=== PATIENT | male | born 1955 | race American Indian/Alaskan Native ===

== ENCOUNTER 2018-02-09 13:50 | Inpatient (IN) | payer MEDICARE ==
--- NOTE | 2018-02-09 14:48 | RAD ---
PROCEDURE: CHEST RADIOGRAPH, 1 VIEW HISTORY: SOB COMPARISON: None available. FINDINGS: LUNGS: Clear. PLEURA: Probable small bilateral pleural effusion. No pneumothorax. CARDIOVASCULAR: Normal heart size. AICD. No congestive change. OSSEOUS STRUCTURES: No significant abnormalities. VISUALIZED UPPER ABDOMEN: Normal. OTHER FINDINGS: None. IMPRESSION: Probable small bilateral pleural effusion.
[2018-02-09 15:03] LABS: BASO # 0.1 K/uL (0.0-0.2); BASO % 1.4 % (0.0-2.0); EOS # 0.1 K/uL (0.0-0.7); EOS % 2.1 % (0.0-4.0); HEMOGLOBIN 13.5 g/dL (12.0-18.0); LYMPH % 16.8 % (20.0-40.0); MEAN CELL VOLUME 85.6 fL (80.0-94.0); MEAN CORPUSCULAR HGB CONC 31.6 g/dL (33.0-37.0); MEAN PLATELET VOLUME 8.6 fL (7.2-11.7); MONO # 0.7 K/uL (0.0-0.8); MONO % 11.9 % (0.0-10.0); NEUT # 4.1 K/uL (1.8-7.0); NEUT % 67.8 % (50.0-75.0); NRBC % 0.1 % (0.0-2.0); RED CELL DISTRIBUTION WIDTH 19.1 % (11.5-14.5)
[2018-02-09 15:23] LABS: ALBUMIN 3.4 g/dL (3.5-5.0); CALCIUM 8.8 mg/dl (8.6-10.4)
[2018-02-09 15:33] LABS: CK-MB 1.53 ng/mL (0.0-3.38); TROPONIN I 0.026 ng/mL (0.00-0.120)
--- NOTE | 2018-02-09 17:16 | C.PDOC ---
History Of Present Illness 62-year-old male, presents to the emergency department with complaints worsening shortness of breath for the past six months. Over the past 1 week, symptoms have worsened and he has also developed worsening lower extremity edema. Patient has PMHx of CHF. He denies chest pain, fever, cough, trauma/ injuries. 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 Patient denies fever, chills, sensory changes, nausea/vomiting, or any other associated symptoms. Time Seen by Provider: 02/09/18 14:18 Chief Complaint (Nursing): Shortness Of Breath History Per: Patient History/Exam Limitations: no limitations Onset/Duration Of Symptoms: Gradual Current Symptoms Are (Timing): Worse Current Respiratory Medications: See Home Med List Severity: Moderate Past Medical History Reviewed: Historical Data, Nursing Documentation, Vital Signs Vital Signs: Last Vital Signs Temp 99.4 F 02/16/18 09:25 Pulse 97 H 02/16/18 09:25 Resp 20 02/16/18 09:25 BP 139/87 02/16/18 09:59 Pulse Ox 96 02/16/18 09:25 - Medical History PMH: Benign Prostatic Hyperplasia, CHF, Diabetes, HTN, Hypercholesterolemia, Kidney Stones, Peripheral Edema Surgical History: Cholecystectomy Family History: States: No Known Family Hx - Social History Hx Tobacco Use: No Hx Alcohol Use: No Hx Substance Use: No - Immunization History Hx Tetanus Toxoid Vaccination: Yes Hx Influenza Vaccination: Yes Hx Pneumococcal Vaccination: No Review Of Systems Constitutional: Negative for: Fever, Chills Cardiovascular: Negative for: Chest Pain, Palpitations Respiratory: Positive for: Shortness of Breath, SOB with Excertion. Negative for: Cough, Wheezing Gastrointestinal: Negative for: Nausea, Vomiting, Abdominal Pain Musculoskeletal: Positive for: Other (leg swelling ). Negative for: Back Pain Skin: Negative for: Rash Neurological: Negative for: Weakness, Numbness, Headache Physical Exam - Physical Exam Appears: Well, Non-toxic, No Acute Distress, Other (speaking in full sentences ) Skin: Warm, Dry, No Rash Head: Normacephalic Eye(s): bilateral: Normal Inspection Oral Mucosa: Moist Neck: Normal, Normal ROM Chest: Symmetrical Cardiovascular: Rhythm Regular Respiratory: Normal Breath Sounds, No Rales, No Rhonchi, No Wheezing Gastrointestinal/Abdominal: Normal Exam, Bowel Sounds, Soft, No Tenderness ( obese), No Guarding, No Rebound Extremity: Normal ROM, Pedal Edema (+2 pitting edema B/L LEs), Capillary Refill (< 2 sec all digits ), No Deformity, No Swelling, Other (chronic changes to B/L lower extremities, with scattered dressed wounds (freshly dressed today by Dr. Carrillo)) Pulses: Left Dorsalis Pedis: Normal, Right Dorsalis Pedis: Normal Neurological/Psych: Oriented x3 ED Course And Treatment - Laboratory Results Result Diagrams: 02/16/18 07:03 02/16/18 07:03 ECG: Interpreted By Me, Viewed By Me ECG Rhythm: Atrial Fibrillation ECG Interpretation: Abnormal Interpretation Of ECG: atrial fibrillation 74 bpm, left axis deviation, ventricular pacing, T wave inversions in AVF and V6. No acute ST changes O2 Sat by Pulse Oximetry: 94 (nc) Pulse Ox Interpretation: Abnormal Progress Note: Blood work, CXR, EKG ordered and reviewed. Venous doppler done, neg for acute DVT as per tech. Spoke with Dr. Sundar Harrison, since Dr. Wilfrid Harrison admits under Dr. Juvencio Miranda, would like patient admitted under his service. Repeat EKG done and underlying rhythm appears to be atrial fibrillation. Patient has no prior history of atrial fibrillation in [place] records reviewed or when asked. IV heparin ordered for anticoagulation. Patient admits to history of PE, currently on coumadin. Coags added. - Physician Consult Information Physician Contacted: Darien Miranda Outcome Of Conversation: Discussed patient with Dr. Juvencio Miranda, agrees with admission under his service. 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 Disposition - Disposition Disposition: HOSPITALIZED Disposition Time: 17:29 Condition: STABLE - Clinical Impression Clinical Impression: Acute CHF, New onset atrial fibrillation - Scribe Statement The provider has reviewed the documentation as recorded by the Scribe (Caleb Zhao) All medical record entries made by the Scribe were at my direction and personally dictated by me. I have reviewed the chart and agree that the record accurately reflects my personal performance of the history, physical exam, medical decision making, and the department course for this patient. I have also personally directed, reviewed, and agree with the discharge instructions and disposition. Decision To Admit - Pt Status Changed To: Hospital Disposition Of: Inpatient - Admit Certification Admit to Inpatient:: After my assessment, the patient will require hospitalization for at least two midnights. This is because of the severity of symptoms shown, intensity of services needed, and/or the medical risk in this patient being treated as an outpatient. - InPatient: Physician Admission Certification: I certify that this patient requires 2 or more midnights of care for the following reason:: see notes - . Bed Request Type: Telemetry Admitting Physician: Darien Miranda Patient Diagnosis: Acute CHF, New onset atrial fibrillation
--- NOTE | 2018-02-09 21:10 | CP.PCM.HP ---
Past Patient History - Past Medical History & Family History Past Medical History?: Yes - Past Social History Smoking Status: Never Smoked - CARDIAC Hx Cardiac Disorders: Yes Hx Congestive Heart Failure: Yes Hx Hypercholesterolemia: Yes Hx Hypertension: Yes Hx Peripheral Edema: Yes - RENAL Hx Chronic Kidney Disease: Yes Hx Kidney Stones: Yes - ENDOCRINE/METABOLIC Hx Endocrine Disorders: Yes Hx Diabetes Mellitus Type 1: Yes - MUSCULOSKELETAL/RHEUMATOLOGICAL Hx Falls: No - PSYCHIATRIC Hx Psychophysiologic Disorder: No Hx Substance Use: No - SURGICAL HISTORY Hx Surgeries: Yes Hx Cholecystectomy: Yes - ANESTHESIA Hx Anesthesia: Yes Hx Anesthesia Reactions: No Meds Allergies/Adverse Reactions: Allergies Allergy/AdvReac Type Severity Reaction Status Date / Time No Known Allergies Allergy Verified 02/09/18 14:08 Results - Vital Signs Recent Vital Signs: Last Vital Signs Temp 97.4 F L 02/09/18 19:45 Pulse 72 02/09/18 20:47 Resp 20 02/09/18 19:45 BP 116/81 02/09/18 19:45 Pulse Ox 96 02/09/18 19:45 - Labs Result Diagrams: 02/09/18 14:57 02/09/18 14:57 Labs: Laboratory Results - last 24 hr 02/09/18 02/09/18 14:57 14:57 WBC 6.0 RBC 5.00 Hgb 13.5 Hct 42.8 MCV 85.6 MCH 27.0 MCHC 31.6 L RDW 19.1 H Plt Count 196 MPV 8.6 Neut % (Auto) 67.8 Lymph % (Auto) 16.8 L Kershaw % (Auto) 11.9 H Eos % (Auto) 2.1 Baso % (Auto) 1.4 Neut # (Auto) 4.1 Lymph # (Auto) 1.0 [place]haw # (Auto) 0.7 Eos # (Auto) 0.1 Baso # (Auto) 0.1 Sodium 148 Potassium 4.2 Chloride 108 H Carbon Dioxide 26 Anion Gap 18 BUN 37 H Creatinine 1.9 H Est GFR ( Amer) 44 Est GFR (Non-Af Amer) 36 Random Glucose 136 H Calcium 8.8 Total Bilirubin 3.7 H AST 31 ALT 23 Alkaline Phosphatase 138 H Total Creatine Kinase 63 CK-MB (Mass) 1.53 Troponin I 0.0260 NT-Pro-B Natriuret Pep 06568 H Total Protein 6.7 Albumin 3.4 L Globulin 3.3 Albumin/Globulin Ratio 1.0
[2018-02-09] MEDS: Brimonidine 0.2% Opth Sol (5ml) OU SCH (21:36)
[2018-02-09] MEDS: Insulin Detemir 100 units/ml Vial (Levemir) SC SCH (22:37)
[2018-02-09] MEDS: Latanoprost 2.5 ml Opht Soln OU SCH (22:37)
[2018-02-10 00:23] LABS: INR 1.4; PROTHROMBIN TIME 14.9 SECONDS (9.7-12.2)
[2018-02-10 00:39] LABS: CK-MB 1.53 ng/mL (0.0-3.38); TROPONIN I 0.03 ng/mL (0.00-0.120)
[2018-02-10] MEDS: Albuterol-Ipratrop 3 mg / 0.5 (3 ml) UD INH SCH ×5 (01:34→19:50)
[2018-02-10 07:51] LABS: CK-MB 1.58 ng/mL (0.0-3.38); TROPONIN I 0.032 ng/mL (0.00-0.120)
[2018-02-10] MEDS: (Novolog) Insulin Aspart, Recombinant 100 u/ml 10 ml vial SC SCH ×3 (08:26→17:19)
[2018-02-10] MEDS: Metoprolol Succinate 50 mg XL Tab PO SCH (09:36)
[2018-02-10] MEDS: Brimonidine 0.2% Opth Sol (5ml) OU SCH (09:50)
[2018-02-10 14:09] LABS: BASO # 0.1 K/uL (0.0-0.2); BASO % 1.6 % (0.0-2.0); EOS # 0.2 K/uL (0.0-0.7); EOS % 3.5 % (0.0-4.0); HEMOGLOBIN 13.1 g/dL (12.0-18.0); LYMPH # 1.4 K/uL (1.0-4.3); LYMPH % 25.7 % (20.0-40.0); MEAN CELL VOLUME 86.3 fL (80.0-94.0); MEAN CORPUSCULAR HEMOGLOBIN 27.1 pg (27.0-31.0); MEAN CORPUSCULAR HGB CONC 31.4 g/dL (33.0-37.0); MEAN PLATELET VOLUME 8.8 fL (7.2-11.7); MONO # 0.7 K/uL (0.0-0.8); MONO % 13.3 % (0.0-10.0); NEUT # 2.9 K/uL (1.8-7.0); NEUT % 55.9 % (50.0-75.0); NRBC % 0.2 % (0.0-2.0); RBC 4.85 Mil/uL (4.40-5.90); RED CELL DISTRIBUTION WIDTH 19.3 % (11.5-14.5); WHITE BLOOD COUNT 5.3 K/uL (4.8-10.8)
[2018-02-10 14:14] LABS: ALBUMIN 3.6 g/dL (3.5-5.0); CALCIUM 9.1 mg/dl (8.6-10.4)
--- NOTE | 2018-02-10 16:01 | CP.PCM.PN ---
Subjective - Date & Time of Evaluation Date of Evaluation: 02/10/18 Time of Evaluation: 11:20 - Subjective Subjective: clinically same Objective - Vital Signs/Intake and Output Vital Signs (last 24 hours): Temp Pulse Resp BP Pulse Ox 97.5 F L 70 20 132/90 96 02/10/18 08:42 02/10/18 08:42 02/10/18 08:42 02/10/18 09:34 02/10/18 08:42 Intake and Output: 02/10/18 02/10/18 06:59 18:59 Intake Total 240 Output Total 800 Balance -560 - Medications Medications: Current Medications Albuterol/Ipratropium (Duoneb 3 Mg/0.5 Mg (3 Ml) Ud) 3 ml INH RQ6 [facility] Last Admin: 02/10/18 13:14 Dose: 3 ml Allopurinol (Zyloprim) 100 mg PO DAILY [facility] Last Admin: 02/10/18 09:33 Dose: 100 mg Amlodipine Besylate (Norvasc) 10 mg PO DAILY [facility] Last Admin: 02/10/18 09:33 Dose: 10 mg Aspirin (Ecotrin) 81 mg PO DAILY [facility] Last Admin: 02/10/18 09:34 Dose: 81 mg Brimonidine Tartrate (Alphagan 0.2% Opht) 0 ml OU DAILY [facility] Last Admin: 02/10/18 09:50 Dose: 0.2 drop Furosemide (Lasix) 40 mg IVP DAILY [facility] Last Admin: 02/10/18 09:34 Dose: 40 mg Insulin Aspart (Novolog) 8 unit SC AC [facility] Last Admin: 02/10/18 12:25 Dose: 8 unit Insulin Detemir (Levemir) 25 unit SC HS [facility] Last Admin: 02/09/18 22:37 Dose: 25 unit Latanoprost (Xalatan Opht) 0 ml OU HS [facility] Last Admin: 02/09/18 22:37 Dose: 2.5 ml Losartan Potassium (Cozaar) 25 mg PO DAILY [facility] Last Admin: 02/10/18 09:33 Dose: 25 mg Metoprolol Succinate (Toprol Xl) 25 mg PO DAILY [facility] Last Admin: 02/10/18 09:36 Dose: 25 mg Pneumococcal Polyvalent Vaccine (Pneumovax 23 Vaccine) 0.5 ml IM .ONCE ONE Stop: 05/18/18 10:01 Rosuvastatin Calcium (Crestor) 10 mg PO [facility] Last Admin: 02/09/18 22:36 Dose: 10 mg Tamsulosin HCl (Flomax) 0.4 mg PO DAILY [facility] Last Admin: 02/10/18 09:34 Dose: 0.4 mg Timolol Maleate (Timoptic 0.5% Ophth Soln) 0 drop OU DAILY [facility] Last Admin: 02/10/18 09:50 Dose: 0.5 % Warfarin Sodium (Coumadin) 7.5 mg PO DAILY@1800 [facility] Stop: 02/10/18 18:01 - Labs Labs: 02/10/18 14:01 02/10/18 07:15 PT 14.9 SECONDS (9.7-12.2) H 02/10/18 00:12 INR 1.4 02/10/18 00:12 APTT 50 SECONDS (21-34) H 02/10/18 00:12 - Constitutional Appears: Well - Head Exam Head Exam: ATRAUMATIC, NORMAL INSPECTION, NORMOCEPHALIC - Eye Exam Eye Exam: EOMI, Normal appearance, PERRL Pupil Exam: NORMAL ACCOMODATION, PERRL - ENT Exam ENT Exam: Mucous Membranes Moist, Normal Exam - Neck Exam Neck Exam: Full ROM, Normal Inspection. absent: Lymphadenopathy - Respiratory Exam Respiratory Exam: Decreased Breath Sounds - Cardiovascular Exam Cardiovascular Exam: REGULAR RHYTHM, +S1, +S2 - GI/Abdominal Exam GI & Abdominal Exam: Soft, Diminished Bowel Sounds - Rectal Exam Rectal Exam: Deferred Assessment and Plan - Assessment and Plan (Free Text) Plan: CHF exacerbation -BNP on admission 56722, today 7530 -Last Echo 07/2017 shows EF <35% -S/P ACID -Lasix 40mg IV -Metoprolol 25mg daily -Cozaar 25mg -Cardiology consulted, Dr. Robles help appreciated -Input output, daily weight -Fluid restriction Hx of PE -September 2017 per -Coumadin 7.5mg -ASA 81mg -INR 1.4 on admission Afib -EKG in the ED show Afib with frequent Ventricular paced complexes -Patient denies history of Afib -Currently rate controlled on metoprolol -Coumadin 7.5mg -ASA 81mg -Cardiology consulted -CHADS-VASc Score 5, Stroke risk was 7.2% per year -HAS-BLED Score 2, intermediate risk 1.88-3.2% risk of major bleeding Lower extremity swelling -F/u LE venous doppler -wound care consulted -Podiatry consulted Diabetes -FS ACHS -ISS -Hypoglycemia protocol -Levemir 25u HS -Novolog 8u AC BPH -Flomax 0.4mg Prophylactic measures -Protonix -Coumadin and ASA
--- NOTE | 2018-02-10 17:34 | CP.PCM.PN ---
Addendum entered and electronically signed by Craig Awan DO 02/11/18 13:22: Under Assessment and plan: Acute on chronic CHF exacerbation -BNP on admission 88659, today 7530 -Last Echo 07/2017 shows EF <35% -S/P ACID -Lasix 40mg IV -Metoprolol 25mg daily -Cozaar 25mg -Cardiology consulted, Dr. Robles help appreciated -Input output, daily weight -Fluid restriction Hx of PE -September 2017 per -Coumadin 7.5mg -ASA 81mg -INR 1.4 on admission Afib -EKG in the ED show Afib with frequent Ventricular paced complexes -Patient denies history of Afib -Currently rate controlled on metoprolol -Coumadin 7.5mg -ASA 81mg -Cardiology consulted -CHADS-VASc Score 5, Stroke risk was 7.2% per year -HAS-BLED Score 2, intermediate risk 1.88-3.2% risk of major bleeding Lower extremity swelling -F/u LE venous doppler -wound care consulted -Podiatry consulted Diabetes -FS ACHS -ISS -Hypoglycemia protocol -Levemir 25u HS -Novolog 8u AC BPH -Flomax 0.4mg Prophylactic measures -Protonix -Coumadin and ASA All management per Dr. Miranda Original Note: <Craig Awan - Last Filed: 02/10/18 22:07> Subjective - Date & Time of Evaluation Date of Evaluation: 02/10/18 Time of Evaluation: 11:45 - Subjective Subjective: Progress Note for Dr. Miranda Patient seen and examined at bedside with patient's present. No acute events reported overnight. Patient resting in bed comfortably. He states that his shortness of breath has improved significantly compared to yesterday. Patient's revealed to me that patient does not adhere to low sodium diet often. Patient denies fever, chills, headache, chest pain, nausea, vomiting, or diarrhea. Objective - Vital Signs/Intake and Output Vital Signs (last 24 hours): Temp Pulse Resp BP Pulse Ox 98.0 F 69 20 130/85 97 02/10/18 15:15 02/10/18 15:15 02/10/18 15:15 02/10/18 15:15 02/10/18 15:15 Intake and Output: 02/10/18 02/10/18 06:59 18:59 Intake Total 240 Output Total 800 Balance -560 - Medications Medications: Current Medications Albuterol/Ipratropium (Duoneb 3 Mg/0.5 Mg (3 Ml) Ud) 3 ml INH RQ6 [facility] Last Admin: 02/10/18 13:14 Dose: 3 ml Allopurinol (Zyloprim) 100 mg PO DAILY [facility] Last Admin: 02/10/18 09:33 Dose: 100 mg Amlodipine Besylate (Norvasc) 10 mg PO DAILY [facility] Last Admin: 02/10/18 09:33 Dose: 10 mg Aspirin (Ecotrin) 81 mg PO DAILY [facility] Last Admin: 02/10/18 09:34 Dose: 81 mg Brimonidine Tartrate (Alphagan 0.2% Opht) 0 ml OU DAILY [facility] Last Admin: 02/10/18 09:50 Dose: 0.2 drop Furosemide (Lasix) 40 mg IVP DAILY [facility] Last Admin: 02/10/18 09:34 Dose: 40 mg Insulin Aspart (Novolog) 8 unit SC AC [facility] Last Admin: 02/10/18 17:19 Dose: 8 unit Insulin Detemir (Levemir) 25 unit SC HS [facility] Last Admin: 02/09/18 22:37 Dose: 25 unit Latanoprost (Xalatan Opht) 0 ml OU HS [facility] Last Admin: 02/09/18 22:37 Dose: 2.5 ml Losartan Potassium (Cozaar) 25 mg PO DAILY [facility] Last Admin: 02/10/18 09:33 Dose: 25 mg Metoprolol Succinate (Toprol Xl) 25 mg PO DAILY [facility] Last Admin: 02/10/18 09:36 Dose: 25 mg Pneumococcal Polyvalent Vaccine (Pneumovax 23 Vaccine) 0.5 ml IM .ONCE ONE Stop: 02/11/18 10:01 Rosuvastatin Calcium (Crestor) 10 mg PO HS [facility] Last Admin: 02/09/18 22:36 Dose: 10 mg Tamsulosin HCl (Flomax) 0.4 mg PO DAILY [facility] Last Admin: 02/10/18 09:34 Dose: 0.4 mg Timolol Maleate (Timoptic 0.5% Ophth Soln) 0 drop OU DAILY [facility] Last Admin: 02/10/18 09:50 Dose: 0.5 % Warfarin Sodium (Coumadin) 7.5 mg PO DAILY@1800 [facility] Stop: 02/10/18 18:01 Last Admin: 02/10/18 17:18 Dose: 7.5 mg - Labs Labs: 02/10/18 14:01 02/10/18 07:15 PT 14.9 SECONDS (9.7-12.2) H 02/10/18 00:12 INR 1.4 02/10/18 00:12 APTT 50 SECONDS (21-34) H 02/10/18 00:12 - Constitutional Appears: Non-toxic, No Acute Distress - Head Exam Head Exam: ATRAUMATIC, NORMOCEPHALIC - Eye Exam Eye Exam: Normal appearance, PERRL - ENT Exam ENT Exam: Mucous Membranes Moist - Neck Exam Neck Exam: Normal Inspection - Respiratory Exam Respiratory Exam: Clear to Ausculation Bilateral, NORMAL BREATHING PATTERN. absent: Respiratory Distress - Cardiovascular Exam Cardiovascular Exam: REGULAR RHYTHM, +S1, +S2. absent: Murmur - GI/Abdominal Exam GI & Abdominal Exam: Soft, Normal Bowel Sounds. absent: Tenderness - Extremities Exam Extremities Exam: Pedal Edema Additional comments: bilateral LE edema, L>R Left lower leg chronic ulcer - Neurological Exam Neurological Exam: Alert, Awake, Oriented x3 - Psychiatric Exam Psychiatric exam: Normal Affect, Normal Mood - Skin Skin Exam: Dry, Warm Assessment and Plan - Assessment and Plan (Free Text) Assessment: CHF exacerbation -[place]NP [place] admission 15002, today 7530 -Last Echo 07/2017 shows EF <35% -S/P ACID -Lasix 40mg IV -Metoprolol 25mg daily -Cozaar 25mg -Cardiology consulted, Dr. Robles help appreciated -Input output, daily weight -Fluid restriction Hx of PE -September 2017 per -Coumadin 7.5mg -ASA 81mg -INR 1.4 on admission Afib -EKG in the ED show Afib with frequent Ventricular paced complexes -Patient denies history of Afib -Currently rate controlled on metoprolol -Coumadin 7.5mg -ASA 81mg -Cardiology consulted -CHADS-VASc Score 5, Stroke risk was 7.2% per year -HAS-BLED Score 2, intermediate risk 1.88-3.2% risk of major bleeding Lower extremity swelling -F/u LE venous doppler -wound care consulted -Podiatry consulted Diabetes -FS ACHS -ISS -Hypoglycemia protocol -Levemir 25u HS -Novolog 8u AC BPH -Flomax 0.4mg Prophylactic measures -Protonix -Coumadin and ASA All management per Dr. Miranda <Darien Miranda S - Last Filed: 02/24/18 00:49> Objective - Vital Signs/Intake and Output Vital Signs (last 24 hours): Temp Pulse Resp BP Pulse Ox 98.0 F 98 H 20 130/92 H 100 02/23/18 15:54 02/23/18 15:54 02/23/18 15:54 02/23/18 15:54 02/23/18 15:54 - Medications Medications: Current Medications Allopurinol (Zyloprim) 100 mg PO DAILY [facility] Last Admin: 02/23/18 10:57 Dose: 100 mg Amlodipine Besylate (Norvasc) 10 mg PO DAILY [facility] Last Admin: 02/23/18 10:57 Dose: 10 mg Aspirin (Ecotrin) 81 mg PO DAILY [facility] Last Admin: 02/23/18 10:55 Dose: 81 mg Brimonidine Tartrate (Alphagan 0.2% Opht) 0 ml OU DAILY [facility] Last Admin: 02/23/18 10:57 Dose: 1 drop Dextrose (Dextrose 50% Inj) 0 ml IVP .STAT PRN; Protocol PRN Reason: Hypoglycemia Protocol Dextrose (Glutose 15) 0 gm PO .ONCE PRN; Protocol PRN Reason: Hypoglycemia Protocol Furosemide (Lasix) 40 mg IVP DAILY [facility] Last Admin: 02/23/18 11:27 Dose: 40 mg Glucagon (Glucagen Diagnostic Kit) 0 mg IM .STAT PRN; Protocol PRN Reason: Hypoglycemia Protocol Insulin Aspart (Novolog) 8 unit SC AC [facility] Last Admin: 02/23/18 18:00 Dose: 8 unit Insulin Detemir (Levemir) 25 unit SC HS [facility] Last Admin: 02/23/18 21:56 Dose: Not Given Insulin Human Regular (Novolin R) 0 unit SC [facility] PRN Reason: Protocol Last Admin: 02/23/18 21:54 Dose: Not Given Lactulose (Enulose) 20 gm PO Q12 PRN PRN Reason: Constipation Last Admin: 02/10/18 23:02 Dose: 20 gm Latanoprost (Xalatan Opht) 0 ml OU HS [facility] Last Admin: 02/23/18 21:54 Dose: 2.5 ml Losartan Potassium (Cozaar) 25 mg PO DAILY [facility] Last Admin: 02/23/18 10:57 Dose: 25 mg Metoprolol Succinate (Toprol Xl) 25 mg PO DAILY [facility] Last Admin: 02/23/18 10:57 Dose: 25 mg Ondansetron HCl (Zofran Inj) 4 mg IVP Q6 PRN PRN Reason: Nausea/Vomiting Last Admin: 02/10/18 20:03 Dose: 4 mg Pantoprazole Sodium (Protonix Ec Tab) 40 mg PO DAILY [facility] Last Admin: 02/23/18 10:57 Dose: 40 mg Rosuvastatin Calcium (Crestor) 10 mg PO HS [facility] Last Admin: 02/23/18 21:52 Dose: 10 mg Tamsulosin HCl (Flomax) 0.4 mg PO DAILY [facility] Last Admin: 02/23/18 10:57 Dose: 0.4 mg Timolol Maleate (Timoptic 0.5% Ophth Soln) 0 drop OU DAILY [facility] Last Admin: 02/23/18 10:58 Dose: 1 drop - Labs Labs: 02/23/18 07:23 02/23/18 07:23 PT 23.4 SECONDS (9.7-12.2) H 02/23/18 07:23 INR 2.1 02/23/18 07:23 APTT 50 SECONDS (21-34) H 02/10/18 00:12 Attending/Attestation - Attestation I have personally seen and examined this patient.: Yes I have fully participated in the care of the patient.: Yes I have reviewed all pertinent clinical information, including history, physical exam and plan: Yes
--- NOTE | 2018-02-10 18:44 | CP.PCM.CON ---
Past Patient History - Past Medical History & Family History Past Medical History?: Yes - Past Social History Smoking Status: Never Smoked - CARDIAC Hx Cardiac Disorders: Yes Hx Congestive Heart Failure: Yes Hx Hypercholesterolemia: Yes Hx Hypertension: Yes Hx Peripheral Edema: Yes - RENAL Hx Chronic Kidney Disease: Yes Hx Kidney Stones: Yes - ENDOCRINE/METABOLIC Hx Endocrine Disorders: Yes Hx Diabetes Mellitus Type 1: Yes - MUSCULOSKELETAL/RHEUMATOLOGICAL Hx Falls: No - PSYCHIATRIC Hx Psychophysiologic Disorder: No Hx Substance Use: No - SURGICAL HISTORY Hx Surgeries: Yes Hx Cholecystectomy: Yes - ANESTHESIA Hx Anesthesia: Yes Hx Anesthesia Reactions: No Meds Allergies/Adverse Reactions: Allergies Allergy/AdvReac Type Severity Reaction Status Date / Time No Known Allergies Allergy Verified 02/09/18 14:08 - Medications Medications: Current Medications Albuterol/Ipratropium (Duoneb 3 Mg/0.5 Mg (3 Ml) Ud) 3 ml INH RQ6 [facility] Last Admin: 02/10/18 13:14 Dose: 3 ml Allopurinol (Zyloprim) 100 mg PO DAILY [facility] Last Admin: 02/10/18 09:33 Dose: 100 mg Amlodipine Besylate (Norvasc) 10 mg PO DAILY [facility] Last Admin: 02/10/18 09:33 Dose: 10 mg Aspirin (Ecotrin) 81 mg PO DAILY [facility] Last Admin: 02/10/18 09:34 Dose: 81 mg Brimonidine Tartrate (Alphagan 0.2% Opht) 0 ml OU DAILY [facility] Last Admin: 02/10/18 09:50 Dose: 0.2 drop Furosemide (Lasix) 40 mg IVP DAILY [facility] Last Admin: 02/10/18 09:34 Dose: 40 mg Insulin Aspart (Novolog) 8 unit SC AC [facility] Last Admin: 02/10/18 17:19 Dose: 8 unit Insulin Detemir (Levemir) 25 unit SC HS [facility] Last Admin: 02/09/18 22:37 Dose: 25 unit Latanoprost (Xalatan Opht) 0 ml OU HS [facility] Last Admin: 02/09/18 22:37 Dose: 2.5 ml Losartan Potassium (Cozaar) 25 mg PO DAILY [facility] Last Admin: 02/10/18 09:33 Dose: 25 mg Metoprolol Succinate (Toprol Xl) 25 mg PO DAILY [facility] Last Admin: 02/10/18 09:36 Dose: 25 mg Pneumococcal Polyvalent Vaccine (Pneumovax 23 Vaccine) 0.5 ml IM .ONCE ONE Stop: 02/11/18 10:01 Rosuvastatin Calcium (Crestor) [address] [facility] Last Admin: 02/09/18 22:36 Dose: 10 mg Tamsulosin HCl (Flomax) 0.4 mg PO DAILY [facility] Last Admin: 02/10/18 09:34 Dose: 0.4 mg Timolol Maleate (Timoptic 0.5% Ophth Soln) 0 drop OU DAILY [facility] Last Admin: 02/10/18 09:50 Dose: 0.5 % Results - Vital Signs Recent Vital Signs: Last Vital Signs Temp 98.0 F 02/10/18 15:15 Pulse 69 02/10/18 15:15 Resp 20 02/10/18 15:15 BP 130/85 02/10/18 15:15 Pulse Ox 97 02/10/18 15:15 - Labs Result Diagrams: 02/10/18 14:01 02/10/18 07:15 Labs: Laboratory Results - last 24 hr 02/09/18 02/10/18 02/10/18 21:47 00:12 00:12 WBC RBC Hgb Hct MCV MCH MCHC RDW Plt Count MPV Neut % (Auto) Lymph % (Auto) Sac % (Auto) Eos % (Auto) Baso % (Auto) Neut # (Auto) Lymph # (Auto) Sac # (Auto) Eos # (Auto) Baso # (Auto) PT 14.9 H INR 1.4 APTT 50 H Sodium Potassium Chloride Carbon Dioxide Anion Gap BUN Creatinine Est GFR ( Amer) Est GFR (Non-Af Amer) POC Glucose (mg/dL) 161 H Random Glucose Calcium Total Bilirubin AST ALT Alkaline Phosphatase Total Creatine Kinase 62 CK-MB (Mass) 1.53 Troponin I 0.0300 NT-Pro-B Natriuret Pep Total Protein Albumin Globulin Albumin/Globulin Ratio Procalcitonin 02/10/18 02/10/18 02/10/18 06:45 07:15 07:15 WBC RBC Hgb Hct MCV MCH MCHC RDW Plt Count MPV Neut % (Auto) Lymph % (Auto) Sac % (Auto) Eos % (Auto) Baso % (Auto) Neut # (Auto) Lymph # (Auto) Sac # (Auto) Eos # (Auto) Baso # (Auto) PT INR APTT Sodium 151 H Potassium 4.0 Chloride 108 H Carbon Dioxide 25 Anion Gap 22 H BUN 34 H Creatinine 1.8 H Est GFR ( Amer) 46 Est GFR (Non-Af Amer) 38 POC Glucose (mg/dL) 122 H Random Glucose 95 Calcium 9.1 Total Bilirubin 4.1 H AST 27 ALT 20 L Alkaline Phosphatase 133 H Total Creatine Kinase CK-MB (Mass) Troponin I NT-Pro-B Natriuret Pep 7530 H Total Protein 7.2 Albumin 3.6 Globulin 3.6 Albumin/Globulin Ratio 1.0 Procalcitonin 0.05 L 02/10/18 02/10/18 02/10/18 07:15 11:56 14:01 WBC 5.3 RBC 4.85 Hgb 13.1 Hct 41.8 MCV 86.3 MCH 27.1 MCHC 31.4 L RDW 19.3 H Plt Count 188 MPV 8.8 Neut % (Auto) 55.9 Lymph % (Auto) 25.7 Sac % (Auto) 13.3 H Eos % (Auto) 3.5 Baso % (Auto) 1.6 Neut # (Auto) 2.9 Lymph # (Auto) 1.4 Sac # (Auto) 0.7 Eos # (Auto) 0.2 Baso # (Auto) 0.1 PT INR APTT Sodium Potassium Chloride Carbon Dioxide Anion Gap BUN Creatinine Est GFR ( Amer) Est GFR (Non-Af Amer) POC Glucose (mg/dL) 150 H Random Glucose Calcium Total Bilirubin AST ALT Alkaline Phosphatase Total Creatine Kinase 57 CK-MB (Mass) 1.58 Troponin I 0.0320 NT-Pro-B Natriuret Pep Total Protein Albumin Globulin Albumin/Globulin Ratio Procalcitonin 02/10/18 17:04 WBC RBC Hgb Hct MCV MCH MCHC RDW Plt Count MPV Neut % (Auto) Lymph % (Auto) Sac % (Auto) Eos % (Auto) Baso % (Auto) Neut # (Auto) Lymph # (Auto) Sac # (Auto) Eos # (Auto) Baso # (Auto) PT INR APTT Sodium Potassium Chloride Carbon Dioxide Anion Gap BUN Creatinine Est GFR ( Amer) Est GFR (Non-Af Amer) POC Glucose (mg/dL) 123 H Random Glucose Calcium Total Bilirubin AST ALT Alkaline Phosphatase Total Creatine Kinase CK-MB (Mass) Troponin I NT-Pro-B Natriuret Pep Total Protein Albumin Globulin Albumin/Globulin Ratio Procalcitonin
[2018-02-10] MEDS: Insulin Detemir 100 units/ml Vial (Levemir) SC SCH (21:21)
[2018-02-10] MEDS: Latanoprost 2.5 ml Opht Soln OU SCH (21:26)
--- NOTE | 2018-02-10 22:45 | CARD ---
APPROVED REPORT EKG Measurement Heart [id number] <Conclusion> Atrial fibrillation with frequent ventricular-paced complexes Left axis deviation Nonspecific T wave abnormality ([place] beats) Abnormal ECG
--- NOTE | 2018-02-10 22:48 | CARD ---
APPROVED REPORT EKG Measurement Heart [id number] <Conclusion> Atrial fibrillation Ventricular paced beats Left axis deviation Nonspecific ST and T wave abnormality Abnormal ECG
[2018-02-10] MEDS ORDERED: Glucagon Recombinant 1 mg Inj IM PRN (23:11)
[2018-02-10] MEDS ORDERED: Dextrose 50% SYRINGE Inj (50 ml) IVP PRN (23:11)
[2018-02-11] MEDS: Albuterol-Ipratrop 3 mg / 0.5 (3 ml) UD INH SCH ×4 (02:12→19:05)
[2018-02-11] MEDS: (Novolog) Insulin Aspart, Recombinant 100 u/ml 10 ml vial SC SCH ×3 (07:30→18:07)
[2018-02-11] MEDS: (Novolin R) Insulin Human Regular 100 units/ml vial SC SCH ×4 (07:30→22:57)
--- NOTE | 2018-02-11 07:58 | CP.PCM.PN ---
Subjective - Date & Time of Evaluation Date of Evaluation: 02/11/18 Time of Evaluation: 11:55 - Subjective Subjective: Progress Note for Dr. Miranda Patient seen and examined at bedside. No acute events overnight. Patient is resting in bed comfortably at the time of examination. He reports his shortness of breath has improved from yesterday. Patient states that he had a PE in September and has been on Coumadin since. However, he is not compliant with daily dose as Coumadin sometimes makes him "feel sick". I explained to the patient the importance of medication compliance. Patient denies fever, chills, headache , chest pain, nausea, vomiting or diarrhea. Objective - Vital Signs/Intake and Output Vital Signs (last 24 hours): Temp Pulse Resp BP Pulse Ox 97.6 F 74 20 123/83 99 02/11/18 01:00 02/11/18 03:52 02/11/18 01:00 02/11/18 01:00 02/11/18 01:00 - Medications Medications: Current Medications Albuterol/Ipratropium (Duoneb 3 Mg/0.5 Mg (3 Ml) Ud) 3 ml INH RQ6 [facility] Last Admin: 02/11/18 07:22 Dose: 3 ml Allopurinol (Zyloprim) 100 mg PO DAILY [facility] Last Admin: 02/10/18 09:33 Dose: 100 mg Amlodipine Besylate (Norvasc) 10 mg PO DAILY [facility] Last Admin: 02/10/18 09:33 Dose: 10 mg Aspirin (Ecotrin) 81 mg PO DAILY [facility] Last Admin: 02/10/18 09:34 Dose: 81 mg Brimonidine Tartrate (Alphagan 0.2% Opht) 0 ml OU DAILY [facility] Last Admin: 02/10/18 09:50 Dose: 0.2 drop Dextrose (Dextrose 50% Inj) 0 ml IVP .STAT PRN; Protocol PRN Reason: Hypoglycemia Protocol Dextrose (Glutose 15) 0 gm PO .ONCE PRN; Protocol PRN Reason: Hypoglycemia Protocol Furosemide (Lasix) 40 mg IVP DAILY [facility] Last Admin: 02/10/18 09:34 Dose: 40 mg Glucagon (Glucagen Diagnostic Kit) 0 mg IM .STAT PRN; Protocol PRN Reason: Hypoglycemia Protocol Dextrose (Dextrose 5% In Water 1000 Ml) 1,000 mls @ 0 mls/hr IV .Q0M PRN; Protocol; Per Protocol PRN Reason: Hypoglycemia Protocol Insulin Aspart (Novolog) 8 unit SC AC [facility] Last Admin: 02/10/18 17:19 Dose: 8 unit Insulin Detemir (Levemir) 25 unit SC HS [facility] Last Admin: 02/10/18 21:21 Dose: Not Given Insulin Human Regular (Novolin R) 0 unit SC ACHS [facility] PRN Reason: Protocol Lactulose (Enulose) 20 gm PO Q12 PRN PRN Reason: Constipation Last Admin: 02/10/18 23:02 Dose: 20 gm Latanoprost (Xalatan Opht) 0 ml OU HS [facility] Last Admin: 02/10/18 21:26 Dose: 2.5 ml Losartan Potassium (Cozaar) 25 mg PO DAILY [facility] Last Admin: 02/10/18 09:33 Dose: 25 mg Metoprolol Succinate (Toprol Xl) 25 mg PO DAILY [facility] Last Admin: 02/10/18 09:36 Dose: 25 mg Ondansetron HCl (Zofran Inj) 4 mg IVP Q6 PRN PRN Reason: Nausea/Vomiting Last Admin: 02/10/18 20:03 Dose: 4 mg Pantoprazole Sodium (Protonix Ec Tab) 40 mg PO DAILY [facility] Pneumococcal Polyvalent Vaccine (Pneumovax 23 Vaccine) 0.5 ml IM .ONCE ONE Stop: 02/11/18 10:01 Rosuvastatin Calcium (Crestor) 10 mg PO HS [facility] Last Admin: 02/10/18 21:26 Dose: 10 mg Tamsulosin HCl (Flomax) 0.4 mg PO DAILY [facility] Last Admin: 02/10/18 09:34 Dose: 0.4 mg Timolol Maleate (Timoptic 0.5% Ophth Soln) 0 drop OU DAILY [facility] Last Admin: 02/10/18 09:50 Dose: 0.5 % Warfarin Sodium (Coumadin) 7.5 mg PO 1800 [facility] Stop: 02/11/18 18:01 - Labs Labs: 02/10/18 14:01 02/10/18 07:15 PT 14.9 SECONDS (9.7-12.2) H 02/10/18 00:12 INR 1.4 02/10/18 00:12 APTT 50 SECONDS (21-34) H 02/10/18 00:12 - Additional Findings Additional findings: - Constitutional Appears: Non-toxic, No Acute Distress - Head Exam Head Exam: ATRAUMATIC, NORMOCEPHALIC - Eye Exam Eye Exam: Normal appearance, PERRL - ENT Exam ENT Exam: Mucous Membranes Moist - Neck Exam Neck Exam: Normal Inspection - Respiratory Exam Respiratory Exam: Clear to Ausculation Bilateral, NORMAL BREATHING PATTERN. absent: Respiratory Distress - Cardiovascular Exam Cardiovascular Exam: REGULAR RHYTHM, +S1, +S2. absent: Murmur - GI/Abdominal Exam GI & Abdominal Exam: Soft, Normal Bowel Sounds. absent: Tenderness - Extremities Exam Extremities Exam: Pedal Edema Additional comments: bilateral LE edema, L>R Left lower leg chronic ulcer - Neurological Exam Neurological Exam: Alert, Awake, Oriented x3 - Psychiatric Exam Psychiatric exam: Normal Affect, Normal Mood - Skin Skin Exam: Dry, Warm Assessment and Plan - Assessment and Plan (Free Text) Assessment: Acute on chronic CHF exacerbation -BNP on admission 45089, today 7530 -Last Echo 07/2017 shows EF <35% -S/P ACID -Lasix 40mg IV -Metoprolol 25mg daily -Cozaar 25mg -Cardiology consulted, Dr. Robles help appreciated -Input output, daily weight -Fluid restriction Hx of PE -September 2017 per -Increased Coumadin to 9mg today -ASA 81mg -INR 1.3 today, subtheraputic Afib -EKG in the ED show Afib with frequent Ventricular paced complexes -Patient denies history of Afib -Currently rate controlled on metoprolol -Coumadin 7.5mg -ASA 81mg -Cardiology consulted -CHADS-VASc Score 5, Stroke risk was 7.2% per year -HAS-BLED Score 2, intermediate risk 1.88-3.2% risk of major bleeding Lower extremity swelling -LE venous doppler negative for DVT -Likely secondary Chronic CHF Lower extremity chronic ulcer -wound care consulted -Podiatry consulted Diabetes -FS ACHS -ISS -Hypoglycemia protocol -Levemir 25u HS -Novolog 8u AC BPH -Flomax 0.4mg Prophylactic measures -Protonix -Coumadin and ASA All management per Dr. Miranda
[2018-02-11 08:50] LABS: BASO % 0.7 % (0.0-2.0); EOS % 0.2 % (0.0-4.0); HEMOGLOBIN 13.6 g/dL (12.0-18.0); LYMPH # 0.6 K/uL (1.0-4.3); LYMPH % 8.1 % (20.0-40.0); MEAN CELL VOLUME 86.3 fL (80.0-94.0); MEAN CORPUSCULAR HGB CONC 31.3 g/dL (33.0-37.0); MEAN PLATELET VOLUME 9.1 fL (7.2-11.7); MONO # 0.5 K/uL (0.0-0.8); MONO % 6.7 % (0.0-10.0); NEUT # 6.2 K/uL (1.8-7.0); NEUT % 84.3 % (50.0-75.0); NRBC % 0.1 % (0.0-2.0); PLATELET COUNT 192 K/uL (130-400); RBC 5.04 Mil/uL (4.40-5.90); RED CELL DISTRIBUTION WIDTH 18.6 % (11.5-14.5); WHITE BLOOD COUNT 7.3 K/uL (4.8-10.8)
[2018-02-11 08:58] LABS: ALBUMIN 3.6 g/dL (3.5-5.0)
[2018-02-11 09:00] LABS: INR 1.3; PROTHROMBIN TIME 14.3 SECONDS (9.7-12.2)
[2018-02-11] MEDS ORDERED: Pneumococcal 23-Valent Vaccine IM ONE (10:00)
[2018-02-11] MEDS: Pantoprazole 40 mg EC Tab PO SCH (10:36)
[2018-02-11] MEDS: Metoprolol Succinate 50 mg XL Tab PO SCH (10:36)
[2018-02-11] MEDS: Brimonidine 0.2% Opth Sol (5ml) OU SCH (10:37)
--- NOTE | 2018-02-11 10:40 | VASCLAB ---
PROCEDURE: Left Lower Extremity Venous Duplex Exam. HISTORY: LEFT LEG SWELLING/PAIN R/O DVT PRIORS: None. TECHNIQUE: Left common femoral, femoral, popliteal and posterior tibial, peroneal and great saphenous veins were evaluated. Flow was assessed with color Doppler, compressibility, assessment of phasic flow and augmentation response. Report prepared by CYNDY [place], RVT FINDINGS: LEFT: 1. Common Femoral Vein: 1.1. Compressibility - Fully compressible: Thrombus - None : Flow - Phasic: Augmentation -Normal: Reflux - None. 2. Femoral Vein: 2.1. Compressibility - Fully compressible: Thrombus - None: Flow - Phasic: Augmentation -Normal: Reflux - None. 3. Popliteal Vein: 3.1. Compressibility - Fully compressible: Thrombus - None: Flow - Phasic: Augmentation -Normal: Reflux - None. 4. Posterior Tibial Vein: 4.1. Compressibility - : Thrombus - : Flow - : Augmentation -: Reflux - . 5. Peroneal Vein: 5.1. Compressibility - : Thrombus - : Flow - : Augmentation -: Reflux - . 6. Great Saphenous Vein: 6.1. Compressibility - Fully compressible: Thrombus - None: Flow - Phasic: Augmentation - Normal: Reflux - None. OTHER FINDINGS: Due to swelling in the calf, the left peroneal and posterior tibial vein were not visualized. Technically limited study on the left distal femoral vein due to severe swelling. IMPRESSION: No evidence of deep or superficial vein thrombosis of the left lower extremity with excellent venous flow. Normal valve function noted of the left side. Normal venous flow noted in the right common femoral vein.
[2018-02-11 11:00] LABS: ANISOCYTOSIS MODERATE; LYMPHOCYTE 5 % (20-40); MONOCYTE 5 % (0-10); NEUTROPHIL 90 % (50-75); PLATELET ESTIMATE NORMAL (NORMAL); TOTAL CELLS COUNTED 100
--- NOTE | 2018-02-11 11:32 | CP.PCM.CON ---
<Yousuf Tariq - Last Filed: 02/11/18 11:27> History of Present Illness - History of Present Illness History of Present Illness: Progress Note for Dr. Miranda 62 yo male patient with PMHx of CHF was seen at bedside this morning with attending Dr. Carrillo concerning Left leg edema and superficial ulcerations. Patient is well known to Dr. Carrillo Wilfrid and have been treated for superficial ulceration to left leg. Patient is resting comfortably and no pain is generated from the left leg wounds. Patient complains of swelling and serous drainage from left leg. No pain is induced when changing the dressings. Patient denies of any N/V/F/C or SOB today Past Patient History - Past Medical History & Family History Past Medical History?: Yes - Past Social History Smoking Status: Never Smoked - CARDIAC Hx Cardiac Disorders: Yes Hx Congestive Heart Failure: Yes Hx Hypercholesterolemia: Yes Hx Hypertension: Yes Hx Peripheral Edema: Yes - RENAL Hx Chronic Kidney Disease: Yes Hx Kidney Stones: Yes - ENDOCRINE/METABOLIC Hx Endocrine Disorders: Yes Hx Diabetes Mellitus Type 1: Yes - MUSCULOSKELETAL/RHEUMATOLOGICAL Hx Falls: No - PSYCHIATRIC Hx Psychophysiologic Disorder: No Hx Substance Use: No - SURGICAL HISTORY Hx Surgeries: Yes Hx Cholecystectomy: Yes - ANESTHESIA Hx Anesthesia: Yes Hx Anesthesia Reactions: No Meds Allergies/Adverse Reactions: Allergies Allergy/AdvReac Type Severity Reaction Status Date / Time No Known Allergies Allergy Verified 02/09/18 14:08 - Medications Medications: Current Medications Albuterol/Ipratropium (Duoneb 3 Mg/0.5 Mg (3 Ml) Ud) 3 ml INH RQ6 [facility] Last Admin: 02/11/18 07:22 Dose: 3 ml Allopurinol (Zyloprim) 100 mg PO DAILY [facility] Last Admin: 02/11/18 10:36 Dose: 100 mg Amlodipine Besylate (Norvasc) 10 mg PO DAILY [facility] Last Admin: 02/11/18 10:36 Dose: 10 mg Aspirin (Ecotrin) 81 mg PO DAILY [facility] Last Admin: 02/11/18 10:37 Dose: 81 mg Brimonidine Tartrate (Alphagan 0.2% Opht) 0 ml OU DAILY [facility] Last Admin: 02/11/18 10:37 Dose: 0.2 drop Dextrose (Dextrose 50% Inj) 0 ml IVP .STAT PRN; Protocol PRN Reason: Hypoglycemia Protocol Dextrose (Glutose 15) 0 gm PO .ONCE PRN; Protocol PRN Reason: Hypoglycemia Protocol Furosemide (Lasix) 40 mg IVP DAILY [facility] Last Admin: 02/10/18 09:34 Dose: 40 mg Glucagon (Glucagen Diagnostic Kit) 0 mg IM .STAT PRN; Protocol PRN Reason: Hypoglycemia Protocol Dextrose (Dextrose 5% In Water 1000 Ml) 1,000 mls @ 0 mls/hr IV .Q0M PRN; Protocol; Per Protocol PRN Reason: Hypoglycemia Protocol Insulin Aspart (Novolog) 8 unit SC AC [facility] Last Admin: 02/10/18 17:19 Dose: 8 unit Insulin Detemir (Levemir) 25 unit SC HS [facility] Last Admin: 02/10/18 21:21 Dose: Not Given Insulin Human Regular (Novolin R) 0 unit SC [facility] PRN Reason: Protocol Lactulose (Enulose) 20 gm PO Q12 PRN PRN Reason: Constipation Last Admin: 02/10/18 23:02 Dose: 20 gm Latanoprost (Xalatan Opht) 0 ml OU [facility] Last Admin: 02/10/18 21:26 Dose: 2.5 ml Losartan Potassium (Cozaar) 25 mg PO DAILY [facility] Last Admin: 02/11/18 10:37 Dose: 25 mg Metoprolol Succinate (Toprol Xl) 25 mg PO DAILY [facility] Last Admin: 02/11/18 10:36 Dose: 25 mg Ondansetron HCl (Zofran Inj) 4 mg IVP Q6 PRN PRN Reason: Nausea/Vomiting Last Admin: 02/10/18 20:03 Dose: 4 mg Pantoprazole Sodium (Protonix Ec Tab) 40 mg PO DAILY [facility] Last Admin: 02/11/18 10:36 Dose: 40 mg Rosuvastatin Calcium (Crestor) 10 mg PO HS [facility] Last Admin: 02/10/18 21:26 Dose: 10 mg Tamsulosin HCl (Flomax) 0.4 mg PO DAILY [facility] Last Admin: 02/11/18 10:37 Dose: 0.4 mg Timolol Maleate (Timoptic 0.5% Ophth Soln) 0 drop OU DAILY [facility] Last Admin: 02/11/18 10:36 Dose: 0.5 % Warfarin Sodium (Coumadin) 7.5 mg PO 1800 [facility] Stop: 02/11/18 18:01 Physical Exam - Constitutional Appears: Well, Non-toxic, No Acute Distress - Head Exam Head Exam: ATRAUMATIC - Extremities Exam Additional comments: Left lower extremity exam DERM: Superficial open ulceration noted to medial and lateral aspect of left leg measuring 3cm x 3xm x 0.1cm with granular base. Serous drainage noted from the ulceration. No mal-odor noted. Mild erythema noted to left leg. No purulent discharge noted. No PTB VASC: Left lower extremity cold to touch. Bilaterally edema noted L>R. Non- palpable DP and PT noted bilaterally, PNP less than 3 seconds noted to all digits NEURO: Gross sensation intact ORTHO: Decreased ROM noted to all joints distal to anklr joint - Neurological Exam Neurological exam: Alert, Oriented x3 - Psychiatric Exam Psychiatric exam: Normal Affect, Normal Mood - Skin Skin Exam: Normal Color, Warm Results - Vital Signs Recent Vital Signs: Last Vital Signs Temp 98.1 F 02/11/18 07:00 Pulse 72 02/11/18 07:40 Resp 20 02/11/18 07:00 BP 120/79 02/11/18 07:00 Pulse Ox 94 L 02/11/18 07:00 - Labs Result Diagrams: 02/11/18 08:33 02/11/18 08:33 Labs: Laboratory Results - last 24 hr 02/10/18 02/10/18 02/10/18 07:15 11:56 14:01 WBC 5.3 RBC 4.85 Hgb 13.1 Hct 41.8 MCV 86.3 MCH 27.1 MCHC 31.4 L RDW 19.3 H Plt Count 188 MPV 8.8 Neut % (Auto) 55.9 Lymph % (Auto) 25.7 Brule % (Auto) 13.3 H Eos % (Auto) 3.5 Baso % (Auto) 1.6 Neut # (Auto) 2.9 Lymph # (Auto) 1.4 Brule # (Auto) 0.7 Eos # (Auto) 0.2 Baso # (Auto) 0.1 Neutrophils % (Manual) Lymphocytes % (Manual) Monocytes % (Manual) Platelet Estimate Anisocytosis (manual) PT INR Sodium 151 H Potassium 4.0 Chloride 108 H Carbon Dioxide 25 Anion Gap 22 H BUN 34 H Creatinine 1.8 H Est GFR ( Amer) 46 Est GFR (Non-Af Amer) 38 POC Glucose (mg/dL) 150 H Random Glucose 95 Calcium 9.1 Total Bilirubin 4.1 H AST 27 ALT 20 L Alkaline Phosphatase 133 H NT-Pro-B Natriuret Pep 7530 H Total Protein 7.2 Albumin 3.6 Globulin 3.6 Albumin/Globulin Ratio 1.0 02/10/18 02/10/18 02/11/18 17:04 20:42 02:17 WBC RBC Hgb Hct MCV MCH MCHC RDW Plt Count MPV Neut % (Auto) Lymph % (Auto) Brule % (Auto) Eos % (Auto) Baso % (Auto) Neut # (Auto) Lymph # (Auto) Brule # (Auto) Eos # (Auto) Baso # (Auto) Neutrophils % (Manual) Lymphocytes % (Manual) Monocytes % (Manual) Platelet Estimate Anisocytosis (manual) PT INR Sodium Potassium Chloride Carbon Dioxide Anion Gap BUN Creatinine Est GFR ( Amer) Est GFR (Non-Af Amer) POC Glucose (mg/dL) 123 H 95 119 H Random Glucose Calcium Total Bilirubin AST ALT Alkaline Phosphatase NT-Pro-B Natriuret Pep Total Protein Albumin Globulin Albumin/Globulin Ratio 02/11/18 02/11/18 02/11/18 06:52 08:33 08:33 WBC 7.3 RBC 5.04 Hgb 13.6 Hct 43.5 MCV 86.3 MCH 27.0 MCHC 31.3 L RDW 18.6 H Plt Count 192 MPV 9.1 Neut % (Auto) 84.3 H Lymph % (Auto) 8.1 L Brule % (Auto) 6.7 Eos % (Auto) 0.2 Baso % (Auto) 0.7 Neut # (Auto) 6.2 Lymph # (Auto) 0.6 L Brule # (Auto) 0.5 Eos # (Auto) 0.0 Baso # (Auto) 0.0 Neutrophils % (Manual) 90 H Lymphocytes % (Manual) 5 L Monocytes % (Manual) 5 Platelet Estimate Normal Anisocytosis (manual) Moderate PT INR Sodium 147 Potassium 4.6 Chloride 105 Carbon Dioxide 29 Anion Gap 18 BUN 30 H Creatinine 1.6 H Est GFR ( Amer) 53 Est GFR (Non-Af Amer) 44 POC Glucose (mg/dL) 137 H Random Glucose 137 H Calcium 9.0 Total Bilirubin 3.7 H AST 20 ALT 19 L Alkaline Phosphatase 123 NT-Pro-B Natriuret Pep Total Protein 7.1 Albumin 3.6 Globulin 3.5 Albumin/Globulin Ratio 1.0 02/11/18 02/11/18 08:33 11:08 WBC RBC Hgb Hct MCV MCH MCHC RDW Plt Count MPV Neut % (Auto) Lymph % (Auto) Brule % (Auto) Eos % (Auto) Baso % (Auto) Neut # (Auto) Lymph # (Auto) Brule # (Auto) Eos # (Auto) Baso # (Auto) Neutrophils % (Manual) Lymphocytes % (Manual) Monocytes % (Manual) Platelet Estimate Anisocytosis (manual) PT 14.3 H INR 1.3 Sodium Potassium Chloride Carbon Dioxide Anion Gap BUN Creatinine Est GFR ( Amer) Est GFR (Non-Af Amer) POC Glucose (mg/dL) 208 H Random Glucose Calcium Total Bilirubin AST ALT Alkaline Phosphatase NT-Pro-B Natriuret Pep Total Protein Albumin Globulin Albumin/Globulin Ratio Assessment & Plan - Assessment and Plan (Free Text) Assessment: 62 yo male patient presenting with lower extremity edema and superficial ulceration to left leg Plan: Patient was seen, evaluated rounded with attending Dr. Carrillo labs and vitals reviewed; afebrile, WBC 7.3 left leg cleansed wiht saline, dressed with Xerofor, DSD, ABD arterial doppler ordered Podiatry will continue to follow inhouse <Deangelo Carrillo - Last Filed: 02/12/18 21:35> Meds - Medications Medications: Current Medications Albuterol/Ipratropium (Duoneb 3 Mg/0.5 Mg (3 Ml) Ud) 3 ml INH RQ6 [facility] Last Admin: 02/12/18 19:19 Dose: 3 ml Allopurinol (Zyloprim) 100 mg PO DAILY [facility] Last Admin: 02/12/18 10:55 Dose: 100 mg Amlodipine Besylate (Norvasc) 10 mg PO DAILY [facility] Last Admin: 02/12/18 10:55 Dose: 10 mg Aspirin (Ecotrin) 81 mg PO DAILY [facility] Last Admin: 02/12/18 10:58 Dose: 81 mg Brimonidine Tartrate (Alphagan 0.2% Opht) 0 ml OU DAILY [facility] Last Admin: 02/12/18 10:57 Dose: 0.2 drop Dextrose (Dextrose 50% Inj) 0 ml IVP .STAT PRN; Protocol PRN Reason: Hypoglycemia Protocol Dextrose (Glutose 15) 0 gm PO .ONCE PRN; Protocol PRN Reason: Hypoglycemia Protocol Furosemide (Lasix) 40 mg IVP DAILY [facility] Last Admin: 02/12/18 11:00 Dose: 40 mg Glucagon (Glucagen Diagnostic Kit) 0 mg IM .STAT PRN; Protocol PRN Reason: Hypoglycemia Protocol Dextrose (Dextrose 5% In Water 1000 Ml) 1,000 mls @ 0 mls/hr IV .Q0M PRN; Protocol; Per Protocol PRN Reason: Hypoglycemia Protocol Insulin Aspart (Novolog) 8 unit SC AC [facility] Last Admin: 02/12/18 18:16 Dose: Not Given Insulin Detemir (Levemir) 25 unit SC HS [facility] Last Admin: 02/11/18 22:56 Dose: Not Given Insulin Human Regular (Novolin R) [address] [facility] PRN Reason: Protocol Last Admin: 02/12/18 16:37 Dose: Not Given Lactulose (Enulose) 20 gm PO Q12 PRN PRN Reason: Constipation Last Admin: 02/10/18 23:02 Dose: 20 gm Latanoprost (Xalatan Opht) 0 ml OU [facility] Last Admin: 02/11/18 23:04 Dose: 1 ml Losartan Potassium (Cozaar) 25 mg PO DAILY [facility] Last Admin: 02/12/18 10:55 Dose: 25 mg Metoprolol Succinate (Toprol Xl) 25 mg PO DAILY [facility] Last Admin: 02/12/18 10:55 Dose: 25 mg Ondansetron HCl (Zofran Inj) 4 mg IVP Q6 PRN PRN Reason: Nausea/Vomiting Last Admin: 02/10/18 20:03 Dose: 4 mg Pantoprazole Sodium (Protonix Ec Tab) 40 mg PO DAILY [facility] Last Admin: 02/12/18 10:55 Dose: 40 mg Rosuvastatin Calcium (Crestor) 10 mg PO HS [facility] Last Admin: 02/11/18 22:58 Dose: 10 mg Tamsulosin HCl (Flomax) 0.4 mg PO DAILY [facility] Last Admin: 02/12/18 10:58 Dose: 0.4 mg Timolol Maleate (Timoptic 0.5% Ophth Soln) 0 drop OU DAILY [facility] Last Admin: 02/12/18 10:00 Dose: 0.5 % Results - Vital Signs Recent Vital Signs: Last Vital Signs Temp 98.6 F 02/12/18 15:20 Pulse 75 02/12/18 17:30 Resp 20 02/12/18 15:20 BP 119/84 02/12/18 15:20 Pulse Ox 96 02/12/18 15:20 - Labs Result Diagrams: 02/12/18 07:04 02/12/18 07:04 Labs: Laboratory Results - last 24 hr 02/11/18 02/11/18 02/12/18 16:34 21:31 06:39 WBC RBC Hgb Hct MCV MCH MCHC RDW Plt Count MPV Neut % (Auto) Lymph % (Auto) Brule % (Auto) Eos % (Auto) Baso % (Auto) Neut # (Auto) Lymph # (Auto) Brule # (Auto) Eos # (Auto) Baso # (Auto) PT INR Sodium Potassium Chloride Carbon Dioxide Anion Gap BUN Creatinine Est GFR ( Amer) Est GFR (Non-Af Amer) POC Glucose (mg/dL) 102 128 H 141 H Random Glucose Calcium Total Bilirubin AST ALT Alkaline Phosphatase Total Protein Albumin Globulin Albumin/Globulin Ratio 02/12/18 02/12/18 02/12/18 07:04 07:04 12:07 WBC 8.6 RBC 4.58 Hgb 12.6 Hct 39.3 MCV 85.7 MCH 27.4 MCHC 32.0 L RDW 18.7 H Plt Count 167 MPV 8.6 Neut % (Auto) 67.0 Lymph % (Auto) 24.0 Brule % (Auto) 8.0 Eos % (Auto) 1.0 Baso % (Auto) 0.0 Neut # (Auto) 5.8 Lymph # (Auto) 2.1 Brule # (Auto) 0.7 Eos # (Auto) 0.1 Baso # (Auto) 0.0 PT INR Sodium 144 Potassium 4.8 Chloride 106 Carbon Dioxide 29 Anion Gap 14 BUN 30 H Creatinine 1.8 H Est GFR ( Amer) 46 Est GFR (Non-Af Amer) 38 POC Glucose (mg/dL) 167 H Random Glucose 127 H Calcium 8.6 Total Bilirubin 3.9 H AST 18 ALT 16 L Alkaline Phosphatase 108 Total Protein 6.9 Albumin 3.5 Globulin 3.4 Albumin/Globulin Ratio 1.0 02/12/18 02/12/18 13:58 16:29 WBC RBC Hgb Hct MCV MCH MCHC RDW Plt Count MPV Neut % (Auto) Lymph % (Auto) Brule % (Auto) Eos % (Auto) Baso % (Auto) Neut # (Auto) Lymph # (Auto) Brule # (Auto) Eos # (Auto) Baso # (Auto) PT 15.5 H INR 1.4 Sodium Potassium Chloride Carbon Dioxide Anion Gap BUN Creatinine Est GFR ( Amer) Est GFR (Non-Af Amer) POC Glucose (mg/dL) 120 H Random Glucose Calcium Total Bilirubin AST ALT Alkaline Phosphatase Total Protein Albumin Globulin Albumin/Globulin Ratio Assessment & Plan - Assessment and Plan (Free Text) Plan: Pt seen at bedside with resident .agree with above findings . Labs and chart reviewed. Arterial dopplers ordered. wound care daily ./DR BOWSER
--- NOTE | 2018-02-11 12:47 | CP.PCM.CON ---
History of Present Illness - History of Present Illness History of Present Illness: Mr. Davis is a 62 years old gentleman with prior history of dilated cardiomyopathy, had prior cath with normal coronaries and ejection fraction of 25%, recent stress test, July 2017, was without ischemia and ejection fraction is 25% also with chronic persistent atrial fibrillation he is basically treated with ROGERIO inhibitor and beta chay in addition to oral anticoagulation, ICD was also placed. He is with adequate compliance with medication and office visit. He had a deep vein thrombosis followed by venostasis and at this time he's admitted with laceration and repair in of the left leg edema. He's been treated by podiatry in addition to bedrest, water restriction, salt restriction, with continuation of medical treatment and monitoring of the ICD. Continue oral anticoagulation. Review of Systems - Review of Systems All systems: reviewed and no additional remarkable complaints except - Constitutional Constitutional: Anorexia, Weight Loss, Weakness - EENT Eyes: absent: Discharge Nose/Mouth/Throat: absent: Nasal Discharge - Cardiovascular Cardiovascular: Edema, Leg Edema. absent: Chest Pain, Dyspnea on Exertion, Palpitations, Syncope - Respiratory Respiratory: Cough, Dyspnea. absent: Hemoptysis - Gastrointestinal Gastrointestinal: absent: Abdominal Pain, Constipation, Melena, Nausea, Vomiting - Genitourinary Genitourinary: absent: Change in Urinary Stream Past Patient History - Past Medical History & Family History Past Medical History?: Yes - Past Social History Smoking Status: Never Smoked - CARDIAC Hx Cardiac Disorders: Yes Hx Congestive Heart Failure: Yes Hx Hypercholesterolemia: Yes Hx Hypertension: Yes Hx Peripheral Edema: Yes - RENAL Hx Chronic Kidney Disease: Yes Hx Kidney Stones: Yes - ENDOCRINE/METABOLIC Hx Endocrine Disorders: Yes Hx Diabetes Mellitus Type 1: Yes - MUSCULOSKELETAL/RHEUMATOLOGICAL Hx Falls: No - PSYCHIATRIC Hx Psychophysiologic Disorder: No Hx Substance Use: No - SURGICAL HISTORY Hx Surgeries: Yes Hx Cholecystectomy: Yes - ANESTHESIA Hx Anesthesia: Yes Hx Anesthesia Reactions: No Meds Allergies/Adverse Reactions: Allergies Allergy/AdvReac Type Severity Reaction Status Date / Time No Known Allergies Allergy Verified 02/09/18 14:08 - Medications Medications: Current Medications Albuterol/Ipratropium (Duoneb 3 Mg/0.5 Mg (3 Ml) Ud) 3 ml INH RQ6 [facility] Last Admin: 02/11/18 07:22 Dose: 3 ml Allopurinol (Zyloprim) 100 mg PO DAILY [facility] Last Admin: 02/11/18 10:36 Dose: 100 mg Amlodipine Besylate (Norvasc) 10 mg PO DAILY [facility] Last Admin: 02/11/18 10:36 Dose: 10 mg Aspirin (Ecotrin) 81 mg PO DAILY [facility] Last Admin: 02/11/18 10:37 Dose: 81 mg Brimonidine Tartrate (Alphagan 0.2% Opht) 0 ml OU DAILY [facility] Last Admin: 02/11/18 10:37 Dose: 0.2 drop Dextrose (Dextrose 50% Inj) 0 ml IVP .STAT PRN; Protocol PRN Reason: Hypoglycemia Protocol Dextrose (Glutose 15) 0 gm PO .ONCE PRN; Protocol PRN Reason: Hypoglycemia Protocol Furosemide (Lasix) 40 mg IVP DAILY [facility] Last Admin: 02/11/18 10:30 Dose: 40 mg Glucagon (Glucagen Diagnostic Kit) 0 mg IM .STAT PRN; Protocol PRN Reason: Hypoglycemia Protocol Dextrose (Dextrose 5% In Water 1000 Ml) 1,000 mls @ 0 mls/hr IV .Q0M PRN; Protocol; Per Protocol PRN Reason: Hypoglycemia Protocol Insulin Aspart (Novolog) 8 unit SC AC [facility] Last Admin: 02/11/18 12:05 Dose: 8 unit Insulin Detemir (Levemir) 25 unit SC HS [facility] Last Admin: 02/10/18 21:21 Dose: Not Given Insulin Human Regular (Novolin R) 0 unit SC [facility] PRN Reason: Protocol Last Admin: 02/11/18 12:05 Dose: 3 unit Lactulose (Enulose) 20 gm PO Q12 PRN PRN Reason: Constipation Last Admin: 02/10/18 23:02 Dose: 20 gm Latanoprost (Xalatan Opht) 0 ml OU HS [facility] Last Admin: 02/10/18 21:26 Dose: 2.5 ml Losartan Potassium (Cozaar) 25 mg PO DAILY [facility] Last Admin: 02/11/18 10:37 Dose: 25 mg Metoprolol Succinate (Toprol Xl) 25 mg PO DAILY [facility] Last Admin: 02/11/18 10:36 Dose: 25 mg Ondansetron HCl (Zofran Inj) 4 mg IVP Q6 PRN PRN Reason: Nausea/Vomiting Last Admin: 02/10/18 20:03 Dose: 4 mg Pantoprazole Sodium (Protonix Ec Tab) 40 mg PO DAILY [facility] Last Admin: 02/11/18 10:36 Dose: 40 mg Rosuvastatin Calcium (Crestor) 10 mg PO HS [facility] Last Admin: 02/10/18 21:26 Dose: 10 mg Tamsulosin HCl (Flomax) 0.4 mg PO DAILY [facility] Last Admin: 02/11/18 10:37 Dose: 0.4 mg Timolol Maleate (Timoptic 0.5% Ophth Soln) 0 drop OU DAILY [facility] Last Admin: 02/11/18 10:36 Dose: 0.5 % Warfarin Sodium (Coumadin) 7.5 mg PO 1800 [facility] Stop: 02/11/18 18:01 Physical Exam - Constitutional Appears: Non-toxic - Head Exam Head Exam: ATRAUMATIC - Eye Exam Eye Exam: EOMI - ENT Exam ENT Exam: Mucous Membranes Moist - Neck Exam Neck exam: Negative for: Lymphadenopathy, Thyromegaly - Respiratory Exam Respiratory Exam: Clear to Auscultation Bilateral. absent: Rales - Cardiovascular Exam Cardiovascular Exam: Irregular Rhythm, Systolic Murmur - GI/Abdominal Exam GI & Abdominal Exam: Normal Bowel Sounds. absent: Organomegaly - Rectal Exam Rectal Exam: Deferred - Extremities Exam Extremities exam: Positive for: pedal edema. Negative for: calf tenderness - Neurological Exam Neurological exam: Alert, Oriented x3 - Psychiatric Exam Psychiatric exam: Normal Mood - Skin Skin Exam: Dry Results - Vital Signs Recent Vital Signs: Last Vital Signs Temp 98.1 F 02/11/18 07:00 Pulse 72 02/11/18 07:40 Resp 20 02/11/18 07:00 BP 131/85 02/11/18 10:30 Pulse Ox 94 L 02/11/18 07:00 - Labs Result Diagrams: 02/11/18 08:33 02/11/18 08:33 Labs: Laboratory Results - last 24 hr 02/10/18 02/10/18 02/10/18 07:15 11:56 14:01 WBC 5.3 RBC 4.85 Hgb 13.1 Hct 41.8 MCV 86.3 MCH 27.1 MCHC 31.4 L RDW 19.3 H Plt Count 188 MPV 8.8 Neut % (Auto) 55.9 Lymph % (Auto) 25.7 Reagan % (Auto) 13.3 H Eos % (Auto) 3.5 Baso % (Auto) 1.6 Neut # (Auto) 2.9 Lymph # (Auto) 1.4 Reagan # (Auto) 0.7 Eos # (Auto) 0.2 Baso # (Auto) 0.1 Neutrophils % (Manual) Lymphocytes % (Manual) Monocytes % (Manual) Platelet Estimate Anisocytosis (manual) PT INR Sodium 151 H Potassium 4.0 Chloride 108 H Carbon Dioxide 25 Anion Gap 22 H BUN 34 H Creatinine 1.8 H Est GFR ( Amer) 46 Est GFR (Non-Af Amer) 38 POC Glucose (mg/dL) 150 H Random Glucose 95 Calcium 9.1 Total Bilirubin 4.1 H AST 27 ALT 20 L Alkaline Phosphatase 133 H NT-Pro-B Natriuret Pep 7530 H Total Protein 7.2 Albumin 3.6 Globulin 3.6 Albumin/Globulin Ratio 1.0 02/10/18 02/10/18 02/11/18 17:04 20:42 02:17 WBC RBC Hgb Hct MCV MCH MCHC RDW Plt Count MPV Neut % (Auto) Lymph % (Auto) Reagan % (Auto) Eos % (Auto) Baso % (Auto) Neut # (Auto) Lymph # (Auto) Reagan # (Auto) Eos # (Auto) Baso # (Auto) Neutrophils % (Manual) Lymphocytes % (Manual) Monocytes % (Manual) Platelet Estimate Anisocytosis (manual) PT INR Sodium Potassium Chloride Carbon Dioxide Anion Gap BUN Creatinine Est GFR ( Amer) Est GFR (Non-Af Amer) POC Glucose (mg/dL) 123 H 95 119 H Random Glucose Calcium Total Bilirubin AST ALT Alkaline Phosphatase NT-Pro-B Natriuret Pep Total Protein Albumin Globulin Albumin/Globulin Ratio 02/11/18 02/11/18 02/11/18 06:52 08:33 08:33 WBC 7.3 RBC 5.04 Hgb 13.6 Hct 43.5 MCV 86.3 MCH 27.0 MCHC 31.3 L RDW 18.6 H Plt Count 192 MPV 9.1 Neut % (Auto) 84.3 H Lymph % (Auto) 8.1 L Reagan % (Auto) 6.7 Eos % (Auto) 0.2 Baso % (Auto) 0.7 Neut # (Auto) 6.2 Lymph # (Auto) 0.6 L Reagan # (Auto) 0.5 Eos # (Auto) 0.0 Baso # (Auto) 0.0 Neutrophils % (Manual) 90 H Lymphocytes % (Manual) 5 L Monocytes % (Manual) 5 Platelet Estimate Normal Anisocytosis (manual) Moderate PT INR Sodium 147 Potassium 4.6 Chloride 105 Carbon Dioxide 29 Anion Gap 18 BUN 30 H Creatinine 1.6 H Est GFR ( Amer) 53 Est GFR (Non-Af Amer) 44 POC Glucose (mg/dL) 137 H Random Glucose 137 H Calcium 9.0 Total Bilirubin 3.7 H AST 20 ALT 19 L Alkaline Phosphatase 123 NT-Pro-B Natriuret Pep Total Protein 7.1 Albumin 3.6 Globulin 3.5 Albumin/Globulin Ratio 1.0 02/11/18 02/11/18 08:33 11:08 WBC RBC Hgb Hct MCV MCH MCHC RDW Plt Count MPV Neut % (Auto) Lymph % (Auto) Reagan % (Auto) Eos % (Auto) Baso % (Auto) Neut # (Auto) Lymph # (Auto) Reagan # (Auto) Eos # (Auto) Baso # (Auto) Neutrophils % (Manual) Lymphocytes % (Manual) Monocytes % (Manual) Platelet Estimate Anisocytosis (manual) PT 14.3 H INR 1.3 Sodium Potassium Chloride Carbon Dioxide Anion Gap BUN Creatinine Est GFR ( Amer) Est GFR (Non-Af Amer) POC Glucose (mg/dL) 208 H Random Glucose Calcium Total Bilirubin AST ALT Alkaline Phosphatase NT-Pro-B Natriuret Pep Total Protein Albumin Globulin Albumin/Globulin Ratio Assessment & Plan (1) Dilated cardiomyopathy Status: Acute Comment: Acute over chronic left ventricular systolic heart failure on beta chay, ROGERIO inhibitor, ICD (2) Atrial fibrillation, chronic Status: Chronic Comment: Rate controlled, no hyperthyroidism, low EF, on oral anticoagulation
--- NOTE | 2018-02-11 15:12 | CP.PCM.PN ---
Subjective - Date & Time of Evaluation Date of Evaluation: 02/11/18 Time of Evaluation: 15:12 Objective - Vital Signs/Intake and Output Vital Signs (last 24 hours): Temp Pulse Resp BP Pulse Ox 98.1 F 72 20 131/85 94 L 02/11/18 07:00 02/11/18 07:40 02/11/18 07:00 02/11/18 10:30 02/11/18 07:00 - Medications Medications: Current Medications Albuterol/Ipratropium (Duoneb 3 Mg/0.5 Mg (3 Ml) Ud) 3 ml INH RQ6 [facility] Last Admin: 02/11/18 13:31 Dose: 3 ml Allopurinol (Zyloprim) 100 mg PO DAILY [facility] Last Admin: 02/11/18 10:36 Dose: 100 mg Amlodipine Besylate (Norvasc) 10 mg PO DAILY [facility] Last Admin: 02/11/18 10:36 Dose: 10 mg Aspirin (Ecotrin) 81 mg PO DAILY [facility] Last Admin: 02/11/18 10:37 Dose: 81 mg Brimonidine Tartrate (Alphagan 0.2% Opht) 0 ml OU DAILY [facility] Last Admin: 02/11/18 10:37 Dose: 0.2 drop Dextrose (Dextrose 50% Inj) 0 ml IVP .STAT PRN; Protocol PRN Reason: Hypoglycemia Protocol Dextrose (Glutose 15) 0 gm PO .ONCE PRN; Protocol PRN Reason: Hypoglycemia Protocol Furosemide (Lasix) 40 mg IVP DAILY [facility] Last Admin: 02/11/18 10:30 Dose: 40 mg Glucagon (Glucagen Diagnostic Kit) 0 mg IM .STAT PRN; Protocol PRN Reason: Hypoglycemia Protocol Dextrose (Dextrose 5% In Water 1000 Ml) 1,000 mls @ 0 mls/hr IV .Q0M PRN; Protocol; Per Protocol PRN Reason: Hypoglycemia Protocol Insulin Aspart (Novolog) 8 unit SC AC [facility] Last Admin: 02/11/18 12:05 Dose: 8 unit Insulin Detemir (Levemir) 25 unit SC HS [facility] Last Admin: 02/10/18 21:21 Dose: Not Given Insulin Human Regular (Novolin R) 0 unit SC ACHS [facility] PRN Reason: Protocol Last Admin: 02/11/18 12:05 Dose: 3 unit Lactulose (Enulose) 20 gm PO Q12 PRN PRN Reason: Constipation Last Admin: 02/10/18 23:02 Dose: 20 gm Latanoprost (Xalatan Opht) 0 ml OU HS [facility] Last Admin: 02/10/18 21:26 Dose: 2.5 ml Losartan Potassium (Cozaar) 25 mg PO DAILY [facility] Last Admin: 02/11/18 10:37 Dose: 25 mg Metoprolol Succinate (Toprol Xl) 25 mg PO DAILY [facility] Last Admin: 02/11/18 10:36 Dose: 25 mg Ondansetron HCl (Zofran Inj) 4 mg IVP Q6 PRN PRN Reason: Nausea/Vomiting Last Admin: 02/10/18 20:03 Dose: 4 mg Pantoprazole Sodium (Protonix Ec Tab) 40 mg PO DAILY [facility] Last Admin: 02/11/18 10:36 Dose: 40 mg Rosuvastatin Calcium (Crestor) 10 mg PO HS [facility] Last Admin: 02/10/18 21:26 Dose: 10 mg Tamsulosin HCl (Flomax) 0.4 mg PO DAILY [facility] Last Admin: 02/11/18 10:37 Dose: 0.4 mg Timolol Maleate (Timoptic 0.5% Ophth Soln) 0 drop OU DAILY [facility] Last Admin: 02/11/18 10:36 Dose: 0.5 % Warfarin Sodium (Coumadin) 7.5 mg PO 1800 [facility] Stop: 02/11/18 18:01 - Labs Labs: 02/11/18 08:33 02/11/18 08:33 PT 14.3 SECONDS (9.7-12.2) H 02/11/18 08:33 INR 1.3 02/11/18 08:33 APTT 50 SECONDS (21-34) H 02/10/18 00:12
--- NOTE | 2018-02-11 16:49 | CP.PCM.PN ---
Subjective - Date & Time of Evaluation Date of Evaluation: 02/11/18 Time of Evaluation: 10:40 - Subjective Subjective: clinically same Objective - Vital Signs/Intake and Output Vital Signs (last 24 hours): Temp Pulse Resp BP Pulse Ox 97.9 F 84 20 110/74 97 02/11/18 15:27 02/11/18 15:27 02/11/18 15:27 02/11/18 15:27 02/11/18 15:27 - Medications Medications: Current Medications Albuterol/Ipratropium (Duoneb 3 Mg/0.5 Mg (3 Ml) Ud) 3 ml INH RQ6 [facility] Last Admin: 02/11/18 13:31 Dose: 3 ml Allopurinol (Zyloprim) 100 mg PO DAILY [facility] Last Admin: 02/11/18 10:36 Dose: 100 mg Amlodipine Besylate (Norvasc) 10 mg PO DAILY [facility] Last Admin: 02/11/18 10:36 Dose: 10 mg Aspirin (Ecotrin) 81 mg PO DAILY [facility] Last Admin: 02/11/18 10:37 Dose: 81 mg Brimonidine Tartrate (Alphagan 0.2% Opht) 0 ml OU DAILY [facility] Last Admin: 02/11/18 10:37 Dose: 0.2 drop Dextrose (Dextrose 50% Inj) 0 ml IVP .STAT PRN; Protocol PRN Reason: Hypoglycemia Protocol Dextrose (Glutose 15) 0 gm PO .ONCE PRN; Protocol PRN Reason: Hypoglycemia Protocol Furosemide (Lasix) 40 mg IVP DAILY [facility] Last Admin: 02/11/18 10:30 Dose: 40 mg Glucagon (Glucagen Diagnostic Kit) 0 mg IM .STAT PRN; Protocol PRN Reason: Hypoglycemia Protocol Dextrose (Dextrose 5% In Water 1000 Ml) 1,000 mls @ 0 mls/hr IV .Q0M PRN; Protocol; Per Protocol PRN Reason: Hypoglycemia Protocol Insulin Aspart (Novolog) 8 unit SC AC [facility] Last Admin: 02/11/18 12:05 Dose: 8 unit Insulin Detemir (Levemir) 25 unit SC HS [facility] Last Admin: 02/10/18 21:21 Dose: Not Given Insulin Human Regular (Novolin R) 0 unit SC ACHS [facility] PRN Reason: Protocol Last Admin: 02/11/18 12:05 Dose: 3 unit Lactulose (Enulose) 20 gm PO Q12 PRN PRN Reason: Constipation Last Admin: 02/10/18 23:02 Dose: 20 gm Latanoprost (Xalatan Opht) 0 ml OU HS [facility] Last Admin: 02/10/18 21:26 Dose: 2.5 ml Losartan Potassium (Cozaar) 25 mg PO DAILY [facility] Last Admin: 02/11/18 10:37 Dose: 25 mg Metoprolol Succinate (Toprol Xl) 25 mg PO DAILY [facility] Last Admin: 02/11/18 10:36 Dose: 25 mg Ondansetron HCl (Zofran Inj) 4 mg IVP Q6 PRN PRN Reason: Nausea/Vomiting Last Admin: 02/10/18 20:03 Dose: 4 mg Pantoprazole Sodium (Protonix Ec Tab) 40 mg PO DAILY [facility] Last Admin: 02/11/18 10:36 Dose: 40 mg Rosuvastatin Calcium (Crestor) 10 mg PO HS [facility] Last Admin: 02/10/18 21:26 Dose: 10 mg Tamsulosin HCl (Flomax) 0.4 mg PO DAILY [facility] Last Admin: 02/11/18 10:37 Dose: 0.4 mg Timolol Maleate (Timoptic 0.5% Ophth Soln) 0 drop OU DAILY [facility] Last Admin: 02/11/18 10:36 Dose: 0.5 % Warfarin Sodium (Coumadin) 9 mg PO 1800 [facility] Stop: 02/11/18 18:01 - Labs Labs: 02/11/18 08:33 02/11/18 08:33 PT 14.3 SECONDS (9.7-12.2) H 02/11/18 08:33 INR 1.3 02/11/18 08:33 APTT 50 SECONDS (21-34) H 02/10/18 00:12 - Constitutional Appears: Well - Head Exam Head Exam: ATRAUMATIC, NORMAL INSPECTION, NORMOCEPHALIC - Eye Exam Eye Exam: EOMI, Normal appearance, PERRL Pupil Exam: NORMAL ACCOMODATION, PERRL - ENT Exam ENT Exam: Mucous Membranes Moist, Normal Exam - Neck Exam Neck Exam: Full ROM, Normal Inspection. absent: Lymphadenopathy - Respiratory Exam Respiratory Exam: Decreased Breath Sounds - Cardiovascular Exam Cardiovascular Exam: REGULAR RHYTHM, +S1, +S2 - GI/Abdominal Exam GI & Abdominal Exam: Soft, Diminished Bowel Sounds - Rectal Exam Rectal Exam: Deferred
[2018-02-11] MEDS: Insulin Detemir 100 units/ml Vial (Levemir) SC SCH (22:56)
[2018-02-11] MEDS: Latanoprost 2.5 ml Opht Soln OU SCH (23:04)
[2018-02-12] MEDS: Albuterol-Ipratrop 3 mg / 0.5 (3 ml) UD INH SCH ×4 (01:20→19:19)
[2018-02-12 07:19] LABS: HEMOGLOBIN 12.6 g/dL (12.0-18.0); MEAN CELL VOLUME 85.7 fL (80.0-94.0); MEAN CORPUSCULAR HEMOGLOBIN 27.4 pg (27.0-31.0); MEAN PLATELET VOLUME 8.6 fL (7.2-11.7); RBC 4.58 Mil/uL (4.40-5.90); RED CELL DISTRIBUTION WIDTH 18.7 % (11.5-14.5); WHITE BLOOD COUNT 8.6 K/uL (4.8-10.8)
[2018-02-12 07:49] LABS: ALBUMIN 3.5 g/dL (3.5-5.0); CALCIUM 8.6 mg/dl (8.6-10.4)
[2018-02-12] MEDS: (Novolin R) Insulin Human Regular 100 units/ml vial SC SCH ×4 (08:02→22:00)
[2018-02-12] MEDS: (Novolog) Insulin Aspart, Recombinant 100 u/ml 10 ml vial SC SCH ×3 (08:04→18:16)
--- NOTE | 2018-02-12 09:00 | CP.PCM.PN ---
<Markell Miranda - Last Filed: 02/12/18 08:57> Subjective - Date & Time of Evaluation Date of Evaluation: 02/12/18 Time of Evaluation: 08:57 - Subjective Subjective: Podiatry Progress note: Dr. Carrillo 62 year old male patient with PMHx of CHF was seen at bedside this morning with attending Dr. Carrillo concerning Left leg edema and superficial ulcerations. Patient is AAOx3 and shows no signs of acute distress. Appears to be resting comfortably in bed. Reports that he feels better. Denies of F/N/V/C/CP. Reports no new complains at this time. Objective - Vital Signs/Intake and Output Vital Signs (last 24 hours): Temp Pulse Resp BP Pulse Ox 98.4 F 80 18 118/75 95 02/11/18 23:39 02/12/18 03:53 02/11/18 23:39 02/11/18 23:39 02/11/18 23:39 - Medications Medications: Current Medications Albuterol/Ipratropium (Duoneb 3 Mg/0.5 Mg (3 Ml) Ud) 3 ml INH RQ6 [facility] Last Admin: 02/12/18 07:49 Dose: 3 ml Allopurinol (Zyloprim) 100 mg PO DAILY [facility] Last Admin: 02/11/18 10:36 Dose: 100 mg Amlodipine Besylate (Norvasc) 10 mg PO DAILY [facility] Last Admin: 02/11/18 10:36 Dose: 10 mg Aspirin (Ecotrin) 81 mg PO DAILY [facility] Last Admin: 02/11/18 10:37 Dose: 81 mg Brimonidine Tartrate (Alphagan 0.2% Opht) 0 ml OU DAILY [facility] Last Admin: 02/11/18 10:37 Dose: 0.2 drop Dextrose (Dextrose 50% Inj) 0 ml IVP .STAT PRN; Protocol PRN Reason: Hypoglycemia Protocol Dextrose (Glutose 15) 0 gm PO .ONCE PRN; Protocol PRN Reason: Hypoglycemia Protocol Furosemide (Lasix) 40 mg IVP DAILY [facility] Last Admin: 02/11/18 10:30 Dose: 40 mg Glucagon (Glucagen Diagnostic Kit) 0 mg IM .STAT PRN; Protocol PRN Reason: Hypoglycemia Protocol Dextrose (Dextrose 5% In Water 1000 Ml) 1,000 mls @ 0 mls/hr IV .Q0M PRN; Protocol; Per Protocol PRN Reason: Hypoglycemia Protocol Insulin Aspart (Novolog) 8 unit SC AC [facility] Last Admin: 02/12/18 08:04 Dose: 8 unit Insulin Detemir (Levemir) 25 unit SC HS [facility] Last Admin: 02/11/18 22:56 Dose: Not Given Insulin Human Regular (Novolin R) 0 unit SC ACHS [facility] PRN Reason: Protocol Last Admin: 02/12/18 08:02 Dose: Not Given Lactulose (Enulose) 20 gm PO Q12 PRN PRN Reason: Constipation Last Admin: 02/10/18 23:02 Dose: 20 gm Latanoprost (Xalatan Opht) 0 ml OU HS [facility] Last Admin: 02/11/18 23:04 Dose: 1 ml Losartan Potassium (Cozaar) 25 mg PO DAILY [facility] Last Admin: 02/11/18 10:37 Dose: 25 mg Metoprolol Succinate (Toprol Xl) 25 mg PO DAILY [facility] Last Admin: 02/11/18 10:36 Dose: 25 mg Ondansetron HCl (Zofran Inj) 4 mg IVP Q6 PRN PRN Reason: Nausea/Vomiting Last Admin: 02/10/18 20:03 Dose: 4 mg Pantoprazole Sodium (Protonix Ec Tab) 40 mg PO DAILY [facility] Last Admin: 02/11/18 10:36 Dose: 40 mg Rosuvastatin Calcium (Crestor) 10 mg PO HS [facility] Last Admin: 02/11/18 22:58 Dose: 10 mg Tamsulosin HCl (Flomax) 0.4 mg PO DAILY [facility] Last Admin: 02/11/18 10:37 Dose: 0.4 mg Timolol Maleate (Timoptic 0.5% Ophth Soln) 0 drop OU DAILY [facility] Last Admin: 02/11/18 10:36 Dose: 0.5 % - Labs Labs: 02/12/18 07:04 02/12/18 07:04 PT 14.3 SECONDS (9.7-12.2) H 02/11/18 08:33 INR 1.3 02/11/18 08:33 APTT 50 SECONDS (21-34) H 02/10/18 00:12 - Constitutional Appears: Well, Non-toxic, No Acute Distress - Extremities Exam Additional comments: Left lower extremity exam VASC: Left lower extremity cold to touch. Bilaterally edema noted L>R. Non- palpable DP and PT noted bilaterally, [employer] less than 3 seconds noted to all digits DERM: Superficial open ulceration noted to medial and lateral aspect of left leg measuring 3cm x 3xm x 0.1cm with granular base. Serous drainage noted from the ulceration. No mal-odor noted. Mild erythema noted to left leg. No purulent discharge noted. No PTB NEURO: Gross sensation intact ORTHO: Decreased ROM noted to all joints distal to anklr joint - Neurological Exam Neurological Exam: Alert, Awake, Oriented x3 - Psychiatric Exam Psychiatric exam: Normal Affect, Normal Mood Assessment and Plan - Assessment and Plan (Free Text) Assessment: 62 yo male patient presenting with lower extremity edema and superficial ulceration to left leg Plan: Patient was seen, evaluated with attending Dr. Carrillo labs and vitals reviewed; afebrile, WBC 8.6 left leg cleansed with saline, dressed with Xerofor, DSD, ABD arterial doppler ordered - pending Podiatry will continue to follow inhouse <Deangelo Carrillo - Last Filed: 02/12/18 21:33> Objective - Vital Signs/Intake and Output Vital Signs (last 24 hours): Temp Pulse Resp BP Pulse Ox 98.6 F 75 20 119/84 96 02/12/18 15:20 02/12/18 17:30 02/12/18 15:20 02/12/18 15:20 02/12/18 15:20 - Medications Medications: Current Medications Albuterol/Ipratropium (Duoneb 3 Mg/0.5 Mg (3 Ml) Ud) 3 ml INH RQ6 [facility] Last Admin: 02/12/18 19:19 Dose: 3 ml Allopurinol (Zyloprim) 100 mg PO DAILY [facility] Last Admin: 02/12/18 10:55 Dose: 100 mg Amlodipine Besylate (Norvasc) 10 mg PO DAILY [facility] Last Admin: 02/12/18 10:55 Dose: 10 mg Aspirin (Ecotrin) 81 mg PO DAILY [facility] Last Admin: 02/12/18 10:58 Dose: 81 mg Brimonidine Tartrate (Alphagan 0.2% Opht) 0 ml OU DAILY [facility] Last Admin: 02/12/18 10:57 Dose: 0.2 drop Dextrose (Dextrose 50% Inj) 0 ml IVP .STAT PRN; Protocol PRN Reason: Hypoglycemia Protocol Dextrose (Glutose 15) 0 gm PO .ONCE PRN; Protocol PRN Reason: Hypoglycemia Protocol Furosemide (Lasix) 40 mg IVP DAILY [facility] Last Admin: 02/12/18 11:00 Dose: 40 mg Glucagon (Glucagen Diagnostic Kit) 0 mg IM .STAT PRN; Protocol PRN Reason: Hypoglycemia Protocol Dextrose (Dextrose 5% In Water 1000 Ml) 1,000 mls @ 0 mls/hr IV .Q0M PRN; Protocol; Per Protocol PRN Reason: Hypoglycemia Protocol Insulin Aspart (Novolog) 8 unit SC AC [facility] Last Admin: 02/12/18 18:16 Dose: Not Given Insulin Detemir (Levemir) 25 unit SC HS [facility] Last Admin: 02/11/18 22:56 Dose: Not Given Insulin Human Regular (Novolin R) 0 unit SC [facility] PRN Reason: Protocol Last Admin: 02/12/18 16:37 Dose: Not Given Lactulose (Enulose) 20 gm PO Q12 PRN PRN Reason: Constipation Last Admin: 02/10/18 23:02 Dose: 20 gm Latanoprost (Xalatan Opht) [address] [facility] Last Admin: 02/11/18 23:04 Dose: 1 ml Losartan Potassium (Cozaar) 25 mg PO DAILY [facility] Last Admin: 02/12/18 10:55 Dose: 25 mg Metoprolol Succinate (Toprol Xl) 25 mg PO DAILY [facility] Last Admin: 02/12/18 10:55 Dose: 25 mg Ondansetron HCl (Zofran Inj) 4 mg IVP Q6 PRN PRN Reason: Nausea/Vomiting Last Admin: 02/10/18 20:03 Dose: 4 mg Pantoprazole Sodium (Protonix Ec Tab) 40 mg PO DAILY [facility] Last Admin: 02/12/18 10:55 Dose: 40 mg Rosuvastatin Calcium (Crestor) 10 mg PO HS [facility] Last Admin: 02/11/18 22:58 Dose: 10 mg Tamsulosin HCl (Flomax) 0.4 mg PO DAILY [facility] Last Admin: 02/12/18 10:58 Dose: 0.4 mg Timolol Maleate (Timoptic 0.5% Ophth Soln) 0 drop OU DAILY [facility] Last Admin: 02/12/18 10:00 Dose: 0.5 % - Labs Labs: 02/12/18 07:04 02/12/18 07:04 PT 15.5 SECONDS (9.7-12.2) H 02/12/18 13:58 INR 1.4 02/12/18 13:58 APTT 50 SECONDS (21-34) H 02/10/18 00:12 Assessment and Plan - Assessment and Plan (Free Text) Plan: agree with above findings .seen at bedside with resident . labs and chart reviewed .Wound care daily ./Dr Rogers
[2018-02-12 10:31] LABS: EOS # 0.1 K/uL (0.0-0.7); LYMPH # 2.1 K/uL (1.0-4.3); MONO # 0.7 K/uL (0.0-0.8); NEUT # 5.8 K/uL (1.8-7.0)
[2018-02-12] MEDS: Pantoprazole 40 mg EC Tab PO SCH (10:55)
[2018-02-12] MEDS: Metoprolol Succinate 50 mg XL Tab PO SCH (10:55)
[2018-02-12] MEDS: Brimonidine 0.2% Opth Sol (5ml) OU SCH (10:57)
--- NOTE | 2018-02-12 11:29 | CP.PCM.PN ---
Subjective - Date & Time of Evaluation Date of Evaluation: 02/12/18 Time of Evaluation: 12:40 - Subjective Subjective: clinically same Objective - Vital Signs/Intake and Output Vital Signs (last 24 hours): Temp Pulse Resp BP Pulse Ox 98.2 F 73 20 110/75 98 02/12/18 09:17 02/12/18 09:17 02/12/18 09:17 02/12/18 09:17 02/12/18 09:17 - Medications Medications: Current Medications Albuterol/Ipratropium (Duoneb 3 Mg/0.5 Mg (3 Ml) Ud) 3 ml INH RQ6 [facility] Last Admin: 02/12/18 07:49 Dose: 3 ml Allopurinol (Zyloprim) 100 mg PO DAILY [facility] Last Admin: 02/12/18 10:55 Dose: 100 mg Amlodipine Besylate (Norvasc) 10 mg PO DAILY [facility] Last Admin: 02/12/18 10:55 Dose: 10 mg Aspirin (Ecotrin) 81 mg PO DAILY [facility] Last Admin: 02/12/18 10:58 Dose: 81 mg Brimonidine Tartrate (Alphagan 0.2% Opht) 0 ml OU DAILY [facility] Last Admin: 02/12/18 10:57 Dose: 0.2 drop Dextrose (Dextrose 50% Inj) 0 ml IVP .STAT PRN; Protocol PRN Reason: Hypoglycemia Protocol Dextrose (Glutose 15) 0 gm PO .ONCE PRN; Protocol PRN Reason: Hypoglycemia Protocol Furosemide (Lasix) 40 mg IVP DAILY [facility] Last Admin: 02/11/18 10:30 Dose: 40 mg Glucagon (Glucagen Diagnostic Kit) 0 mg IM .STAT PRN; Protocol PRN Reason: Hypoglycemia Protocol Dextrose (Dextrose 5% In Water 1000 Ml) 1,000 mls @ 0 mls/hr IV .Q0M PRN; Protocol; Per Protocol PRN Reason: Hypoglycemia Protocol Insulin Aspart (Novolog) 8 unit SC AC [facility] Last Admin: 02/12/18 08:04 Dose: 8 unit Insulin Detemir (Levemir) 25 unit SC HS [facility] Last Admin: 02/11/18 22:56 Dose: Not Given Insulin Human Regular (Novolin R) 0 unit SC ACHS [facility] PRN Reason: Protocol Last Admin: 02/12/18 08:02 Dose: Not Given Lactulose (Enulose) 20 gm PO Q12 PRN PRN Reason: Constipation Last Admin: 02/10/18 23:02 Dose: 20 gm Latanoprost (Xalatan Opht) 0 ml OU HS [facility] Last Admin: 02/11/18 23:04 Dose: 1 ml Losartan Potassium (Cozaar) 25 mg PO DAILY [facility] Last Admin: 02/12/18 10:55 Dose: 25 mg Metoprolol Succinate (Toprol Xl) 25 mg PO DAILY [facility] Last Admin: 02/12/18 10:55 Dose: 25 mg Ondansetron HCl (Zofran Inj) 4 mg IVP Q6 PRN PRN Reason: Nausea/Vomiting Last Admin: 02/10/18 20:03 Dose: 4 mg Pantoprazole Sodium (Protonix Ec Tab) 40 mg PO DAILY [facility] Last Admin: 02/12/18 10:55 Dose: 40 mg Rosuvastatin Calcium (Crestor) 10 mg PO HS [facility] Last Admin: 02/11/18 22:58 Dose: 10 mg Tamsulosin HCl (Flomax) 0.4 mg PO DAILY [facility] Last Admin: 02/12/18 10:58 Dose: 0.4 mg Timolol Maleate (Timoptic 0.5% Ophth Soln) 0 drop OU DAILY [facility] Last Admin: 02/12/18 10:00 Dose: 0.5 % - Labs Labs: 02/12/18 07:04 02/12/18 07:04 PT 14.3 SECONDS (9.7-12.2) H 02/11/18 08:33 INR 1.3 02/11/18 08:33 APTT 50 SECONDS (21-34) H 02/10/18 00:12 - Constitutional Appears: Well - Head Exam Head Exam: ATRAUMATIC, NORMAL INSPECTION, NORMOCEPHALIC - Eye Exam Eye Exam: EOMI, Normal appearance, PERRL Pupil Exam: NORMAL ACCOMODATION, PERRL - ENT Exam ENT Exam: Mucous Membranes Moist, Normal Exam - Neck Exam Neck Exam: Full ROM, Normal Inspection. absent: Lymphadenopathy - Respiratory Exam Respiratory Exam: Decreased Breath Sounds - Cardiovascular Exam Cardiovascular Exam: REGULAR RHYTHM, +S1, +S2 - GI/Abdominal Exam GI & Abdominal Exam: Soft, Diminished Bowel Sounds - Rectal Exam Rectal Exam: Deferred
[2018-02-12 14:11] LABS: INR 1.4; PROTHROMBIN TIME 15.5 SECONDS (9.7-12.2)
[2018-02-12] MEDS: Latanoprost 2.5 ml Opht Soln OU SCH (22:25)
[2018-02-12] MEDS: Insulin Detemir 100 units/ml Vial (Levemir) SC SCH (22:42)
[2018-02-13] MEDS: Albuterol-Ipratrop 3 mg / 0.5 (3 ml) UD INH SCH ×4 (01:14→19:57)
[2018-02-13 07:59] LABS: INR 1.3; PROTHROMBIN TIME 14.6 SECONDS (9.7-12.2)
[2018-02-13 08:00] LABS: BASO # 0.1 K/uL (0.0-0.2); BASO % 0.9 % (0.0-2.0); EOS # 0.2 K/uL (0.0-0.7); EOS % 2.3 % (0.0-4.0); HEMOGLOBIN 12.9 g/dL (12.0-18.0); LYMPH # 0.8 K/uL (1.0-4.3); LYMPH % 11.4 % (20.0-40.0); MEAN CELL VOLUME 85.6 fL (80.0-94.0); MEAN CORPUSCULAR HEMOGLOBIN 27.1 pg (27.0-31.0); MEAN CORPUSCULAR HGB CONC 31.7 g/dL (33.0-37.0); MEAN PLATELET VOLUME 8.8 fL (7.2-11.7); MONO % 14.7 % (0.0-10.0); NEUT # 4.9 K/uL (1.8-7.0); NEUT % 70.7 % (50.0-75.0); RBC 4.75 Mil/uL (4.40-5.90); RED CELL DISTRIBUTION WIDTH 19.1 % (11.5-14.5); WHITE BLOOD COUNT 6.9 K/uL (4.8-10.8)
[2018-02-13] MEDS: (Novolog) Insulin Aspart, Recombinant 100 u/ml 10 ml vial SC SCH ×3 (08:00→17:30)
[2018-02-13 08:22] LABS: ALB/GLOB RATIO 0.9 (1.0-2.1); ALBUMIN 3.2 g/dL (3.5-5.0)
[2018-02-13] MEDS: (Novolin R) Insulin Human Regular 100 units/ml vial SC SCH ×4 (08:32→22:25)
[2018-02-13] MEDS: Brimonidine 0.2% Opth Sol (5ml) OU SCH (09:27)
[2018-02-13] MEDS: Metoprolol Succinate 50 mg XL Tab PO SCH (09:28)
[2018-02-13] MEDS: Pantoprazole 40 mg EC Tab PO SCH (09:28)
--- NOTE | 2018-02-13 14:41 | CP.PCM.PN ---
Subjective - Date & Time of Evaluation Date of Evaluation: 02/13/18 Time of Evaluation: 14:39 - Subjective Subjective: Podiatry Progress note: Dr. Carrillo 62 year old male patient with PMHx of CHF was seen at bedside this morning concerning Left leg edema and superficial ulcerations. Patient is AAOx3 and shows no signs of acute distress. Appears to be resting comfortably in bed. Reports that he feels better. Denies of F/N/V/C/CP. Reports that the breathing is also getting better. Reports no new complains at this time. Objective - Vital Signs/Intake and Output Vital Signs (last 24 hours): Temp Pulse Resp BP Pulse Ox 98 F 80 20 129/82 96 02/12/18 23:50 02/13/18 07:35 02/12/18 23:50 02/13/18 11:00 02/12/18 23:50 Intake and Output: 02/13/18 02/13/18 06:59 18:59 Intake Total 240 Balance 240 - Medications Medications: Current Medications Albuterol/Ipratropium (Duoneb 3 Mg/0.5 Mg (3 Ml) Ud) 3 ml INH RQ6 [facility] Last Admin: 02/13/18 13:23 Dose: 3 ml Allopurinol (Zyloprim) 100 mg PO DAILY [facility] Last Admin: 02/13/18 09:29 Dose: 100 mg Amlodipine Besylate (Norvasc) 10 mg PO DAILY [facility] Last Admin: 02/13/18 09:29 Dose: 10 mg Aspirin (Ecotrin) 81 mg PO DAILY [facility] Last Admin: 02/13/18 09:29 Dose: 81 mg Brimonidine Tartrate (Alphagan 0.2% Opht) 0 ml OU DAILY [facility] Last Admin: 02/13/18 09:27 Dose: 0.2 drop Dextrose (Dextrose 50% Inj) 0 ml IVP .STAT PRN; Protocol PRN Reason: Hypoglycemia Protocol Dextrose (Glutose 15) 0 gm PO .ONCE PRN; Protocol PRN Reason: Hypoglycemia Protocol Furosemide (Lasix) 40 mg IVP DAILY [facility] Last Admin: 02/13/18 11:00 Dose: 40 mg Glucagon (Glucagen Diagnostic Kit) 0 mg IM .STAT PRN; Protocol PRN Reason: Hypoglycemia Protocol Dextrose (Dextrose 5% In Water 1000 Ml) 1,000 mls @ 0 mls/hr IV .Q0M PRN; Protocol; Per Protocol PRN Reason: Hypoglycemia Protocol Insulin Aspart (Novolog) 8 unit SC AC [facility] Last Admin: 02/13/18 12:00 Dose: 8 unit Insulin Detemir (Levemir) 25 unit SC HS [facility] Last Admin: 02/12/18 22:42 Dose: Not Given Insulin Human Regular (Novolin R) 0 unit SC ACHS [facility] PRN Reason: Protocol Last Admin: 02/13/18 12:00 Dose: 2 unit Lactulose (Enulose) 20 gm PO Q12 PRN PRN Reason: Constipation Last Admin: 02/10/18 23:02 Dose: 20 gm Latanoprost (Xalatan Opht) 0 ml OU HS [facility] Last Admin: 02/12/18 22:25 Dose: 1 ml Losartan Potassium (Cozaar) 25 mg PO DAILY [facility] Last Admin: 02/13/18 09:29 Dose: 25 mg Metoprolol Succinate (Toprol Xl) 25 mg PO DAILY [facility] Last Admin: 02/13/18 09:28 Dose: 25 mg Ondansetron HCl (Zofran Inj) 4 mg IVP Q6 PRN PRN Reason: Nausea/Vomiting Last Admin: 02/10/18 20:03 Dose: 4 mg Pantoprazole Sodium (Protonix Ec Tab) 40 mg PO DAILY [facility] Last Admin: 02/13/18 09:28 Dose: 40 mg Rosuvastatin Calcium (Crestor) 10 mg PO HS [facility] Last Admin: 02/12/18 22:20 Dose: 10 mg Tamsulosin HCl (Flomax) 0.4 mg PO DAILY [facility] Last Admin: 02/13/18 09:29 Dose: 0.4 mg Timolol Maleate (Timoptic 0.5% Ophth Soln) 0 drop OU DAILY [facility] Last Admin: 02/13/18 10:00 Dose: 0.5 % - Labs Labs: 02/13/18 07:43 02/13/18 07:43 PT 14.6 SECONDS (9.7-12.2) H 02/13/18 07:43 INR 1.3 02/13/18 07:43 APTT 50 SECONDS (21-34) H 02/10/18 00:12 - Constitutional Appears: Well, Non-toxic, No Acute Distress - Extremities Exam Additional comments: Left lower extremity exam VASC: Left lower extremity cold to touch. Bilaterally edema noted L>R. Non- palpable DP and PT noted bilaterally, [employer] less than 3 seconds noted to all digits DERM: Superficial open ulceration noted to medial and lateral aspect of left leg measuring 3cm x 3xm x 0.1cm with granular base. Serous drainage noted from the ulceration. No mal-odor noted. Mild erythema noted to left leg. No purulent discharge noted. No PTB NEURO: Gross sensation intact ORTHO: Decreased ROM noted to all joints distal to anklr joint - Neurological Exam Neurological Exam: Alert, Awake, Oriented x3 - Psychiatric Exam Psychiatric exam: Normal Affect, Normal Mood Assessment and Plan - Assessment and Plan (Free Text) Assessment: 62 yo male patient presenting with lower extremity edema and superficial ulceration to left leg Plan: Patient was seen, evaluated Plan discussed with attending Dr. Carrillo labs and vitals reviewed; afebrile, WBC 8.6 left leg cleansed with saline, dressed with Xerofor, DSD, ABD arterial doppler ordered - pending Podiatry will continue to follow inhouse
--- NOTE | 2018-02-13 15:33 | CP.PCM.PN ---
Subjective - Date & Time of Evaluation Date of Evaluation: 02/13/18 Time of Evaluation: 10:00 - Subjective Subjective: clinically same Objective - Vital Signs/Intake and Output Vital Signs (last 24 hours): Temp Pulse Resp BP Pulse Ox 98 F 80 20 129/82 96 02/12/18 23:50 02/13/18 07:35 02/12/18 23:50 02/13/18 11:00 02/12/18 23:50 Intake and Output: 02/13/18 02/13/18 06:59 18:59 Intake Total 240 Balance 240 - Medications Medications: Current Medications Albuterol/Ipratropium (Duoneb 3 Mg/0.5 Mg (3 Ml) Ud) 3 ml INH RQ6 [facility] Last Admin: 02/13/18 13:23 Dose: 3 ml Allopurinol (Zyloprim) 100 mg PO DAILY [facility] Last Admin: 02/13/18 09:29 Dose: 100 mg Amlodipine Besylate (Norvasc) 10 mg PO DAILY [facility] Last Admin: 02/13/18 09:29 Dose: 10 mg Aspirin (Ecotrin) 81 mg PO DAILY [facility] Last Admin: 02/13/18 09:29 Dose: 81 mg Brimonidine Tartrate (Alphagan 0.2% Opht) 0 ml OU DAILY [facility] Last Admin: 02/13/18 09:27 Dose: 0.2 drop Dextrose (Dextrose 50% Inj) 0 ml IVP .STAT PRN; Protocol PRN Reason: Hypoglycemia Protocol Dextrose (Glutose 15) 0 gm PO .ONCE PRN; Protocol PRN Reason: Hypoglycemia Protocol Furosemide (Lasix) 40 mg IVP DAILY [facility] Last Admin: 02/13/18 11:00 Dose: 40 mg Glucagon (Glucagen Diagnostic Kit) 0 mg IM .STAT PRN; Protocol PRN Reason: Hypoglycemia Protocol Dextrose (Dextrose 5% In Water 1000 Ml) 1,000 mls @ 0 mls/hr IV .Q0M PRN; Protocol; Per Protocol PRN Reason: Hypoglycemia Protocol Insulin Aspart (Novolog) 8 unit SC AC [facility] Last Admin: 02/13/18 12:00 Dose: 8 unit Insulin Detemir (Levemir) 25 unit SC HS [facility] Last Admin: 02/12/18 22:42 Dose: Not Given Insulin Human Regular (Novolin R) 0 unit SC ACHS [facility] PRN Reason: Protocol Last Admin: 02/13/18 12:00 Dose: 2 unit Lactulose (Enulose) 20 gm PO Q12 PRN PRN Reason: Constipation Last Admin: 02/10/18 23:02 Dose: 20 gm Latanoprost (Xalatan Opht) 0 ml OU HS [facility] Last Admin: 02/12/18 22:25 Dose: 1 ml Losartan Potassium (Cozaar) 25 mg PO DAILY [facility] Last Admin: 02/13/18 09:29 Dose: 25 mg Metoprolol Succinate (Toprol Xl) 25 mg PO DAILY [facility] Last Admin: 02/13/18 09:28 Dose: 25 mg Ondansetron HCl (Zofran Inj) 4 mg IVP Q6 PRN PRN Reason: Nausea/Vomiting Last Admin: 02/10/18 20:03 Dose: 4 mg Pantoprazole Sodium (Protonix Ec Tab) 40 mg PO DAILY [facility] Last Admin: 02/13/18 09:28 Dose: 40 mg Rosuvastatin Calcium (Crestor) 10 mg PO HS [facility] Last Admin: 02/12/18 22:20 Dose: 10 mg Tamsulosin HCl (Flomax) 0.4 mg PO DAILY [facility] Last Admin: 02/13/18 09:29 Dose: 0.4 mg Timolol Maleate (Timoptic 0.5% Ophth Soln) 0 drop OU DAILY [facility] Last Admin: 02/13/18 10:00 Dose: 0.5 % - Labs Labs: 02/13/18 07:43 02/13/18 07:43 PT 14.6 SECONDS (9.7-12.2) H 02/13/18 07:43 INR 1.3 02/13/18 07:43 APTT 50 SECONDS (21-34) H 02/10/18 00:12 - Constitutional Appears: Well - Head Exam Head Exam: ATRAUMATIC, NORMAL INSPECTION, NORMOCEPHALIC - Eye Exam Eye Exam: EOMI, Normal appearance, PERRL Pupil Exam: NORMAL ACCOMODATION, PERRL - ENT Exam ENT Exam: Mucous Membranes Moist, Normal Exam - Neck Exam Neck Exam: Full ROM, Normal Inspection. absent: Lymphadenopathy - Respiratory Exam Respiratory Exam: Decreased Breath Sounds - Cardiovascular Exam Cardiovascular Exam: REGULAR RHYTHM, +S1, +S2 - GI/Abdominal Exam GI & Abdominal Exam: Soft, Diminished Bowel Sounds - Rectal Exam Rectal Exam: Deferred
[2018-02-13] MEDS: Latanoprost 2.5 ml Opht Soln OU SCH (22:26)
[2018-02-13] MEDS: Insulin Detemir 100 units/ml Vial (Levemir) SC SCH (22:27)
[2018-02-14] MEDS: Albuterol-Ipratrop 3 mg / 0.5 (3 ml) UD INH SCH ×4 (01:31→19:40)
[2018-02-14 07:15] LABS: INR 1.4; PROTHROMBIN TIME 15.2 SECONDS (9.7-12.2)
[2018-02-14 07:19] LABS: BASO % 0.8 % (0.0-2.0); EOS # 0.2 K/uL (0.0-0.7); EOS % 2.6 % (0.0-4.0); HEMOGLOBIN 12.4 g/dL (12.0-18.0); LYMPH # 0.8 K/uL (1.0-4.3); MEAN CELL VOLUME 85.3 fL (80.0-94.0); MEAN CORPUSCULAR HEMOGLOBIN 27.1 pg (27.0-31.0); MEAN CORPUSCULAR HGB CONC 31.8 g/dL (33.0-37.0); MEAN PLATELET VOLUME 8.9 fL (7.2-11.7); MONO # 0.8 K/uL (0.0-0.8); MONO % 12.6 % (0.0-10.0); NEUT # 4.6 K/uL (1.8-7.0); NRBC % 0.1 % (0.0-2.0); RBC 4.55 Mil/uL (4.40-5.90); WHITE BLOOD COUNT 6.4 K/uL (4.8-10.8)
[2018-02-14 07:39] LABS: ALBUMIN 3.6 g/dL (3.5-5.0); CALCIUM 8.7 mg/dl (8.6-10.4)
[2018-02-14] MEDS: (Novolin R) Insulin Human Regular 100 units/ml vial SC SCH ×4 (07:48→21:34)
[2018-02-14] MEDS: (Novolog) Insulin Aspart, Recombinant 100 u/ml 10 ml vial SC SCH ×3 (08:00→17:20)
[2018-02-14] MEDS: Metoprolol Succinate 50 mg XL Tab PO SCH (10:23)
[2018-02-14] MEDS: Pantoprazole 40 mg EC Tab PO SCH (10:24)
[2018-02-14] MEDS: Brimonidine 0.2% Opth Sol (5ml) OU SCH (10:25)
--- NOTE | 2018-02-14 12:48 | CP.PCM.PN ---
Subjective - Date & Time of Evaluation Date of Evaluation: 02/14/18 Time of Evaluation: 10:05 - Subjective Subjective: Progress Note for Dr. Miranda Patient seen and examined at bedside. No acute events reported overnight. Patient had just returned from arterial doppler study. He reports improving shortness of breath and lower extremity swelling. He denies having headache, chest pain, nausea, vomiting, or urinary complaints. Objective - Vital Signs/Intake and Output Vital Signs (last 24 hours): Temp Pulse Resp BP Pulse Ox 98.1 F 93 H 20 141/90 100 02/14/18 08:07 02/14/18 11:04 02/14/18 08:07 02/14/18 10:24 02/14/18 08:07 Intake and Output: 02/14/18 02/14/18 06:59 18:59 Intake Total 240 Output Total 300 Balance -60 - Medications Medications: Current Medications Albuterol/Ipratropium (Duoneb 3 Mg/0.5 Mg (3 Ml) Ud) 3 ml INH RQ6 [facility] Last Admin: 02/14/18 07:25 Dose: 3 ml Allopurinol (Zyloprim) 100 mg PO DAILY [facility] Last Admin: 02/14/18 10:24 Dose: 100 mg Amlodipine Besylate (Norvasc) 10 mg PO DAILY [facility] Last Admin: 02/14/18 10:24 Dose: 10 mg Aspirin (Ecotrin) 81 mg PO DAILY [facility] Last Admin: 02/14/18 10:24 Dose: 81 mg Brimonidine Tartrate (Alphagan 0.2% Opht) 0 ml OU DAILY [facility] Last Admin: 02/14/18 10:25 Dose: 1 drop Dextrose (Dextrose 50% Inj) 0 ml IVP .STAT PRN; Protocol PRN Reason: Hypoglycemia Protocol Dextrose (Glutose 15) 0 gm PO .ONCE PRN; Protocol PRN Reason: Hypoglycemia Protocol Furosemide (Lasix) 40 mg IVP DAILY [facility] Last Admin: 02/14/18 10:24 Dose: 40 mg Glucagon (Glucagen Diagnostic Kit) 0 mg IM .STAT PRN; Protocol PRN Reason: Hypoglycemia Protocol Insulin Aspart (Novolog) 8 unit SC AC [facility] Last Admin: 02/14/18 12:24 Dose: 8 unit Insulin Detemir (Levemir) 25 unit SC HS [facility] Last Admin: 02/13/18 22:27 Dose: Not Given Insulin Human Regular (Novolin R) 0 unit SC ACHS [facility] PRN Reason: Protocol Last Admin: 02/14/18 12:26 Dose: 2 unit Lactulose (Enulose) 20 gm PO Q12 PRN PRN Reason: Constipation Last Admin: 02/10/18 23:02 Dose: 20 gm Latanoprost (Xalatan Opht) 0 ml OU HS [facility] Last Admin: 02/13/18 22:26 Dose: 1 ml Losartan Potassium (Cozaar) 25 mg PO DAILY [facility] Last Admin: 02/14/18 10:24 Dose: 25 mg Metoprolol Succinate (Toprol Xl) 25 mg PO DAILY [facility] Last Admin: 02/14/18 10:23 Dose: 25 mg Ondansetron HCl (Zofran Inj) 4 mg IVP Q6 PRN PRN Reason: Nausea/Vomiting Last Admin: 02/10/18 20:03 Dose: 4 mg Pantoprazole Sodium (Protonix Ec Tab) 40 mg PO DAILY [facility] Last Admin: 02/14/18 10:24 Dose: 40 mg Rosuvastatin Calcium (Crestor) 10 mg PO HS [facility] Last Admin: 02/13/18 22:24 Dose: 10 mg Tamsulosin HCl (Flomax) 0.4 mg PO DAILY [facility] Last Admin: 02/14/18 10:24 Dose: 0.4 mg Timolol Maleate (Timoptic 0.5% Ophth Soln) 0 drop OU DAILY [facility] Last Admin: 02/14/18 10:24 Dose: 1 drop Warfarin Sodium (Coumadin) 10 mg PO 1800 [facility] Stop: 02/14/18 18:01 - Labs Labs: 02/14/18 06:59 02/14/18 06:59 PT 15.2 SECONDS (9.7-12.2) H 02/14/18 06:59 INR 1.4 02/14/18 06:59 APTT 50 SECONDS (21-34) H 02/10/18 00:12 - Additional Findings Additional findings: - Constitutional Appears: Non-toxic, No Acute Distress - Head Exam Head Exam: ATRAUMATIC, NORMOCEPHALIC - Eye Exam Eye Exam: Normal appearance, PERRL - ENT Exam ENT Exam: Mucous Membranes Moist - Neck Exam Neck Exam: Normal Inspection - Respiratory Exam Respiratory Exam: Clear to Ausculation Bilateral, NORMAL BREATHING PATTERN. absent: Respiratory Distress - Cardiovascular Exam Cardiovascular Exam: REGULAR RHYTHM, +S1, +S2. absent: Murmur - GI/Abdominal Exam GI & Abdominal Exam: Soft, Normal Bowel Sounds. absent: Tenderness - Extremities Exam Extremities Exam: Pedal Edema Additional comments: bilateral LE edema, L>R Left lower leg ulceration - Neurological Exam Neurological Exam: Alert, Awake, Oriented x3 - Psychiatric Exam Psychiatric exam: Normal Affect, Normal Mood - Skin Skin Exam: Dry, Warm Assessment and Plan - Assessment and Plan (Free Text) Assessment: Acute on chronic CHF exacerbation -BNP on admission 51386, today 5870 -Last Echo 07/2017 shows EF <35% -S/P ACID -Lasix 40mg IV -Metoprolol 25mg daily -Cozaar 25mg -Cardiology consulted, Dr. Robles help appreciated -Input output, daily weight -Fluid restriction Hx of PE -September 2017 per -INR 1.4 today, subtheraputic -Increased Coumadin to 12.5mg for today -ASA 81mg Afib -EKG in the ED show Afib with frequent Ventricular paced complexes -Patient denies history of Afib -Currently rate controlled on metoprolol -Coumadin 12.5mg today -ASA 81mg -Cardiology consulted -CHADS-VASc Score 5, Stroke risk was 7.2% per year -HAS-BLED Score 2, intermediate risk 1.88-3.2% risk of major bleeding Lower extremity swelling -LE venous doppler negative for DVT -Likely secondary Chronic CHF -Follow up arterial doppler study Lower extremity chronic ulcer -wound care consulted -Blood culture negative -Podiatry consulted Diabetes -FS ACHS -ISS -Hypoglycemia protocol -Levemir 25u HS -Novolog 8u AC BPH -Flomax 0.4mg Prophylactic measures -Protonix -Coumadin and ASA All management per Dr. Miranda
--- NOTE | 2018-02-14 14:31 | CP.PCM.PN ---
Subjective - Date & Time of Evaluation Date of Evaluation: 02/14/18 Time of Evaluation: 09:20 - Subjective Subjective: clinically same Objective - Vital Signs/Intake and Output Vital Signs (last 24 hours): Temp Pulse Resp BP Pulse Ox 98.1 F 93 H 20 141/90 100 02/14/18 08:07 02/14/18 11:04 02/14/18 08:07 02/14/18 10:24 02/14/18 08:07 Intake and Output: 02/14/18 02/14/18 06:59 18:59 Intake Total 240 Output Total 300 Balance -60 - Medications Medications: Current Medications Albuterol/Ipratropium (Duoneb 3 Mg/0.5 Mg (3 Ml) Ud) 3 ml INH RQ6 [facility] Last Admin: 02/14/18 13:32 Dose: 3 ml Allopurinol (Zyloprim) 100 mg PO DAILY [facility] Last Admin: 02/14/18 10:24 Dose: 100 mg Amlodipine Besylate (Norvasc) 10 mg PO DAILY [facility] Last Admin: 02/14/18 10:24 Dose: 10 mg Aspirin (Ecotrin) 81 mg PO DAILY [facility] Last Admin: 02/14/18 10:24 Dose: 81 mg Brimonidine Tartrate (Alphagan 0.2% Opht) 0 ml OU DAILY [facility] Last Admin: 02/14/18 10:25 Dose: 1 drop Dextrose (Dextrose 50% Inj) 0 ml IVP .STAT PRN; Protocol PRN Reason: Hypoglycemia Protocol Dextrose (Glutose 15) 0 gm PO .ONCE PRN; Protocol PRN Reason: Hypoglycemia Protocol Furosemide (Lasix) 40 mg IVP DAILY [facility] Last Admin: 02/14/18 10:24 Dose: 40 mg Glucagon (Glucagen Diagnostic Kit) 0 mg IM .STAT PRN; Protocol PRN Reason: Hypoglycemia Protocol Insulin Aspart (Novolog) 8 unit SC AC [facility] Last Admin: 02/14/18 12:24 Dose: 8 unit Insulin Detemir (Levemir) 25 unit SC HS [facility] Last Admin: 02/13/18 22:27 Dose: Not Given Insulin Human Regular (Novolin R) 0 unit SC ACHS [facility] PRN Reason: Protocol Last Admin: 02/14/18 12:26 Dose: 2 unit Lactulose (Enulose) 20 gm PO Q12 PRN PRN Reason: Constipation Last Admin: 02/10/18 23:02 Dose: 20 gm Latanoprost (Xalatan Opht) 0 ml OU HS [facility] Last Admin: 02/13/18 22:26 Dose: 1 ml Losartan Potassium (Cozaar) 25 mg PO DAILY [facility] Last Admin: 02/14/18 10:24 Dose: 25 mg Metoprolol Succinate (Toprol Xl) 25 mg PO DAILY [facility] Last Admin: 02/14/18 10:23 Dose: 25 mg Ondansetron HCl (Zofran Inj) 4 mg IVP Q6 PRN PRN Reason: Nausea/Vomiting Last Admin: 02/10/18 20:03 Dose: 4 mg Pantoprazole Sodium (Protonix Ec Tab) 40 mg PO DAILY [facility] Last Admin: 02/14/18 10:24 Dose: 40 mg Rosuvastatin Calcium (Crestor) 10 mg PO HS [facility] Last Admin: 02/13/18 22:24 Dose: 10 mg Tamsulosin HCl (Flomax) 0.4 mg PO DAILY [facility] Last Admin: 02/14/18 10:24 Dose: 0.4 mg Timolol Maleate (Timoptic 0.5% Ophth Soln) 0 drop OU DAILY [facility] Last Admin: 02/14/18 10:24 Dose: 1 drop Warfarin Sodium (Coumadin) 10 mg PO 1800 [facility] Stop: 02/14/18 18:01 - Labs Labs: 02/14/18 06:59 02/14/18 06:59 PT 15.2 SECONDS (9.7-12.2) H 02/14/18 06:59 INR 1.4 02/14/18 06:59 APTT 50 SECONDS (21-34) H 02/10/18 00:12 - Constitutional Appears: Well - Head Exam Head Exam: ATRAUMATIC, NORMAL INSPECTION, NORMOCEPHALIC - Eye Exam Eye Exam: EOMI, Normal appearance, PERRL Pupil Exam: NORMAL ACCOMODATION, PERRL - ENT Exam ENT Exam: Mucous Membranes Moist, Normal Exam - Neck Exam Neck Exam: Full ROM, Normal Inspection. absent: Lymphadenopathy - Respiratory Exam Respiratory Exam: Decreased Breath Sounds - Cardiovascular Exam Cardiovascular Exam: REGULAR RHYTHM, +S1, +S2 - GI/Abdominal Exam GI & Abdominal Exam: Soft, Diminished Bowel Sounds - Rectal Exam Rectal Exam: Deferred
--- NOTE | 2018-02-14 14:59 | VASCLAB ---
STUDY DESCRIPTION: HISTORY: bilateral lower extremity pain PRIORS: None. TECHNIQUE: Pulse volume recording waveforms and segmental pressures of bilateral lower extremities at multiple levels were obtained. Ankle Brachial Indices (ABIs) were calculated. Report prepared by system technologist. RIGHT LOWER EXTREMITY: * Brachial artery: Pressure - 134 mmHg. * High thigh: Pressure - mmHg: Ratio - : PVR waveform - * Low thigh: Pressure - mmHg: Ratio - PVR waveform: Pulsatile * Calf: Pressure - 176 mmHg: Ratio - 1.31 PVR waveform: Pulsatile * Posterior tibial Artery: Pressure - 169 mmHg: Ratio - 1.26 PVR waveform: Pulsatile * Dorsalis pedis Artery: Pressure - 166 mmHg: Ratio - 1.24 PVR waveform: Pulsatile * Great toe: Pressure - mmHg: Ratio - PVR waveform: Ankle brachial index (SPENCER): 1.26 LEFT LOWER EXTREMITY: * Brachial artery: Pressure - 130 mmHg. * High thigh: Pressure - mmHg: Ratio - : PVR waveform - * Low thigh: Pressure - mmHg: Ratio - PVR waveform: Pulsatile * Calf: Pressure - 220 mmHg: Ratio - NC PVR waveform: Pulsatile * Posterior tibial Artery: Pressure - mmHg: Ratio - PVR waveform: Pulsatile * Dorsalis pedis Artery: Pressure - 175 mmHg: Ratio - 1.31 PVR waveform: Pulsatile * Great toe: Pressure - mmHg: Ratio - PVR waveform: Ankle brachial index (SPENCER): 1.31 OTHER FINDINGS: Right: Left: IMPRESSION: Right: Normal ankle-brachial index. Lack of triphasic waveform throughout the right lower extremity. Left: Elevated pressures under the calculated ankle-brachial index less reliable. Lack of triphasic waveform throughout the left lower extremity.
--- NOTE | 2018-02-14 15:01 | CP.PCM.PN ---
Subjective - Date & Time of Evaluation Date of Evaluation: 02/14/18 Time of Evaluation: 14:59 - Subjective Subjective: Podiatry Progress note: Dr. Carrillo 62 year old male patient was seen at bedside this morning concerning Left leg edema and superficial ulcerations. Patient is AAOx3 and shows no signs of acute distress. Appears to be resting comfortably in bed. Reports that he feels better. Denies of F/N/V/C/CP. Reports that the breathing is also getting better. Patient denies of any N/V/F/C or SOB today Objective - Vital Signs/Intake and Output Vital Signs (last 24 hours): Temp Pulse Resp BP Pulse Ox 98.1 F 93 H 20 141/90 100 02/14/18 08:07 02/14/18 11:04 02/14/18 08:07 02/14/18 10:24 02/14/18 08:07 Intake and Output: 02/14/18 02/14/18 06:59 18:59 Intake Total 240 Output Total 300 Balance -60 - Medications Medications: Current Medications Albuterol/Ipratropium (Duoneb 3 Mg/0.5 Mg (3 Ml) Ud) 3 ml INH RQ6 [facility] Last Admin: 02/14/18 13:32 Dose: 3 ml Allopurinol (Zyloprim) 100 mg PO DAILY [facility] Last Admin: 02/14/18 10:24 Dose: 100 mg Amlodipine Besylate (Norvasc) 10 mg PO DAILY [facility] Last Admin: 02/14/18 10:24 Dose: 10 mg Aspirin (Ecotrin) 81 mg PO DAILY [facility] Last Admin: 02/14/18 10:24 Dose: 81 mg Brimonidine Tartrate (Alphagan 0.2% Opht) 0 ml OU DAILY [facility] Last Admin: 02/14/18 10:25 Dose: 1 drop Dextrose (Dextrose 50% Inj) 0 ml IVP .STAT PRN; Protocol PRN Reason: Hypoglycemia Protocol Dextrose (Glutose 15) 0 gm PO .ONCE PRN; Protocol PRN Reason: Hypoglycemia Protocol Furosemide (Lasix) 40 mg IVP DAILY [facility] Last Admin: 02/14/18 10:24 Dose: 40 mg Glucagon (Glucagen Diagnostic Kit) 0 mg IM .STAT PRN; Protocol PRN Reason: Hypoglycemia Protocol Insulin Aspart (Novolog) [address] [facility] Last Admin: 02/14/18 12:24 Dose: 8 unit Insulin Detemir (Levemir) 25 unit SC HS [facility] Last Admin: 02/13/18 22:27 Dose: Not Given Insulin Human Regular (Novolin R) 0 unit SC [facility] PRN Reason: Protocol Last Admin: 02/14/18 12:26 Dose: 2 unit Lactulose (Enulose) 20 gm PO Q12 PRN PRN Reason: Constipation Last Admin: 02/10/18 23:02 Dose: 20 gm Latanoprost (Xalatan Opht) 0 ml OU HS [facility] Last Admin: 02/13/18 22:26 Dose: 1 ml Losartan Potassium (Cozaar) 25 mg PO DAILY [facility] Last Admin: 02/14/18 10:24 Dose: 25 mg Metoprolol Succinate (Toprol Xl) 25 mg PO DAILY [facility] Last Admin: 02/14/18 10:23 Dose: 25 mg Ondansetron HCl (Zofran Inj) 4 mg IVP Q6 PRN PRN Reason: Nausea/Vomiting Last Admin: 02/10/18 20:03 Dose: 4 mg Pantoprazole Sodium (Protonix Ec Tab) 40 mg PO DAILY [facility] Last Admin: 02/14/18 10:24 Dose: 40 mg Rosuvastatin Calcium (Crestor) 10 mg PO HS [facility] Last Admin: 02/13/18 22:24 Dose: 10 mg Tamsulosin HCl (Flomax) 0.4 mg PO DAILY [facility] Last Admin: 02/14/18 10:24 Dose: 0.4 mg Timolol Maleate (Timoptic 0.5% Ophth Soln) 0 drop OU DAILY [facility] Last Admin: 02/14/18 10:24 Dose: 1 drop Warfarin Sodium (Coumadin) 10 mg PO 1800 [facility] Stop: 02/14/18 18:01 - Labs Labs: 02/14/18 06:59 02/14/18 06:59 PT 15.2 SECONDS (9.7-12.2) H 02/14/18 06:59 INR 1.4 02/14/18 06:59 APTT 50 SECONDS (21-34) H 02/10/18 00:12 - Constitutional Appears: Well, Non-toxic, No Acute Distress - Head Exam Head Exam: ATRAUMATIC - Extremities Exam Additional comments: Left lower extremity exam VASC: Left lower extremity cold to touch. Bilaterally edema noted L>R. 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 Serous drainage noted from the ulceration. No mal-odor noted. Mild erythema noted to left leg. No purulent discharge noted. No PTB NEURO: Gross sensation intact ORTHO: Decreased ROM noted to all joints distal to anklr joint - Neurological Exam Neurological Exam: Alert, Awake, Oriented x3 - Psychiatric Exam Psychiatric exam: Normal Affect, Normal Mood - Skin Skin Exam: Normal Color, Warm Assessment and Plan - Assessment and Plan (Free Text) Assessment: 62 yo male patient presenting with lower extremity edema and superficial ulceration to left leg Plan: Patient was seen, evaluated Plan discussed with attending Dr. Carrillo labs and vitals reviewed; afebrile, WBC 6.4 left leg cleansed with saline, dressed with Xerofor, DSD, ABD arterial doppler ordered - pending Podiatry will continue to follow inhouse
--- NOTE | 2018-02-14 19:44 | CP.PCM.PN ---
Subjective - Date & Time of Evaluation Date of Evaluation: 02/14/18 Time of Evaluation: 12:00 - Subjective Subjective: stable CHF observe with local podiatry care Objective - Vital Signs/Intake and Output Vital Signs (last 24 hours): Temp Pulse Resp BP Pulse Ox 98.3 F 90 20 117/77 97 02/14/18 16:00 02/14/18 16:00 02/14/18 16:00 02/14/18 16:00 02/14/18 16:00 - Medications Medications: Current Medications Albuterol/Ipratropium (Duoneb 3 Mg/0.5 Mg (3 Ml) Ud) 3 ml INH RQ6 [facility] Last Admin: 02/14/18 19:40 Dose: 3 ml Allopurinol (Zyloprim) 100 mg PO DAILY [facility] Last Admin: 02/14/18 10:24 Dose: 100 mg Amlodipine Besylate (Norvasc) 10 mg PO DAILY [facility] Last Admin: 02/14/18 10:24 Dose: 10 mg Aspirin (Ecotrin) 81 mg PO DAILY [facility] Last Admin: 02/14/18 10:24 Dose: 81 mg Brimonidine Tartrate (Alphagan 0.2% Opht) 0 ml OU DAILY [facility] Last Admin: 02/14/18 10:25 Dose: 1 drop Dextrose (Dextrose 50% Inj) 0 ml IVP .STAT PRN; Protocol PRN Reason: Hypoglycemia Protocol Dextrose (Glutose 15) 0 gm PO .ONCE PRN; Protocol PRN Reason: Hypoglycemia Protocol Furosemide (Lasix) 40 mg IVP DAILY [facility] Last Admin: 02/14/18 10:24 Dose: 40 mg Glucagon (Glucagen Diagnostic Kit) 0 mg IM .STAT PRN; Protocol PRN Reason: Hypoglycemia Protocol Insulin Aspart (Novolog) 8 unit SC AC [facility] Last Admin: 02/14/18 17:20 Dose: 8 unit Insulin Detemir (Levemir) 25 unit SC HS [facility] Last Admin: 02/13/18 22:27 Dose: Not Given Insulin Human Regular (Novolin R) 0 unit SC ACHS [facility] PRN Reason: Protocol Last Admin: 02/14/18 16:58 Dose: Not Given Lactulose (Enulose) 20 gm PO Q12 PRN PRN Reason: Constipation Last Admin: 02/10/18 23:02 Dose: 20 gm Latanoprost (Xalatan Opht) 0 ml OU HS [facility] Last Admin: 02/13/18 22:26 Dose: 1 ml Losartan Potassium (Cozaar) 25 mg PO DAILY [facility] Last Admin: 02/14/18 10:24 Dose: 25 mg Metoprolol Succinate (Toprol Xl) 25 mg PO DAILY [facility] Last Admin: 02/14/18 10:23 Dose: 25 mg Ondansetron HCl (Zofran Inj) 4 mg IVP Q6 PRN PRN Reason: Nausea/Vomiting Last Admin: 02/10/18 20:03 Dose: 4 mg Pantoprazole Sodium (Protonix Ec Tab) 40 mg PO DAILY [facility] Last Admin: 02/14/18 10:24 Dose: 40 mg Rosuvastatin Calcium (Crestor) 10 mg PO HS [facility] Last Admin: 02/13/18 22:24 Dose: 10 mg Tamsulosin HCl (Flomax) 0.4 mg PO DAILY [facility] Last Admin: 02/14/18 10:24 Dose: 0.4 mg Timolol Maleate (Timoptic 0.5% Oph Soln) 0 drop OU DAILY [facility] Last Admin: 02/14/18 10:24 Dose: 1 drop - Labs Labs: 02/14/18 06:59 02/14/18 06:59 PT 15.2 SECONDS (9.7-12.2) H 02/14/18 06:59 INR 1.4 02/14/18 06:59 APTT 50 SECONDS (21-34) H 02/10/18 00:12 - Constitutional Appears: Non-toxic - Head Exam Head Exam: ATRAUMATIC - Eye Exam Eye Exam: EOMI - ENT Exam ENT Exam: Mucous Membranes Moist - Neck Exam Neck Exam: absent: Lymphadenopathy, Thyromegaly - Respiratory Exam Respiratory Exam: Clear to Ausculation Bilateral. absent: Rales - Cardiovascular Exam Cardiovascular Exam: Irregular Rhythm, Murmur - GI/Abdominal Exam GI & Abdominal Exam: Normal Bowel Sounds. absent: Organomegaly - Rectal Exam Rectal Exam: Deferred - Extremities Exam Extremities Exam: Normal Capillary Refill, Pedal Edema. absent: Calf Tenderness - Neurological Exam Neurological Exam: Alert, Oriented x3 - Psychiatric Exam Psychiatric exam: Normal Affect - Skin Skin Exam: Dry Assessment and Plan (1) Dilated cardiomyopathy Status: Acute (2) Atrial fibrillation, chronic Status: Chronic
[2018-02-14] MEDS: Insulin Detemir 100 units/ml Vial (Levemir) SC SCH (21:34)
[2018-02-14] MEDS: Latanoprost 2.5 ml Opht Soln OU SCH (21:34)
[2018-02-15] MEDS: Albuterol-Ipratrop 3 mg / 0.5 (3 ml) UD INH SCH (01:17)
[2018-02-15] MEDS: (Novolog) Insulin Aspart, Recombinant 100 u/ml 10 ml vial SC SCH ×3 (07:35→16:36)
[2018-02-15] MEDS: (Novolin R) Insulin Human Regular 100 units/ml vial SC SCH ×4 (07:35→22:29)
[2018-02-15 08:18] LABS: BASO # 0.1 K/uL (0.0-0.2); BASO % 1.6 % (0.0-2.0); EOS # 0.2 K/uL (0.0-0.7); EOS % 2.9 % (0.0-4.0); HEMOGLOBIN 12.7 g/dL (12.0-18.0); LYMPH # 0.8 K/uL (1.0-4.3); LYMPH % 12.9 % (20.0-40.0); MEAN CORPUSCULAR HGB CONC 31.8 g/dL (33.0-37.0); MEAN PLATELET VOLUME 8.9 fL (7.2-11.7); MONO # 0.6 K/uL (0.0-0.8); MONO % 9.3 % (0.0-10.0); NEUT # 4.6 K/uL (1.8-7.0); NEUT % 73.3 % (50.0-75.0); RBC 4.71 Mil/uL (4.40-5.90); WHITE BLOOD COUNT 6.3 K/uL (4.8-10.8)
[2018-02-15 08:23] LABS: INR 1.7; PROTHROMBIN TIME 18.7 SECONDS (9.7-12.2)
[2018-02-15 08:35] LABS: ALBUMIN 3.8 g/dL (3.5-5.0); CALCIUM 8.8 mg/dl (8.6-10.4)
[2018-02-15] MEDS: Metoprolol Succinate 50 mg XL Tab PO SCH (09:35)
--- NOTE | 2018-02-15 09:35 | CP.PCM.PN ---
<Yousuf Tariq - Last Filed: 02/15/18 09:23> Subjective - Date & Time of Evaluation Date of Evaluation: 02/15/18 Time of Evaluation: 09:23 - Subjective Subjective: Podiatry Progress note: Dr. Carrillo 62 year old male patient was seen at bedside this morning concerning Left leg edema and superficial ulcerations. Patient is AAOx3 and shows no signs of acute distress. Appears to be resting comfortably in bed. Reports that he feels better. Reports that the breathing is also getting better. Patient denies of any N/V/F/C or SOB today Objective - Vital Signs/Intake and Output Vital Signs (last 24 hours): Temp Pulse Resp BP Pulse Ox 98 F 91 H 20 126/87 97 02/15/18 09:12 02/15/18 08:36 02/15/18 08:36 02/15/18 08:36 02/15/18 08:36 Intake and Output: 02/15/18 02/15/18 06:59 18:59 Intake Total 300 Output Total 600 Balance -300 - Medications Medications: Current Medications Allopurinol (Zyloprim) 100 mg PO DAILY [facility] Last Admin: 02/14/18 10:24 Dose: 100 mg Amlodipine Besylate (Norvasc) 10 mg PO DAILY [facility] Last Admin: 02/14/18 10:24 Dose: 10 mg Aspirin (Ecotrin) 81 mg PO DAILY [facility] Last Admin: 02/14/18 10:24 Dose: 81 mg Brimonidine Tartrate (Alphagan 0.2% Opht) 0 ml OU DAILY [facility] Last Admin: 02/14/18 10:25 Dose: 1 drop Dextrose (Dextrose 50% Inj) 0 ml IVP .STAT PRN; Protocol PRN Reason: Hypoglycemia Protocol Dextrose (Glutose 15) 0 gm PO .ONCE PRN; Protocol PRN Reason: Hypoglycemia Protocol Furosemide (Lasix) 40 mg IVP DAILY [facility] Last Admin: 02/14/18 10:24 Dose: 40 mg Glucagon (Glucagen Diagnostic Kit) 0 mg IM .STAT PRN; Protocol PRN Reason: Hypoglycemia Protocol Insulin Aspart (Novolog) 8 unit SC AC [facility] Last Admin: 02/15/18 07:35 Dose: Not Given Insulin Detemir (Levemir) 25 unit SC HS [facility] Last Admin: 02/14/18 21:34 Dose: Not Given Insulin Human Regular (Novolin R) 0 unit SC ACHS [facility] PRN Reason: Protocol Last Admin: 02/15/18 07:35 Dose: Not Given Lactulose (Enulose) 20 gm PO Q12 PRN PRN Reason: Constipation Last Admin: 02/10/18 23:02 Dose: 20 gm Latanoprost (Xalatan Opht) 0 ml OU HS [facility] Last Admin: 02/14/18 21:34 Dose: 2.5 ml Losartan Potassium (Cozaar) 25 mg PO DAILY [facility] Last Admin: 02/14/18 10:24 Dose: 25 mg Metoprolol Succinate (Toprol Xl) 25 mg PO DAILY [facility] Last Admin: 02/14/18 10:23 Dose: 25 mg Ondansetron HCl (Zofran Inj) 4 mg IVP Q6 PRN PRN Reason: Nausea/Vomiting Last Admin: 02/10/18 20:03 Dose: 4 mg Pantoprazole Sodium (Protonix Ec Tab) 40 mg PO DAILY [facility] Last Admin: 02/14/18 10:24 Dose: 40 mg Rosuvastatin Calcium (Crestor) 10 mg PO HS [facility] Last Admin: 02/14/18 21:34 Dose: 10 mg Tamsulosin HCl (Flomax) 0.4 mg PO DAILY [facility] Last Admin: 02/14/18 10:24 Dose: 0.4 mg Timolol Maleate (Timoptic 0.5% Ophth Soln) 0 drop OU DAILY [facility] Last Admin: 02/14/18 10:24 Dose: 1 drop - Labs Labs: 02/15/18 08:09 02/15/18 08:09 PT 18.7 SECONDS (9.7-12.2) H 02/15/18 08:09 INR 1.7 02/15/18 08:09 APTT 50 SECONDS (21-34) H 02/10/18 00:12 - Constitutional Appears: Well, Non-toxic, No Acute Distress - Head Exam Head Exam: ATRAUMATIC - Extremities Exam Additional comments: Left lower extremity exam VASC: Left lower extremity cold to touch. Bilaterally edema noted L>R. Non- palpable DP and PT noted bilaterally, CONDITIONER TUMBLER less than 3 seconds noted to all digits DERM: Superficial open ulceration noted to medial and lateral aspect of left leg measuring 3cm x 3xm x 0.1cm with granular base. Serous drainage noted from the ulceration. No mal-odor noted. Mild erythema noted to left leg. No purulent discharge noted. No PTB NEURO: Gross sensation intact ORTHO: Decreased ROM noted to all joints distal to anklr joint - Neurological Exam Neurological Exam: Alert, Awake, Oriented x3 - Psychiatric Exam Psychiatric exam: Normal Affect, Normal Mood - Skin Skin Exam: Normal Color, Warm Assessment and Plan - Assessment and Plan (Free Text) Assessment: 62 yo male patient presenting with lower extremity edema and superficial ulceration to left leg Plan: Patient was seen, evaluated Plan discussed with attending Dr. Carrillo labs and vitals reviewed; afebrile, WBC 6.3 left leg cleansed with saline, dressed with Xeroform, DSD, ABD SPENCER R: 1.26, L-1.31 arterial doppler No DVT Podiatry will continue to follow inhouse <Deangelo Carrillo - Last Filed: 02/16/18 17:05> Objective - Vital Signs/Intake and Output Vital Signs (last 24 hours): Temp Pulse Resp BP Pulse Ox 98.0 F 92 H 20 111/71 100 02/16/18 15:09 02/16/18 16:00 02/16/18 15:09 02/16/18 15:09 02/16/18 15:09 Intake and Output: 02/16/18 02/16/18 06:59 18:59 Intake Total 300 Output Total 700 Balance -400 - Medications Medications: Current Medications Allopurinol (Zyloprim) 100 mg PO DAILY [facility] Last Admin: 02/16/18 09:54 Dose: 100 mg Amlodipine Besylate (Norvasc) 10 mg PO DAILY [facility] Last Admin: 02/16/18 09:54 Dose: 10 mg Aspirin (Ecotrin) 81 mg PO DAILY [facility] Last Admin: 02/16/18 09:54 Dose: 81 mg Brimonidine Tartrate (Alphagan 0.2% Opht) 0 ml OU DAILY [facility] Last Admin: 02/16/18 09:54 Dose: 1 drop Dextrose (Dextrose 50% Inj) 0 ml IVP .STAT PRN; Protocol PRN Reason: Hypoglycemia Protocol Dextrose (Glutose 15) 0 gm PO .ONCE PRN; Protocol PRN Reason: Hypoglycemia Protocol Furosemide (Lasix) 40 mg IVP DAILY [facility] Last Admin: 02/16/18 09:59 Dose: 40 mg Glucagon (Glucagen Diagnostic Kit) 0 mg IM .STAT PRN; Protocol PRN Reason: Hypoglycemia Protocol Insulin Aspart (Novolog) 8 unit SC AC [facility] Last Admin: 02/16/18 16:58 Dose: Not Given Insulin Detemir (Levemir) 25 unit SC HS [facility] Last Admin: 02/15/18 22:29 Dose: Not Given Insulin Human Regular (Novolin R) 0 unit SC ACHS [facility] PRN Reason: Protocol Last Admin: 02/16/18 16:57 Dose: Not Given Lactulose (Enulose) 20 gm PO Q12 PRN PRN Reason: Constipation Last Admin: 02/10/18 23:02 Dose: 20 gm Latanoprost (Xalatan Opht) 0 ml OU HS [facility] Last Admin: 02/15/18 22:36 Dose: 1 ml Losartan Potassium (Cozaar) 25 mg PO DAILY [facility] Last Admin: 02/16/18 09:54 Dose: 25 mg Metoprolol Succinate (Toprol Xl) 25 mg PO DAILY [facility] Last Admin: 02/16/18 09:54 Dose: 25 mg Ondansetron HCl (Zofran Inj) 4 mg IVP Q6 PRN PRN Reason: Nausea/Vomiting Last Admin: 02/10/18 20:03 Dose: 4 mg Pantoprazole Sodium (Protonix Ec Tab) 40 mg PO DAILY [facility] Last Admin: 02/16/18 09:54 Dose: 40 mg Rosuvastatin Calcium (Crestor) 10 mg PO HS [facility] Last Admin: 02/15/18 22:29 Dose: 10 mg Tamsulosin HCl (Flomax) 0.4 mg PO DAILY [facility] Last Admin: 02/16/18 09:54 Dose: 0.4 mg Timolol Maleate (Timoptic 0.5% Ophth Soln) 0 drop OU DAILY [facility] Last Admin: 02/16/18 09:54 Dose: 1 drop - Labs Labs: 02/16/18 07:03 02/16/18 07:03 PT 26.1 SECONDS (9.7-12.2) H D 02/16/18 07:03 INR 2.4 D 02/16/18 07:03 APTT 50 SECONDS (21-34) H 02/10/18 00:12 Assessment and Plan - Assessment and Plan (Free Text) Plan: pt seen at bedside with resident . agree with above findings .labs and chart reviewed ./Dr Lillie Carrillo
[2018-02-15] MEDS: Pantoprazole 40 mg EC Tab PO SCH (09:36)
[2018-02-15] MEDS: Brimonidine 0.2% Opth Sol (5ml) OU SCH (09:37)
--- NOTE | 2018-02-15 09:48 | CP.PCM.PN ---
Subjective - Date & Time of Evaluation Date of Evaluation: 02/15/18 Time of Evaluation: 09:46 - Subjective Subjective: PGY02 note for Dr. Miranda's service: Patient seen and examined at bedside. Nursing reports no acute events overnight. He reports improving shortness of breath since admission. Admits leg wounds were recently wrapped by podiatry, and that lower extremity swelling has decreased. Patient denies abdominal pain, but admits history of gallstones. He denies having headache, chest pain, nausea, vomiting, or urinary complaints. Objective - Vital Signs/Intake and Output Vital Signs (last 24 hours): Temp Pulse Resp BP Pulse Ox 98 F 91 H 20 138/96 H 97 02/15/18 09:12 02/15/18 08:36 02/15/18 08:36 02/15/18 09:36 02/15/18 08:36 Intake and Output: 02/15/18 02/15/18 06:59 18:59 Intake Total 300 Output Total 600 Balance -300 - Medications Medications: Current Medications Allopurinol (Zyloprim) [address] [facility] Last Admin: 02/15/18 09:36 Dose: 100 mg Amlodipine Besylate (Norvasc) [address] [facility] Last Admin: 02/15/18 09:36 Dose: 10 mg Aspirin (Ecotrin) [address] [facility] Last Admin: 02/15/18 09:36 Dose: 81 mg Brimonidine Tartrate (Alphagan 0.2% Opht) [address] [facility] Last Admin: 02/15/18 09:37 Dose: 1 drop Dextrose (Dextrose 50% Inj) 0 ml IVP .STAT PRN; Protocol PRN Reason: Hypoglycemia Protocol Dextrose (Glutose 15) 0 gm PO .ONCE PRN; Protocol PRN Reason: Hypoglycemia Protocol Furosemide (Lasix) [address] [facility] Last Admin: 02/15/18 09:36 Dose: 40 mg Glucagon (Glucagen Diagnostic Kit) 0 mg IM .STAT PRN; Protocol PRN Reason: Hypoglycemia Protocol Insulin Aspart (Novolog) [address] [facility] Last Admin: 02/15/18 07:35 Dose: Not Given Insulin Detemir (Levemir) [address] [facility] Last Admin: 02/14/18 21:34 Dose: Not Given Insulin Human Regular (Novolin R) [address] [facility] PRN Reason: Protocol Last Admin: 02/15/18 07:35 Dose: Not Given Lactulose (Enulose) 20 gm PO Q12 PRN PRN Reason: Constipation Last Admin: 02/10/18 23:02 Dose: 20 gm Latanoprost (Xalatan Opht) [address] [facility] Last Admin: 02/14/18 21:34 Dose: 2.5 ml Losartan Potassium (Cozaar) [address] [facility] Last Admin: 02/15/18 09:36 Dose: 25 mg Metoprolol Succinate (Toprol Xl) [address] [facility] Last Admin: 02/15/18 09:35 Dose: 25 mg Ondansetron HCl (Zofran Inj) 4 mg IVP Q6 PRN PRN Reason: Nausea/Vomiting Last Admin: 02/10/18 20:03 Dose: 4 mg Pantoprazole Sodium (Protonix Ec Tab) [address] [facility] Last Admin: 02/15/18 09:36 Dose: 40 mg Rosuvastatin Calcium (Crestor) [address] [facility] Last Admin: 02/14/18 21:34 Dose: 10 mg Tamsulosin HCl (Flomax) 0.[address] [facility] Last Admin: 02/15/18 09:36 Dose: 0.4 mg Timolol Maleate (Timoptic 0.5% Ophth Soln) [address] [facility] Last Admin: 02/15/18 09:37 Dose: 1 drop - Labs Labs: 02/15/18 08:09 02/15/18 08:09 PT 18.7 SECONDS (9.7-12.2) H 02/15/18 08:09 INR 1.7 02/15/18 08:09 APTT 50 SECONDS (21-34) H 02/10/18 00:12 - Additional Findings Additional findings: - Constitutional Appears: Non-toxic, No Acute Distress - Head Exam Head Exam: ATRAUMATIC, NORMOCEPHALIC - Eye Exam Eye Exam: Normal appearance, PERRL - scleral icterus - ENT Exam ENT Exam: Mucous Membranes Moist - Neck Exam Neck Exam: Normal Inspection - Respiratory Exam Respiratory Exam: Clear to Ausculation Bilateral, NORMAL BREATHING PATTERN. absent: Respiratory Distress - Cardiovascular Exam Cardiovascular Exam: REGULAR RHYTHM, +S1, +S2. absent: Murmur - no JVD - GI/Abdominal Exam GI & Abdominal Exam: Soft, Normal Bowel Sounds. absent: Tenderness - negative wynn sign - Extremities Exam Extremities Exam: Pedal Edema Additional comments: bilateral LE wrapped - Neurological Exam Neurological Exam: Alert, Awake, Oriented x3 - Psychiatric Exam Psychiatric exam: Normal Affect, Normal Mood - Skin Skin Exam: Dry, Warm Assessment and Plan - Assessment and Plan (Free Text) Plan: Acute on chronic CHF exacerbation -admit to tele -Input output, daily weight, Fluid restriction -BNP on admission 73522, (02/14) 5870 -Last Echo 07/2017 shows EF <35% -S/P AICD Cardiology consulted, Dr. Robles help appreciated - stable CHF, continue medical treatment -Lasix 40mg IV -Metoprolol 25mg daily -Cozaar 25mg Hx of PE -September 2017 per -INR 1.7 today, subtheraputic -Coumadin to 10 mg for today -ASA 81mg Elevated t bili T bili 3.7 today, max 4.2 Denies pain but hx of gallstones f/u GGT, Direct bilirubin, US Abd Afib -EKG in the ED show Afib with frequent Ventricular paced complexes -Patient denies history of Afib -Currently rate controlled on metoprolol -Coumadin 10mg today -ASA 81mg -Cardiology consulted -CHADS-VASc Score 5, Stroke risk was 7.2% per year -HAS-BLED Score 2, intermediate risk 1.88-3.2% risk of major bleeding LIZZETTE on CKD Cr 1.7, GFR 50 - Cr improving since admission Lower extremity swelling -LE venous doppler negative for DVT -Likely secondary Chronic CHF -Arterial doppler (02/14/18): Normal ankle-brachial index on right. No triphasic waveforms throughout RLE. Elevated SPENCER less reliable on left. No triphasic waveforms throughout LLE. Lower extremity chronic ulcer -wound care consulted -Blood culture negative -Podiatry consulted Diabetes -FS ACHS -ISS -Hypoglycemia protocol -Levemir 25u HS -Novolog 8u AC [facility] -Flomax 0.4mg Prophylactic measures -Protonix -Coumadin and ASA All management per Dr. Miranda
--- NOTE | 2018-02-15 16:43 | CP.PCM.PN ---
Subjective - Date & Time of Evaluation Date of Evaluation: 02/15/18 Time of Evaluation: 13:00 - Subjective Subjective: no sob, less edema local teatment Objective - Vital Signs/Intake and Output Vital Signs (last 24 hours): Temp Pulse Resp BP Pulse Ox 98.5 F 88 20 132/87 95 02/15/18 15:29 02/15/18 15:29 02/15/18 15:29 02/15/18 15:29 02/15/18 15:29 Intake and Output: 02/15/18 02/15/18 06:59 18:59 Intake Total 300 Output Total 600 Balance -300 - Medications Medications: Current Medications Allopurinol (Zyloprim) 100 mg PO DAILY [facility] Last Admin: 02/15/18 09:36 Dose: 100 mg Amlodipine Besylate (Norvasc) 10 mg PO DAILY [facility] Last Admin: 02/15/18 09:36 Dose: 10 mg Aspirin (Ecotrin) 81 mg PO DAILY [facility] Last Admin: 02/15/18 09:36 Dose: 81 mg Brimonidine Tartrate (Alphagan 0.2% Opht) 0 ml OU DAILY [facility] Last Admin: 02/15/18 09:37 Dose: 1 drop Dextrose (Dextrose 50% Inj) 0 ml IVP .STAT PRN; Protocol PRN Reason: Hypoglycemia Protocol Dextrose (Glutose 15) 0 gm PO .ONCE PRN; Protocol PRN Reason: Hypoglycemia Protocol Furosemide (Lasix) 40 mg IVP DAILY [facility] Last Admin: 02/15/18 09:36 Dose: 40 mg Glucagon (Glucagen Diagnostic Kit) 0 mg IM .STAT PRN; Protocol PRN Reason: Hypoglycemia Protocol Insulin Aspart (Novolog) 8 unit SC AC [facility] Last Admin: 02/15/18 16:36 Dose: Not Given Insulin Detemir (Levemir) 25 unit SC HS [facility] Last Admin: 02/14/18 21:34 Dose: Not Given Insulin Human Regular (Novolin R) 0 unit SC ACHS [facility] PRN Reason: Protocol Last Admin: 02/15/18 16:36 Dose: Not Given Lactulose (Enulose) 20 gm PO Q12 PRN PRN Reason: Constipation Last Admin: 02/10/18 23:02 Dose: 20 gm Latanoprost (Xalatan Opht) 0 ml OU HS [facility] Last Admin: 02/14/18 21:34 Dose: 2.5 ml Losartan Potassium (Cozaar) 25 mg PO DAILY [facility] Last Admin: 02/15/18 09:36 Dose: 25 mg Metoprolol Succinate (Toprol Xl) 25 mg PO DAILY [facility] Last Admin: 02/15/18 09:35 Dose: 25 mg Ondansetron HCl (Zofran Inj) 4 mg IVP Q6 PRN PRN Reason: Nausea/Vomiting Last Admin: 02/10/18 20:03 Dose: 4 mg Pantoprazole Sodium (Protonix Ec Tab) 40 mg PO DAILY [facility] Last Admin: 02/15/18 09:36 Dose: 40 mg Rosuvastatin Calcium (Crestor) 10 mg PO HS [facility] Last Admin: 02/14/18 21:34 Dose: 10 mg Tamsulosin HCl (Flomax) 0.4 mg PO DAILY [facility] Last Admin: 02/15/18 09:36 Dose: 0.4 mg Timolol Maleate (Timoptic 0.5% Oph Soln) 0 drop OU DAILY [facility] Last Admin: 02/15/18 09:37 Dose: 1 drop Warfarin Sodium (Coumadin) 10 mg PO 1800 [facility] Stop: 02/15/18 18:01 - Labs Labs: 02/15/18 08:09 02/15/18 08:09 PT 18.7 SECONDS (9.7-12.2) H 02/15/18 08:09 INR 1.7 02/15/18 08:09 APTT 50 SECONDS (21-34) H 02/10/18 00:12 - Constitutional Appears: Non-toxic - Head Exam Head Exam: ATRAUMATIC - Eye Exam Eye Exam: EOMI - ENT Exam ENT Exam: Mucous Membranes Moist - Neck Exam Neck Exam: absent: Lymphadenopathy, Thyromegaly - Respiratory Exam Respiratory Exam: Clear to Ausculation Bilateral. absent: Rales - Cardiovascular Exam Cardiovascular Exam: Irregular Rhythm, Murmur - GI/Abdominal Exam GI & Abdominal Exam: Normal Bowel Sounds. absent: Organomegaly - Rectal Exam Rectal Exam: Deferred - Extremities Exam Extremities Exam: Normal Capillary Refill, Pedal Edema. absent: Calf Tenderness - Neurological Exam Neurological Exam: Alert, Oriented x3 - Psychiatric Exam Psychiatric exam: Normal Affect - Skin Skin Exam: Dry Assessment and Plan (1) Dilated cardiomyopathy Status: Acute (2) Atrial fibrillation, chronic Status: Chronic
--- NOTE | 2018-02-15 17:48 | US ---
HISTORY: Elevated total bilirubin. History of gallstones. COMPARISON: None. TECHNIQUE: Sonographic evaluation of the abdomen. FINDINGS: LIVER: Measures 21.9 cm. Hepatopedal blood flow. Fatty infiltration manifest ultrasonographically as increased echogenicity of the liver parenchyma. Nodular contour to the liver. . Hepatic ascites identified. GALLBLADDER: Cholelithiasis. Sludge identified. Gallbladder wall thickening noted. Maximum thickness 8.6 mm. Negative sonographic Santos's sign. COMMON BILE DUCT: Measures 5.9 mm. No stones. No dilatation. PANCREAS: Obscured by left hepatic lobe and overlying bowel gas. Non diagnostic assessment of the pancreas RIGHT KIDNEY: Measures 5.5 x 11.8cm. Normal echogenicity. No calculus, mass, or hydronephrosis. LEFT KIDNEY: Measures 5.4 x 8.3cm. Normal echogenicity. No calculus, mass, or hydronephrosis. SPLEEN: Top-normal spleen cephalocaudal dimension 12.9 cm. AORTA: No aneurysmal dilatation. IVC: Unremarkable. OTHER FINDINGS: None. IMPRESSION: 1. Hepatomegaly, hepatic steatosis. Nodular contour suggest hepatocellular disease perhaps 0 cysts. 2. Cholelithiasis. Innumerable small gallstones identified as is line. Gallbladder wall thickening in the absence of sonographic Santos's sign. 3. Abdominal ascites, low volume is incompletely visualized.
--- NOTE | 2018-02-15 18:28 | CP.PCM.PN ---
Subjective - Date & Time of Evaluation Date of Evaluation: 02/15/18 Time of Evaluation: 10:40 - Subjective Subjective: clinically same Objective - Vital Signs/Intake and Output Vital Signs (last 24 hours): Temp Pulse Resp BP Pulse Ox 98.5 F 88 20 132/87 95 02/15/18 15:29 02/15/18 15:29 02/15/18 15:29 02/15/18 15:29 02/15/18 15:29 Intake and Output: 02/15/18 02/15/18 06:59 18:59 Intake Total 300 Output Total 600 Balance -300 - Medications Medications: Current Medications Allopurinol (Zyloprim) 100 mg PO DAILY [facility] Last Admin: 02/15/18 09:36 Dose: 100 mg Amlodipine Besylate (Norvasc) 10 mg PO DAILY [facility] Last Admin: 02/15/18 09:36 Dose: 10 mg Aspirin (Ecotrin) 81 mg PO DAILY [facility] Last Admin: 02/15/18 09:36 Dose: 81 mg Brimonidine Tartrate (Alphagan 0.2% Opht) 0 ml OU DAILY [facility] Last Admin: 02/15/18 09:37 Dose: 1 drop Dextrose (Dextrose 50% Inj) 0 ml IVP .STAT PRN; Protocol PRN Reason: Hypoglycemia Protocol Dextrose (Glutose 15) 0 gm PO .ONCE PRN; Protocol PRN Reason: Hypoglycemia Protocol Furosemide (Lasix) 40 mg IVP DAILY [facility] Last Admin: 02/15/18 09:36 Dose: 40 mg Glucagon (Glucagen Diagnostic Kit) 0 mg IM .STAT PRN; Protocol PRN Reason: Hypoglycemia Protocol Insulin Aspart (Novolog) 8 unit SC AC [facility] Last Admin: 02/15/18 16:36 Dose: Not Given Insulin Detemir (Levemir) 25 unit SC HS [facility] Last Admin: 02/14/18 21:34 Dose: Not Given Insulin Human Regular (Novolin R) 0 unit SC ACHS [facility] PRN Reason: Protocol Last Admin: 02/15/18 16:36 Dose: Not Given Lactulose (Enulose) 20 gm PO Q12 PRN PRN Reason: Constipation Last Admin: 02/10/18 23:02 Dose: 20 gm Latanoprost (Xalatan Opht) 0 ml OU HS [facility] Last Admin: 02/14/18 21:34 Dose: 2.5 ml Losartan Potassium (Cozaar) 25 mg PO DAILY [facility] Last Admin: 02/15/18 09:36 Dose: 25 mg Metoprolol Succinate (Toprol Xl) 25 mg PO DAILY [facility] Last Admin: 02/15/18 09:35 Dose: 25 mg Ondansetron HCl (Zofran Inj) 4 mg IVP Q6 PRN PRN Reason: Nausea/Vomiting Last Admin: 02/10/18 20:03 Dose: 4 mg Pantoprazole Sodium (Protonix Ec Tab) 40 mg PO DAILY [facility] Last Admin: 02/15/18 09:36 Dose: 40 mg Rosuvastatin Calcium (Crestor) 10 mg PO HS [facility] Last Admin: 02/14/18 21:34 Dose: 10 mg Tamsulosin HCl (Flomax) 0.4 mg PO DAILY [facility] Last Admin: 02/15/18 09:36 Dose: 0.4 mg Timolol Maleate (Timoptic 0.5% Ophth Soln) 0 drop OU DAILY [facility] Last Admin: 02/15/18 09:37 Dose: 1 drop - Labs Labs: 02/15/18 08:09 02/15/18 08:09 PT 18.7 SECONDS (9.7-12.2) H 02/15/18 08:09 INR 1.7 02/15/18 08:09 APTT 50 SECONDS (21-34) H 02/10/18 00:12 - Constitutional Appears: Well - Head Exam Head Exam: ATRAUMATIC, NORMAL INSPECTION, NORMOCEPHALIC - Eye Exam Eye Exam: EOMI, Normal appearance, PERRL Pupil Exam: NORMAL ACCOMODATION, PERRL - ENT Exam ENT Exam: Mucous Membranes Moist, Normal Exam - Neck Exam Neck Exam: Full ROM, Normal Inspection. absent: Lymphadenopathy - Respiratory Exam Respiratory Exam: Decreased Breath Sounds - Cardiovascular Exam Cardiovascular Exam: REGULAR RHYTHM, +S1, +S2 - GI/Abdominal Exam GI & Abdominal Exam: Soft, Diminished Bowel Sounds - Rectal Exam Rectal Exam: Deferred
[2018-02-15] MEDS: Insulin Detemir 100 units/ml Vial (Levemir) SC SCH (22:29)
[2018-02-15] MEDS: Latanoprost 2.5 ml Opht Soln OU SCH (22:36)
--- NOTE | 2018-02-16 06:29 | CP.PCM.PN ---
Addendum entered and electronically signed by Austin Vasquez DO 02/16/18 19:13: Spoke with Dr. Miranda. Pt to receive coumadin dose this evening. Addendum entered and electronically signed by Austin Vasquez DO 02/16/18 18:46: Patient for cholecystectomy when medically stable and cleared by cardiology. Awaiting attending Dr. Miranda decision on instruction about coumadin dosing for this evening. Original Note: <Austin Vasquez - Last Filed: 02/16/18 13:31> Subjective - Date & Time of Evaluation Date of Evaluation: 02/16/18 Time of Evaluation: 06:28 - Subjective Subjective: PGY02 note for Dr. Miranda's service: Patient seen and examined at bedside. Nursing reports no acute events overnight. Patient found sitting at bedside comfortably. He states he was able to walk to the bathroom "without his oxygen" and has been breathing better since admission. Patient denies abdominal pain, N/V, or itchiness this AM. Further denies chest pain, palpitations, or headache. Objective - Vital Signs/Intake and Output Vital Signs (last 24 hours): Temp Pulse Resp BP Pulse Ox 98.4 F 94 H 29 H 122/85 94 L 02/16/18 04:00 02/16/18 04:00 02/16/18 04:00 02/16/18 04:00 02/16/18 04:00 - Medications Medications: Current Medications Allopurinol (Zyloprim) 100 mg PO DAILY [facility] Last Admin: 02/15/18 09:36 Dose: 100 mg Amlodipine Besylate (Norvasc) 10 mg PO DAILY [facility] Last Admin: 02/15/18 09:36 Dose: 10 mg Aspirin (Ecotrin) 81 mg PO DAILY [facility] Last Admin: 02/15/18 09:36 Dose: 81 mg Brimonidine Tartrate (Alphagan 0.2% Opht) 0 ml OU DAILY [facility] Last Admin: 02/15/18 09:37 Dose: 1 drop Dextrose (Dextrose 50% Inj) 0 ml IVP .STAT PRN; Protocol PRN Reason: Hypoglycemia Protocol Dextrose (Glutose 15) 0 gm PO .ONCE PRN; Protocol PRN Reason: Hypoglycemia Protocol Furosemide (Lasix) 40 mg IVP DAILY [facility] Last Admin: 02/15/18 09:36 Dose: 40 mg Glucagon (Glucagen Diagnostic Kit) 0 mg IM .STAT PRN; Protocol PRN Reason: Hypoglycemia Protocol Insulin Aspart (Novolog) 8 unit SC AC [facility] Last Admin: 02/15/18 16:36 Dose: Not Given Insulin Detemir (Levemir) 25 unit SC HS [facility] Last Admin: 02/15/18 22:29 Dose: Not Given Insulin Human Regular (Novolin R) 0 unit SC ACHS [facility] PRN Reason: Protocol Last Admin: 02/15/18 22:29 Dose: Not Given Lactulose (Enulose) 20 gm PO Q12 PRN PRN Reason: Constipation Last Admin: 02/10/18 23:02 Dose: 20 gm Latanoprost (Xalatan Opht) 0 ml OU HS [facility] Last Admin: 02/15/18 22:36 Dose: 1 ml Losartan Potassium (Cozaar) 25 mg PO DAILY [facility] Last Admin: 02/15/18 09:36 Dose: 25 mg Metoprolol Succinate (Toprol Xl) 25 mg PO DAILY [facility] Last Admin: 02/15/18 09:35 Dose: 25 mg Ondansetron HCl (Zofran Inj) 4 mg IVP Q6 PRN PRN Reason: Nausea/Vomiting Last Admin: 02/10/18 20:03 Dose: 4 mg Pantoprazole Sodium (Protonix Ec Tab) 40 mg PO DAILY [facility] Last Admin: 02/15/18 09:36 Dose: 40 mg Rosuvastatin Calcium (Crestor) 10 mg PO HS [facility] Last Admin: 02/15/18 22:29 Dose: 10 mg Tamsulosin HCl (Flomax) 0.4 mg PO DAILY [facility] Last Admin: 02/15/18 09:36 Dose: 0.4 mg Timolol Maleate (Timoptic 0.5% Ophth Soln) 0 drop OU DAILY [facility] Last Admin: 02/15/18 09:37 Dose: 1 drop - Labs Labs: 02/15/18 08:09 02/15/18 08:09 PT 18.7 SECONDS (9.7-12.2) H 02/15/18 08:09 INR 1.7 02/15/18 08:09 APTT 50 SECONDS (21-34) H 02/10/18 00:12 - Additional Findings Additional findings: - Constitutional Appears: Non-toxic, No Acute Distress - Head Exam Head Exam: ATRAUMATIC, NORMOCEPHALIC - Eye Exam Eye Exam: Normal appearance, PERRL - scleral icterus - ENT Exam ENT Exam: Mucous Membranes Moist - Neck Exam Neck Exam: Normal Inspection - Respiratory Exam Respiratory Exam: Clear to Ausculation Bilateral, NORMAL BREATHING PATTERN. absent: Respiratory Distress - Cardiovascular Exam Cardiovascular Exam: REGULAR RHYTHM, +S1, +S2. absent: Murmur - no JVD - GI/Abdominal Exam GI & Abdominal Exam: Soft, Normal Bowel Sounds. absent: Tenderness - negative santos sign - Extremities Exam Extremities Exam: Pedal Edema Additional comments: bilateral LE wrapped - Neurological Exam Neurological Exam: Alert, Awake, Oriented x3 - Psychiatric Exam Psychiatric exam: Normal Affect, Normal Mood - Skin Skin Exam: Dry, Warm Assessment and Plan - Assessment and Plan (Free Text) Plan: Acute on chronic CHF exacerbation -admit to tele -Input output, daily weight, Fluid restriction -BNP on admission 24448, (02/14) 5870 -Last Echo 07/2017 shows EF <35% -S/P AICD Cardiology consulted, Dr. Robles help appreciated - stable CHF, continue medical treatment -Lasix 40mg IV -Metoprolol 25mg daily -Cozaar 25mg Hx of PE -September 2017 per -INR 2.4 today, now therapeutic -Coumadin to mg for today -ASA 81mg Hyperbilirubinemia T bili increased to 4.4 today Denies pain but hx of gallstones US Abd (02/15/18): Hepatomegaly, hepatic steatosis. Nodular contour suggest hepatocellular disease, perhaps cysts. Cholelithiasis - innumerable small gallstones identified. Gallbladder wall thickening in absence of sonographic Santos's sign. Abd ascites, low volume incompletely visualized. GGT WNL Direct bilirubin 1.4 Dr. Jorgensen/[facility], GI constultant - help appreciated - No CBD dilatation or stone - can order MRCP to confirm - recommend surgical eval Dr. Sherman, Gen Surg Emergency Detail Driver - f/u reccs f/u MRCP Afib -EKG in the ED show Afib with frequent Ventricular paced complexes -Patient denies history of Afib -Currently rate controlled on metoprolol -Coumadin 10mg today -ASA 81mg -Cardiology consulted -CHADS-VASc Score 5, Stroke risk was 7.2% per year -HAS-BLED Score 2, intermediate risk 1.88-3.2% risk of major bleeding LIZZETTE on CKD Cr 1.7, GFR 50 - Cr improving since admission Lower extremity swelling -LE venous doppler negative for DVT -Likely secondary Chronic CHF -Arterial doppler (02/14/18): Normal ankle-brachial index on right. No triphasic waveforms throughout RLE. Elevated SPENCER less reliable on left. No triphasic waveforms throughout LLE. Lower extremity chronic ulcer -wound care consulted -Blood culture negative -Podiatry consulted Diabetes -FS ACHS -ISS -Hypoglycemia protocol -Levemir 25u HS -Novolog 8u AC BPH -Flomax 0.4mg Prophylactic measures -Protonix -Coumadin and ASA All management per Dr. Miranda <Darien Miranda S - Last Filed: 02/24/18 00:48> Objective - Vital Signs/Intake and Output Vital Signs (last 24 hours): Temp Pulse Resp BP Pulse Ox 98.0 F 98 H 20 130/92 H 100 02/23/18 15:54 02/23/18 15:54 02/23/18 15:54 02/23/18 15:54 02/23/18 15:54 - Medications Medications: Current Medications Allopurinol (Zyloprim) 100 mg PO DAILY [facility] Last Admin: 02/23/18 10:57 Dose: 100 mg Amlodipine Besylate (Norvasc) 10 mg PO DAILY [facility] Last Admin: 02/23/18 10:57 Dose: 10 mg Aspirin (Ecotrin) 81 mg PO DAILY [facility] Last Admin: 02/23/18 10:55 Dose: 81 mg Brimonidine Tartrate (Alphagan 0.2% Opht) 0 ml OU DAILY [facility] Last Admin: 02/23/18 10:57 Dose: 1 drop Dextrose (Dextrose 50% Inj) 0 ml IVP .STAT PRN; Protocol PRN Reason: Hypoglycemia Protocol Dextrose (Glutose 15) 0 gm PO .ONCE PRN; Protocol PRN Reason: Hypoglycemia Protocol Furosemide (Lasix) 40 mg IVP DAILY [facility] Last Admin: 02/23/18 11:27 Dose: 40 mg Glucagon (Glucagen Diagnostic Kit) 0 mg IM .STAT PRN; Protocol PRN Reason: Hypoglycemia Protocol Insulin Aspart (Novolog) 8 unit SC AC [facility] Last Admin: 02/23/18 18:00 Dose: 8 unit Insulin Detemir (Levemir) 25 unit SC [facility] Last Admin: 02/23/18 21:56 Dose: Not Given Insulin Human Regular (Novolin R) 0 unit SC ACHS [facility] PRN Reason: Protocol Last Admin: 02/23/18 21:54 Dose: Not Given Lactulose (Enulose) 20 gm PO Q12 PRN PRN Reason: Constipation Last Admin: 02/10/18 23:02 Dose: 20 gm Latanoprost (Xalatan Opht) 0 ml OU HS [facility] Last Admin: 02/23/18 21:54 Dose: 2.5 ml Losartan Potassium (Cozaar) 25 mg PO DAILY [facility] Last Admin: 02/23/18 10:57 Dose: 25 mg Metoprolol Succinate (Toprol Xl) 25 mg PO DAILY [facility] Last Admin: 02/23/18 10:57 Dose: 25 mg Ondansetron HCl (Zofran Inj) 4 mg IVP Q6 PRN PRN Reason: Nausea/Vomiting Last Admin: 02/10/18 20:03 Dose: 4 mg Pantoprazole Sodium (Protonix Ec Tab) 40 mg PO DAILY [facility] Last Admin: 02/23/18 10:57 Dose: 40 mg Rosuvastatin Calcium (Crestor) 10 mg PO HS [facility] Last Admin: 02/23/18 21:52 Dose: 10 mg Tamsulosin HCl (Flomax) 0.4 mg PO DAILY [facility] Last Admin: 02/23/18 10:57 Dose: 0.4 mg Timolol Maleate (Timoptic 0.5% Ophth Soln) 0 drop OU DAILY [facility] Last Admin: 02/23/18 10:58 Dose: 1 drop - Labs Labs: 02/23/18 07:23 02/23/18 07:23 PT 23.4 SECONDS (9.7-12.2) H 02/23/18 07:23 INR 2.1 02/23/18 07:23 APTT 50 SECONDS (21-34) H 02/10/18 00:12 Attending/Attestation - Attestation I have personally seen and examined this patient.: Yes I have fully participated in the care of the patient.: Yes I have reviewed all pertinent clinical information, including history, physical exam and plan: Yes
[2018-02-16 07:37] LABS: BASO # 0.1 K/uL (0.0-0.2); BASO % 1.1 % (0.0-2.0); EOS # 0.1 K/uL (0.0-0.7); EOS % 2.1 % (0.0-4.0); HEMOGLOBIN 12.9 g/dL (12.0-18.0); LYMPH # 0.6 K/uL (1.0-4.3); LYMPH % 9.7 % (20.0-40.0); MEAN CELL VOLUME 84.3 fL (80.0-94.0); MEAN CORPUSCULAR HEMOGLOBIN 27.1 pg (27.0-31.0); MEAN CORPUSCULAR HGB CONC 32.1 g/dL (33.0-37.0); MEAN PLATELET VOLUME 9.3 fL (7.2-11.7); MONO # 0.9 K/uL (0.0-0.8); MONO % 13.8 % (0.0-10.0); NEUT # 4.7 K/uL (1.8-7.0); NEUT % 73.3 % (50.0-75.0); NRBC % 0.1 % (0.0-2.0); PLATELET COUNT 148 K/uL (130-400); RBC 4.76 Mil/uL (4.40-5.90); RED CELL DISTRIBUTION WIDTH 19.5 % (11.5-14.5); WHITE BLOOD COUNT 6.4 K/uL (4.8-10.8)
[2018-02-16 07:38] LABS: ALB/GLOB RATIO 0.9 (1.0-2.1); ALBUMIN 3.4 g/dL (3.5-5.0); BILIRUBIN,DIRECT 1.4 mg/dL (0.0-0.4); CALCIUM 9.2 mg/dl (8.6-10.4)
[2018-02-16 07:45] LABS: INR 2.4; PROTHROMBIN TIME 26.1 SECONDS (9.7-12.2)
[2018-02-16] MEDS: (Novolin R) Insulin Human Regular 100 units/ml vial SC SCH ×4 (09:00→22:27)
--- NOTE | 2018-02-16 09:19 | CP.PCM.PN ---
<Yousuf Tariq - Last Filed: 02/16/18 09:15> Subjective - Date & Time of Evaluation Date of Evaluation: 02/16/18 Time of Evaluation: 09:15 - Subjective Subjective: Podiatry Progress note: Dr. Carrillo 62 year old male patient was seen at bedside this morning concerning Left leg edema and superficial ulcerations. Appears to be resting comfortably in bed, AAOx3. Reports that he feels better. Reports that the breathing is also getting better. Patient denies of any N/V/F/C or SOB today. Patient was advised to keep bilateral feet elevated with pillows. Objective - Vital Signs/Intake and Output Vital Signs (last 24 hours): Temp Pulse Resp BP Pulse Ox 98.4 F 94 H 29 H 122/85 94 L 02/16/18 04:00 02/16/18 04:00 02/16/18 04:00 02/16/18 04:00 02/16/18 04:00 Intake and Output: 02/16/18 02/16/18 06:59 18:59 Intake Total 300 Output Total 700 Balance -400 - Medications Medications: Current Medications Allopurinol (Zyloprim) 100 mg PO DAILY [facility] Last Admin: 02/15/18 09:36 Dose: 100 mg Amlodipine Besylate (Norvasc) 10 mg PO DAILY [facility] Last Admin: 02/15/18 09:36 Dose: 10 mg Aspirin (Ecotrin) 81 mg PO DAILY [facility] Last Admin: 02/15/18 09:36 Dose: 81 mg Brimonidine Tartrate (Alphagan 0.2% Opht) 0 ml OU DAILY [facility] Last Admin: 02/15/18 09:37 Dose: 1 drop Dextrose (Dextrose 50% Inj) 0 ml IVP .STAT PRN; Protocol PRN Reason: Hypoglycemia Protocol Dextrose (Glutose 15) 0 gm PO .ONCE PRN; Protocol PRN Reason: Hypoglycemia Protocol Furosemide (Lasix) 40 mg IVP DAILY [facility] Last Admin: 02/15/18 09:36 Dose: 40 mg Glucagon (Glucagen Diagnostic Kit) 0 mg IM .STAT PRN; Protocol PRN Reason: Hypoglycemia Protocol Insulin Aspart (Novolog) 8 unit SC AC [facility] Last Admin: 02/15/18 16:36 Dose: Not Given Insulin Detemir (Levemir) 25 unit SC HS [facility] Last Admin: 02/15/18 22:29 Dose: Not Given Insulin Human Regular (Novolin R) 0 unit SC ACHS [facility]IQUE PRN Reason: Protocol Last Admin: 02/16/18 09:00 Dose: Not Given Lactulose (Enulose) 20 gm PO Q12 PRN PRN Reason: Constipation Last Admin: 02/10/18 23:02 Dose: 20 gm Latanoprost (Xalatan Opht) 0 ml OU HS [facility] Last Admin: 02/15/18 22:36 Dose: 1 ml Losartan Potassium (Cozaar) 25 mg PO DAILY [facility] Last Admin: 02/15/18 09:36 Dose: 25 mg Metoprolol Succinate (Toprol Xl) 25 mg PO DAILY [facility] Last Admin: 02/15/18 09:35 Dose: 25 mg Ondansetron HCl (Zofran Inj) 4 mg IVP Q6 PRN PRN Reason: Nausea/Vomiting Last Admin: 02/10/18 20:03 Dose: 4 mg Pantoprazole Sodium (Protonix Ec Tab) 40 mg PO DAILY [facility] Last Admin: 02/15/18 09:36 Dose: 40 mg Rosuvastatin Calcium (Crestor) 10 mg PO HS [facility] Last Admin: 02/15/18 22:29 Dose: 10 mg Tamsulosin HCl (Flomax) 0.4 mg PO DAILY [facility] Last Admin: 02/15/18 09:36 Dose: 0.4 mg Timolol Maleate (Timoptic 0.5% Ophth Soln) 0 drop OU DAILY [facility] Last Admin: 02/15/18 09:37 Dose: 1 drop - Labs Labs: 02/16/18 07:03 02/16/18 07:03 PT 26.1 SECONDS (9.7-12.2) H D 02/16/18 07:03 INR 2.4 D 02/16/18 07:03 APTT 50 SECONDS (21-34) H 02/10/18 00:12 - Constitutional Appears: Well, Non-toxic, No Acute Distress - Head Exam Head Exam: ATRAUMATIC - Extremities Exam Additional comments: Left lower extremity exam VASC: Left lower extremity cold to touch. Bilaterally edema noted L>R. Non- palpable DP and PT noted bilaterally, SECURITY RISK ANALYST less than 3 seconds noted to all digits DERM: Superficial open ulceration noted to medial and lateral aspect of left leg measuring 3cm x 3xm x 0.1cm with granular base. Serous drainage noted from the ulceration. No mal-odor noted. Mild erythema noted to left leg. No purulent discharge noted. No PTB NEURO: Gross sensation intact ORTHO: Decreased ROM noted to all joints distal to anklr joint - Neurological Exam Neurological Exam: Alert, Awake, Oriented x3 - Psychiatric Exam Psychiatric exam: Normal Affect, Normal Mood - Skin Skin Exam: Normal Color, Warm Assessment and Plan - Assessment and Plan (Free Text) Assessment: 62 yo male patient presenting with lower extremity edema and superficial ulceration to left leg Plan: Patient was seen, evaluated Plan discussed with attending Dr. Carrillo labs and vitals reviewed; afebrile, WBC 6.4 left leg cleansed with saline, dressed with Xeroform, DSD, ABD SPENCER R: 1.26, L-1.31 arterial doppler No DVT Unnaboot ordered for bilateral lower extremities. Please dispense by bedside Podiatry will continue to follow inhouse <Deangelo Carrillo - Last Filed: 02/16/18 17:07> Objective - Vital Signs/Intake and Output Vital Signs (last 24 hours): Temp Pulse Resp BP Pulse Ox 98.0 F 92 H 20 111/71 100 02/16/18 15:09 02/16/18 16:00 02/16/18 15:09 02/16/18 15:09 02/16/18 15:09 Intake and Output: 02/16/18 02/16/18 06:59 18:59 Intake Total 300 Output Total 700 Balance -400 - Medications Medications: Current Medications Allopurinol (Zyloprim) 100 mg PO DAILY [facility] Last Admin: 02/16/18 09:54 Dose: 100 mg Amlodipine Besylate (Norvasc) 10 mg PO DAILY [facility] Last Admin: 02/16/18 09:54 Dose: 10 mg Aspirin (Ecotrin) 81 mg PO DAILY [facility] Last Admin: 02/16/18 09:54 Dose: 81 mg Brimonidine Tartrate (Alphagan 0.2% Opht) 0 ml OU DAILY [facility] Last Admin: 02/16/18 09:54 Dose: 1 drop Dextrose (Dextrose 50% Inj) 0 ml IVP .STAT PRN; Protocol PRN Reason: Hypoglycemia Protocol Dextrose (Glutose 15) 0 gm PO .ONCE PRN; Protocol PRN Reason: Hypoglycemia Protocol Furosemide (Lasix) 40 mg IVP DAILY [facility] Last Admin: 02/16/18 09:59 Dose: 40 mg Glucagon (Glucagen Diagnostic Kit) 0 mg IM .STAT PRN; Protocol PRN Reason: Hypoglycemia Protocol Insulin Aspart (Novolog) 8 unit SC AC [facility] Last Admin: 02/16/18 16:58 Dose: Not Given Insulin Detemir (Levemir) 25 unit SC HS [facility] Last Admin: 02/15/18 22:29 Dose: Not Given Insulin Human Regular (Novolin R) 0 unit SC ACHS [facility] PRN Reason: Protocol Last Admin: 02/16/18 16:57 Dose: Not Given Lactulose (Enulose) 20 gm PO Q12 PRN PRN Reason: Constipation Last Admin: 02/10/18 23:02 Dose: 20 gm Latanoprost (Xalatan Opht) 0 ml OU HS [facility] Last Admin: 02/15/18 22:36 Dose: 1 ml Losartan Potassium (Cozaar) 25 mg PO DAILY [facility] Last Admin: 02/16/18 09:54 Dose: 25 mg Metoprolol Succinate (Toprol Xl) 25 mg PO DAILY [facility] Last Admin: 02/16/18 09:54 Dose: 25 mg Ondansetron HCl (Zofran Inj) 4 mg IVP Q6 PRN PRN Reason: Nausea/Vomiting Last Admin: 02/10/18 20:03 Dose: 4 mg Pantoprazole Sodium (Protonix Ec Tab) 40 mg PO DAILY [facility] Last Admin: 02/16/18 09:54 Dose: 40 mg Rosuvastatin Calcium (Crestor) 10 mg PO HS [facility] Last Admin: 02/15/18 22:29 Dose: 10 mg Tamsulosin HCl (Flomax) 0.4 mg PO DAILY [facility] Last Admin: 02/16/18 09:54 Dose: 0.4 mg Timolol Maleate (Timoptic 0.5% Ophth Soln) 0 drop OU DAILY [facility] Last Admin: 02/16/18 09:54 Dose: 1 drop - Labs Labs: 02/16/18 07:03 02/16/18 07:03 PT 26.1 SECONDS (9.7-12.2) H D 02/16/18 07:03 INR 2.4 D 02/16/18 07:03 APTT 50 SECONDS (21-34) H 02/10/18 00:12 Assessment and Plan - Assessment and Plan (Free Text) Plan: pt seen at bedside with resident this am . agree with above findings . to start Unna boot left . chart and labs reviewed /Dr Lillie Carrillo
[2018-02-16 09:35] LABS: LYMPHOCYTE 13 % (20-40); MONOCYTE 11 % (0-10); NEUTROPHIL 76 % (50-75); TOTAL CELLS COUNTED 100
[2018-02-16 09:48] LABS: ANISOCYTOSIS SLIGHT; PLATELET ESTIMATE NORMAL (NORMAL)
[2018-02-16] MEDS: Pantoprazole 40 mg EC Tab PO SCH (09:54)
[2018-02-16] MEDS: Brimonidine 0.2% Opth Sol (5ml) OU SCH (09:54)
[2018-02-16] MEDS: Metoprolol Succinate 25 mg XL Tab PO SCH (09:54)
[2018-02-16] MEDS: (Novolog) Insulin Aspart, Recombinant 100 u/ml 10 ml vial SC SCH ×3 (09:58→16:58)
--- NOTE | 2018-02-16 17:27 | CP.PCM.PN ---
Subjective - Date & Time of Evaluation Date of Evaluation: 02/16/18 Time of Evaluation: 11:40 - Subjective Subjective: clinically same Objective - Vital Signs/Intake and Output Vital Signs (last 24 hours): Temp Pulse Resp BP Pulse Ox 98.0 F 92 H 20 111/71 100 02/16/18 15:09 02/16/18 16:00 02/16/18 15:09 02/16/18 15:09 02/16/18 15:09 Intake and Output: 02/16/18 02/16/18 06:59 18:59 Intake Total 300 Output Total 700 Balance -400 - Medications Medications: Current Medications Allopurinol (Zyloprim) 100 mg PO DAILY [facility] Last Admin: 02/16/18 09:54 Dose: 100 mg Amlodipine Besylate (Norvasc) 10 mg PO DAILY [facility] Last Admin: 02/16/18 09:54 Dose: 10 mg Aspirin (Ecotrin) 81 mg PO DAILY [facility] Last Admin: 02/16/18 09:54 Dose: 81 mg Brimonidine Tartrate (Alphagan 0.2% Opht) 0 ml OU DAILY [facility] Last Admin: 02/16/18 09:54 Dose: 1 drop Dextrose (Dextrose 50% Inj) 0 ml IVP .STAT PRN; Protocol PRN Reason: Hypoglycemia Protocol Dextrose (Glutose 15) 0 gm PO .ONCE PRN; Protocol PRN Reason: Hypoglycemia Protocol Furosemide (Lasix) 40 mg IVP DAILY [facility] Last Admin: 02/16/18 09:59 Dose: 40 mg Glucagon (Glucagen Diagnostic Kit) 0 mg IM .STAT PRN; Protocol PRN Reason: Hypoglycemia Protocol Insulin Aspart (Novolog) 8 unit SC AC [facility] Last Admin: 02/16/18 16:58 Dose: Not Given Insulin Detemir (Levemir) 25 unit SC HS [facility] Last Admin: 02/15/18 22:29 Dose: Not Given Insulin Human Regular (Novolin R) 0 unit SC ACHS [facility] PRN Reason: Protocol Last Admin: 02/16/18 16:57 Dose: Not Given Lactulose (Enulose) 20 gm PO Q12 PRN PRN Reason: Constipation Last Admin: 02/10/18 23:02 Dose: 20 gm Latanoprost (Xalatan Opht) 0 ml OU HS [facility] Last Admin: 02/15/18 22:36 Dose: 1 ml Losartan Potassium (Cozaar) 25 mg PO DAILY [facility] Last Admin: 02/16/18 09:54 Dose: 25 mg Metoprolol Succinate (Toprol Xl) 25 mg PO DAILY [facility] Last Admin: 02/16/18 09:54 Dose: 25 mg Ondansetron HCl (Zofran Inj) 4 mg IVP Q6 PRN PRN Reason: Nausea/Vomiting Last Admin: 02/10/18 20:03 Dose: 4 mg Pantoprazole Sodium (Protonix Ec Tab) 40 mg PO DAILY [facility] Last Admin: 02/16/18 09:54 Dose: 40 mg Rosuvastatin Calcium (Crestor) 10 mg PO HS [facility] Last Admin: 02/15/18 22:29 Dose: 10 mg Tamsulosin HCl (Flomax) 0.4 mg PO DAILY [facility] Last Admin: 02/16/18 09:54 Dose: 0.4 mg Timolol Maleate (Timoptic 0.5% Ophth Soln) 0 drop OU DAILY [facility] Last Admin: 02/16/18 09:54 Dose: 1 drop - Labs Labs: 02/16/18 07:03 02/16/18 07:03 PT 26.1 SECONDS (9.7-12.2) H D 02/16/18 07:03 INR 2.4 D 02/16/18 07:03 APTT 50 SECONDS (21-34) H 02/10/18 00:12 - Constitutional Appears: Well - Head Exam Head Exam: ATRAUMATIC, NORMAL INSPECTION, NORMOCEPHALIC - Eye Exam Eye Exam: EOMI, Normal appearance, PERRL Pupil Exam: NORMAL ACCOMODATION, PERRL - ENT Exam ENT Exam: Mucous Membranes Moist, Normal Exam - Neck Exam Neck Exam: Full ROM, Normal Inspection. absent: Lymphadenopathy - Respiratory Exam Respiratory Exam: Decreased Breath Sounds - Cardiovascular Exam Cardiovascular Exam: REGULAR RHYTHM, +S1, +S2 - GI/Abdominal Exam GI & Abdominal Exam: Soft, Diminished Bowel Sounds - Rectal Exam Rectal Exam: Deferred Assessment and Plan - Assessment and Plan (Free Text) Plan: Acute on chronic CHF exacerbation -admit to tele -Input output, daily weight, Fluid restriction -BNP on admission 63383, (02/14) 5870 -Last Echo 07/2017 shows EF <35% -S/P AICD Cardiology consulted, Dr. Robles help appreciated - stable CHF, continue medical treatment -Lasix 40mg IV -Metoprolol 25mg daily -Cozaar 25mg Hx of PE -September 2017 per -INR 2.4 today, now therapeutic -Coumadin to mg for today -ASA 81mg Hyperbilirubinemia T bili increased to 4.4 today Denies pain but hx of gallstones US Abd (02/15/18): Hepatomegaly, hepatic steatosis. Nodular contour suggest hepatocellular disease, perhaps cysts. Cholelithiasis - innumerable small gallstones identified. Gallbladder wall thickening in absence of sonographic Santos's sign. Abd ascites, low volume incompletely visualized. GGT WNL Direct bilirubin 1.4 Dr. Jorgensen/[facility], GI constultant - help appreciated - No CBD dilatation or stone - can order MRCP to confirm - recommend surgical eval Dr. Sherman, Gen Surg Clam Treader - f/u reccs f/u MRCP Afib -EKG in the ED show Afib with frequent Ventricular paced complexes -Patient denies history of Afib -Currently rate controlled on metoprolol -Coumadin 10mg today -ASA 81mg -Cardiology consulted -CHADS-VASc Score 5, Stroke risk was 7.2% per year -HAS-BLED Score 2, intermediate risk 1.88-3.2% risk of major bleeding LIZZETTE on CKD Cr 1.7, GFR 50 - Cr improving since admission Lower extremity swelling -LE venous doppler negative for DVT -Likely secondary Chronic CHF -Arterial doppler (02/14/18): Normal ankle-brachial index on right. No triphasic waveforms throughout RLE. Elevated SPENCER less reliable on left. No triphasic waveforms throughout LLE. Lower extremity chronic ulcer -wound care consulted -Blood culture negative -Podiatry consulted Diabetes -FS ACHS -ISS -Hypoglycemia protocol -Levemir 25u HS -Novolog 8u AC BPH -Flomax 0.4mg Prophylactic measures -Protonix -Coumadin and ASA
--- NOTE | 2018-02-16 17:35 | CP.PCM.CON ---
<Romeo Manriquez - Last Filed: 02/16/18 17:17> History of Present Illness - History of Present Illness History of Present Illness: General Surgery- Dr. Sherman Reason for Consult: Hyperbilirubinemia & hx of gallstones 61 Obese male w/ pmhx significant CAD, AICD, HTN, IDDM, admitted to [facility] for left lower back pain that is worse with movement and bending forward. Surgery was consulted for hyperbilirubinemia. Patient states intermittent abdominal after eating for 3 weeks. Pain is localized to mid- epigastric to RUQ. Associated nausea, no vomiting. No foreign travel or recent sick contacts. Of note Echo 07/2017- EF 35-40% Denies: Fevers, chills, chest pain, shortness of breath, vomiting, diarrhea, changes in urinary or bowel habits PMH: stated above, BPH, nephrolithiasis, CHF, PSH: AICD, hernia repair (15 yrs ago), Left knee surgery ALL: NKDA FH: mother and father from CAD SocialHx: Denies tobacco, ETOH, recreational drug use 14 point review of system negative, otherwise stated above Review of Systems - Review of Systems All systems: reviewed and no additional remarkable complaints except - Constitutional Constitutional: As Per HPI Past Patient History - Past Medical History & Family History Past Medical History?: Yes - Past Social History Smoking Status: Never Smoked - CARDIAC Hx Congestive Heart Failure: Yes Hx Hypercholesterolemia: Yes Hx Hypertension: Yes - RENAL Hx Kidney Stones: Yes - ENDOCRINE/METABOLIC Hx Diabetes Mellitus Type 2: Yes - MUSCULOSKELETAL/RHEUMATOLOGICAL Hx Falls: No - PSYCHIATRIC Hx Substance Use: No - SURGICAL HISTORY Hx Cholecystectomy: Yes - ANESTHESIA Hx Anesthesia: Yes Hx Anesthesia Reactions: No Meds Allergies/Adverse Reactions: Allergies Allergy/AdvReac Type Severity Reaction Status Date / Time No Known Allergies Allergy Verified 02/09/18 14:08 - Medications Medications: Current Medications Allopurinol (Zyloprim) 100 mg PO DAILY [facility] Last Admin: 02/16/18 09:54 Dose: 100 mg Amlodipine Besylate (Norvasc) 10 mg PO DAILY [facility] Last Admin: 02/16/18 09:54 Dose: 10 mg Aspirin (Ecotrin) 81 mg PO DAILY [facility] Last Admin: 02/16/18 09:54 Dose: 81 mg Brimonidine Tartrate (Alphagan 0.2% Opht) 0 ml OU DAILY [facility] Last Admin: 02/16/18 09:54 Dose: 1 drop Dextrose (Dextrose 50% Inj) 0 ml IVP .STAT PRN; Protocol PRN Reason: Hypoglycemia Protocol Dextrose (Glutose 15) 0 gm PO .ONCE PRN; Protocol PRN Reason: Hypoglycemia Protocol Furosemide (Lasix) 40 mg IVP DAILY [facility] Last Admin: 02/16/18 09:59 Dose: 40 mg Glucagon (Glucagen Diagnostic Kit) 0 mg IM .STAT PRN; Protocol PRN Reason: Hypoglycemia Protocol Insulin Aspart (Novolog) 8 unit SC AC [facility] Last Admin: 02/16/18 16:58 Dose: Not Given Insulin Detemir (Levemir) 25 unit SC HS [facility] Last Admin: 02/15/18 22:29 Dose: Not Given Insulin Human Regular (Novolin R) 0 unit SC [facility] PRN Reason: Protocol Last Admin: 02/16/18 16:57 Dose: Not Given Lactulose (Enulose) 20 gm PO Q12 PRN PRN Reason: Constipation Last Admin: 02/10/18 23:02 Dose: 20 gm Latanoprost (Xalatan Opht) 0 ml OU [facility] Last Admin: 02/15/18 22:36 Dose: 1 ml Losartan Potassium (Cozaar) 25 mg PO DAILY [facility] Last Admin: 02/16/18 09:54 Dose: 25 mg Metoprolol Succinate (Toprol Xl) 25 mg PO DAILY [facility] Last Admin: 02/16/18 09:54 Dose: 25 mg Ondansetron HCl (Zofran Inj) 4 mg IVP Q6 PRN PRN Reason: Nausea/Vomiting Last Admin: 02/10/18 20:03 Dose: 4 mg Pantoprazole Sodium (Protonix Ec Tab) 40 mg PO DAILY [facility] Last Admin: 02/16/18 09:54 Dose: 40 mg Rosuvastatin Calcium (Crestor) 10 mg PO HS [facility] Last Admin: 02/15/18 22:29 Dose: 10 mg Tamsulosin HCl (Flomax) 0.4 mg PO DAILY [facility] Last Admin: 02/16/18 09:54 Dose: 0.4 mg Timolol Maleate (Timoptic 0.5% Ophth Soln) 0 drop OU DAILY [facility] Last Admin: 02/16/18 09:54 Dose: 1 drop Physical Exam - Constitutional Appears: Non-toxic, No Acute Distress Additional comments: obese - Head Exam Head Exam: ATRAUMATIC - Eye Exam Eye Exam: EOMI. absent: Scleral icterus - ENT Exam ENT Exam: Mucous Membranes Moist - Respiratory Exam Respiratory Exam: NORMAL BREATHING PATTERN. absent: Accessory Muscle Use, Respiratory Distress - Cardiovascular Exam Cardiovascular Exam: Tachycardia, +S1, +S2. absent: Bradycardia - GI/Abdominal Exam GI & Abdominal Exam: Soft. absent: Distended, Firm, Guarding, Hernia, Tenderness - Extremities Exam Additional comments: +2 pitting Edema LLE dressing C/D/I - Neurological Exam Neurological exam: Alert, Oriented x3 - Psychiatric Exam Psychiatric exam: Normal Affect - Skin Skin Exam: Intact, Warm Results - Vital Signs Recent Vital Signs: Last Vital Signs Temp 98.0 F 02/16/18 15:09 Pulse 92 H 02/16/18 16:00 Resp 20 02/16/18 15:09 BP 111/71 02/16/18 15:09 Pulse Ox 100 02/16/18 15:09 - Labs Result Diagrams: 02/16/18 07:03 02/16/18 07:03 Labs: Laboratory Results - last 24 hr 02/15/18 02/16/18 02/16/18 20:54 06:30 07:03 WBC 6.4 RBC 4.76 Hgb 12.9 Hct 40.2 MCV 84.3 MCH 27.1 MCHC 32.1 L RDW 19.5 H Plt Count 148 MPV 9.3 Neut % (Auto) 73.3 Lymph % (Auto) 9.7 L Dade % (Auto) 13.8 H Eos % (Auto) 2.1 Baso % (Auto) 1.1 Neut # (Auto) 4.7 Lymph # (Auto) 0.6 L Dade # (Auto) 0.9 H Eos # (Auto) 0.1 Baso # (Auto) 0.1 Neutrophils % (Manual) 76 H Lymphocytes % (Manual) 13 L Monocytes % (Manual) 11 H Platelet Estimate Normal Anisocytosis (manual) Slight PT INR Sodium Potassium Chloride Carbon Dioxide Anion Gap BUN Creatinine Est GFR ( Amer) Est GFR (Non-Af Amer) POC Glucose (mg/dL) 138 H 146 H Random Glucose Calcium Phosphorus Magnesium Total Bilirubin Direct Bilirubin GGT AST ALT Alkaline Phosphatase Total Protein Albumin Globulin Albumin/Globulin Ratio 02/16/18 02/16/18 02/16/18 07:03 07:03 12:04 WBC RBC Hgb Hct MCV MCH MCHC RDW Plt Count MPV Neut % (Auto) Lymph % (Auto) Dade % (Auto) Eos % (Auto) Baso % (Auto) Neut # (Auto) Lymph # (Auto) Dade # (Auto) Eos # (Auto) Baso # (Auto) Neutrophils % (Manual) Lymphocytes % (Manual) Monocytes % (Manual) Platelet Estimate Anisocytosis (manual) PT 26.1 H D INR 2.4 D Sodium 143 Potassium 4.5 Chloride 104 Carbon Dioxide 26 Anion Gap 18 BUN 32 H Creatinine 1.6 H Est GFR ( Amer) 53 Est GFR (Non-Af Amer) 44 POC Glucose (mg/dL) 160 H Random Glucose 151 H Calcium 9.2 Phosphorus 2.8 Magnesium 1.8 Total Bilirubin 4.4 H Direct Bilirubin 1.4 H GGT 42 AST 16 L ALT 18 L D Alkaline Phosphatase 126 Total Protein 7.1 Albumin 3.4 L Globulin 3.7 Albumin/Globulin Ratio 0.9 L 02/16/18 16:46 WBC RBC Hgb Hct MCV MCH MCHC RDW Plt Count MPV Neut % (Auto) Lymph % (Auto) Dade % (Auto) Eos % (Auto) Baso % (Auto) Neut # (Auto) Lymph # (Auto) Dade # (Auto) Eos # (Auto) Baso # (Auto) Neutrophils % (Manual) Lymphocytes % (Manual) Monocytes % (Manual) Platelet Estimate Anisocytosis (manual) PT INR Sodium Potassium Chloride Carbon Dioxide Anion Gap BUN Creatinine Est GFR ( Amer) Est GFR (Non-Af Amer) POC Glucose (mg/dL) 88 Random Glucose Calcium Phosphorus Magnesium Total Bilirubin Direct Bilirubin GGT AST ALT Alkaline Phosphatase Total Protein Albumin Globulin Albumin/Globulin Ratio Assessment & Plan - Assessment and Plan (Free Text) Assessment: 62M w/ abdominal pain, Biliary colic vs acute cholecystitis Plan: - will need cardiac workup - medically optimize prior to surgery - diet as tolerated- avoid foods high in fat - f/u AM labs - serial abd exams - will follow - d/[facility] <Alber Sherman - Last Filed: 02/20/18 14:58> Meds - Medications Medications: Current Medications Allopurinol (Zyloprim) 100 mg PO DAILY [facility] Last Admin: 02/20/18 10:49 Dose: 100 mg Amlodipine Besylate (Norvasc) 10 mg PO DAILY [facility] Last Admin: 02/20/18 10:49 Dose: 10 mg Aspirin (Ecotrin) 81 mg PO DAILY [facility] Last Admin: 02/16/18 09:54 Dose: 81 mg Brimonidine Tartrate (Alphagan 0.2% Opht) 0 ml OU DAILY [facility] Last Admin: 02/20/18 10:50 Dose: 1 drop Dextrose (Dextrose 50% Inj) 0 ml IVP .STAT PRN; Protocol PRN Reason: Hypoglycemia Protocol Dextrose (Glutose 15) 0 gm PO .ONCE PRN; Protocol PRN Reason: Hypoglycemia Protocol Furosemide (Lasix) 40 mg IVP DAILY [facility] Last Admin: 02/20/18 10:49 Dose: 40 mg Glucagon (Glucagen Diagnostic Kit) 0 mg IM .STAT PRN; Protocol PRN Reason: Hypoglycemia Protocol Insulin Aspart (Novolog) 8 unit SC AC [facility] Last Admin: 02/20/18 08:56 Dose: 8 unit Insulin Detemir (Levemir) 25 unit SC HS [facility] Last Admin: 02/19/18 21:06 Dose: Not Given Insulin Human Regular (Novolin R) 0 unit SC [facility] PRN Reason: Protocol Last Admin: 02/20/18 13:11 Dose: Not Given Lactulose (Enulose) 20 gm PO Q12 PRN PRN Reason: Constipation Last Admin: 02/10/18 23:02 Dose: 20 gm Latanoprost (Xalatan Opht) 0 ml OU HS [facility] Last Admin: 02/19/18 21:48 Dose: 2.5 ml Losartan Potassium (Cozaar) 25 mg PO DAILY [facility] Last Admin: 02/20/18 10:49 Dose: 25 mg Metoprolol Succinate (Toprol Xl) 25 mg PO DAILY [facility] Last Admin: 02/20/18 10:44 Dose: 25 mg Ondansetron HCl (Zofran Inj) 4 mg IVP Q6 PRN PRN Reason: Nausea/Vomiting Last Admin: 02/10/18 20:03 Dose: 4 mg Pantoprazole Sodium (Protonix Ec Tab) 40 mg PO DAILY [facility] Last Admin: 02/20/18 10:49 Dose: 40 mg Rosuvastatin Calcium (Crestor) 10 mg PO HS [facility] Last Admin: 02/19/18 21:48 Dose: 10 mg Tamsulosin HCl (Flomax) 0.4 mg PO DAILY [facility] Last Admin: 02/20/18 10:49 Dose: 0.4 mg Timolol Maleate (Timoptic 0.5% Ophth Soln) 0 drop OU DAILY [facility] Last Admin: 02/20/18 10:50 Dose: 1 drop Results - Vital Signs Recent Vital Signs: Last Vital Signs Temp 98.3 F 02/20/18 07:55 Pulse 93 H 02/20/18 07:55 Resp 20 02/20/18 07:55 BP 138/88 02/20/18 10:49 Pulse Ox 97 02/20/18 07:55 - Labs Result Diagrams: 02/17/18 07:12 02/17/18 07:12 Labs: Laboratory Results - last 24 hr 02/19/18 02/19/18 02/20/18 16:53 20:47 06:56 PT INR POC Glucose (mg/dL) 170 H 128 H 150 H 02/20/18 02/20/18 07:47 12:50 PT 26.6 H D INR 2.4 D POC Glucose (mg/dL) 146 H Attending/Attestation - Attestation I have personally seen and examined this patient.: Yes I have fully participated in the care of the patient.: Yes I have reviewed all pertinent clinical information: Yes Notes (Text): Pt was seen and examined at bedside Agree with above note and assessment Pt with Gallstones and hyperbilirubinemia Abdomen: Soft, NT, ND Labs and radiology reveiwed Ass : Gallstones, CHF exacerbation, Morbid obesity Plan: C/w current mx GI consult IV antibiotics Plan d.w pt in detail Risk and benefit explained in detail.
--- NOTE | 2018-02-16 17:38 | CP.PCM.PN ---
Subjective - Date & Time of Evaluation Date of Evaluation: 02/16/18 Time of Evaluation: 17:38 Objective - Vital Signs/Intake and Output Vital Signs (last 24 hours): Temp Pulse Resp BP Pulse Ox 98.0 F 92 H 20 111/71 100 02/16/18 15:09 02/16/18 16:00 02/16/18 15:09 02/16/18 15:09 02/16/18 15:09 Intake and Output: 02/16/18 02/16/18 06:59 18:59 Intake Total 300 Output Total 700 Balance -400 - Medications Medications: Current Medications Allopurinol (Zyloprim) 100 mg PO DAILY [facility] Last Admin: 02/16/18 09:54 Dose: 100 mg Amlodipine Besylate (Norvasc) 10 mg PO DAILY [facility] Last Admin: 02/16/18 09:54 Dose: 10 mg Aspirin (Ecotrin) 81 mg PO DAILY [facility] Last Admin: 02/16/18 09:54 Dose: 81 mg Brimonidine Tartrate (Alphagan 0.2% Opht) 0 ml OU DAILY [facility] Last Admin: 02/16/18 09:54 Dose: 1 drop Dextrose (Dextrose 50% Inj) 0 ml IVP .STAT PRN; Protocol PRN Reason: Hypoglycemia Protocol Dextrose (Glutose 15) 0 gm PO .ONCE PRN; Protocol PRN Reason: Hypoglycemia Protocol Furosemide (Lasix) 40 mg IVP DAILY [facility] Last Admin: 02/16/18 09:59 Dose: 40 mg Glucagon (Glucagen Diagnostic Kit) 0 mg IM .STAT PRN; Protocol PRN Reason: Hypoglycemia Protocol Insulin Aspart (Novolog) 8 unit SC AC [facility] Last Admin: 02/16/18 16:58 Dose: Not Given Insulin Detemir (Levemir) 25 unit SC HS [facility] Last Admin: 02/15/18 22:29 Dose: Not Given Insulin Human Regular (Novolin R) 0 unit SC ACHS [facility] PRN Reason: Protocol Last Admin: 02/16/18 16:57 Dose: Not Given Lactulose (Enulose) 20 gm PO Q12 PRN PRN Reason: Constipation Last Admin: 02/10/18 23:02 Dose: 20 gm Latanoprost (Xalatan Opht) 0 ml OU HS [facility] Last Admin: 02/15/18 22:36 Dose: 1 ml Losartan Potassium (Cozaar) 25 mg PO DAILY [facility] Last Admin: 02/16/18 09:54 Dose: 25 mg Metoprolol Succinate (Toprol Xl) 25 mg PO DAILY [facility] Last Admin: 02/16/18 09:54 Dose: 25 mg Ondansetron HCl (Zofran Inj) 4 mg IVP Q6 PRN PRN Reason: Nausea/Vomiting Last Admin: 02/10/18 20:03 Dose: 4 mg Pantoprazole Sodium (Protonix Ec Tab) 40 mg PO DAILY [facility] Last Admin: 02/16/18 09:54 Dose: 40 mg Rosuvastatin Calcium (Crestor) 10 mg PO HS [facility] Last Admin: 02/15/18 22:29 Dose: 10 mg Tamsulosin HCl (Flomax) 0.4 mg PO DAILY [facility] Last Admin: 02/16/18 09:54 Dose: 0.4 mg Timolol Maleate (Timoptic 0.5% [facility] Soln) 0 drop OU DAILY [facility] Last Admin: 02/16/18 09:54 Dose: 1 drop - Labs Labs: 02/16/18 07:03 02/16/18 07:03 PT 26.1 SECONDS (9.7-12.2) H D 02/16/18 07:03 INR 2.4 D 02/16/18 07:03 APTT 50 SECONDS (21-34) H 02/10/18 00:12
[2018-02-16 18:10] LABS: HEPATITIS B SURFACE AG Negative (NEGATIVE)
[2018-02-16 18:16] LABS: HEPATITIS A IGM NEGATIVE (NEGATIVE); HEPATITIS B CORE AB NEGATIVE (NEGATIVE)
[2018-02-16 18:28] LABS: HEPATITIS C ANTIBODY NEGATIVE (NEGATIVE)
--- NOTE | 2018-02-16 21:12 | CP.PCM.PN ---
Subjective - Date & Time of Evaluation Date of Evaluation: 02/16/18 Time of Evaluation: 12:00 - Subjective Subjective: Questionable plan for surgery, the patient is a high risk for cardiac complication from any surgery and he is at his optimal state for now nonischemic dilated cardiomyopathy with atrial fibrillation on medical treatment and anticoagulation Objective - Vital Signs/Intake and Output Vital Signs (last 24 hours): Temp Pulse Resp BP Pulse Ox 98.0 F 92 H 20 111/71 100 02/16/18 15:09 02/16/18 16:00 02/16/18 15:09 02/16/18 15:09 02/16/18 15:09 - Medications Medications: Current Medications Allopurinol (Zyloprim) 100 mg PO DAILY [facility] Last Admin: 02/16/18 09:54 Dose: 100 mg Amlodipine Besylate (Norvasc) 10 mg PO DAILY [facility] Last Admin: 02/16/18 09:54 Dose: 10 mg Aspirin (Ecotrin) 81 mg PO DAILY [facility] Last Admin: 02/16/18 09:54 Dose: 81 mg Brimonidine Tartrate (Alphagan 0.2% Opht) 0 ml OU DAILY [facility] Last Admin: 02/16/18 09:54 Dose: 1 drop Dextrose (Dextrose 50% Inj) 0 ml IVP .STAT PRN; Protocol PRN Reason: Hypoglycemia Protocol Dextrose (Glutose 15) 0 gm PO .ONCE PRN; Protocol PRN Reason: Hypoglycemia Protocol Furosemide (Lasix) 40 mg IVP DAILY [facility] Last Admin: 02/16/18 09:59 Dose: 40 mg Glucagon (Glucagen Diagnostic Kit) 0 mg IM .STAT PRN; Protocol PRN Reason: Hypoglycemia Protocol Insulin Aspart (Novolog) 8 unit SC AC [facility] Last Admin: 02/16/18 16:58 Dose: Not Given Insulin Detemir (Levemir) 25 unit SC HS [facility] Last Admin: 02/15/18 22:29 Dose: Not Given Insulin Human Regular (Novolin R) 0 unit SC ACHS [facility] PRN Reason: Protocol Last Admin: 02/16/18 16:57 Dose: Not Given Lactulose (Enulose) 20 gm PO Q12 PRN PRN Reason: Constipation Last Admin: 02/10/18 23:02 Dose: 20 gm Latanoprost (Xalatan Opht) 0 ml OU HS [facility] Last Admin: 02/15/18 22:36 Dose: 1 ml Losartan Potassium (Cozaar) 25 mg PO DAILY [facility] Last Admin: 02/16/18 09:54 Dose: 25 mg Metoprolol Succinate (Toprol Xl) 25 mg PO DAILY [facility] Last Admin: 02/16/18 09:54 Dose: 25 mg Ondansetron HCl (Zofran Inj) 4 mg IVP Q6 PRN PRN Reason: Nausea/Vomiting Last Admin: 02/10/18 20:03 Dose: 4 mg Pantoprazole Sodium (Protonix Ec Tab) 40 mg PO DAILY [facility] Last Admin: 02/16/18 09:54 Dose: 40 mg Rosuvastatin Calcium (Crestor) 10 mg PO HS [facility] Last Admin: 02/15/18 22:29 Dose: 10 mg Tamsulosin HCl (Flomax) 0.4 mg PO DAILY [facility] Last Admin: 02/16/18 09:54 Dose: 0.4 mg Timolol Maleate (Timoptic 0.5% Oph Soln) 0 drop OU DAILY [facility] Last Admin: 02/16/18 09:54 Dose: 1 drop - Labs Labs: 02/16/18 07:03 02/16/18 07:03 PT 26.1 SECONDS (9.7-12.2) H D 02/16/18 07:03 INR 2.4 D 02/16/18 07:03 APTT 50 SECONDS (21-34) H 02/10/18 00:12 - Constitutional Appears: Non-toxic - Head Exam Head Exam: ATRAUMATIC - Eye Exam Eye Exam: EOMI - ENT Exam ENT Exam: Mucous Membranes Moist - Neck Exam Neck Exam: absent: Lymphadenopathy, Thyromegaly - Respiratory Exam Respiratory Exam: Clear to Ausculation Bilateral. absent: Rales - Cardiovascular Exam Cardiovascular Exam: Irregular Rhythm, Murmur - GI/Abdominal Exam GI & Abdominal Exam: Normal Bowel Sounds. absent: Organomegaly - Rectal Exam Rectal Exam: Deferred - Extremities Exam Extremities Exam: Normal Capillary Refill. absent: Calf Tenderness - Neurological Exam Neurological Exam: Alert, Oriented x3 - Psychiatric Exam Psychiatric exam: Normal Mood - Skin Skin Exam: Dry Assessment and Plan (1) Dilated cardiomyopathy Status: Acute (2) Atrial fibrillation, chronic Status: Chronic
[2018-02-16] MEDS: Latanoprost 2.5 ml Opht Soln OU SCH (22:20)
[2018-02-16] MEDS: Insulin Detemir 100 units/ml Vial (Levemir) SC SCH (22:27)
--- NOTE | 2018-02-17 07:00 | CP.PCM.PN ---
<Craig Awan - Last Filed: 02/17/18 16:17> Subjective - Date & Time of Evaluation Date of Evaluation: 02/17/18 Time of Evaluation: 11:20 - Subjective Subjective: Progress Note for Dr. Miranda Patient seen and examined at bedside. No acute events reported overnight. Patient is resting comfortably at bedside. He reports no problem with breathing and his lower extremity edema is getting better everyday. Patient denies abdominal pain, N/V, or itchiness this AM. Further denies chest pain, palpitations, or headache. Objective - Vital Signs/Intake and Output Vital Signs (last 24 hours): Temp Pulse Resp BP Pulse Ox 97.6 F 93 H 20 131/87 97 02/17/18 04:31 02/17/18 04:31 02/17/18 04:31 02/17/18 04:31 02/17/18 04:31 - Medications Medications: Current Medications Allopurinol (Zyloprim) 100 mg PO DAILY [facility] Last Admin: 02/16/18 09:54 Dose: 100 mg Amlodipine Besylate (Norvasc) 10 mg PO DAILY [facility] Last Admin: 02/16/18 09:54 Dose: 10 mg Aspirin (Ecotrin) 81 mg PO DAILY [facility] Last Admin: 02/16/18 09:54 Dose: 81 mg Brimonidine Tartrate (Alphagan 0.2% Opht) 0 ml OU DAILY [facility] Last Admin: 02/16/18 09:54 Dose: 1 drop Dextrose (Dextrose 50% Inj) 0 ml IVP .STAT PRN; Protocol PRN Reason: Hypoglycemia Protocol Dextrose (Glutose 15) 0 gm PO .ONCE PRN; Protocol PRN Reason: Hypoglycemia Protocol Furosemide (Lasix) 40 mg IVP DAILY [facility] Last Admin: 02/16/18 09:59 Dose: 40 mg Glucagon (Glucagen Diagnostic Kit) 0 mg IM .STAT PRN; Protocol PRN Reason: Hypoglycemia Protocol Insulin Aspart (Novolog) 8 unit SC AC [facility] Last Admin: 02/16/18 16:58 Dose: Not Given Insulin Detemir (Levemir) 25 unit SC HS [facility] Last Admin: 02/16/18 22:27 Dose: Not Given Insulin Human Regular (Novolin R) 0 unit SC ACHS [facility] PRN Reason: Protocol Last Admin: 02/16/18 22:27 Dose: Not Given Lactulose (Enulose) 20 gm PO Q12 PRN PRN Reason: Constipation Last Admin: 02/10/18 23:02 Dose: 20 gm Latanoprost (Xalatan Opht) 0 ml OU HS [facility] Last Admin: 02/16/18 22:20 Dose: 2.5 ml Losartan Potassium (Cozaar) 25 mg PO DAILY [facility] Last Admin: 02/16/18 09:54 Dose: 25 mg Metoprolol Succinate (Toprol Xl) 25 mg PO DAILY [facility] Last Admin: 02/16/18 09:54 Dose: 25 mg Ondansetron HCl (Zofran Inj) 4 mg IVP Q6 PRN PRN Reason: Nausea/Vomiting Last Admin: 02/10/18 20:03 Dose: 4 mg Pantoprazole Sodium (Protonix Ec Tab) 40 mg PO DAILY [facility] Last Admin: 02/16/18 09:54 Dose: 40 mg Rosuvastatin Calcium (Crestor) 10 mg PO HS [facility] Last Admin: 02/16/18 22:20 Dose: 10 mg Tamsulosin HCl (Flomax) 0.4 mg PO DAILY [facility] Last Admin: 02/16/18 09:54 Dose: 0.4 mg Timolol Maleate (Timoptic 0.5% Ophth Soln) 0 drop OU DAILY [facility] Last Admin: 02/16/18 09:54 Dose: 1 drop - Labs Labs: 02/16/18 07:03 02/16/18 07:03 PT 26.1 SECONDS (9.7-12.2) H D 02/16/18 07:03 INR 2.4 D 02/16/18 07:03 APTT 50 SECONDS (21-34) H 02/10/18 00:12 - Additional Findings Additional findings: - Constitutional Appears: Non-toxic, No Acute Distress - Head Exam Head Exam: ATRAUMATIC, NORMOCEPHALIC - Eye Exam Eye Exam: Normal appearance, PERRL - scleral icterus - ENT Exam ENT Exam: Mucous Membranes Moist - Neck Exam Neck Exam: Normal Inspection - Respiratory Exam Respiratory Exam: Clear to Ausculation Bilateral, NORMAL BREATHING PATTERN. absent: Respiratory Distress - Cardiovascular Exam Cardiovascular Exam: REGULAR RHYTHM, +S1, +S2. absent: Murmur - no JVD - GI/Abdominal Exam GI & Abdominal Exam: Soft, Normal Bowel Sounds. absent: Tenderness - negative santos sign - Extremities Exam Extremities Exam: Pedal Edema Additional comments: bilateral LE wrapped - Neurological Exam Neurological Exam: Alert, Awake, Oriented x3 - Psychiatric Exam Psychiatric exam: Normal Affect, Normal Mood - Skin Skin Exam: Dry, Warm Assessment and Plan - Assessment and Plan (Free Text) Assessment: Acute on chronic CHF exacerbation -admit to tele -Input output, daily weight, Fluid restriction -BNP on admission 18212, (02/14) 5870 -Last Echo 07/2017 shows EF <35% -S/P AICD Cardiology consulted, Dr. Robles help appreciated - stable CHF, continue medical treatment - Questionable plan for surgery, the patient is a high risk for cardiac complication -Lasix 40mg IV -Metoprolol 25mg daily -Cozaar 25mg Hx of PE -September 2017 per -INR 2.6 today, now therapeutic -Coumadin to 5 mg for today -ASA 81mg Hyperbilirubinemia T bili improved to 3.5 today Denies pain but hx of gallstones US Abd (02/15/18): Hepatomegaly, hepatic steatosis. Nodular contour suggest hepatocellular disease, perhaps cysts. Cholelithiasis - innumerable small gallstones identified. Gallbladder wall thickening in absence of sonographic Santos's sign. Abd ascites, low volume incompletely visualized. GGT WNL Direct bilirubin 1.4 Dr. Jorgensen/[facility], GI constultant - help appreciated - No CBD dilatation or stone - recommend outpatient follow up Dr. Sherman, Gen Surg [employer] - Questionable plan for surgery, the patient is a high risk for cardiac complication per cardiology Afib -EKG in the ED show Afib with frequent Ventricular paced complexes -Patient denies history of Afib -Currently rate controlled on metoprolol -Coumadin 5mg today -ASA 81mg -Cardiology consulted -CHADS-VASc Score 5, Stroke risk was 7.2% per year -HAS-BLED Score 2, intermediate risk 1.88-3.2% risk of major bleeding LIZZETTE on CKD Cr 1.6, GFR 28 - Cr improving since admission Lower extremity swelling -LE venous doppler negative for DVT -Likely secondary Chronic CHF -Arterial doppler (02/14/18): Normal ankle-brachial index on right. No triphasic waveforms throughout RLE. Elevated SPENCER less reliable on left. No triphasic waveforms throughout LLE. Lower extremity chronic ulcer -wound care consulted -Blood culture negative -Podiatry consulted Diabetes -FS ACHS -ISS -Hypoglycemia protocol -Levemir 25u HS -Novolog 8u AC BPH -Flomax 0.4mg Prophylactic measures -Protonix -Coumadin and ASA All management per Dr. Miranda <Darien Miranda S - Last Filed: 02/24/18 00:45> Objective - Vital Signs/Intake and Output Vital Signs (last 24 hours): Temp Pulse Resp BP Pulse Ox 98.0 F 98 H 20 130/92 H 100 02/23/18 15:54 02/23/18 15:54 02/23/18 15:54 02/23/18 15:54 02/23/18 15:54 - Medications Medications: Current Medications Allopurinol (Zyloprim) 100 mg PO DAILY [facility] Last Admin: 02/23/18 10:57 Dose: 100 mg Amlodipine Besylate (Norvasc) 10 mg PO DAILY [facility] Last Admin: 02/23/18 10:57 Dose: 10 mg Aspirin (Ecotrin) 81 mg PO DAILY [facility] Last Admin: 02/23/18 10:55 Dose: 81 mg Brimonidine Tartrate (Alphagan 0.2% Opht) 0 ml OU DAILY [facility] Last Admin: 02/23/18 10:57 Dose: 1 drop Dextrose (Dextrose 50% Inj) 0 ml IVP .STAT PRN; Protocol PRN Reason: Hypoglycemia Protocol Dextrose (Glutose 15) 0 gm PO .ONCE PRN; Protocol PRN Reason: Hypoglycemia Protocol Furosemide (Lasix) 40 mg IVP DAILY [facility] Last Admin: 02/23/18 11:27 Dose: 40 mg Glucagon (Glucagen Diagnostic Kit) 0 mg IM .STAT PRN; Protocol PRN Reason: Hypoglycemia Protocol Insulin Aspart (Novolog) 8 unit SC AC [facility] Last Admin: 02/23/18 18:00 Dose: 8 unit Insulin Detemir (Levemir) 25 unit SC [facility] Last Admin: 02/23/18 21:56 Dose: Not Given Insulin Human Regular (Novolin R) 0 unit SC [facility] PRN Reason: Protocol Last Admin: 02/23/18 21:54 Dose: Not Given Lactulose (Enulose) 20 gm PO Q12 PRN PRN Reason: Constipation Last Admin: 02/10/18 23:02 Dose: 20 gm Latanoprost (Xalatan Opht) 0 ml OU [facility] Last Admin: 02/23/18 21:54 Dose: 2.5 ml Losartan Potassium (Cozaar) 25 mg PO DAILY [facility] Last Admin: 02/23/18 10:57 Dose: 25 mg Metoprolol Succinate (Toprol Xl) 25 mg PO DAILY [facility] Last Admin: 02/23/18 10:57 Dose: 25 mg Ondansetron HCl (Zofran Inj) 4 mg IVP Q6 PRN PRN Reason: Nausea/Vomiting Last Admin: 02/10/18 20:03 Dose: 4 mg Pantoprazole Sodium (Protonix Ec Tab) 40 mg PO DAILY [facility] Last Admin: 02/23/18 10:57 Dose: 40 mg Rosuvastatin Calcium (Crestor) 10 mg PO HS [facility] Last Admin: 02/23/18 21:52 Dose: 10 mg Tamsulosin HCl (Flomax) 0.4 mg PO DAILY [facility] Last Admin: 02/23/18 10:57 Dose: 0.4 mg Timolol Maleate (Timoptic 0.5% Oph Soln) 0 drop OU DAILY [facility] Last Admin: 02/23/18 10:58 Dose: 1 drop - Labs Labs: 02/23/18 07:23 02/23/18 07:23 PT 23.4 SECONDS (9.7-12.2) H 02/23/18 07:23 INR 2.1 02/23/18 07:23 APTT 50 SECONDS (21-34) H 02/10/18 00:12 Attending/Attestation - Attestation I have personally seen and examined this patient.: Yes I have fully participated in the care of the patient.: Yes I have reviewed all pertinent clinical information, including history, physical exam and plan: Yes
[2018-02-17 07:28] LABS: INR 2.6; PROTHROMBIN TIME 28.6 SECONDS (9.7-12.2)
[2018-02-17 07:32] LABS: BASO # 0.1 K/uL (0.0-0.2); BASO % 1.2 % (0.0-2.0); EOS # 0.2 K/uL (0.0-0.7); EOS % 3.6 % (0.0-4.0); HEMOGLOBIN 12.2 g/dL (12.0-18.0); LYMPH # 0.8 K/uL (1.0-4.3); LYMPH % 13.4 % (20.0-40.0); MEAN CELL VOLUME 84.1 fL (80.0-94.0); MEAN CORPUSCULAR HEMOGLOBIN 27.2 pg (27.0-31.0); MEAN CORPUSCULAR HGB CONC 32.3 g/dL (33.0-37.0); MEAN PLATELET VOLUME 8.9 fL (7.2-11.7); MONO # 0.8 K/uL (0.0-0.8); MONO % 13.2 % (0.0-10.0); NEUT % 68.6 % (50.0-75.0); NRBC % 0.1 % (0.0-2.0); RBC 4.49 Mil/uL (4.40-5.90); RED CELL DISTRIBUTION WIDTH 19.2 % (11.5-14.5); WHITE BLOOD COUNT 5.8 K/uL (4.8-10.8)
[2018-02-17 07:40] LABS: ALBUMIN 3.5 g/dL (3.5-5.0); CALCIUM 8.6 mg/dl (8.6-10.4)
[2018-02-17] MEDS: Pantoprazole 40 mg EC Tab PO SCH (09:26)
[2018-02-17] MEDS: Metoprolol Succinate 25 mg XL Tab PO SCH (09:26)
[2018-02-17] MEDS: (Novolog) Insulin Aspart, Recombinant 100 u/ml 10 ml vial SC SCH ×3 (09:28→17:37)
[2018-02-17] MEDS: Brimonidine 0.2% Opth Sol (5ml) OU SCH (09:29)
[2018-02-17] MEDS: (Novolin R) Insulin Human Regular 100 units/ml vial SC SCH ×4 (09:36→22:25)
--- NOTE | 2018-02-17 10:27 | CP.PCM.CON ---
<Rich Miranda - Last Filed: 02/17/18 10:29> History of Present Illness - History of Present Illness History of Present Illness: PGY4 Initial GI Consult Bao Davis is a 62M w/ hx of dilated cardiomyopathy, ACID, CHF, HTN, HL who presented to the ED with complaints of LE edema, SOB and non-healing LE foot ulcers. Pt was found to be in acute CHF exacerbation. His hospital course has also been complicated 2/2 weeping LE ulcers. GI was consulted due to elevated T. Bili. Pt notes that he was having intermittent abd pain for a few months. He notes that the pain was epigastric and radiated to the lower abd. Pt states that taking his meds exacerbated his symptoms and having a BM alleviated his symptoms. He states that his pain, at most 5 out of 10. He notes no abd pain since admission. Denies any BRBPR, melena, nausea or vomiting. He had a colonoscopy and endoscopy as an outpt, 1 year ago, but he does not recall the the performing physician's name. Denies any weight loss. Denies any current consumption of alcohol, but notes drinking at least 1 pint of rum on the weekends for 10years, but quit 10 years ago. PMH: dilated cardiomyopathy, ACID, CHF, HTN, HL, BPH, nephrolithiasis, CHF, PSH: AICD, hernia repair (15 yrs ago), Left knee surgery ALL: NKDA FH: mother and father from CAD SocialHx: Denies tobacco, ETOH, recreational drug use 12 point review of system negative, otherwise stated above Past Patient History - Past Medical History & Family History Past Medical History?: Yes - Past Social History Smoking Status: Never Smoked - CARDIAC Hx Congestive Heart Failure: Yes Hx Hypercholesterolemia: Yes Hx Hypertension: Yes - RENAL Hx Kidney Stones: Yes - ENDOCRINE/METABOLIC Hx Diabetes Mellitus Type 2: Yes - MUSCULOSKELETAL/RHEUMATOLOGICAL Hx Falls: No - PSYCHIATRIC Hx Substance Use: No - SURGICAL HISTORY Hx Cholecystectomy: Yes - ANESTHESIA Hx Anesthesia: Yes Hx Anesthesia Reactions: No Meds Allergies/Adverse Reactions: Allergies Allergy/AdvReac Type Severity Reaction Status Date / Time No Known Allergies Allergy Verified 02/09/18 14:08 - Medications Medications: Current Medications Allopurinol (Zyloprim) 100 mg PO DAILY [facility] Last Admin: 02/17/18 09:30 Dose: 100 mg Amlodipine Besylate (Norvasc) 10 mg PO DAILY [facility] Last Admin: 02/17/18 09:26 Dose: 10 mg Aspirin (Ecotrin) 81 mg PO DAILY [facility] Last Admin: 02/16/18 09:54 Dose: 81 mg Brimonidine Tartrate (Alphagan 0.2% Opht) 0 ml OU DAILY [facility] Last Admin: 02/17/18 09:29 Dose: 1 drop Dextrose (Dextrose 50% Inj) 0 ml IVP .STAT PRN; Protocol PRN Reason: Hypoglycemia Protocol Dextrose (Glutose 15) 0 gm PO .ONCE PRN; Protocol PRN Reason: Hypoglycemia Protocol Furosemide (Lasix) 40 mg IVP DAILY [facility] Last Admin: 02/17/18 09:29 Dose: 40 mg Glucagon (Glucagen Diagnostic Kit) 0 mg IM .STAT PRN; Protocol PRN Reason: Hypoglycemia Protocol Insulin Aspart (Novolog) 8 unit SC AC [facility] Last Admin: 02/17/18 09:28 Dose: 8 unit Insulin Detemir (Levemir) 25 unit SC [facility] Last Admin: 02/16/18 22:27 Dose: Not Given Insulin Human Regular (Novolin R) 0 unit SC [facility] PRN Reason: Protocol Last Admin: 02/17/18 09:36 Dose: Not Given Lactulose (Enulose) 20 gm PO Q12 PRN PRN Reason: Constipation Last Admin: 02/10/18 23:02 Dose: 20 gm Latanoprost (Xalatan Opht) 0 ml OU [facility] Last Admin: 02/16/18 22:20 Dose: 2.5 ml Losartan Potassium (Cozaar) 25 mg PO DAILY [facility] Last Admin: 02/17/18 09:26 Dose: 25 mg Metoprolol Succinate (Toprol Xl) 25 mg PO DAILY [facility] Last Admin: 02/17/18 09:26 Dose: 25 mg Ondansetron HCl (Zofran Inj) 4 mg IVP Q6 PRN PRN Reason: Nausea/Vomiting Last Admin: 02/10/18 20:03 Dose: 4 mg Pantoprazole Sodium (Protonix Ec Tab) 40 mg PO DAILY [facility] Last Admin: 02/17/18 09:26 Dose: 40 mg Rosuvastatin Calcium (Crestor) 10 mg PO HS [facility] Last Admin: 02/16/18 22:20 Dose: 10 mg Tamsulosin HCl (Flomax) 0.4 mg PO DAILY [facility] Last Admin: 02/17/18 09:26 Dose: 0.4 mg Timolol Maleate (Timoptic 0.5% Ophth Soln) 0 drop OU DAILY [facility] Last Admin: 02/17/18 09:28 Dose: 1 drop Physical Exam - Constitutional Appears: Well, No Acute Distress - Head Exam Head Exam: ATRAUMATIC, NORMOCEPHALIC - Eye Exam Eye Exam: Normal appearance Pupil Exam: NORMAL ACCOMODATION - ENT Exam ENT Exam: Mucous Membranes Moist, Normal Exam - Neck Exam Neck exam: Positive for: Normal Inspection - Respiratory Exam Respiratory Exam: Clear to Auscultation Bilateral, NORMAL BREATHING PATTERN. absent: Rales, Rhonchi, Wheezes, Respiratory Distress, Stridor - Cardiovascular Exam Cardiovascular Exam: REGULAR RHYTHM, +S1, +S2 - GI/Abdominal Exam GI & Abdominal Exam: Normal Bowel Sounds, Soft. absent: Diminished Bowel Sounds , Distended, Firm, Guarding, Hernia, Mass, Organomegaly, Pulsatile Mass, Rebound , Rigid, Tenderness - Extremities Exam Additional comments: bandaged, L/E B/L - Neurological Exam Neurological exam: Alert, Oriented x3 - Psychiatric Exam Psychiatric exam: Normal Affect, Normal Mood - Skin Skin Exam: Dry, Intact, Normal Color, Warm Results - Vital Signs Recent Vital Signs: Last Vital Signs Temp 98.1 F 02/17/18 08:49 Pulse 87 02/17/18 08:49 Resp 20 02/17/18 08:49 BP 130/90 02/17/18 09:29 Pulse Ox 95 02/17/18 08:49 - Labs Result Diagrams: 02/17/18 07:12 02/17/18 07:12 Labs: Laboratory Results - last 24 hr 02/16/18 02/16/18 02/16/18 06:30 12:04 16:46 WBC RBC Hgb Hct MCV MCH MCHC RDW Plt Count MPV Neut % (Auto) Lymph % (Auto) Howell % (Auto) Eos % (Auto) Baso % (Auto) Neut # (Auto) Lymph # (Auto) Howell # (Auto) Eos # (Auto) Baso # (Auto) PT INR Sodium Potassium Chloride Carbon Dioxide Anion Gap BUN Creatinine Est GFR ( Amer) Est GFR (Non-Af Amer) POC Glucose (mg/dL) 146 H 160 H 88 Random Glucose Calcium Phosphorus Magnesium Total Bilirubin AST ALT Alkaline Phosphatase Total Protein Albumin Globulin Albumin/Globulin Ratio IgG Hepatitis A IgM Ab Hep Bs Antigen Hep B Core IgM Ab Hepatitis C Antibody 02/16/18 02/16/18 02/16/18 17:12 17:12 21:32 WBC RBC Hgb Hct MCV MCH MCHC RDW Plt Count MPV Neut % (Auto) Lymph % (Auto) Howell % (Auto) Eos % (Auto) Baso % (Auto) Neut # (Auto) Lymph # (Auto) Howell # (Auto) Eos # (Auto) Baso # (Auto) PT INR Sodium Potassium Chloride Carbon Dioxide Anion Gap BUN Creatinine Est GFR ( Amer) Est GFR (Non-Af Amer) POC Glucose (mg/dL) 149 H Random Glucose Calcium Phosphorus Magnesium Total Bilirubin AST ALT Alkaline Phosphatase Total Protein Albumin Globulin Albumin/Globulin Ratio IgG 1220.8 Hepatitis A IgM Ab Negative Hep Bs Antigen Negative Hep B Core IgM Ab Negative Hepatitis C Antibody Negative 02/17/18 02/17/18 02/17/18 06:20 07:12 07:12 WBC 5.8 RBC 4.49 Hgb 12.2 Hct 37.7 MCV 84.1 MCH 27.2 MCHC 32.3 L RDW 19.2 H Plt Count 137 MPV 8.9 Neut % (Auto) 68.6 Lymph % (Auto) 13.4 L Howell % (Auto) 13.2 H Eos % (Auto) 3.6 Baso % (Auto) 1.2 Neut # (Auto) 4.0 Lymph # (Auto) 0.8 L Howell # (Auto) 0.8 Eos # (Auto) 0.2 Baso # (Auto) 0.1 PT INR Sodium 144 Potassium 4.2 Chloride 102 Carbon Dioxide 32 H Anion Gap 15 BUN 28 H Creatinine 1.6 H Est GFR ( Amer) 53 Est GFR (Non-Af Amer) 44 POC Glucose (mg/dL) 130 H Random Glucose 126 H Calcium 8.6 Phosphorus 3.3 Magnesium 1.8 Total Bilirubin 3.5 H AST 16 L ALT 10 L D Alkaline Phosphatase 109 Total Protein 7.0 Albumin 3.5 Globulin 3.5 Albumin/Globulin Ratio 1.0 IgG Hepatitis A IgM Ab Hep Bs Antigen Hep B Core IgM Ab Hepatitis C Antibody 02/17/18 07:12 WBC RBC Hgb Hct MCV MCH MCHC RDW Plt Count MPV Neut % (Auto) Lymph % (Auto) Howell % (Auto) Eos % (Auto) Baso % (Auto) Neut # (Auto) Lymph # (Auto) Howell # (Auto) Eos # (Auto) Baso # (Auto) PT 28.6 H INR 2.6 Sodium Potassium Chloride Carbon Dioxide Anion Gap BUN Creatinine Est GFR ( Amer) Est GFR (Non-Af Amer) POC Glucose (mg/dL) Random Glucose Calcium Phosphorus Magnesium Total Bilirubin AST ALT Alkaline Phosphatase Total Protein Albumin Globulin Albumin/Globulin Ratio IgG Hepatitis A IgM Ab Hep Bs Antigen Hep B Core IgM Ab Hepatitis C Antibody Assessment & Plan - Assessment and Plan (Free Text) Assessment: Bao Davis is a 62M w/ hx of dilated cardiomyopathy, ACID, CHF, HTN, HL who presented to the ED with complaints of LE edema, SOB and non-healing LE foot ulcers. Elevated Bilirubin, etiology known, underlying hepatocellular disease, ie cirrhosis? Abdnormal liver U/S, contouring, suggestive of Cirrhosis Suspect Cirrhosis, etiology unknown, DDx: Etoh, r/o viral or infectous etiology CHF Chronic LE ulcer Small Peritoneal Ascites cholelithiasis Plan: - will send for viral hep serologies and autoimmune -U/S reviewed, no evidence of CBD stone or dilatation -surgery on board for cholelithiasis, waiting for medical management and cardiac optimization/clearance -low fat diet -will eventually need further liver w/u, including liver CT, which can be done as an outpt -trend LFTs -no plan for Gi procedure -emphasized ETOH avoidance -rest of care as per primary team D/W Dr. Jorgensen <Scott Jorgensen Y - Last Filed: 02/17/18 12:19> Meds - Medications Medications: Current Medications Allopurinol (Zyloprim) 100 mg PO DAILY [facility] Last Admin: 02/17/18 09:30 Dose: 100 mg Amlodipine Besylate (Norvasc) 10 mg PO DAILY [facility] Last Admin: 02/17/18 09:26 Dose: 10 mg Aspirin (Ecotrin) 81 mg PO DAILY [facility] Last Admin: 02/16/18 09:54 Dose: 81 mg Brimonidine Tartrate (Alphagan 0.2% Opht) 0 ml OU DAILY [facility] Last Admin: 02/17/18 09:29 Dose: 1 drop Dextrose (Dextrose 50% Inj) 0 ml IVP .STAT PRN; Protocol PRN Reason: Hypoglycemia Protocol Dextrose (Glutose 15) 0 gm PO .ONCE PRN; Protocol PRN Reason: Hypoglycemia Protocol Furosemide (Lasix) 40 mg IVP DAILY [facility] Last Admin: 02/17/18 09:29 Dose: 40 mg Glucagon (Glucagen Diagnostic Kit) 0 mg IM .STAT PRN; Protocol PRN Reason: Hypoglycemia Protocol Insulin Aspart (Novolog) 8 unit SC AC [facility] Last Admin: 02/17/18 09:28 Dose: 8 unit Insulin Detemir (Levemir) 25 unit SC HS [facility] Last Admin: 02/16/18 22:27 Dose: Not Given Insulin Human Regular (Novolin R) 0 unit SC [facility] PRN Reason: Protocol Last Admin: 02/17/18 09:36 Dose: Not Given Lactulose (Enulose) 20 gm PO Q12 PRN PRN Reason: Constipation Last Admin: 02/10/18 23:02 Dose: 20 gm Latanoprost (Xalatan Opht) 0 ml OU [facility] Last Admin: 02/16/18 22:20 Dose: 2.5 ml Losartan Potassium (Cozaar) 25 mg PO DAILY [facility] Last Admin: 02/17/18 09:26 Dose: 25 mg Metoprolol Succinate (Toprol Xl) 25 mg PO DAILY [facility] Last Admin: 02/17/18 09:26 Dose: 25 mg Ondansetron HCl (Zofran Inj) 4 mg IVP Q6 PRN PRN Reason: Nausea/Vomiting Last Admin: 02/10/18 20:03 Dose: 4 mg Pantoprazole Sodium (Protonix Ec Tab) 40 mg PO DAILY [facility] Last Admin: 02/17/18 09:26 Dose: 40 mg Rosuvastatin Calcium (Crestor) 10 mg PO HS [facility] Last Admin: 02/16/18 22:20 Dose: 10 mg Tamsulosin HCl (Flomax) 0.4 mg PO DAILY [facility] Last Admin: 02/17/18 09:26 Dose: 0.4 mg Timolol Maleate (Timoptic 0.5% Ophth Soln) 0 drop OU DAILY [facility] Last Admin: 02/17/18 09:28 Dose: 1 drop Results - Vital Signs Recent Vital Signs: Last Vital Signs Temp 98.1 F 02/17/18 08:49 Pulse 87 02/17/18 08:49 Resp 20 05/24/18 08:49 BP 130/90 02/17/18 09:29 Pulse Ox 95 02/17/18 08:49 - Labs Result Diagrams: 02/17/18 07:12 02/17/18 07:12 Labs: Laboratory Results - last 24 hr 02/16/18 02/16/18 02/16/18 12:04 16:46 17:12 WBC RBC Hgb Hct MCV MCH MCHC RDW Plt Count MPV Neut % (Auto) Lymph % (Auto) Howell % (Auto) Eos % (Auto) Baso % (Auto) Neut # (Auto) Lymph # (Auto) Howell # (Auto) Eos # (Auto) Baso # (Auto) PT INR Sodium Potassium Chloride Carbon Dioxide Anion Gap BUN Creatinine Est GFR ( Amer) Est GFR (Non-Af Amer) POC Glucose (mg/dL) 160 H 88 Random Glucose Calcium Phosphorus Magnesium Total Bilirubin AST ALT Alkaline Phosphatase Total Protein Albumin Globulin Albumin/Globulin Ratio IgG Hepatitis A IgM Ab Negative Hep Bs Antigen Negative Hep B Core IgM Ab Negative Hepatitis C Antibody Negative 02/16/18 02/16/18 02/17/18 17:12 21:32 06:20 WBC RBC Hgb Hct MCV MCH MCHC RDW Plt Count MPV Neut % (Auto) Lymph % (Auto) Howell % (Auto) Eos % (Auto) Baso % (Auto) Neut # (Auto) Lymph # (Auto) Howell # (Auto) Eos # (Auto) Baso # (Auto) PT INR Sodium Potassium Chloride Carbon Dioxide Anion Gap BUN Creatinine Est GFR ( Amer) Est GFR (Non-Af Amer) POC Glucose (mg/dL) 149 H 130 H Random Glucose Calcium Phosphorus Magnesium Total Bilirubin AST ALT Alkaline Phosphatase Total Protein Albumin Globulin Albumin/Globulin Ratio IgG 1220.8 Hepatitis A IgM Ab Hep Bs Antigen Hep B Core IgM Ab Hepatitis C Antibody 02/17/18 02/17/18 02/17/18 07:12 07:12 07:12 WBC 5.8 RBC 4.49 Hgb 12.2 Hct 37.7 MCV 84.1 MCH 27.2 MCHC 32.3 L RDW 19.2 H Plt Count 137 MPV 8.9 Neut % (Auto) 68.6 Lymph % (Auto) 13.4 L Howell % (Auto) 13.2 H Eos % (Auto) 3.6 Baso % (Auto) 1.2 Neut # (Auto) 4.0 Lymph # (Auto) 0.8 L Howell # (Auto) 0.8 Eos # (Auto) 0.2 Baso # (Auto) 0.1 PT 28.6 H INR 2.6 Sodium 144 Potassium 4.2 Chloride 102 Carbon Dioxide 32 H Anion Gap 15 BUN 28 H Creatinine 1.6 H Est GFR ( Amer) 53 Est GFR (Non-Af Amer) 44 POC Glucose (mg/dL) Random Glucose 126 H Calcium 8.6 Phosphorus 3.3 Magnesium 1.8 Total Bilirubin 3.5 H AST 16 L ALT 10 L D Alkaline Phosphatase 109 Total Protein 7.0 Albumin 3.5 Globulin 3.5 Albumin/Globulin Ratio 1.0 IgG Hepatitis A IgM Ab Hep Bs Antigen Hep B Core IgM Ab Hepatitis C Antibody Attending/Attestation - Attestation I have personally seen and examined this patient.: Yes I have fully participated in the care of the patient.: Yes I have reviewed all pertinent clinical information: Yes Notes (Text): 02/17/18 12:11 I have seen and examined patient with GI fellow. Agree with above documentation with the following additions. In brief, this is a 62 year old male with history of CHF, dilated cardiomyopathy s/p ICD, HTN, hyperlipidemia, who presents to hospital with progressive lower extremity swelling and dyspnea on exertion. He is currently being treated for CHF exacerbation and cellulitis. GI called for evaluation of elevated LFTs. He denies nausea, vomiting, diarrhea, fever/chills, weight loss, jaundice, pruritis, or prior knowledge of liver disease. He does admit to previous heavy ETOH consumption, though quit several years ago. He currently denies abdominal pain though does report intermittent symptoms over the past few months. He claims to have had an EGD/colonoscopy 1 year ago which were normal as per patient. Review of vitals from today are normal. CHF, dilated cardiomyopathy s/p ICD HTN Hyperlipidemia CKD Transaminitis Abdominal US reviewed by me showing cirrhotic morphology of liver, + cholelithiasis, normal caliber CBD - Low sodium diet as tolerated - LFTs stable, continue to monitor. Suspect cardiac vs ETOH etiology for cirrhosis. - Viral hepatitis panel negative, awaiting autoimmune serologies - Obtain AFP - Abdominal imaging reviewed by me, not significant ascites present for paracentesis. Patient would benefit from triple phase liver imaging, though unable to currently perform due to renal insufficiency. - No further planned inpatient GI intervention, recommend additional outpatient follow up after resolution of acute medical issues. Will sign off case, please reconsult as necessary, thank you.
--- NOTE | 2018-02-17 12:56 | CP.PCM.PN ---
Subjective - Date & Time of Evaluation Date of Evaluation: 02/17/18 Time of Evaluation: 09:30 - Subjective Subjective: Podiatry Progress note: Dr. Carrillo 62 year old male patient was seen this morning concerning Left leg edema and superficial ulcerations. He was resting comfortably in his chair. NAD, AAOx3. Reports that the breathing is also getting better. Patient denies of any N/V/F/ C or SOB today. Patient was advised to keep bilateral feet elevated with pillows. Objective - Vital Signs/Intake and Output Vital Signs (last 24 hours): Temp Pulse Resp BP Pulse Ox 98.1 F 87 20 130/90 95 02/17/18 08:49 02/17/18 08:49 02/17/18 08:49 02/17/18 09:29 02/17/18 08:49 - Medications Medications: Current Medications Allopurinol (Zyloprim) 100 mg PO DAILY [facility] Last Admin: 02/17/18 09:30 Dose: 100 mg Amlodipine Besylate (Norvasc) 10 mg PO DAILY [facility] Last Admin: 02/17/18 09:26 Dose: 10 mg Aspirin (Ecotrin) 81 mg PO DAILY [facility] Last Admin: 02/16/18 09:54 Dose: 81 mg Brimonidine Tartrate (Alphagan 0.2% Opht) 0 ml OU DAILY [facility] Last Admin: 02/17/18 09:29 Dose: 1 drop Dextrose (Dextrose 50% Inj) 0 ml IVP .STAT PRN; Protocol PRN Reason: Hypoglycemia Protocol Dextrose (Glutose 15) 0 gm PO .ONCE PRN; Protocol PRN Reason: Hypoglycemia Protocol Furosemide (Lasix) 40 mg IVP DAILY [facility] Last Admin: 02/17/18 09:29 Dose: 40 mg Glucagon (Glucagen Diagnostic Kit) 0 mg IM .STAT PRN; Protocol PRN Reason: Hypoglycemia Protocol Insulin Aspart (Novolog) 8 unit SC AC [facility] Last Admin: 02/17/18 12:42 Dose: Not Given Insulin Detemir (Levemir) 25 unit SC HS [facility] Last Admin: 02/16/18 22:27 Dose: Not Given Insulin Human Regular (Novolin R) 0 unit SC ACHS [facility] PRN Reason: Protocol Last Admin: 02/17/18 12:40 Dose: 3 unit Lactulose (Enulose) 20 gm PO Q12 PRN PRN Reason: Constipation Last Admin: 02/10/18 23:02 Dose: 20 gm Latanoprost (Xalatan Opht) 0 ml OU HS [facility] Last Admin: 02/16/18 22:20 Dose: 2.5 ml Losartan Potassium (Cozaar) 25 mg PO DAILY [facility] Last Admin: 02/17/18 09:26 Dose: 25 mg Metoprolol Succinate (Toprol Xl) 25 mg PO DAILY [facility] Last Admin: 02/17/18 09:26 Dose: 25 mg Ondansetron HCl (Zofran Inj) 4 mg IVP Q6 PRN PRN Reason: Nausea/Vomiting Last Admin: 02/10/18 20:03 Dose: 4 mg Pantoprazole Sodium (Protonix Ec Tab) 40 mg PO DAILY [facility] Last Admin: 02/17/18 09:26 Dose: 40 mg Rosuvastatin Calcium (Crestor) 10 mg PO HS [facility] Last Admin: 02/16/18 22:20 Dose: 10 mg Tamsulosin HCl (Flomax) 0.4 mg PO DAILY [facility] Last Admin: 02/17/18 09:26 Dose: 0.4 mg Timolol Maleate (Timoptic 0.5% Ophth Soln) 0 drop OU DAILY [facility] Last Admin: 02/17/18 09:28 Dose: 1 drop - Labs Labs: 02/17/18 07:12 02/17/18 07:12 PT 28.6 SECONDS (9.7-12.2) H 02/17/18 07:12 INR 2.6 02/17/18 07:12 APTT 50 SECONDS (21-34) H 02/10/18 00:12 - Constitutional Appears: Well, Non-toxic, No Acute Distress - Head Exam Head Exam: ATRAUMATIC - Extremities Exam Additional comments: Left lower extremity exam DERM: Superficial open ulceration noted to medial and lateral aspect of left leg measuring 3cm x 3xm x 0.1cm with granular base. Serous drainage noted from the ulceration. No mal-odor noted. Mild erythema noted to left leg. No purulent discharge noted. No PTB VASC: Left lower extremity cold to touch. Bilaterally edema noted L>R. Non- palpable DP and PT noted bilaterally, [employer] less than 3 seconds noted to all digits NEURO: Gross sensation intact ORTHO: Decreased ROM noted to all joints distal to anklr joint - Neurological Exam Neurological Exam: Alert, Awake, Oriented x3 - Psychiatric Exam Psychiatric exam: Normal Affect, Normal Mood - Skin Skin Exam: Normal Color, Warm Assessment and Plan - Assessment and Plan (Free Text) Assessment: 62 yo male patient presenting with lower extremity edema and superficial ulceration to left leg Plan: Patient was seen, evaluated Plan discussed with attending Dr. Carrillo labs and vitals reviewed; afebrile, WBC 5.8 left leg cleansed with saline, dressed with Xeroform, DSD, ABD SPENCER R: 1.26, L-1.31 arterial doppler reveals No DVT Unnaboot and Coban ordered for bilateral lower extremities. Please dispense by bedside Podiatry will continue to follow inhouse
--- NOTE | 2018-02-17 14:26 | CP.PCM.PN ---
Subjective - Date & Time of Evaluation Date of Evaluation: 02/17/18 Time of Evaluation: 14:26 Objective - Vital Signs/Intake and Output Vital Signs (last 24 hours): Temp Pulse Resp BP Pulse Ox 98.1 F 87 20 130/90 95 02/17/18 08:49 02/17/18 08:49 02/17/18 08:49 02/17/18 09:29 02/17/18 08:49 Intake and Output: 02/17/18 02/17/18 06:59 18:59 Intake Total 240 Balance 240 - Medications Medications: Current Medications Allopurinol (Zyloprim) 100 mg PO DAILY [facility] Last Admin: 02/17/18 09:30 Dose: 100 mg Amlodipine Besylate (Norvasc) 10 mg PO DAILY [facility] Last Admin: 02/17/18 09:26 Dose: 10 mg Aspirin (Ecotrin) 81 mg PO DAILY [facility] Last Admin: 02/16/18 09:54 Dose: 81 mg Brimonidine Tartrate (Alphagan 0.2% Opht) 0 ml OU DAILY [facility] Last Admin: 02/17/18 09:29 Dose: 1 drop Dextrose (Dextrose 50% Inj) 0 ml IVP .STAT PRN; Protocol PRN Reason: Hypoglycemia Protocol Dextrose (Glutose 15) 0 gm PO .ONCE PRN; Protocol PRN Reason: Hypoglycemia Protocol Furosemide (Lasix) 40 mg IVP DAILY [facility] Last Admin: 02/17/18 09:29 Dose: 40 mg Glucagon (Glucagen Diagnostic Kit) 0 mg IM .STAT PRN; Protocol PRN Reason: Hypoglycemia Protocol Insulin Aspart (Novolog) 8 unit SC AC [facility] Last Admin: 02/17/18 12:42 Dose: Not Given Insulin Detemir (Levemir) 25 unit SC HS [facility] Last Admin: 02/16/18 22:27 Dose: Not Given Insulin Human Regular (Novolin R) 0 unit SC ACHS [facility] PRN Reason: Protocol Last Admin: 02/17/18 12:40 Dose: 3 unit Lactulose (Enulose) 20 gm PO Q12 PRN PRN Reason: Constipation Last Admin: 02/10/18 23:02 Dose: 20 gm Latanoprost (Xalatan Opht) 0 ml OU HS [facility] Last Admin: 02/16/18 22:20 Dose: 2.5 ml Losartan Potassium (Cozaar) 25 mg PO DAILY [facility] Last Admin: 02/17/18 09:26 Dose: 25 mg Metoprolol Succinate (Toprol Xl) 25 mg PO DAILY [facility] Last Admin: 02/17/18 09:26 Dose: 25 mg Ondansetron HCl (Zofran Inj) 4 mg IVP Q6 PRN PRN Reason: Nausea/Vomiting Last Admin: 02/10/18 20:03 Dose: 4 mg Pantoprazole Sodium (Protonix Ec Tab) 40 mg PO DAILY [facility] Last Admin: 02/17/18 09:26 Dose: 40 mg Rosuvastatin Calcium (Crestor) 10 mg PO [facility] Last Admin: 02/16/18 22:20 Dose: 10 mg Tamsulosin HCl (Flomax) 0.4 mg PO DAILY [facility] Last Admin: 02/17/18 09:26 Dose: 0.4 mg Timolol Maleate (Timoptic 0.5% Oph Soln) 0 drop OU DAILY [facility] Last Admin: 02/17/18 09:28 Dose: 1 drop - Labs Labs: 02/17/18 07:12 02/17/18 07:12 PT 28.6 SECONDS (9.7-12.2) H 02/17/18 07:12 INR 2.6 02/17/18 07:12 APTT 50 SECONDS (21-34) H 02/10/18 00:12
--- NOTE | 2018-02-17 14:35 | CP.PCM.PN ---
<Hung Bedoya - Last Filed: 02/17/18 14:36> Subjective - Date & Time of Evaluation Date of Evaluation: 02/17/18 Time of Evaluation: 07:00 - Subjective Subjective: General Surgery Progress Note for Dr. Sherman This 62M was seen and examined this AM at bedside no acute events overnight. Pt denies chest pain or SOB. No new complainst at this time. Denies signiicant abdominal pain. Objective - Vital Signs/Intake and Output Vital Signs (last 24 hours): Temp Pulse Resp BP Pulse Ox 98.1 F 87 20 130/90 95 02/17/18 08:49 02/17/18 08:49 02/17/18 08:49 02/17/18 09:29 02/17/18 08:49 Intake and Output: 02/17/18 02/17/18 06:59 18:59 Intake Total 240 Balance 240 - Medications Medications: Current Medications Allopurinol (Zyloprim) 100 mg PO DAILY [facility] Last Admin: 02/17/18 09:30 Dose: 100 mg Amlodipine Besylate (Norvasc) 10 mg PO DAILY [facility] Last Admin: 02/17/18 09:26 Dose: 10 mg Aspirin (Ecotrin) 81 mg PO DAILY [facility] Last Admin: 02/16/18 09:54 Dose: 81 mg Brimonidine Tartrate (Alphagan 0.2% Opht) 0 ml OU DAILY [facility] Last Admin: 02/17/18 09:29 Dose: 1 drop Dextrose (Dextrose 50% Inj) 0 ml IVP .STAT PRN; Protocol PRN Reason: Hypoglycemia Protocol Dextrose (Glutose 15) 0 gm PO .ONCE PRN; Protocol PRN Reason: Hypoglycemia Protocol Furosemide (Lasix) 40 mg IVP DAILY [facility] Last Admin: 02/17/18 09:29 Dose: 40 mg Glucagon (Glucagen Diagnostic Kit) 0 mg IM .STAT PRN; Protocol PRN Reason: Hypoglycemia Protocol Insulin Aspart (Novolog) 8 unit SC AC [facility] Last Admin: 02/17/18 12:42 Dose: Not Given Insulin Detemir (Levemir) 25 unit SC HS [facility] Last Admin: 02/16/18 22:27 Dose: Not Given Insulin Human Regular (Novolin R) 0 unit SC ACHS [facility] PRN Reason: Protocol Last Admin: 02/17/18 12:40 Dose: 3 unit Lactulose (Enulose) 20 gm PO Q12 PRN PRN Reason: Constipation Last Admin: 02/10/18 23:02 Dose: 20 gm Latanoprost (Xalatan Opht) 0 ml OU HS [facility] Last Admin: 02/16/18 22:20 Dose: 2.5 ml Losartan Potassium (Cozaar) 25 mg PO DAILY [facility] Last Admin: 02/17/18 09:26 Dose: 25 mg Metoprolol Succinate (Toprol Xl) 25 mg PO DAILY [facility] Last Admin: 02/17/18 09:26 Dose: 25 mg Ondansetron HCl (Zofran Inj) 4 mg IVP Q6 PRN PRN Reason: Nausea/Vomiting Last Admin: 02/10/18 20:03 Dose: 4 mg Pantoprazole Sodium (Protonix Ec Tab) 40 mg PO DAILY [facility] Last Admin: 02/17/18 09:26 Dose: 40 mg Rosuvastatin Calcium (Crestor) 10 mg PO HS [facility] Last Admin: 02/16/18 22:20 Dose: 10 mg Tamsulosin HCl (Flomax) 0.4 mg PO DAILY [facility] Last Admin: 02/17/18 09:26 Dose: 0.4 mg Timolol Maleate (Timoptic 0.5% Ophth Soln) 0 drop OU DAILY [facility] Last Admin: 02/17/18 09:28 Dose: 1 drop Warfarin Sodium (Coumadin) 7.5 mg PO 1800 [facility] Stop: 02/17/18 18:01 - Labs Labs: 02/17/18 07:12 02/17/18 07:12 PT 28.6 SECONDS (9.7-12.2) H 02/17/18 07:12 INR 2.6 02/17/18 07:12 APTT 50 SECONDS (21-34) H 02/10/18 00:12 - Constitutional Appears: Non-toxic, No Acute Distress - Head Exam Head Exam: ATRAUMATIC, NORMOCEPHALIC - Eye Exam Eye Exam: Normal appearance - ENT Exam ENT Exam: Mucous Membranes Moist - Neck Exam Neck Exam: Normal Inspection - Respiratory Exam Respiratory Exam: NORMAL BREATHING PATTERN. absent: Respiratory Distress - Cardiovascular Exam Cardiovascular Exam: +S1, +S2. - GI/Abdominal Exam GI & Abdominal Exam: Soft absent: Tenderness - negative wynn sign - Neurological Exam Neurological Exam: Alert, Awake, Oriented x3 - Psychiatric Exam Psychiatric exam: Normal Affect, Normal Mood - Skin Skin Exam: Dry, Warm Assessment and Plan - Assessment and Plan (Free Text) Assessment: 62M with symptomatic cholelisthiasis Pt seen by cardiology is high risk for surgery. No surgical intervention at this time. Continue managment per primary team and GI In the future if needed IR Cholecystostomy tube maybe warranted D/W Dr. Whit Bedoya [phone] <Alber Sherman B - Last Filed: 02/20/18 15:05> Objective - Vital Signs/Intake and Output Vital Signs (last 24 hours): Temp Pulse Resp BP Pulse Ox 98.3 F 93 H 20 138/88 97 02/20/18 07:55 02/20/18 07:55 02/20/18 07:55 02/20/18 10:49 02/20/18 07:55 Intake and Output: 02/20/18 02/20/18 06:59 18:59 Intake Total 500 200 Output Total 600 Balance 500 -400 - Medications Medications: Current Medications Allopurinol (Zyloprim) 100 mg PO DAILY [facility] Last Admin: 02/20/18 10:49 Dose: 100 mg Amlodipine Besylate (Norvasc) 10 mg PO DAILY [facility] Last Admin: 02/20/18 10:49 Dose: 10 mg Aspirin (Ecotrin) 81 mg PO DAILY [facility] Last Admin: 02/16/18 09:54 Dose: 81 mg Brimonidine Tartrate (Alphagan 0.2% Opht) 0 ml OU DAILY [facility] Last Admin: 02/20/18 10:50 Dose: 1 drop Dextrose (Dextrose 50% Inj) 0 ml IVP .STAT PRN; Protocol PRN Reason: Hypoglycemia Protocol Dextrose (Glutose 15) 0 gm PO .ONCE PRN; Protocol PRN Reason: Hypoglycemia Protocol Furosemide (Lasix) 40 mg IVP DAILY [facility] Last Admin: 02/20/18 10:49 Dose: 40 mg Glucagon (Glucagen Diagnostic Kit) 0 mg IM .STAT PRN; Protocol PRN Reason: Hypoglycemia Protocol Insulin Aspart (Novolog) 8 unit SC AC [facility] Last Admin: 02/20/18 14:57 Dose: Not Given Insulin Detemir (Levemir) 25 unit SC HS [facility] Last Admin: 02/19/18 21:06 Dose: Not Given Insulin Human Regular (Novolin R) 0 unit SC ACHS [facility] PRN Reason: Protocol Last Admin: 02/20/18 13:11 Dose: Not Given Lactulose (Enulose) 20 gm PO Q12 PRN PRN Reason: Constipation Last Admin: 02/10/18 23:02 Dose: 20 gm Latanoprost (Xalatan Opht) 0 ml OU HS [facility] Last Admin: 02/19/18 21:48 Dose: 2.5 ml Losartan Potassium (Cozaar) 25 mg PO DAILY [facility] Last Admin: 02/20/18 10:49 Dose: 25 mg Metoprolol Succinate (Toprol Xl) 25 mg PO DAILY [facility] Last Admin: 02/20/18 10:44 Dose: 25 mg Ondansetron HCl (Zofran Inj) 4 mg IVP Q6 PRN PRN Reason: Nausea/Vomiting Last Admin: 02/10/18 20:03 Dose: 4 mg Pantoprazole Sodium (Protonix Ec Tab) 40 mg PO DAILY [facility] Last Admin: 02/20/18 10:49 Dose: 40 mg Rosuvastatin Calcium (Crestor) 10 mg PO HS [facility] Last Admin: 02/19/18 21:48 Dose: 10 mg Tamsulosin HCl (Flomax) 0.4 mg PO DAILY [facility] Last Admin: 02/20/18 10:49 Dose: 0.4 mg Timolol Maleate (Timoptic 0.5% Oph Soln) 0 drop OU DAILY [facility] Last Admin: 02/20/18 10:50 Dose: 1 drop - Labs Labs: 02/17/18 07:12 02/17/18 07:12 PT 26.6 SECONDS (9.7-12.2) H D 02/20/18 07:47 INR 2.4 D 02/20/18 07:47 APTT 50 SECONDS (21-34) H 02/10/18 00:12 Attending/Attestation - Attestation I have personally seen and examined this patient.: Yes I have fully participated in the care of the patient.: Yes I have reviewed all pertinent clinical information, including history, physical exam and plan: Yes Notes (Text): Pt was seen and examined at bedside Agree with above note and assessment Pt with Gallstones and CHF exacerbation Pt is too high risk for any surgical intervention f.u as out pt for Gallstones C/w current mx Plan d.w pt in detail Risk and benefit explained in detail.
--- NOTE | 2018-02-17 19:42 | CP.PCM.PN ---
Subjective - Date & Time of Evaluation Date of Evaluation: 02/17/18 Time of Evaluation: 12:00 - Subjective Subjective: seen by surgery, no surgical intervention at this time Objective - Vital Signs/Intake and Output Vital Signs (last 24 hours): Temp Pulse Resp BP Pulse Ox 98.1 F 84 20 118/81 98 02/17/18 17:19 02/17/18 17:19 02/17/18 17:19 02/17/18 17:19 02/17/18 17:19 Intake and Output: 02/17/18 02/18/18 18:59 06:59 Intake Total 240 Balance 240 - Medications Medications: Current Medications Allopurinol (Zyloprim) 100 mg PO DAILY [facility] Last Admin: 02/17/18 09:30 Dose: 100 mg Amlodipine Besylate (Norvasc) 10 mg PO DAILY [facility] Last Admin: 02/17/18 09:26 Dose: 10 mg Aspirin (Ecotrin) 81 mg PO DAILY [facility] Last Admin: 02/16/18 09:54 Dose: 81 mg Brimonidine Tartrate (Alphagan 0.2% Opht) 0 ml OU DAILY [facility] Last Admin: 02/17/18 09:29 Dose: 1 drop Dextrose (Dextrose 50% Inj) 0 ml IVP .STAT PRN; Protocol PRN Reason: Hypoglycemia Protocol Dextrose (Glutose 15) 0 gm PO .ONCE PRN; Protocol PRN Reason: Hypoglycemia Protocol Furosemide (Lasix) 40 mg IVP DAILY [facility] Last Admin: 02/17/18 09:29 Dose: 40 mg Glucagon (Glucagen Diagnostic Kit) 0 mg IM .STAT PRN; Protocol PRN Reason: Hypoglycemia Protocol Insulin Aspart (Novolog) 8 unit SC AC [facility] Last Admin: 02/17/18 17:37 Dose: 8 unit Insulin Detemir (Levemir) 25 unit SC HS [facility] Last Admin: 02/16/18 22:27 Dose: Not Given Insulin Human Regular (Novolin R) 0 unit SC ACHS [facility] PRN Reason: Protocol Last Admin: 02/17/18 17:37 Dose: 2 unit Lactulose (Enulose) 20 gm PO Q12 PRN PRN Reason: Constipation Last Admin: 02/10/18 23:02 Dose: 20 gm Latanoprost (Xalatan Opht) 0 ml OU HS [facility] Last Admin: 02/16/18 22:20 Dose: 2.5 ml Losartan Potassium (Cozaar) 25 mg PO DAILY [facility] Last Admin: 02/17/18 09:26 Dose: 25 mg Metoprolol Succinate (Toprol Xl) 25 mg PO DAILY [facility] Last Admin: 02/17/18 09:26 Dose: 25 mg Ondansetron HCl (Zofran Inj) 4 mg IVP Q6 PRN PRN Reason: Nausea/Vomiting Last Admin: 02/10/18 20:03 Dose: 4 mg Pantoprazole Sodium (Protonix Ec Tab) 40 mg PO DAILY [facility] Last Admin: 02/17/18 09:26 Dose: 40 mg Rosuvastatin Calcium (Crestor) 10 mg PO HS [facility] Last Admin: 02/16/18 22:20 Dose: 10 mg Tamsulosin HCl (Flomax) 0.4 mg PO DAILY [facility] Last Admin: 02/17/18 09:26 Dose: 0.4 mg Timolol Maleate (Timoptic 0.5% Ophth Soln) 0 drop OU DAILY [facility] Last Admin: 02/17/18 09:28 Dose: 1 drop - Labs Labs: 02/17/18 07:12 02/17/18 07:12 PT 28.6 SECONDS (9.7-12.2) H 02/17/18 07:12 INR 2.6 02/17/18 07:12 APTT 50 SECONDS (21-34) H 02/10/18 00:12 - Constitutional Appears: Non-toxic - Head Exam Head Exam: ATRAUMATIC - Eye Exam Eye Exam: EOMI - ENT Exam ENT Exam: Mucous Membranes Moist - Neck Exam Neck Exam: absent: Lymphadenopathy, Thyromegaly - Respiratory Exam Respiratory Exam: Clear to Ausculation Bilateral. absent: Rales - Cardiovascular Exam Cardiovascular Exam: REGULAR RHYTHM, Murmur - GI/Abdominal Exam GI & Abdominal Exam: Normal Bowel Sounds. absent: Organomegaly - Rectal Exam Rectal Exam: Deferred - Extremities Exam Extremities Exam: Normal Capillary Refill. absent: Calf Tenderness - Neurological Exam Neurological Exam: Alert, Oriented x3 - Psychiatric Exam Psychiatric exam: Normal Mood - Skin Skin Exam: Dry Assessment and Plan (1) Dilated cardiomyopathy Status: Acute (2) Atrial fibrillation, chronic Status: Chronic
--- NOTE | 2018-02-17 21:11 | CP.PCM.PN ---
Subjective - Date & Time of Evaluation Date of Evaluation: 02/17/18 Time of Evaluation: 10:20 - Subjective Subjective: clinically same Objective - Vital Signs/Intake and Output Vital Signs (last 24 hours): Temp Pulse Resp BP Pulse Ox 98.1 F 84 20 118/81 98 02/17/18 17:19 02/17/18 17:19 02/17/18 17:19 02/17/18 17:19 02/17/18 17:19 Intake and Output: 02/17/18 02/18/18 18:59 06:59 Intake Total 240 Balance 240 - Medications Medications: Current Medications Allopurinol (Zyloprim) 100 mg PO DAILY [facility] Last Admin: 02/17/18 09:30 Dose: 100 mg Amlodipine Besylate (Norvasc) 10 mg PO DAILY [facility] Last Admin: 02/17/18 09:26 Dose: 10 mg Aspirin (Ecotrin) 81 mg PO DAILY [facility] Last Admin: 02/16/18 09:54 Dose: 81 mg Brimonidine Tartrate (Alphagan 0.2% Opht) 0 ml OU DAILY [facility] Last Admin: 02/17/18 09:29 Dose: 1 drop Dextrose (Dextrose 50% Inj) 0 ml IVP .STAT PRN; Protocol PRN Reason: Hypoglycemia Protocol Dextrose (Glutose 15) 0 gm PO .ONCE PRN; Protocol PRN Reason: Hypoglycemia Protocol Furosemide (Lasix) 40 mg IVP DAILY [facility] Last Admin: 02/17/18 09:29 Dose: 40 mg Glucagon (Glucagen Diagnostic Kit) 0 mg IM .STAT PRN; Protocol PRN Reason: Hypoglycemia Protocol Insulin Aspart (Novolog) 8 unit SC AC [facility] Last Admin: 02/17/18 17:37 Dose: 8 unit Insulin Detemir (Levemir) 25 unit SC HS [facility] Last Admin: 02/16/18 22:27 Dose: Not Given Insulin Human Regular (Novolin R) 0 unit SC ACHS [facility] PRN Reason: Protocol Last Admin: 02/17/18 17:37 Dose: 2 unit Lactulose (Enulose) 20 gm PO Q12 PRN PRN Reason: Constipation Last Admin: 02/10/18 23:02 Dose: 20 gm Latanoprost (Xalatan Opht) 0 ml OU HS [facility] Last Admin: 02/16/18 22:20 Dose: 2.5 ml Losartan Potassium (Cozaar) 25 mg PO DAILY [facility] Last Admin: 02/17/18 09:26 Dose: 25 mg Metoprolol Succinate (Toprol Xl) 25 mg PO DAILY [facility] Last Admin: 02/17/18 09:26 Dose: 25 mg Ondansetron HCl (Zofran Inj) 4 mg IVP Q6 PRN PRN Reason: Nausea/Vomiting Last Admin: 02/10/18 20:03 Dose: 4 mg Pantoprazole Sodium (Protonix Ec Tab) 40 mg PO DAILY [facility] Last Admin: 02/17/18 09:26 Dose: 40 mg Rosuvastatin Calcium (Crestor) 10 mg PO HS [facility] Last Admin: 02/16/18 22:20 Dose: 10 mg Tamsulosin HCl (Flomax) 0.4 mg PO DAILY [facility] Last Admin: 02/17/18 09:26 Dose: 0.4 mg Timolol Maleate (Timoptic 0.5% Ophth Soln) 0 drop OU DAILY [facility] Last Admin: 02/17/18 09:28 Dose: 1 drop - Labs Labs: 02/17/18 07:12 02/17/18 07:12 PT 28.6 SECONDS (9.7-12.2) H 02/17/18 07:12 INR 2.6 02/17/18 07:12 APTT 50 SECONDS (21-34) H 02/10/18 00:12 - Constitutional Appears: Well - Head Exam Head Exam: ATRAUMATIC, NORMAL INSPECTION, NORMOCEPHALIC - Eye Exam Eye Exam: EOMI, Normal appearance, PERRL Pupil Exam: NORMAL ACCOMODATION, PERRL - ENT Exam ENT Exam: Mucous Membranes Moist, Normal Exam - Neck Exam Neck Exam: Full ROM, Normal Inspection. absent: Lymphadenopathy - Respiratory Exam Respiratory Exam: Decreased Breath Sounds - Cardiovascular Exam Cardiovascular Exam: REGULAR RHYTHM, +S1, +S2 - GI/Abdominal Exam GI & Abdominal Exam: Soft, Diminished Bowel Sounds - Rectal Exam Rectal Exam: Deferred Assessment and Plan - Assessment and Plan (Free Text) Plan: Assessment and Plan (Free Text) Assessment: Acute on chronic CHF exacerbation -admit to tele -Input output, daily weight, Fluid restriction -BNP on admission 84757, (02/14) 5870 -Last Echo 07/2017 shows EF <35% -S/P AICD Cardiology consulted, Dr. Robles help appreciated - stable CHF, continue medical treatment - Questionable plan for surgery, the patient is a high risk for cardiac complication -Lasix 40mg IV -Metoprolol 25mg daily -Cozaar 25mg Hx of PE -September 2017 per -INR 2.6 today, now therapeutic -Coumadin to 5 mg for today -ASA 81mg Hyperbilirubinemia T bili improved to 3.5 today Denies pain but hx of gallstones US Abd (02/15/18): Hepatomegaly, hepatic steatosis. Nodular contour suggest hepatocellular disease, perhaps cysts. Cholelithiasis - innumerable small gallstones identified. Gallbladder wall thickening in absence of sonographic Santos's sign. Abd ascites, low volume incompletely visualized. GGT WNL Direct bilirubin 1.4 Dr. Jorgensen/[facility], GI constultant - help appreciated - No CBD dilatation or stone - recommend outpatient follow up Dr. Sherman, Gen Surg [employer] Technical Supervisor - Questionable plan for surgery, the patient is a high risk for cardiac complication per cardiology Afib -EKG in the ED show Afib with frequent Ventricular paced complexes -Patient denies history of Afib -Currently rate controlled on metoprolol -Coumadin 5mg today -ASA 81mg -Cardiology consulted -CHADS-VASc Score 5, Stroke risk was 7.2% per year -HAS-BLED Score 2, intermediate risk 1.88-3.2% risk of major bleeding LIZZETTE on CKD Cr 1.6, GFR 28 - Cr improving since admission Lower extremity swelling -LE venous doppler negative for DVT -Likely secondary Chronic CHF -Arterial doppler (02/14/18): Normal ankle-brachial index on right. No triphasic waveforms throughout RLE. Elevated SPENCER less reliable on left. No triphasic waveforms throughout LLE. Lower extremity chronic ulcer -wound care consulted -Blood culture negative -Podiatry consulted Diabetes -FS ACHS -ISS -Hypoglycemia protocol -Levemir 25u HS -Novolog 8u AC BPH -Flomax 0.4mg Prophylactic measures -Protonix -Coumadin and ASA
[2018-02-17] MEDS: Insulin Detemir 100 units/ml Vial (Levemir) SC SCH (22:25)
[2018-02-17] MEDS: Latanoprost 2.5 ml Opht Soln OU SCH (22:47)
[2018-02-18 07:31] LABS: INR 3.1
[2018-02-18 07:35] LABS: CERULOPLASMIN 35 mg/dL (18-36)
[2018-02-18 07:42] LABS: PROTHROMBIN TIME 34.4 SECONDS (9.7-12.2)
[2018-02-18] MEDS: (Novolin R) Insulin Human Regular 100 units/ml vial SC SCH ×4 (08:08→21:55)
[2018-02-18] MEDS: (Novolog) Insulin Aspart, Recombinant 100 u/ml 10 ml vial SC SCH ×3 (08:27→17:50)
--- NOTE | 2018-02-18 09:33 | CP.PCM.PN ---
Addendum entered and electronically signed by Austin Vasquez DO 02/18/18 17:30: Addendum to plan: Hx of PE Coumadin 2mg tonight f.u pt/inr Original Note: <Austin Vasquez - Last Filed: 02/18/18 10:28> Subjective - Date & Time of Evaluation Date of Evaluation: 02/18/18 Time of Evaluation: 09:32 - Subjective Subjective: PGY02 note for Dr. Miranda's service: Pt seen and examined at bedside. Nursing reports no acute events overnight. Patient found lying comfortably in bed, in no acute distress. Patient states he is breathing without difficulty, at rest and with exertion. Denies pain in legs this morning. Further denies chest pain, palpitations, abd pain, N/V. Objective - Vital Signs/Intake and Output Vital Signs (last 24 hours): Temp Pulse Resp BP Pulse Ox 98.1 F 105 H 20 152/96 H 97 02/18/18 08:49 02/18/18 08:49 02/18/18 08:49 02/18/18 08:49 02/18/18 08:49 - Medications Medications: Current Medications Allopurinol (Zyloprim) 100 mg PO DAILY [facility] Last Admin: 02/17/18 09:30 Dose: 100 mg Amlodipine Besylate (Norvasc) 10 mg PO DAILY [facility] Last Admin: 02/17/18 09:26 Dose: 10 mg Aspirin (Ecotrin) 81 mg PO DAILY [facility] Last Admin: 02/16/18 09:54 Dose: 81 mg Brimonidine Tartrate (Alphagan 0.2% Opht) 0 ml OU DAILY [facility] Last Admin: 02/17/18 09:29 Dose: 1 drop Dextrose (Dextrose 50% Inj) 0 ml IVP .STAT PRN; Protocol PRN Reason: Hypoglycemia Protocol Dextrose (Glutose 15) 0 gm PO .ONCE PRN; Protocol PRN Reason: Hypoglycemia Protocol Furosemide (Lasix) 40 mg IVP DAILY [facility] Last Admin: 02/17/18 09:29 Dose: 40 mg Glucagon (Glucagen Diagnostic Kit) 0 mg IM .STAT PRN; Protocol PRN Reason: Hypoglycemia Protocol Insulin Aspart (Novolog) 8 unit SC AC [facility] Last Admin: 02/18/18 08:27 Dose: 8 unit Insulin Detemir (Levemir) 25 unit SC HS [facility] Last Admin: 02/17/18 22:25 Dose: Not Given Insulin Human Regular (Novolin R) 0 unit SC ACHS [facility] PRN Reason: Protocol Last Admin: 02/18/18 08:08 Dose: Not Given Lactulose (Enulose) 20 gm PO Q12 PRN PRN Reason: Constipation Last Admin: 02/10/18 23:02 Dose: 20 gm Latanoprost (Xalatan Opht) 0 ml OU HS [facility] Last Admin: 02/17/18 22:47 Dose: 2.5 ml Losartan Potassium (Cozaar) 25 mg PO DAILY [facility] Last Admin: 02/17/18 09:26 Dose: 25 mg Metoprolol Succinate (Toprol Xl) 25 mg PO DAILY [facility] Last Admin: 02/17/18 09:26 Dose: 25 mg Ondansetron HCl (Zofran Inj) 4 mg IVP Q6 PRN PRN Reason: Nausea/Vomiting Last Admin: 02/10/18 20:03 Dose: 4 mg Pantoprazole Sodium (Protonix Ec Tab) 40 mg PO DAILY [facility] Last Admin: 02/17/18 09:26 Dose: 40 mg Rosuvastatin Calcium (Crestor) 10 mg PO HS [facility] Last Admin: 02/17/18 22:24 Dose: 10 mg Tamsulosin HCl (Flomax) 0.4 mg PO DAILY [facility] Last Admin: 02/17/18 09:26 Dose: 0.4 mg Timolol Maleate (Timoptic 0.5% Ophth Soln) 0 drop OU DAILY [facility] Last Admin: 02/17/18 09:28 Dose: 1 drop - Labs Labs: 02/17/18 07:12 02/17/18 07:12 PT 34.4 SECONDS (9.7-12.2) H* D 02/18/18 07:11 INR 3.1 02/18/18 07:11 APTT 50 SECONDS (21-34) H 02/10/18 00:12 - Additional Findings Additional findings: - Constitutional Appears: Non-toxic, No Acute Distress - Head Exam Head Exam: ATRAUMATIC, NORMOCEPHALIC - Eye Exam Eye Exam: Normal appearance, PERRL - scleral icterus - ENT Exam ENT Exam: Mucous Membranes Moist - Neck Exam Neck Exam: Normal Inspection - Respiratory Exam Respiratory Exam: Clear to Ausculation Bilateral, NORMAL BREATHING PATTERN. absent: Respiratory Distress - Cardiovascular Exam Cardiovascular Exam: REGULAR RHYTHM, +S1, +S2. absent: Murmur - no JVD - GI/Abdominal Exam GI & Abdominal Exam: Soft, Normal Bowel Sounds. absent: Tenderness - negative santos sign - Extremities Exam Extremities Exam: Pedal Edema Additional comments: bilateral LE wrapped - Neurological Exam Neurological Exam: Alert, Awake, Oriented x3 - Psychiatric Exam Psychiatric exam: Normal Affect, Normal Mood - Skin Skin Exam: Dry, Warm Assessment and Plan - Assessment and Plan (Free Text) Plan: Acute on chronic CHF exacerbation Admit to tele -Input output, daily weight, Fluid restriction -BNP on admission 02136, (02/14) 5870 -Last Echo 07/2017 shows EF <35% -S/P AICD Cardiology consulted, Dr. Robles help appreciated - stable CHF, continue medical treatment - Questionable plan for surgery, the patient is a high risk for cardiac complication -Lasix 40mg IV -Metoprolol 25mg daily -Cozaar 25mg Hx of PE -September 2017 per -INR 2.6 today, now therapeutic -Coumadin to 5 mg for today -ASA 81mg Hyperbilirubinemia T bili improved to 3.5 today Denies pain but hx of gallstones US Abd (02/15/18): Hepatomegaly, hepatic steatosis. Nodular contour suggest hepatocellular disease, perhaps cysts. Cholelithiasis - innumerable small gallstones identified. Gallbladder wall thickening in absence of sonographic Santos's sign. Abd ascites, low volume incompletely visualized. GGT WNL Direct bilirubin 1.4 Dr. Jorgensen/[facility], GI constultant - help appreciated - No CBD dilatation or stone - autoimmune workup - recommend outpatient follow up Dr. Sherman, Gen Surg Slp - Questionable plan for surgery, the patient is a high risk for cardiac complication per cardiology Afib -EKG in the ED show Afib with frequent Ventricular paced complexes -Patient denies history of Afib -Currently rate controlled on metoprolol -Coumadin 5mg today -ASA 81mg -Cardiology consulted -CHADS-VASc Score 5, Stroke risk was 7.2% per year -HAS-BLED Score 2, intermediate risk 1.88-3.2% risk of major bleeding LIZZETTE on CKD Cr 1.6, GFR 28 - Cr improving since admission Lower extremity swelling -LE venous doppler negative for DVT -Likely secondary Chronic CHF -Arterial doppler (02/14/18): Normal ankle-brachial index on right. No triphasic waveforms throughout RLE. Elevated SPENCER less reliable on left. No triphasic waveforms throughout LLE. Lower extremity chronic ulcer -wound care consulted -Blood culture negative -Podiatry consulted Diabetes -FS ACHS -ISS -Hypoglycemia protocol -Levemir 25u HS -Novolog 8u AC BPH -Flomax 0.4mg Prophylactic measures -Protonix -Coumadin and ASA All management per Dr. Miranda <Darien Miranda - Last Filed: 02/24/18 00:44> Objective - Vital Signs/Intake and Output Vital Signs (last 24 hours): Temp Pulse Resp BP Pulse Ox 98.0 F 98 H 20 130/92 H 100 02/23/18 15:54 02/23/18 15:54 02/23/18 15:54 02/23/18 15:54 02/23/18 15:54 - Medications Medications: Current Medications Allopurinol (Zyloprim) 100 mg PO DAILY [facility] Last Admin: 02/23/18 10:57 Dose: 100 mg Amlodipine Besylate (Norvasc) 10 mg PO DAILY [facility] Last Admin: 02/23/18 10:57 Dose: 10 mg Aspirin (Ecotrin) 81 mg PO DAILY [facility] Last Admin: 02/23/18 10:55 Dose: 81 mg Brimonidine Tartrate (Alphagan 0.2% Opht) 0 ml OU DAILY [facility] Last Admin: 02/23/18 10:57 Dose: 1 drop Dextrose (Dextrose 50% Inj) 0 ml IVP .STAT PRN; Protocol PRN Reason: Hypoglycemia Protocol Dextrose (Glutose 15) 0 gm PO .ONCE PRN; Protocol PRN Reason: Hypoglycemia Protocol Furosemide (Lasix) 40 mg IVP DAILY [facility] Last Admin: 02/23/18 11:27 Dose: 40 mg Glucagon (Glucagen Diagnostic Kit) 0 mg IM .STAT PRN; Protocol PRN Reason: Hypoglycemia Protocol Insulin Aspart (Novolog) 8 unit SC AC [facility] Last Admin: 02/23/18 18:00 Dose: 8 unit Insulin Detemir (Levemir) 25 unit SC HS [facility] Last Admin: 02/23/18 21:56 Dose: Not Given Insulin Human Regular (Novolin R) 0 unit SC [facility] PRN Reason: Protocol Last Admin: 02/23/18 21:54 Dose: Not Given Lactulose (Enulose) 20 gm PO Q12 PRN PRN Reason: Constipation Last Admin: 02/10/18 23:02 Dose: 20 gm Latanoprost (Xalatan Opht) 0 ml OU HS [facility] Last Admin: 02/23/18 21:54 Dose: 2.5 ml Losartan Potassium (Cozaar) 25 mg PO DAILY [facility] Last Admin: 02/23/18 10:57 Dose: 25 mg Metoprolol Succinate (Toprol Xl) 25 mg PO DAILY [facility] Last Admin: 02/23/18 10:57 Dose: 25 mg Ondansetron HCl (Zofran Inj) 4 mg IVP Q6 PRN PRN Reason: Nausea/Vomiting Last Admin: 02/10/18 20:03 Dose: 4 mg Pantoprazole Sodium (Protonix Ec Tab) 40 mg PO DAILY [facility] Last Admin: 02/23/18 10:57 Dose: 40 mg Rosuvastatin Calcium (Crestor) 10 mg PO HS [facility] Last Admin: 02/23/18 21:52 Dose: 10 mg Tamsulosin HCl (Flomax) 0.4 mg PO DAILY [facility] Last Admin: 02/23/18 10:57 Dose: 0.4 mg Timolol Maleate (Timoptic 0.5% Ophth Soln) 0 drop OU DAILY [facility] Last Admin: 02/23/18 10:58 Dose: 1 drop - Labs Labs: 02/23/18 07:23 02/23/18 07:23 PT 23.4 SECONDS (9.7-12.2) H 02/23/18 07:23 INR 2.1 02/23/18 07:23 APTT 50 SECONDS (21-34) H 02/10/18 00:12 Attending/Attestation - Attestation I have personally seen and examined this patient.: Yes I have fully participated in the care of the patient.: Yes I have reviewed all pertinent clinical information, including history, physical exam and plan: Yes
[2018-02-18] MEDS: Pantoprazole 40 mg EC Tab PO SCH (10:45)
[2018-02-18] MEDS: Metoprolol Succinate 25 mg XL Tab PO SCH (10:45)
[2018-02-18] MEDS: Brimonidine 0.2% Opth Sol (5ml) OU SCH (11:43)
--- NOTE | 2018-02-18 15:29 | CP.PCM.PN ---
Subjective - Date & Time of Evaluation Date of Evaluation: 02/18/18 Time of Evaluation: 15:24 - Subjective Subjective: Podiatry Progress note: Dr. Carrillo 62 year old male patient was seen this morning concerning Left leg edema and superficial ulcerations. Patient is resting comfortably in his chair. NAD, AAOx3. Dressings remain clean dry and intact. Patient denies of any N/V/F/C or SOB today. Patient was advised to keep bilateral feet elevated with pillows. Objective - Vital Signs/Intake and Output Vital Signs (last 24 hours): Temp Pulse Resp BP Pulse Ox 98.1 F 92 H 20 130/92 H 97 02/18/18 08:49 02/18/18 12:00 02/18/18 08:49 02/18/18 10:46 02/18/18 08:49 - Medications Medications: Current Medications Allopurinol (Zyloprim) 100 mg PO DAILY [facility] Last Admin: 02/18/18 10:45 Dose: 100 mg Amlodipine Besylate (Norvasc) 10 mg PO DAILY [facility] Last Admin: 02/18/18 10:45 Dose: 10 mg Aspirin (Ecotrin) 81 mg PO DAILY [facility] Last Admin: 02/16/18 09:54 Dose: 81 mg Brimonidine Tartrate (Alphagan 0.2% Opht) 0 ml OU DAILY [facility] Last Admin: 02/18/18 11:43 Dose: 1 drop Dextrose (Dextrose 50% Inj) 0 ml IVP .STAT PRN; Protocol PRN Reason: Hypoglycemia Protocol Dextrose (Glutose 15) 0 gm PO .ONCE PRN; Protocol PRN Reason: Hypoglycemia Protocol Furosemide (Lasix) 40 mg IVP DAILY [facility] Last Admin: 02/18/18 10:46 Dose: 40 mg Glucagon (Glucagen Diagnostic Kit) 0 mg IM .STAT PRN; Protocol PRN Reason: Hypoglycemia Protocol Insulin Aspart (Novolog) 8 unit SC AC [facility] Last Admin: 02/18/18 13:12 Dose: 8 unit Insulin Detemir (Levemir) 25 unit SC HS [facility] Last Admin: 02/17/18 22:25 Dose: Not Given Insulin Human Regular (Novolin R) 0 unit SC ACHS [facility] PRN Reason: Protocol Last Admin: 02/18/18 12:41 Dose: Not Given Lactulose (Enulose) 20 gm PO Q12 PRN PRN Reason: Constipation Last Admin: 02/10/18 23:02 Dose: 20 gm Latanoprost (Xalatan Opht) 0 ml OU HS [facility] Last Admin: 02/17/18 22:47 Dose: 2.5 ml Losartan Potassium (Cozaar) 25 mg PO DAILY [facility] Last Admin: 02/18/18 10:46 Dose: 25 mg Metoprolol Succinate (Toprol Xl) 25 mg PO DAILY [facility] Last Admin: 02/18/18 10:45 Dose: 25 mg Ondansetron HCl (Zofran Inj) 4 mg IVP Q6 PRN PRN Reason: Nausea/Vomiting Last Admin: 02/10/18 20:03 Dose: 4 mg Pantoprazole Sodium (Protonix Ec Tab) 40 mg PO DAILY [facility] Last Admin: 02/18/18 10:45 Dose: 40 mg Rosuvastatin Calcium (Crestor) 10 mg PO HS [facility] Last Admin: 02/17/18 22:24 Dose: 10 mg Tamsulosin HCl (Flomax) 0.4 mg PO DAILY [facility] Last Admin: 02/18/18 10:45 Dose: 0.4 mg Timolol Maleate (Timoptic 0.5% Ophth Soln) 0 drop OU DAILY [facility] Last Admin: 02/18/18 11:44 Dose: 1 drop - Labs Labs: 02/17/18 07:12 02/17/18 07:12 PT 34.4 SECONDS (9.7-12.2) H* D 02/18/18 07:11 INR 3.1 02/18/18 07:11 APTT 50 SECONDS (21-34) H 02/10/18 00:12 - Constitutional Appears: Well, Non-toxic, No Acute Distress - Extremities Exam Additional comments: Left lower extremity exam DERM: Superficial open ulceration noted to medial and lateral aspect of left leg measuring 3cm x 2.5xm x 0.3cm with granular base. Serous drainage noted from the ulceration. No mal-odor noted. Mild erythema noted to left leg. No purulent discharge noted. No PTB VASC: Left lower extremity cold to touch. Bilaterally edema noted L>R. Non- palpable DP and PT noted bilaterally, [employer] less than 3 seconds noted to all digits NEURO: Gross sensation intact ORTHO: Decreased ROM noted to all joints distal to anklr joint - Neurological Exam Neurological Exam: Alert, Awake, Oriented x3 - Psychiatric Exam Psychiatric exam: Normal Mood Assessment and Plan - Assessment and Plan (Free Text) Assessment: 62 yo male patient presenting with bilateral lower extremity edema and superficial ulceration to left leg Plan: Patient was seen, evaluated Plan discussed with attending Dr. Carrillo labs and vitals reviewed; afebrile Bilateral cleansed with saline SPENCER R: 1.26, L-1.31 arterial doppler reveals No DVT Bilateral lower extremities dressed with [place] and [place] [facility] will continue to follow inhouse
--- NOTE | 2018-02-18 18:11 | CP.PCM.PN ---
Subjective - Date & Time of Evaluation Date of Evaluation: 02/18/18 Time of Evaluation: 11:20 - Subjective Subjective: clinically same Objective - Vital Signs/Intake and Output Vital Signs (last 24 hours): Temp Pulse Resp BP Pulse Ox 99.1 F 98 H 20 152/88 H 96 02/18/18 15:30 02/18/18 15:30 02/18/18 15:30 02/18/18 15:30 02/18/18 15:30 - Medications Medications: Current Medications Allopurinol (Zyloprim) 100 mg PO DAILY [facility] Last Admin: 02/18/18 10:45 Dose: 100 mg Amlodipine Besylate (Norvasc) 10 mg PO DAILY [facility] Last Admin: 02/18/18 10:45 Dose: 10 mg Aspirin (Ecotrin) 81 mg PO DAILY [facility] Last Admin: 02/16/18 09:54 Dose: 81 mg Brimonidine Tartrate (Alphagan 0.2% Opht) 0 ml OU DAILY [facility] Last Admin: 02/18/18 11:43 Dose: 1 drop Dextrose (Dextrose 50% Inj) 0 ml IVP .STAT PRN; Protocol PRN Reason: Hypoglycemia Protocol Dextrose (Glutose 15) 0 gm PO .ONCE PRN; Protocol PRN Reason: Hypoglycemia Protocol Furosemide (Lasix) 40 mg IVP DAILY [facility] Last Admin: 02/18/18 10:46 Dose: 40 mg Glucagon (Glucagen Diagnostic Kit) 0 mg IM .STAT PRN; Protocol PRN Reason: Hypoglycemia Protocol Insulin Aspart (Novolog) 8 unit SC AC [facility] Last Admin: 02/18/18 17:50 Dose: 8 unit Insulin Detemir (Levemir) 25 unit SC HS [facility] Last Admin: 02/17/18 22:25 Dose: Not Given Insulin Human Regular (Novolin R) 0 unit SC ACHS [facility] PRN Reason: Protocol Last Admin: 02/18/18 16:54 Dose: Not Given Lactulose (Enulose) 20 gm PO Q12 PRN PRN Reason: Constipation Last Admin: 02/10/18 23:02 Dose: 20 gm Latanoprost (Xalatan Opht) 0 ml OU HS [facility] Last Admin: 02/17/18 22:47 Dose: 2.5 ml Losartan Potassium (Cozaar) 25 mg PO DAILY [facility] Last Admin: 02/18/18 10:46 Dose: 25 mg Metoprolol Succinate (Toprol Xl) 25 mg PO DAILY [facility] Last Admin: 02/18/18 10:45 Dose: 25 mg Ondansetron HCl (Zofran Inj) 4 mg IVP Q6 PRN PRN Reason: Nausea/Vomiting Last Admin: 02/10/18 20:03 Dose: 4 mg Pantoprazole Sodium (Protonix Ec Tab) 40 mg PO DAILY [facility] Last Admin: 02/18/18 10:45 Dose: 40 mg Rosuvastatin Calcium (Crestor) 10 mg PO HS [facility] Last Admin: 02/17/18 22:24 Dose: 10 mg Tamsulosin HCl (Flomax) 0.4 mg PO DAILY [facility] Last Admin: 02/18/18 10:45 Dose: 0.4 mg Timolol Maleate (Timoptic 0.5% Oph Soln) 0 drop OU DAILY [facility] Last Admin: 02/18/18 11:44 Dose: 1 drop - Labs Labs: 02/17/18 07:12 02/17/18 07:12 PT 34.4 SECONDS (9.7-12.2) H* D 02/18/18 07:11 INR 3.1 02/18/18 07:11 APTT 50 SECONDS (21-34) H 02/10/18 00:12 - Constitutional Appears: Well - Head Exam Head Exam: ATRAUMATIC, NORMAL INSPECTION, NORMOCEPHALIC - Eye Exam Eye Exam: EOMI, Normal appearance, PERRL Pupil Exam: NORMAL ACCOMODATION, PERRL - ENT Exam ENT Exam: Mucous Membranes Moist, Normal Exam - Neck Exam Neck Exam: Full ROM, Normal Inspection. absent: Lymphadenopathy - Respiratory Exam Respiratory Exam: Decreased Breath Sounds - Cardiovascular Exam Cardiovascular Exam: REGULAR RHYTHM, +S1, +S2 - GI/Abdominal Exam GI & Abdominal Exam: Soft, Diminished Bowel Sounds - Rectal Exam Rectal Exam: Deferred Assessment and Plan - Assessment and Plan (Free Text) Plan: Acute on chronic CHF exacerbation Admit to tele -Input output, daily weight, Fluid restriction -BNP on admission 77416, (02/14) 5870 -Last Echo 07/2017 shows EF <35% -S/P AICD Cardiology consulted, Dr. Robles help appreciated - stable CHF, continue medical treatment - Questionable plan for surgery, the patient is a high risk for cardiac complication -Lasix 40mg IV -Metoprolol 25mg daily -Cozaar 25mg Hx of PE -September 2017 per -INR 2.6 today, now therapeutic -Coumadin to 5 mg for today -ASA 81mg Hyperbilirubinemia T bili improved to 3.5 today Denies pain but hx of gallstones US Abd (02/15/18): Hepatomegaly, hepatic steatosis. Nodular contour suggest hepatocellular disease, perhaps cysts. Cholelithiasis - innumerable small gallstones identified. Gallbladder wall thickening in absence of sonographic Santos's sign. Abd ascites, low volume incompletely visualized. GGT WNL Direct bilirubin 1.4 Dr. Jorgensen/[facility], GI constultant - help appreciated - No CBD dilatation or stone - autoimmune workup - recommend outpatient follow up Dr. Sherman, Gen Surg [facility] - Questionable plan for surgery, the patient is a high risk for cardiac complication per cardiology Afib -EKG in the ED show Afib with frequent Ventricular paced complexes -Patient denies history of Afib -Currently rate controlled on metoprolol -Coumadin 5mg today -ASA 81mg -Cardiology consulted -CHADS-VASc Score 5, Stroke risk was 7.2% per year -HAS-BLED Score 2, intermediate risk 1.88-3.2% risk of major bleeding LIZZETTE on CKD Cr 1.6, GFR 28 - Cr improving since admission Lower extremity swelling -LE venous doppler negative for DVT -Likely secondary Chronic CHF -Arterial doppler (02/14/18): Normal ankle-brachial index on right. No triphasic waveforms throughout RLE. Elevated SPENCER less reliable on left. No triphasic waveforms throughout LLE. Lower extremity chronic ulcer -wound care consulted -Blood culture negative -Podiatry consulted Diabetes -FS ACHS -ISS -Hypoglycemia protocol -Levemir 25u HS -Novolog 8u AC BPH -Flomax 0.4mg Prophylactic measures -Protonix -Coumadin and ASA
--- NOTE | 2018-02-18 19:16 | CP.PCM.PN ---
Subjective - Date & Time of Evaluation Date of Evaluation: 02/18/18 Time of Evaluation: 16:10 Objective - Vital Signs/Intake and Output Vital Signs (last 24 hours): Temp Pulse Resp BP Pulse Ox 99.1 F 98 H 20 152/88 H 96 02/18/18 15:30 02/18/18 15:30 02/18/18 15:30 02/18/18 15:30 02/18/18 15:30 - Medications Medications: Current Medications Allopurinol (Zyloprim) 100 mg PO DAILY [facility] Last Admin: 02/18/18 10:45 Dose: 100 mg Amlodipine Besylate (Norvasc) 10 mg PO DAILY [facility] Last Admin: 02/18/18 10:45 Dose: 10 mg Aspirin (Ecotrin) 81 mg PO DAILY [facility] Last Admin: 02/16/18 09:54 Dose: 81 mg Brimonidine Tartrate (Alphagan 0.2% Opht) 0 ml OU DAILY [facility] Last Admin: 02/18/18 11:43 Dose: 1 drop Dextrose (Dextrose 50% Inj) 0 ml IVP .STAT PRN; Protocol PRN Reason: Hypoglycemia Protocol Dextrose (Glutose 15) 0 gm PO .ONCE PRN; Protocol PRN Reason: Hypoglycemia Protocol Furosemide (Lasix) 40 mg IVP DAILY [facility] Last Admin: 02/18/18 10:46 Dose: 40 mg Glucagon (Glucagen Diagnostic Kit) 0 mg IM .STAT PRN; Protocol PRN Reason: Hypoglycemia Protocol Insulin Aspart (Novolog) 8 unit SC AC [facility] Last Admin: 02/18/18 17:50 Dose: 8 unit Insulin Detemir (Levemir) 25 unit SC HS [facility] Last Admin: 02/17/18 22:25 Dose: Not Given Insulin Human Regular (Novolin R) 0 unit SC ACHS [facility] PRN Reason: Protocol Last Admin: 02/18/18 16:54 Dose: Not Given Lactulose (Enulose) 20 gm PO Q12 PRN PRN Reason: Constipation Last Admin: 02/10/18 23:02 Dose: 20 gm Latanoprost (Xalatan Opht) 0 ml OU HS [facility] Last Admin: 02/17/18 22:47 Dose: 2.5 ml Losartan Potassium (Cozaar) 25 mg PO DAILY [facility] Last Admin: 02/18/18 10:46 Dose: 25 mg Metoprolol Succinate (Toprol Xl) 25 mg PO DAILY [facility] Last Admin: 02/18/18 10:45 Dose: 25 mg Ondansetron HCl (Zofran Inj) 4 mg IVP Q6 PRN PRN Reason: Nausea/Vomiting Last Admin: 02/10/18 20:03 Dose: 4 mg Pantoprazole Sodium (Protonix Ec Tab) 40 mg PO DAILY [facility] Last Admin: 02/18/18 10:45 Dose: 40 mg Rosuvastatin Calcium (Crestor) 10 mg PO HS [facility] Last Admin: 02/17/18 22:24 Dose: 10 mg Tamsulosin HCl (Flomax) 0.4 mg PO DAILY [facility] Last Admin: 02/18/18 10:45 Dose: 0.4 mg Timolol [facility]ate [facility] 0 drop OU DAILY [facility] Last Admin: 02/18/18 11:44 Dose: 1 drop - Labs Labs: 02/17/18 07:12 02/17/18 07:12 PT 34.4 SECONDS (9.7-12.2) H* D 02/18/18 07:11 INR 3.1 02/18/18 07:11 APTT 50 SECONDS (21-34) H 02/10/18 00:12
--- NOTE | 2018-02-18 21:28 | CP.PCM.PN ---
Subjective - Date & Time of Evaluation Date of Evaluation: 02/18/18 Time of Evaluation: 19:00 - Subjective Subjective: in bed no acute distress, with orthopnea, on treatment for a superficial ulceration of the left foot. Treatment by podiatry and infectious disease. No further surgery is planned for gallbladder. Would continue medical treatment for his congestive heart failure and atrial fibrillation Objective - Vital Signs/Intake and Output Vital Signs (last 24 hours): Temp Pulse Resp BP Pulse Ox 99.1 F 98 H 20 152/88 H 96 02/18/18 15:30 02/18/18 15:30 02/18/18 15:30 02/18/18 15:30 02/18/18 15:30 - Medications Medications: Current Medications Allopurinol (Zyloprim) 100 mg PO DAILY [facility] Last Admin: 02/18/18 10:45 Dose: 100 mg Amlodipine Besylate (Norvasc) 10 mg PO DAILY [facility] Last Admin: 02/18/18 10:45 Dose: 10 mg Aspirin (Ecotrin) 81 mg PO DAILY [facility] Last Admin: 02/16/18 09:54 Dose: 81 mg Brimonidine Tartrate (Alphagan 0.2% Opht) 0 ml OU DAILY [facility] Last Admin: 02/18/18 11:43 Dose: 1 drop Dextrose (Dextrose 50% Inj) 0 ml IVP .STAT PRN; Protocol PRN Reason: Hypoglycemia Protocol Dextrose (Glutose 15) 0 gm PO .ONCE PRN; Protocol PRN Reason: Hypoglycemia Protocol Furosemide (Lasix) 40 mg IVP DAILY [facility] Last Admin: 02/18/18 10:46 Dose: 40 mg Glucagon (Glucagen Diagnostic Kit) 0 mg IM .STAT PRN; Protocol PRN Reason: Hypoglycemia Protocol Insulin Aspart (Novolog) 8 unit SC AC [facility] Last Admin: 02/18/18 17:50 Dose: 8 unit Insulin Detemir (Levemir) 25 unit SC HS [facility] Last Admin: 02/17/18 22:25 Dose: Not Given Insulin Human Regular (Novolin R) 0 unit SC ACHS [facility] PRN Reason: Protocol Last Admin: 02/18/18 16:54 Dose: Not Given Lactulose (Enulose) 20 gm PO Q12 PRN PRN Reason: Constipation Last Admin: 02/10/18 23:02 Dose: 20 gm Latanoprost (Xalatan Opht) 0 ml OU HS [facility] Last Admin: 02/17/18 22:47 Dose: 2.5 ml Losartan Potassium (Cozaar) 25 mg PO DAILY [facility] Last Admin: 02/18/18 10:46 Dose: 25 mg Metoprolol Succinate (Toprol Xl) 25 mg PO DAILY [facility] Last Admin: 02/18/18 10:45 Dose: 25 mg Ondansetron HCl (Zofran Inj) 4 mg IVP Q6 PRN PRN Reason: Nausea/Vomiting Last Admin: 02/10/18 20:03 Dose: 4 mg Pantoprazole Sodium (Protonix Ec Tab) 40 mg PO DAILY [facility] Last Admin: 02/18/18 10:45 Dose: 40 mg Rosuvastatin Calcium (Crestor) 10 mg PO HS [facility] Last Admin: 02/17/18 22:24 Dose: 10 mg Tamsulosin HCl (Flomax) 0.4 mg PO DAILY [facility] Last Admin: 02/18/18 10:45 Dose: 0.4 mg Timolol Maleate (Timoptic 0.5% Oph Soln) 0 drop OU DAILY [facility] Last Admin: 02/18/18 11:44 Dose: 1 drop - Labs Labs: 02/17/18 07:12 02/17/18 07:12 PT 34.4 SECONDS (9.7-12.2) H* D 02/18/18 07:11 INR 3.1 02/18/18 07:11 APTT 50 SECONDS (21-34) H 02/10/18 00:12 - Constitutional Appears: Non-toxic - Head Exam Head Exam: ATRAUMATIC - Eye Exam Eye Exam: EOMI - ENT Exam ENT Exam: Mucous Membranes Moist - Neck Exam Neck Exam: absent: Lymphadenopathy, Thyromegaly - Respiratory Exam Respiratory Exam: Clear to Ausculation Bilateral. absent: Rales, Wheezes - Cardiovascular Exam Cardiovascular Exam: Irregular Rhythm, Murmur - GI/Abdominal Exam GI & Abdominal Exam: Normal Bowel Sounds. absent: Organomegaly - Rectal Exam Rectal Exam: Deferred - Extremities Exam Extremities Exam: Normal Capillary Refill. absent: Calf Tenderness - Neurological Exam Neurological Exam: Alert, Oriented x3 - Psychiatric Exam Psychiatric exam: Flat Affect - Skin Skin Exam: Dry Assessment and Plan (1) Dilated cardiomyopathy Status: Acute (2) Atrial fibrillation, chronic Status: Chronic
[2018-02-18] MEDS: Latanoprost 2.5 ml Opht Soln OU SCH (21:42)
[2018-02-18] MEDS: Insulin Detemir 100 units/ml Vial (Levemir) SC SCH (21:55)
[2018-02-19 07:38] LABS: INR 3.1
[2018-02-19 08:19] LABS: PROTHROMBIN TIME 33.5 SECONDS (9.7-12.2)
[2018-02-19] MEDS: (Novolog) Insulin Aspart, Recombinant 100 u/ml 10 ml vial SC SCH ×3 (08:21→17:55)
[2018-02-19] MEDS: (Novolin R) Insulin Human Regular 100 units/ml vial SC SCH ×4 (08:21→21:06)
[2018-02-19] MEDS: Metoprolol Succinate 25 mg XL Tab PO SCH (09:28)
[2018-02-19] MEDS: Pantoprazole 40 mg EC Tab PO SCH (09:28)
[2018-02-19] MEDS: Brimonidine 0.2% Opth Sol (5ml) OU SCH (09:29)
--- NOTE | 2018-02-19 12:44 | CP.PCM.PN ---
Subjective - Date & Time of Evaluation Date of Evaluation: 02/19/18 Time of Evaluation: 10:00 - Subjective Subjective: Podiatry Progress note- Dr. Carrillo 62 year old male seen and evaluated for left leg edema and superficial ulcerations. Patient is seen out of bed in a judy with leg in a dependent position, in NAD, and AA0x3. Dressings remain clean dry and intact. Patient reports that he is tolerating the UNNA boot placed on. Denies of any calf pain or pain to the LE during visitation. Patient denies of any N/V/F/C or SOB today. Patient was advised to keep bilateral feet elevated with pillows. Objective - Vital Signs/Intake and Output Vital Signs (last 24 hours): Temp Pulse Resp BP Pulse Ox 98.3 F 83 20 130/89 100 02/19/18 07:42 02/19/18 07:42 02/19/18 07:42 02/19/18 09:29 02/19/18 07:42 - Medications Medications: Current Medications Allopurinol (Zyloprim) 100 mg PO DAILY [facility] Last Admin: 02/19/18 09:28 Dose: 100 mg Amlodipine Besylate (Norvasc) 10 mg PO DAILY [facility] Last Admin: 02/19/18 09:28 Dose: 10 mg Aspirin (Ecotrin) 81 mg PO DAILY [facility] Last Admin: 02/16/18 09:54 Dose: 81 mg Brimonidine Tartrate (Alphagan 0.2% Opht) 0 ml OU DAILY [facility] Last Admin: 02/19/18 09:29 Dose: 1 drop Dextrose (Dextrose 50% Inj) 0 ml IVP .STAT PRN; Protocol PRN Reason: Hypoglycemia Protocol Dextrose (Glutose 15) 0 gm PO .ONCE PRN; Protocol PRN Reason: Hypoglycemia Protocol Furosemide (Lasix) 40 mg IVP DAILY [facility] Last Admin: 02/19/18 09:29 Dose: 40 mg Glucagon (Glucagen Diagnostic Kit) 0 mg IM .STAT PRN; Protocol PRN Reason: Hypoglycemia Protocol Insulin Aspart (Novolog) 8 unit SC AC [facility] Last Admin: 02/19/18 08:21 Dose: 8 unit Insulin Detemir (Levemir) 25 unit SC HS [facility] Last Admin: 02/18/18 21:55 Dose: Not Given Insulin Human Regular (Novolin R) 0 unit SC [facility] PRN Reason: Protocol Last Admin: 02/19/18 12:34 Dose: 3 unit Lactulose (Enulose) 20 gm PO Q12 PRN PRN Reason: Constipation Last Admin: 02/10/18 23:02 Dose: 20 gm Latanoprost (Xalatan Opht) 0 ml OU HS [facility] Last Admin: 02/18/18 21:42 Dose: 2.5 ml Losartan Potassium (Cozaar) 25 mg PO DAILY [facility] Last Admin: 02/19/18 09:28 Dose: 25 mg Metoprolol Succinate (Toprol Xl) 25 mg PO DAILY [facility] Last Admin: 02/19/18 09:28 Dose: 25 mg Ondansetron HCl (Zofran Inj) 4 mg IVP Q6 PRN PRN Reason: Nausea/Vomiting Last Admin: 02/10/18 20:03 Dose: 4 mg Pantoprazole Sodium (Protonix Ec Tab) 40 mg PO DAILY [facility] Last Admin: 02/19/18 09:28 Dose: 40 mg Rosuvastatin Calcium (Crestor) 10 mg PO HS [facility] Last Admin: 02/18/18 21:42 Dose: 10 mg Tamsulosin HCl (Flomax) 0.4 mg PO DAILY [facility] Last Admin: 02/19/18 09:28 Dose: 0.4 mg Timolol Maleate (Timoptic 0.5% Ophth Soln) 0 drop OU DAILY [facility] Last Admin: 02/19/18 09:28 Dose: 1 drop - Labs Labs: 02/17/18 07:12 02/17/18 07:12 PT 33.5 SECONDS (9.7-12.2) H* 02/19/18 07:26 INR 3.1 02/19/18 07:26 APTT 50 SECONDS (21-34) H 02/10/18 00:12 - Constitutional Appears: Well, Non-toxic, No Acute Distress - Extremities Exam Extremities Exam: absent: Calf Tenderness Additional comments: Dressing is clean, dry, intact with no strikethrough appreciated No calf pain with palpation Able to wiggle toes - Neurological Exam Neurological Exam: Alert, Awake, Oriented x3 - Psychiatric Exam Psychiatric exam: Normal Affect, Normal Mood Assessment and Plan - Assessment and Plan (Free Text) Assessment: 62 yo male patient presenting with bilateral lower extremity edema and superficial ulceration to left leg Plan: Patient was seen and evaluated Plan discussed with attending Dr. Carrillo Labs and vitals reviewed; afebrile, absent leukocytosis SPENCER R: 1.26, L-1.31 Arterial doppler reveals No DVT Unnaboot and Coban in place. keep dressing c/d/i, do not remove, do not get wet Encourage to elevate lower extremity Podiatry will continue to follow inhouse
--- NOTE | 2018-02-19 15:44 | CP.PCM.PN ---
Subjective - Date & Time of Evaluation Date of Evaluation: 02/19/18 Time of Evaluation: 09:40 - Subjective Subjective: clinically same Objective - Vital Signs/Intake and Output Vital Signs (last 24 hours): Temp Pulse Resp BP Pulse Ox 98.3 F 83 20 130/89 100 02/19/18 07:42 02/19/18 07:42 02/19/18 07:42 02/19/18 09:29 02/19/18 07:42 - Medications Medications: Current Medications Allopurinol (Zyloprim) 100 mg PO DAILY [facility] Last Admin: 02/19/18 09:28 Dose: 100 mg Amlodipine Besylate (Norvasc) 10 mg PO DAILY [facility] Last Admin: 02/19/18 09:28 Dose: 10 mg Aspirin (Ecotrin) 81 mg PO DAILY [facility] Last Admin: 02/16/18 09:54 Dose: 81 mg Brimonidine Tartrate (Alphagan 0.2% Opht) 0 ml OU DAILY [facility] Last Admin: 02/19/18 09:29 Dose: 1 drop Dextrose (Dextrose 50% Inj) 0 ml IVP .STAT PRN; Protocol PRN Reason: Hypoglycemia Protocol Dextrose (Glutose 15) 0 gm PO .ONCE PRN; Protocol PRN Reason: Hypoglycemia Protocol Furosemide (Lasix) 40 mg IVP DAILY [facility] Last Admin: 02/19/18 09:29 Dose: 40 mg Glucagon (Glucagen Diagnostic Kit) 0 mg IM .STAT PRN; Protocol PRN Reason: Hypoglycemia Protocol Insulin Aspart (Novolog) 8 unit SC AC [facility] Last Admin: 02/19/18 13:30 Dose: Not Given Insulin Detemir (Levemir) 25 unit SC HS [facility] Last Admin: 02/18/18 21:55 Dose: Not Given Insulin Human Regular (Novolin R) 0 unit SC ACHS [facility] PRN Reason: Protocol Last Admin: 02/19/18 12:34 Dose: 3 unit Lactulose (Enulose) 20 gm PO Q12 PRN PRN Reason: Constipation Last Admin: 02/10/18 23:02 Dose: 20 gm Latanoprost (Xalatan Opht) 0 ml OU HS [facility] Last Admin: 02/18/18 21:42 Dose: 2.5 ml Losartan Potassium (Cozaar) 25 mg PO DAILY [facility] Last Admin: 02/19/18 09:28 Dose: 25 mg Metoprolol Succinate (Toprol Xl) 25 mg PO DAILY [facility] Last Admin: 02/19/18 09:28 Dose: 25 mg Ondansetron HCl (Zofran Inj) 4 mg IVP Q6 PRN PRN Reason: Nausea/Vomiting Last Admin: 02/10/18 20:03 Dose: 4 mg Pantoprazole Sodium (Protonix Ec Tab) 40 mg PO DAILY [facility] Last Admin: 02/19/18 09:28 Dose: 40 mg Rosuvastatin Calcium (Crestor) 10 mg PO HS [facility] Last Admin: 02/18/18 21:42 Dose: 10 mg Tamsulosin HCl (Flomax) 0.4 mg PO DAILY [facility] Last Admin: 02/19/18 09:28 Dose: 0.4 mg Timolol Maleate (Timoptic 0.5% Oph Soln) 0 drop OU DAILY [facility] Last Admin: 02/19/18 09:28 Dose: 1 drop - Labs Labs: 02/17/18 07:12 02/17/18 07:12 PT 33.5 SECONDS (9.7-12.2) H* 02/19/18 07:26 INR 3.1 02/19/18 07:26 APTT 50 SECONDS (21-34) H 02/10/18 00:12 - Constitutional Appears: Well - Head Exam Head Exam: ATRAUMATIC, NORMAL INSPECTION, NORMOCEPHALIC - Eye Exam Eye Exam: EOMI, Normal appearance, PERRL Pupil Exam: NORMAL ACCOMODATION, PERRL - ENT Exam ENT Exam: Mucous Membranes Moist, Normal Exam - Neck Exam Neck Exam: Full ROM, Normal Inspection. absent: Lymphadenopathy - Respiratory Exam Respiratory Exam: Decreased Breath Sounds - Cardiovascular Exam Cardiovascular Exam: REGULAR RHYTHM, +S1, +S2 - GI/Abdominal Exam GI & Abdominal Exam: Soft, Diminished Bowel Sounds - Rectal Exam Rectal Exam: Deferred
--- NOTE | 2018-02-19 17:44 | CP.PCM.PN ---
Subjective - Date & Time of Evaluation Date of Evaluation: 02/19/18 Time of Evaluation: 17:44 Objective - Vital Signs/Intake and Output Vital Signs (last 24 hours): Temp Pulse Resp BP Pulse Ox 98.6 F 78 20 130/85 97 02/19/18 15:10 02/19/18 16:00 02/19/18 15:10 02/19/18 15:10 02/19/18 15:10 - Medications Medications: Current Medications Allopurinol (Zyloprim) 100 mg PO DAILY [facility] Last Admin: 02/19/18 09:28 Dose: 100 mg Amlodipine Besylate (Norvasc) 10 mg PO DAILY [facility] Last Admin: 02/19/18 09:28 Dose: 10 mg Aspirin (Ecotrin) 81 mg PO DAILY [facility] Last Admin: 02/16/18 09:54 Dose: 81 mg Brimonidine Tartrate (Alphagan 0.2% Opht) 0 ml OU DAILY [facility] Last Admin: 02/19/18 09:29 Dose: 1 drop Dextrose (Dextrose 50% Inj) 0 ml IVP .STAT PRN; Protocol PRN Reason: Hypoglycemia Protocol Dextrose (Glutose 15) 0 gm PO .ONCE PRN; Protocol PRN Reason: Hypoglycemia Protocol Furosemide (Lasix) 40 mg IVP DAILY [facility] Last Admin: 02/19/18 09:29 Dose: 40 mg Glucagon (Glucagen Diagnostic Kit) 0 mg IM .STAT PRN; Protocol PRN Reason: Hypoglycemia Protocol Insulin Aspart (Novolog) 8 unit SC AC [facility] Last Admin: 02/19/18 13:30 Dose: Not Given Insulin Detemir (Levemir) 25 unit SC HS [facility] Last Admin: 02/18/18 21:55 Dose: Not Given Insulin Human Regular (Novolin R) 0 unit SC ACHS [facility] PRN Reason: Protocol Last Admin: 02/19/18 12:34 Dose: 3 unit Lactulose (Enulose) 20 gm PO Q12 PRN PRN Reason: Constipation Last Admin: 02/10/18 23:02 Dose: 20 gm Latanoprost (Xalatan Opht) 0 ml OU HS [facility] Last Admin: 02/18/18 21:42 Dose: 2.5 ml Losartan Potassium (Cozaar) 25 mg PO DAILY [facility] Last Admin: 02/19/18 09:28 Dose: 25 mg Metoprolol Succinate (Toprol Xl) 25 mg PO DAILY [facility] Last Admin: 02/19/18 09:28 Dose: 25 mg Ondansetron HCl (Zofran Inj) 4 mg IVP Q6 PRN PRN Reason: Nausea/Vomiting Last Admin: 02/10/18 20:03 Dose: 4 mg Pantoprazole Sodium (Protonix Ec Tab) 40 mg PO DAILY [facility] Last Admin: 02/19/18 09:28 Dose: 40 mg Rosuvastatin Calcium (Crestor) 10 mg PO HS [facility] Last Admin: 02/18/18 21:42 Dose: 10 mg Tamsulosin HCl (Flomax) 0.4 mg PO DAILY [facility] Last Admin: 02/19/18 09:28 Dose: 0.4 mg Timolol [facility]ate [facility] 0 drop OU DAILY [facility] Last Admin: 02/19/18 09:28 Dose: 1 drop - Labs Labs: 02/17/18 07:12 02/17/18 07:12 PT 33.5 SECONDS (9.7-12.2) H* 02/19/18 07:26 INR 3.1 02/19/18 07:26 APTT 50 SECONDS (21-34) H 02/10/18 00:12
[2018-02-19] MEDS: Insulin Detemir 100 units/ml Vial (Levemir) SC SCH (21:06)
[2018-02-19] MEDS: Latanoprost 2.5 ml Opht Soln OU SCH (21:48)
[2018-02-20] MEDS: (Novolin R) Insulin Human Regular 100 units/ml vial SC SCH ×4 (07:22→22:17)
[2018-02-20 08:03] LABS: INR 2.4; PROTHROMBIN TIME 26.6 SECONDS (9.7-12.2)
[2018-02-20] MEDS: (Novolog) Insulin Aspart, Recombinant 100 u/ml 10 ml vial SC SCH ×3 (08:56→17:05)
[2018-02-20] MEDS: Metoprolol Succinate 25 mg XL Tab PO SCH (10:44)
[2018-02-20] MEDS: Pantoprazole 40 mg EC Tab PO SCH (10:49)
[2018-02-20] MEDS: Brimonidine 0.2% Opth Sol (5ml) OU SCH (10:50)
--- NOTE | 2018-02-20 11:45 | CP.PCM.PN ---
<Trey Mayfield - Last Filed: 02/20/18 11:43> Subjective - Date & Time of Evaluation Date of Evaluation: 02/20/18 Time of Evaluation: 07:30 - Subjective Subjective: Podiatry Progress note- Dr. Carrillo 62 year old male seen and evaluated for left leg edema and superficial ulcerations with attending Dr. Carrillo. Patient is seen out of bed in a judy with leg in a dependent position, in NAD, and AA0x3. Dressings remain clean dry and intact. Patient reports that he is tolerating the UNNA boot placed on. Denies of any calf pain or pain to the LE during visitation. Patient denies of any N/V /F/C or SOB today. Objective - Vital Signs/Intake and Output Vital Signs (last 24 hours): Temp Pulse Resp BP Pulse Ox 98.3 F 93 H 20 138/88 97 02/20/18 07:55 02/20/18 07:55 02/20/18 07:55 02/20/18 10:49 02/20/18 07:55 Intake and Output: 02/20/18 02/20/18 06:59 18:59 Intake Total 500 200 Output Total 600 Balance 500 -400 - Medications Medications: Current Medications Allopurinol (Zyloprim) 100 mg PO DAILY [facility] Last Admin: 02/20/18 10:49 Dose: 100 mg Amlodipine Besylate (Norvasc) 10 mg PO DAILY [facility] Last Admin: 02/20/18 10:49 Dose: 10 mg Aspirin (Ecotrin) 81 mg PO DAILY [facility] Last Admin: 02/16/18 09:54 Dose: 81 mg Brimonidine Tartrate (Alphagan 0.2% Opht) 0 ml OU DAILY [facility] Last Admin: 02/20/18 10:50 Dose: 1 drop Dextrose (Dextrose 50% Inj) 0 ml IVP .STAT PRN; Protocol PRN Reason: Hypoglycemia Protocol Dextrose (Glutose 15) 0 gm PO .ONCE PRN; Protocol PRN Reason: Hypoglycemia Protocol Furosemide (Lasix) 40 mg IVP DAILY [facility] Last Admin: 02/20/18 10:49 Dose: 40 mg Glucagon (Glucagen Diagnostic Kit) 0 mg IM .STAT PRN; Protocol PRN Reason: Hypoglycemia Protocol Insulin Aspart (Novolog) 8 unit SC AC [facility] Last Admin: 02/20/18 08:56 Dose: 8 unit Insulin Detemir (Levemir) 25 unit SC HS [facility] Last Admin: 02/19/18 21:06 Dose: Not Given Insulin Human Regular (Novolin R) 0 unit SC [facility] PRN Reason: Protocol Last Admin: 02/20/18 07:22 Dose: Not Given Lactulose (Enulose) 20 gm PO Q12 PRN PRN Reason: Constipation Last Admin: 02/10/18 23:02 Dose: 20 gm Latanoprost (Xalatan Opht) 0 ml OU HS [facility] Last Admin: 02/19/18 21:48 Dose: 2.5 ml Losartan Potassium (Cozaar) 25 mg PO DAILY [facility] Last Admin: 02/20/18 10:49 Dose: 25 mg Metoprolol Succinate (Toprol Xl) 25 mg PO DAILY [facility] Last Admin: 02/20/18 10:44 Dose: 25 mg Ondansetron HCl (Zofran Inj) 4 mg IVP Q6 PRN PRN Reason: Nausea/Vomiting Last Admin: 02/10/18 20:03 Dose: 4 mg Pantoprazole Sodium (Protonix Ec Tab) 40 mg PO DAILY [facility] Last Admin: 02/20/18 10:49 Dose: 40 mg Rosuvastatin Calcium (Crestor) 10 mg PO HS [facility] Last Admin: 02/19/18 21:48 Dose: 10 mg Tamsulosin HCl (Flomax) 0.4 mg PO DAILY [facility] Last Admin: 02/20/18 10:49 Dose: 0.4 mg Timolol Maleate (Timoptic 0.5% Ophth Soln) 0 drop OU DAILY [facility] Last Admin: 02/20/18 10:50 Dose: 1 drop - Labs Labs: 02/17/18 07:12 02/17/18 07:12 PT 26.6 SECONDS (9.7-12.2) H D 02/20/18 07:47 INR 2.4 D 02/20/18 07:47 APTT 50 SECONDS (21-34) H 02/10/18 00:12 - Constitutional Appears: Well, Non-toxic, No Acute Distress - Extremities Exam Extremities Exam: absent: Calf Tenderness Additional comments: Dressing is clean, dry, intact with no strikethrough appreciated No calf pain with palpation Able to wiggle toes - Neurological Exam Neurological Exam: Alert, Awake, Oriented x3 Assessment and Plan - Assessment and Plan (Free Text) Assessment: 62 yo male patient presenting with bilateral lower extremity edema and superficial ulceration to left leg Plan: Patient was seen and evaluated with attending Dr. Carrillo Labs and vitals reviewed; afebrile, absent leukocytosis SPENCER R: 1.26, L-1.31 Arterial doppler reveals No DVT Unnaboot and Coban in place. keep dressing c/d/i, do not remove, do not get wet Encourage to elevate lower extremity Podiatry will continue to follow inhouse <Deangelo Carrillo - Last Filed: 02/20/18 13:38> Objective - Vital Signs/Intake and Output Vital Signs (last 24 hours): Temp Pulse Resp BP Pulse Ox 98.3 F 93 H 20 138/88 97 02/20/18 07:55 02/20/18 07:55 02/20/18 07:55 02/20/18 10:49 02/20/18 07:55 Intake and Output: 02/20/18 02/20/18 06:59 18:59 Intake Total 500 200 Output Total 600 Balance 500 -400 - Medications Medications: Current Medications Allopurinol (Zyloprim) 100 mg PO DAILY [facility] Last Admin: 02/20/18 10:49 Dose: 100 mg Amlodipine Besylate (Norvasc) 10 mg PO DAILY [facility] Last Admin: 02/20/18 10:49 Dose: 10 mg Aspirin (Ecotrin) 81 mg PO DAILY [facility] Last Admin: 02/16/18 09:54 Dose: 81 mg Brimonidine Tartrate (Alphagan 0.2% Opht) 0 ml OU DAILY [facility] Last Admin: 02/20/18 10:50 Dose: 1 drop Dextrose (Dextrose 50% Inj) 0 ml IVP .STAT PRN; Protocol PRN Reason: Hypoglycemia Protocol Dextrose (Glutose 15) 0 gm PO .ONCE PRN; Protocol PRN Reason: Hypoglycemia Protocol Furosemide (Lasix) 40 mg IVP DAILY [facility] Last Admin: 02/20/18 10:49 Dose: 40 mg Glucagon (Glucagen Diagnostic Kit) 0 mg IM .STAT PRN; Protocol PRN Reason: Hypoglycemia Protocol Insulin Aspart (Novolog) 8 unit SC AC [facility] Last Admin: 02/20/18 08:56 Dose: 8 unit Insulin Detemir (Levemir) 25 unit SC HS [facility] Last Admin: 02/19/18 21:06 Dose: Not Given Insulin Human Regular (Novolin R) 0 unit SC [facility] PRN Reason: Protocol Last Admin: 02/20/18 13:11 Dose: Not Given Lactulose (Enulose) 20 gm PO Q12 PRN PRN Reason: Constipation Last Admin: 02/10/18 23:02 Dose: 20 gm Latanoprost (Xalatan Opht) 0 ml OU HS [facility] Last Admin: 02/19/18 21:48 Dose: 2.5 ml Losartan Potassium (Cozaar) 25 mg PO DAILY [facility] Last Admin: 02/20/18 10:49 Dose: 25 mg Metoprolol Succinate (Toprol Xl) 25 mg PO DAILY [facility] Last Admin: 02/20/18 10:44 Dose: 25 mg Ondansetron HCl (Zofran Inj) 4 mg IVP Q6 PRN PRN Reason: Nausea/Vomiting Last Admin: 02/10/18 20:03 Dose: 4 mg Pantoprazole Sodium (Protonix Ec Tab) 40 mg PO DAILY [facility] Last Admin: 02/20/18 10:49 Dose: 40 mg Rosuvastatin Calcium (Crestor) 10 mg PO HS [facility] Last Admin: 02/19/18 21:48 Dose: 10 mg Tamsulosin HCl (Flomax) 0.4 mg PO DAILY [facility] Last Admin: 02/20/18 10:49 Dose: 0.4 mg Timolol Maleate (Timoptic 0.5% Ophth Soln) 0 drop OU DAILY [facility] Last Admin: 02/20/18 10:50 Dose: 1 drop - Labs Labs: 02/17/18 07:12 02/17/18 07:12 PT 26.6 SECONDS (9.7-12.2) H D 02/20/18 07:47 INR 2.4 D 02/20/18 07:47 APTT 50 SECONDS (21-34) H 02/10/18 00:12 Assessment and Plan - Assessment and Plan (Free Text) Plan: above noted and agree with findings . Labs and chart reviewed . Pt offers no complaints today . Continued follow up/Dr Lillie Carrillo
--- NOTE | 2018-02-20 18:11 | CP.PCM.PN ---
Subjective - Date & Time of Evaluation Date of Evaluation: 02/20/18 Time of Evaluation: 10:40 - Subjective Subjective: clinically same Objective - Vital Signs/Intake and Output Vital Signs (last 24 hours): Temp Pulse Resp BP Pulse Ox 98.5 F 89 20 120/87 100 02/20/18 15:03 02/20/18 15:03 02/20/18 15:03 02/20/18 15:03 02/20/18 15:03 Intake and Output: 02/20/18 02/20/18 06:59 18:59 Intake Total 500 200 Output Total 600 Balance 500 -400 - Medications Medications: Current Medications Allopurinol (Zyloprim) 100 mg PO DAILY [facility] Last Admin: 02/20/18 10:49 Dose: 100 mg Amlodipine Besylate (Norvasc) 10 mg PO DAILY [facility] Last Admin: 02/20/18 10:49 Dose: 10 mg Aspirin (Ecotrin) 81 mg PO DAILY [facility] Last Admin: 02/16/18 09:54 Dose: 81 mg Brimonidine Tartrate (Alphagan 0.2% Opht) 0 ml OU DAILY [facility] Last Admin: 02/20/18 10:50 Dose: 1 drop Dextrose (Dextrose 50% Inj) 0 ml IVP .STAT PRN; Protocol PRN Reason: Hypoglycemia Protocol Dextrose (Glutose 15) 0 gm PO .ONCE PRN; Protocol PRN Reason: Hypoglycemia Protocol Furosemide (Lasix) 40 mg IVP DAILY [facility] Last Admin: 02/20/18 10:49 Dose: 40 mg Glucagon (Glucagen Diagnostic Kit) 0 mg IM .STAT PRN; Protocol PRN Reason: Hypoglycemia Protocol Insulin Aspart (Novolog) 8 unit SC AC [facility] Last Admin: 02/20/18 14:57 Dose: Not Given Insulin Detemir (Levemir) 25 unit SC HS [facility] Last Admin: 02/19/18 21:06 Dose: Not Given Insulin Human Regular (Novolin R) 0 unit SC ACHS [facility] PRN Reason: Protocol Last Admin: 02/20/18 17:24 Dose: 8 unit Lactulose (Enulose) 20 gm PO Q12 PRN PRN Reason: Constipation Last Admin: 02/10/18 23:02 Dose: 20 gm Latanoprost (Xalatan Opht) 0 ml OU HS [facility] Last Admin: 02/19/18 21:48 Dose: 2.5 ml Losartan Potassium (Cozaar) 25 mg PO DAILY [facility] Last Admin: 02/20/18 10:49 Dose: 25 mg Metoprolol Succinate (Toprol Xl) 25 mg PO DAILY [facility] Last Admin: 02/20/18 10:44 Dose: 25 mg Ondansetron HCl (Zofran Inj) 4 mg IVP Q6 PRN PRN Reason: Nausea/Vomiting Last Admin: 02/10/18 20:03 Dose: 4 mg Pantoprazole Sodium (Protonix Ec Tab) 40 mg PO DAILY [facility] Last Admin: 02/20/18 10:49 Dose: 40 mg Rosuvastatin Calcium (Crestor) 10 mg PO HS [facility] Last Admin: 02/19/18 21:48 Dose: 10 mg Tamsulosin HCl (Flomax) 0.4 mg PO DAILY [facility] Last Admin: 02/20/18 10:49 Dose: 0.4 mg Timolol Maleate (Timoptic 0.5% Ophth Soln) 0 drop OU DAILY [facility] Last Admin: 02/20/18 10:50 Dose: 1 drop - Labs Labs: 02/17/18 07:12 02/17/18 07:12 PT 26.6 SECONDS (9.7-12.2) H D 02/20/18 07:47 INR 2.4 D 02/20/18 07:47 APTT 50 SECONDS (21-34) H 02/10/18 00:12 - Constitutional Appears: Well - Head Exam Head Exam: ATRAUMATIC, NORMAL INSPECTION, NORMOCEPHALIC - Eye Exam Eye Exam: EOMI, Normal appearance, PERRL Pupil Exam: NORMAL ACCOMODATION, PERRL - ENT Exam ENT Exam: Mucous Membranes Moist, Normal Exam - Neck Exam Neck Exam: Full ROM, Normal Inspection. absent: Lymphadenopathy - Respiratory Exam Respiratory Exam: Decreased Breath Sounds - Cardiovascular Exam Cardiovascular Exam: REGULAR RHYTHM, +S1, +S2 - GI/Abdominal Exam GI & Abdominal Exam: Soft, Diminished Bowel Sounds - Rectal Exam Rectal Exam: Deferred
[2018-02-20] MEDS: Insulin Detemir 100 units/ml Vial (Levemir) SC SCH (21:48)
[2018-02-20] MEDS: Latanoprost 2.5 ml Opht Soln OU SCH (21:55)
[2018-02-21 07:34] LABS: PROTHROMBIN TIME 21.5 SECONDS (9.7-12.2)
[2018-02-21] MEDS: (Novolog) Insulin Aspart, Recombinant 100 u/ml 10 ml vial SC SCH ×3 (08:00→16:47)
[2018-02-21] MEDS: (Novolin R) Insulin Human Regular 100 units/ml vial SC SCH ×4 (08:08→21:02)
[2018-02-21] MEDS: Pantoprazole 40 mg EC Tab PO SCH (09:46)
[2018-02-21] MEDS: Brimonidine 0.2% Opth Sol (5ml) OU SCH (09:58)
[2018-02-21] MEDS: Metoprolol Succinate 25 mg XL Tab PO SCH (10:02)
--- NOTE | 2018-02-21 12:22 | CP.PCM.PN ---
Subjective - Date & Time of Evaluation Date of Evaluation: 02/21/18 Time of Evaluation: 10:00 - Subjective Subjective: Podiatry Progress note- Dr. Carrillo 62 year old male seen and evaluated for left leg edema and superficial ulcerations. Patient is seen resting comfortably in bed in NAD, and AA0x3. Dressings remain clean dry and intact. Patient reports that he is tolerating the UNNA boot placed on. Denies of any calf pain or pain to the LE during visitation. Patient reports mild burning pain to the lateral leg. ROGERIO wrap over UNNA boot intact. No strikethrough. Patient denies of any N/V/F/C or SOB today. Objective - Vital Signs/Intake and Output Vital Signs (last 24 hours): Temp Pulse Resp BP Pulse Ox 98.5 F 92 H 20 136/80 96 02/21/18 08:27 02/21/18 08:27 02/21/18 08:27 02/21/18 09:45 02/21/18 08:27 Intake and Output: 02/21/18 02/21/18 06:59 18:59 Intake Total 200 Output Total 600 Balance -400 - Medications Medications: Current Medications Allopurinol (Zyloprim) 100 mg PO DAILY [facility] Last Admin: 02/21/18 09:46 Dose: 100 mg Amlodipine Besylate (Norvasc) 10 mg PO DAILY [facility] Last Admin: 02/21/18 09:46 Dose: 10 mg Aspirin (Ecotrin) 81 mg PO DAILY [facility] Last Admin: 02/16/18 09:54 Dose: 81 mg Brimonidine Tartrate (Alphagan 0.2% Opht) 0 ml OU DAILY [facility] Last Admin: 02/21/18 09:58 Dose: 1 drop Dextrose (Dextrose 50% Inj) 0 ml IVP .STAT PRN; Protocol PRN Reason: Hypoglycemia Protocol Dextrose (Glutose 15) 0 gm PO .ONCE PRN; Protocol PRN Reason: Hypoglycemia Protocol Furosemide (Lasix) 40 mg IVP DAILY [facility] Last Admin: 02/21/18 09:45 Dose: 40 mg Glucagon (Glucagen Diagnostic Kit) 0 mg IM .STAT PRN; Protocol PRN Reason: Hypoglycemia Protocol Insulin Aspart (Novolog) 8 unit SC AC [facility] Last Admin: 02/21/18 08:00 Dose: 8 unit Insulin Detemir (Levemir) 25 unit SC HS [facility] Last Admin: 02/20/18 21:48 Dose: 25 unit Insulin Human Regular (Novolin R) 0 unit SC ACHS [facility] PRN Reason: Protocol Last Admin: 02/21/18 11:56 Dose: Not Given Lactulose (Enulose) 20 gm PO Q12 PRN PRN Reason: Constipation Last Admin: 02/10/18 23:02 Dose: 20 gm Latanoprost (Xalatan Opht) 0 ml OU HS [facility] Last Admin: 02/20/18 21:55 Dose: 2.5 ml Losartan Potassium (Cozaar) 25 mg PO DAILY [facility] Last Admin: 02/21/18 09:46 Dose: 25 mg Metoprolol Succinate (Toprol Xl) 25 mg PO DAILY [facility] Last Admin: 02/21/18 10:02 Dose: 25 mg Ondansetron HCl (Zofran Inj) 4 mg IVP Q6 PRN PRN Reason: Nausea/Vomiting Last Admin: 02/10/18 20:03 Dose: 4 mg Pantoprazole Sodium (Protonix Ec Tab) 40 mg PO DAILY [facility] Last Admin: 02/21/18 09:46 Dose: 40 mg Rosuvastatin Calcium (Crestor) 10 mg PO HS [facility] Last Admin: 02/20/18 21:55 Dose: 10 mg Tamsulosin HCl (Flomax) 0.4 mg PO DAILY [facility] Last Admin: 02/21/18 09:46 Dose: 0.4 mg Timolol Maleate (Timoptic 0.5% Ophth Soln) 0 drop OU DAILY [facility] Last Admin: 02/21/18 09:58 Dose: 1 drop - Labs Labs: 02/17/18 07:12 02/17/18 07:12 PT 21.5 SECONDS (9.7-12.2) H D 02/21/18 07:20 INR 2.0 02/21/18 07:20 APTT 50 SECONDS (21-34) H 02/10/18 00:12 - Constitutional Appears: Well, Non-toxic, No Acute Distress - Extremities Exam Extremities Exam: absent: Calf Tenderness Additional comments: Dressing is clean, dry, intact with no strikethrough appreciated ROGERIO intact No calf pain with palpation Able to wiggle toes - Neurological Exam Neurological Exam: Alert, Awake, Oriented x3 - Psychiatric Exam Psychiatric exam: Normal Affect, Normal Mood Assessment and Plan - Assessment and Plan (Free Text) Assessment: 62 yo male patient presenting with bilateral lower extremity edema and superficial ulceration to left leg Plan: Patient was seen and evaluated with attending Dr. Carrillo Labs and vitals reviewed; afebrile, absent leukocytosis SPENCER R: 1.26, L-1.31 Arterial doppler reveals No DVT Unnaboot and Coban in place. keep dressing c/d/i, do not remove, do not get wet Ordered UNNA boot. Encourage to elevate lower extremity Podiatry will continue to follow inhouse
--- NOTE | 2018-02-21 14:13 | CP.PCM.PN ---
Subjective - Date & Time of Evaluation Date of Evaluation: 02/21/18 Time of Evaluation: 10:40 - Subjective Subjective: clinically same Objective - Vital Signs/Intake and Output Vital Signs (last 24 hours): Temp Pulse Resp BP Pulse Ox 98.5 F 92 H 20 136/80 96 02/21/18 08:27 02/21/18 08:27 02/21/18 08:27 02/21/18 09:45 02/21/18 08:27 Intake and Output: 02/21/18 02/21/18 06:59 18:59 Intake Total 200 450 Output Total 600 Balance -400 450 - Medications Medications: Current Medications Allopurinol (Zyloprim) 100 mg PO DAILY [facility] Last Admin: 02/21/18 09:46 Dose: 100 mg Amlodipine Besylate (Norvasc) 10 mg PO DAILY [facility] Last Admin: 02/21/18 09:46 Dose: 10 mg Aspirin (Ecotrin) 81 mg PO DAILY [facility] Last Admin: 02/16/18 09:54 Dose: 81 mg Brimonidine Tartrate (Alphagan 0.2% Opht) 0 ml OU DAILY [facility] Last Admin: 02/21/18 09:58 Dose: 1 drop Dextrose (Dextrose 50% Inj) 0 ml IVP .STAT PRN; Protocol PRN Reason: Hypoglycemia Protocol Dextrose (Glutose 15) 0 gm PO .ONCE PRN; Protocol PRN Reason: Hypoglycemia Protocol Furosemide (Lasix) 40 mg IVP DAILY [facility] Last Admin: 02/21/18 09:45 Dose: 40 mg Glucagon (Glucagen Diagnostic Kit) 0 mg IM .STAT PRN; Protocol PRN Reason: Hypoglycemia Protocol Insulin Aspart (Novolog) 8 unit SC AC [facility] Last Admin: 02/21/18 12:30 Dose: 8 unit Insulin Detemir (Levemir) 25 unit SC HS [facility] Last Admin: 02/20/18 21:48 Dose: 25 unit Insulin Human Regular (Novolin R) 0 unit SC ACHS [facility] PRN Reason: Protocol Last Admin: 02/21/18 11:56 Dose: Not Given Lactulose (Enulose) 20 gm PO Q12 PRN PRN Reason: Constipation Last Admin: 02/10/18 23:02 Dose: 20 gm Latanoprost (Xalatan Opht) 0 ml OU HS [facility] Last Admin: 02/20/18 21:55 Dose: 2.5 ml Losartan Potassium (Cozaar) 25 mg PO DAILY [facility] Last Admin: 02/21/18 09:46 Dose: 25 mg Metoprolol Succinate (Toprol Xl) 25 mg PO DAILY [facility] Last Admin: 02/21/18 10:02 Dose: 25 mg Ondansetron HCl (Zofran Inj) 4 mg IVP Q6 PRN PRN Reason: Nausea/Vomiting Last Admin: 02/10/18 20:03 Dose: 4 mg Pantoprazole Sodium (Protonix Ec Tab) 40 mg PO DAILY [facility] Last Admin: 02/21/18 09:46 Dose: 40 mg Rosuvastatin Calcium (Crestor) 10 mg PO HS [facility] Last Admin: 02/20/18 21:55 Dose: 10 mg Tamsulosin HCl (Flomax) 0.4 mg PO DAILY [facility] Last Admin: 02/21/18 09:46 Dose: 0.4 mg Timolol Maleate (Timoptic 0.5% Ophth Soln) 0 drop OU DAILY [facility] Last Admin: 02/21/18 09:58 Dose: 1 drop - Labs Labs: 02/17/18 07:12 02/17/18 07:12 PT 21.5 SECONDS (9.7-12.2) H D 02/21/18 07:20 INR 2.0 02/21/18 07:20 APTT 50 SECONDS (21-34) H 02/10/18 00:12 - Constitutional Appears: Well - Head Exam Head Exam: ATRAUMATIC, NORMAL INSPECTION, NORMOCEPHALIC - Eye Exam Eye Exam: EOMI, Normal appearance, PERRL Pupil Exam: NORMAL ACCOMODATION, PERRL - ENT Exam ENT Exam: Mucous Membranes Moist, Normal Exam - Neck Exam Neck Exam: Full ROM, Normal Inspection. absent: Lymphadenopathy - Respiratory Exam Respiratory Exam: Decreased Breath Sounds - Cardiovascular Exam Cardiovascular Exam: REGULAR RHYTHM, +S1, +S2 - GI/Abdominal Exam GI & Abdominal Exam: Soft, Diminished Bowel Sounds - Rectal Exam Rectal Exam: Deferred
--- NOTE | 2018-02-21 15:36 | CP.PCM.PN ---
Subjective - Date & Time of Evaluation Date of Evaluation: 02/21/18 Time of Evaluation: 15:36 Objective - Vital Signs/Intake and Output Vital Signs (last 24 hours): Temp Pulse Resp BP Pulse Ox 98.5 F 92 H 20 136/80 96 02/21/18 08:27 02/21/18 08:27 02/21/18 08:27 02/21/18 09:45 02/21/18 08:27 Intake and Output: 02/21/18 02/21/18 06:59 18:59 Intake Total 200 450 Output Total 600 Balance -400 450 - Medications Medications: Current Medications Allopurinol (Zyloprim) 100 mg PO DAILY [facility] Last Admin: 02/21/18 09:46 Dose: 100 mg Amlodipine Besylate (Norvasc) 10 mg PO DAILY [facility] Last Admin: 02/21/18 09:46 Dose: 10 mg Aspirin (Ecotrin) 81 mg PO DAILY [facility] Last Admin: 02/16/18 09:54 Dose: 81 mg Brimonidine Tartrate (Alphagan 0.2% Opht) 0 ml OU DAILY [facility] Last Admin: 02/21/18 09:58 Dose: 1 drop Dextrose (Dextrose 50% Inj) 0 ml IVP .STAT PRN; Protocol PRN Reason: Hypoglycemia Protocol Dextrose (Glutose 15) 0 gm PO .ONCE PRN; Protocol PRN Reason: Hypoglycemia Protocol Furosemide (Lasix) 40 mg IVP DAILY [facility] Last Admin: 02/21/18 09:45 Dose: 40 mg Glucagon (Glucagen Diagnostic Kit) 0 mg IM .STAT PRN; Protocol PRN Reason: Hypoglycemia Protocol Insulin Aspart (Novolog) 8 unit SC AC [facility] Last Admin: 02/21/18 12:30 Dose: 8 unit Insulin Detemir (Levemir) 25 unit SC HS [facility] Last Admin: 02/20/18 21:48 Dose: 25 unit Insulin Human Regular (Novolin R) 0 unit SC ACHS [facility] PRN Reason: Protocol Last Admin: 02/21/18 11:56 Dose: Not Given Lactulose (Enulose) 20 gm PO Q12 PRN PRN Reason: Constipation Last Admin: 02/10/18 23:02 Dose: 20 gm Latanoprost (Xalatan Opht) 0 ml OU HS [facility] Last Admin: 02/20/18 21:55 Dose: 2.5 ml Losartan Potassium (Cozaar) 25 mg PO DAILY [facility] Last Admin: 02/21/18 09:46 Dose: 25 mg Metoprolol Succinate (Toprol Xl) 25 mg PO DAILY [facility] Last Admin: 02/21/18 10:02 Dose: 25 mg Ondansetron HCl (Zofran Inj) 4 mg IVP Q6 PRN PRN Reason: Nausea/Vomiting Last Admin: 02/10/18 20:03 Dose: 4 mg Pantoprazole Sodium (Protonix Ec Tab) 40 mg PO DAILY [facility] Last Admin: 02/21/18 09:46 Dose: 40 mg Rosuvastatin Calcium (Crestor) 10 mg PO HS [facility] Last Admin: 02/20/18 21:55 Dose: 10 mg Tamsulosin HCl (Flomax) 0.4 mg PO DAILY [facility] Last Admin: 02/21/18 09:46 Dose: 0.4 mg Timolol Maleate (Timoptic 0.5% Ophth Soln) 0 drop OU DAILY [facility] Last Admin: 02/21/18 09:58 Dose: 1 drop - Labs Labs: 02/17/18 07:12 02/17/18 07:12 PT 21.5 SECONDS (9.7-12.2) H D 02/21/18 07:20 INR 2.0 02/21/18 07:20 APTT 50 SECONDS (21-34) H 02/10/18 00:12
[2018-02-21] MEDS: Insulin Detemir 100 units/ml Vial (Levemir) SC SCH (21:02)
[2018-02-21] MEDS: Latanoprost 2.5 ml Opht Soln OU SCH (21:07)
[2018-02-22 00:32] VITALS: RESP 20
[2018-02-22 07:24] LABS: INR 2.3
[2018-02-22 07:25] LABS: BASO # 0.1 K/uL (0.0-0.2); EOS # 0.3 K/uL (0.0-0.7); EOS % 3.7 % (0.0-4.0); HEMOGLOBIN 11.4 g/dL (12.0-18.0); LYMPH # 0.8 K/uL (1.0-4.3); LYMPH % 11.5 % (20.0-40.0); MEAN CELL VOLUME 83.6 fL (80.0-94.0); MEAN CORPUSCULAR HEMOGLOBIN 26.8 pg (27.0-31.0); MEAN CORPUSCULAR HGB CONC 32.1 g/dL (33.0-37.0); MEAN PLATELET VOLUME 9.2 fL (7.2-11.7); MONO # 0.8 K/uL (0.0-0.8); MONO % 11.1 % (0.0-10.0); NEUT % 72.7 % (50.0-75.0); RBC 4.23 Mil/uL (4.40-5.90); RED CELL DISTRIBUTION WIDTH 19.1 % (11.5-14.5); WHITE BLOOD COUNT 6.8 K/uL (4.8-10.8)
[2018-02-22 07:50] LABS: ALB/GLOB RATIO 0.8 (1.0-2.1); CALCIUM 8.6 mg/dl (8.6-10.4)
[2018-02-22] MEDS: (Novolin R) Insulin Human Regular 100 units/ml vial SC SCH ×4 (08:31→21:39)
[2018-02-22] MEDS: (Novolog) Insulin Aspart, Recombinant 100 u/ml 10 ml vial SC SCH ×3 (08:42→17:12)
--- NOTE | 2018-02-22 10:06 | CP.PCM.PN ---
<Austin Vasquez - Last Filed: 02/22/18 10:42> Subjective - Date & Time of Evaluation Date of Evaluation: 02/22/18 Time of Evaluation: 10:05 - Subjective Subjective: PGY02 note for Dr. Miranda's service: Pt seen and examined at bedside. Nursing reports no acute events overnight. Patient found sitting comfortably in a chair at bedside, in no acute distress. Patient reports his legs are "feeling much better." He states he has been walking around the nurses station without oxygen, and denies having difficulty. Patient is tolerating diet, and voiding without issue. Patient reports he has not received coumadin for last 3 days. Objective - Vital Signs/Intake and Output Vital Signs (last 24 hours): Temp Pulse Resp BP Pulse Ox 98.1 F 95 H 20 134/80 96 02/22/18 09:06 02/22/18 09:06 02/22/18 09:06 02/22/18 09:06 02/22/18 09:06 Intake and Output: 02/22/18 02/22/18 06:59 18:59 Intake Total 240 Balance 240 - Medications Medications: Current Medications Allopurinol (Zyloprim) 100 mg PO DAILY [facility] Last Admin: 02/21/18 09:46 Dose: 100 mg Amlodipine Besylate (Norvasc) 10 mg PO DAILY [facility] Last Admin: 02/21/18 09:46 Dose: 10 mg Aspirin (Ecotrin) 81 mg PO DAILY [facility] Last Admin: 02/16/18 09:54 Dose: 81 mg Brimonidine Tartrate (Alphagan 0.2% Opht) 0 ml OU DAILY [facility] Last Admin: 02/21/18 09:58 Dose: 1 drop Dextrose (Dextrose 50% Inj) 0 ml IVP .STAT PRN; Protocol PRN Reason: Hypoglycemia Protocol Dextrose (Glutose 15) 0 gm PO .ONCE PRN; Protocol PRN Reason: Hypoglycemia Protocol Furosemide (Lasix) 40 mg IVP DAILY [facility] Last Admin: 02/21/18 09:45 Dose: 40 mg Glucagon (Glucagen Diagnostic Kit) 0 mg IM .STAT PRN; Protocol PRN Reason: Hypoglycemia Protocol Insulin Aspart (Novolog) 8 unit SC AC [facility] Last Admin: 02/22/18 08:42 Dose: 8 unit Insulin Detemir (Levemir) 25 unit SC HS [facility] Last Admin: 02/21/18 21:02 Dose: Not Given Insulin Human Regular (Novolin R) 0 unit SC ACHS [facility] PRN Reason: Protocol Last Admin: 02/22/18 08:31 Dose: Not Given Lactulose (Enulose) 20 gm PO Q12 PRN PRN Reason: Constipation Last Admin: 02/10/18 23:02 Dose: 20 gm Latanoprost (Xalatan Opht) 0 ml OU HS [facility] Last Admin: 02/21/18 21:07 Dose: 2.5 ml Losartan Potassium (Cozaar) 25 mg PO DAILY [facility] Last Admin: 02/21/18 09:46 Dose: 25 mg Metoprolol Succinate (Toprol Xl) 25 mg PO DAILY [facility] Last Admin: 02/21/18 10:02 Dose: 25 mg Ondansetron HCl (Zofran Inj) 4 mg IVP Q6 PRN PRN Reason: Nausea/Vomiting Last Admin: 02/10/18 20:03 Dose: 4 mg Pantoprazole Sodium (Protonix Ec Tab) 40 mg PO DAILY [facility] Last Admin: 02/21/18 09:46 Dose: 40 mg Rosuvastatin Calcium (Crestor) 10 mg PO HS [facility] Last Admin: 02/21/18 21:06 Dose: 10 mg Tamsulosin HCl (Flomax) 0.4 mg PO DAILY [facility] Last Admin: 02/21/18 09:46 Dose: 0.4 mg Timolol Maleate (Timoptic 0.5% Ophth Soln) 0 drop OU DAILY [facility] Last Admin: 02/21/18 09:58 Dose: 1 drop - Labs Labs: 02/22/18 07:00 02/22/18 07:00 PT 25.0 SECONDS (9.7-12.2) H 02/22/18 07:00 INR 2.3 02/22/18 07:00 APTT 50 SECONDS (21-34) H 02/10/18 00:12 - Additional Findings Additional findings: - Constitutional Appears: Non-toxic, No Acute Distress - Head Exam Head Exam: ATRAUMATIC, NORMOCEPHALIC - Eye Exam Eye Exam: Normal appearance, PERRL - scleral icterus - ENT Exam ENT Exam: Mucous Membranes Moist - Neck Exam Neck Exam: Normal Inspection - Respiratory Exam Respiratory Exam: Clear to Ausculation Bilateral, NORMAL BREATHING PATTERN. absent: Respiratory Distress - Cardiovascular Exam Cardiovascular Exam: REGULAR RHYTHM, +S1, +S2. absent: Murmur - no JVD - GI/Abdominal Exam GI & Abdominal Exam: Soft, Normal Bowel Sounds. absent: Tenderness - Extremities Exam Extremities Exam: Pedal Edema Additional comments: bilateral LE wrapped with gauze - Neurological Exam Neurological Exam: Alert, Awake, Oriented x3 - Psychiatric Exam Psychiatric exam: Normal Affect, Normal Mood - Skin Skin Exam: Dry, Warm Assessment and Plan - Assessment and Plan (Free Text) Plan: Acute on chronic CHF exacerbation Admit to tele -Input output, daily weight, Fluid restriction -BNP on admission 53234, (02/14) 5870 -Last Echo 07/2017 shows EF <35% -S/P AICD Cardiology consulted, Dr. Margaret montes appreciated - stable CHF, continue medical treatment - Questionable plan for surgery, the patient is a high risk for cardiac complication -Lasix 40mg IV -Metoprolol 25mg daily -Cozaar 25mg Hx of PE -September 2017 per - Patient was therapeutic on coumadin, but coumadin held for last three days - unsure of Dr. Miranda reasoning. Will reassess with attending. - ASA 81mg Hyperbilirubinemia T bili improved to 3.5 today Denies pain but hx of gallstones US Abd (02/15/18): Hepatomegaly, hepatic steatosis. Nodular contour suggest hepatocellular disease, perhaps cysts. Cholelithiasis - innumerable small gallstones identified. Gallbladder wall thickening in absence of sonographic Santos's sign. Abd ascites, low volume incompletely visualized. GGT WNL, Direct bilirubin elevated Dr. Jorgensen/[facility], GI constultant - help appreciated - No CBD dilatation or stone - autoimmune workup - recommend outpatient follow up Dr. Sherman, Gen Surg Hemodialysis Patient Care Specialist - No intervention at this time by surgery, the patient is a high risk for cardiac complication per cardiology Afib -EKG in the ED show Afib with frequent Ventricular paced complexes -Patient denies history of Afib -Currently rate controlled on metoprolol -Coumadin HELD for last several days -ASA 81mg -Cardiology consulted -CHADS-VASc Score 5, Stroke risk was 7.2% per year -HAS-BLED Score 2, intermediate risk 1.88-3.2% risk of major bleeding LIZZETTE on CKD Cr 1.6, GFR 54 - Cr/GFR improving since admission Lower extremity swelling LE venous doppler negative for DVT Likely secondary Chronic CHF Arterial doppler (02/14/18): Normal ankle-brachial index on right. No triphasic waveforms throughout RLE. Elevated SPENCER less reliable on left. No triphasic waveforms throughout LLE. Lower extremity chronic ulcer wound care consulted Blood culture negative x 5 days Podiatry consulted Diabetes ACHS ISS Hypoglycemia protocol Levemir 25u HS Novolog 8u AC BPH Flomax 0.4mg Daily Prophylactic measures Protonix Coumadin and ASA SCDs C/I due to leg wounds Disposition: Patient was therapeutic on coumadin, but coumadin held for last three days - unsure of Dr. Miranda reasoning. Will reassess with attending. Pt for PRINCE evaluation by PT today. All management per Dr. Miranda <Darien Miranda S - Last Filed: 02/24/18 00:41> Objective - Vital Signs/Intake and Output Vital Signs (last 24 hours): Temp Pulse Resp BP Pulse Ox 98.0 F 98 H 20 130/92 H 100 02/23/18 15:54 02/23/18 15:54 02/23/18 15:54 02/23/18 15:54 02/23/18 15:54 - Medications Medications: Current Medications Allopurinol (Zyloprim) 100 mg PO DAILY [facility] Last Admin: 02/23/18 10:57 Dose: 100 mg Amlodipine Besylate (Norvasc) 10 mg PO DAILY [facility] Last Admin: 02/23/18 10:57 Dose: 10 mg Aspirin (Ecotrin) 81 mg PO DAILY [facility] Last Admin: 02/23/18 10:55 Dose: 81 mg Brimonidine Tartrate (Alphagan 0.2% Opht) 0 ml OU DAILY [facility] Last Admin: 02/23/18 10:57 Dose: 1 drop Dextrose (Dextrose 50% Inj) 0 ml IVP .STAT PRN; Protocol PRN Reason: Hypoglycemia Protocol Dextrose (Glutose 15) 0 gm PO .ONCE PRN; Protocol PRN Reason: Hypoglycemia Protocol Furosemide (Lasix) 40 mg IVP DAILY [facility] Last Admin: 02/23/18 11:27 Dose: 40 mg Glucagon (Glucagen Diagnostic Kit) 0 mg IM .STAT PRN; Protocol PRN Reason: Hypoglycemia Protocol Insulin Aspart (Novolog) 8 unit SC AC [facility] Last Admin: 02/23/18 18:00 Dose: 8 unit Insulin Detemir (Levemir) 25 unit SC HS [facility] Last Admin: 02/23/18 21:56 Dose: Not Given Insulin Human Regular (Novolin R) 0 unit SC ACHS [facility] PRN Reason: Protocol Last Admin: 02/23/18 21:54 Dose: Not Given Lactulose (Enulose) 20 gm PO Q12 PRN PRN Reason: Constipation Last Admin: 02/10/18 23:02 Dose: 20 gm Latanoprost (Xalatan Opht) 0 ml OU HS [facility] Last Admin: 02/23/18 21:54 Dose: 2.5 ml Losartan Potassium (Cozaar) 25 mg PO DAILY [facility] Last Admin: 02/23/18 10:57 Dose: 25 mg Metoprolol Succinate (Toprol Xl) 25 mg PO DAILY [facility] Last Admin: 02/23/18 10:57 Dose: 25 mg Ondansetron HCl (Zofran Inj) 4 mg IVP Q6 PRN PRN Reason: Nausea/Vomiting Last Admin: 02/10/18 20:03 Dose: 4 mg Pantoprazole Sodium (Protonix Ec Tab) 40 mg PO DAILY [facility] Last Admin: 02/23/18 10:57 Dose: 40 mg Rosuvastatin Calcium (Crestor) 10 mg PO HS [facility] Last Admin: 02/23/18 21:52 Dose: 10 mg Tamsulosin HCl (Flomax) 0.4 mg PO DAILY [facility] Last Admin: 02/23/18 10:57 Dose: 0.4 mg Timolol Maleate (Timoptic 0.5% Ophth Soln) 0 drop OU DAILY [facility] Last Admin: 02/23/18 10:58 Dose: 1 drop - Labs Labs: 02/23/18 07:23 02/23/18 07:23 PT 23.4 SECONDS (9.7-12.2) H 02/23/18 07:23 INR 2.1 02/23/18 07:23 APTT 50 SECONDS (21-34) H 02/10/18 00:12 Assessment and Plan (1) Acute CHF Status: Acute (2) Dilated cardiomyopathy Status: Acute (3) New onset atrial fibrillation Status: Acute (4) Atrial fibrillation, chronic Status: Chronic (5) Lumbar sprain Status: Acute (6) Medical assessment Status: Acute Attending/Attestation - Attestation I have personally seen and examined this patient.: Yes I have fully participated in the care of the patient.: Yes I have reviewed all pertinent clinical information, including history, physical exam and plan: Yes
[2018-02-22] MEDS: Pantoprazole 40 mg EC Tab PO SCH (10:29)
[2018-02-22] MEDS: Metoprolol Succinate 25 mg XL Tab PO SCH (10:29)
[2018-02-22] MEDS: Brimonidine 0.2% Opth Sol (5ml) OU SCH (10:32)
[2018-02-22] MEDS ORDERED: Morphine 4 MG/ML VIAL IV PRN (10:51)
--- NOTE | 2018-02-22 11:46 | CP.PCM.PN ---
Subjective - Date & Time of Evaluation Date of Evaluation: 02/22/18 Time of Evaluation: 11:44 - Subjective Subjective: Podiatry Progress note- Dr. Carrillo 62 year old male seen and evaluated for left leg edema and superficial ulcerations. Patient is seen resting comfortably in bed in NAD, and AA0x3. Dressings remain clean dry and intact. Patient reports that he is tolerating the UNNA boot placed on. Denies of any calf pain or pain to the LE during visitation.. ROGERIO wrap over UNNA boot intact. No strikethrough. Patient denies of any N/V/F/C or SOB today. Objective - Vital Signs/Intake and Output Vital Signs (last 24 hours): Temp Pulse Resp BP Pulse Ox 98.1 F 95 H 20 119/80 96 02/22/18 09:06 02/22/18 09:06 02/22/18 09:06 02/22/18 10:28 02/22/18 09:06 Intake and Output: 02/22/18 02/22/18 06:59 18:59 Intake Total 240 Balance 240 - Medications Medications: Current Medications Allopurinol (Zyloprim) 100 mg PO DAILY [facility] Last Admin: 02/22/18 10:29 Dose: 100 mg Amlodipine Besylate (Norvasc) 10 mg PO DAILY [facility] Last Admin: 02/22/18 10:29 Dose: 10 mg Aspirin (Ecotrin) 81 mg PO DAILY [facility] Last Admin: 02/16/18 09:54 Dose: 81 mg Brimonidine Tartrate (Alphagan 0.2% Opht) 0 ml OU DAILY [facility] Last Admin: 02/22/18 10:32 Dose: 1 drop Dextrose (Dextrose 50% Inj) 0 ml IVP .STAT PRN; Protocol PRN Reason: Hypoglycemia Protocol Dextrose (Glutose 15) 0 gm PO .ONCE PRN; Protocol PRN Reason: Hypoglycemia Protocol Furosemide (Lasix) 40 mg IVP DAILY [facility] Last Admin: 02/22/18 10:28 Dose: 40 mg Glucagon (Glucagen Diagnostic Kit) 0 mg IM .STAT PRN; Protocol PRN Reason: Hypoglycemia Protocol Insulin Aspart (Novolog) 8 unit SC AC [facility] Last Admin: 02/22/18 08:42 Dose: 8 unit Insulin Detemir (Levemir) 25 unit SC HS [facility] Last Admin: 02/21/18 21:02 Dose: Not Given Insulin Human Regular (Novolin R) 0 unit SC ACHS [facility] PRN Reason: Protocol Last Admin: 02/22/18 08:31 Dose: Not Given Lactulose (Enulose) 20 gm PO Q12 PRN PRN Reason: Constipation Last Admin: 02/10/18 23:02 Dose: 20 gm Latanoprost (Xalatan Opht) 0 ml OU HS [facility] Last Admin: 02/21/18 21:07 Dose: 2.5 ml Losartan Potassium (Cozaar) 25 mg PO DAILY [facility] Last Admin: 02/22/18 10:29 Dose: 25 mg Metoprolol Succinate (Toprol Xl) 25 mg PO DAILY [facility] Last Admin: 02/22/18 10:29 Dose: 25 mg Ondansetron HCl (Zofran Inj) 4 mg IVP Q6 PRN PRN Reason: Nausea/Vomiting Last Admin: 02/10/18 20:03 Dose: 4 mg Pantoprazole Sodium (Protonix Ec Tab) 40 mg PO DAILY [facility] Last Admin: 02/22/18 10:29 Dose: 40 mg Rosuvastatin Calcium (Crestor) 10 mg PO HS [facility] Last Admin: 02/21/18 21:06 Dose: 10 mg Tamsulosin HCl (Flomax) 0.4 mg PO DAILY [facility] Last Admin: 02/22/18 10:29 Dose: 0.4 mg Timolol Maleate (Timoptic 0.5% Ophth Soln) 0 drop OU DAILY [facility] Last Admin: 02/22/18 10:32 Dose: 1 drop - Labs Labs: 02/22/18 07:00 02/22/18 07:00 PT 25.0 SECONDS (9.7-12.2) H 02/22/18 07:00 INR 2.3 02/22/18 07:00 APTT 50 SECONDS (21-34) H 02/10/18 00:12 - Constitutional Appears: Well, Non-toxic, No Acute Distress - Extremities Exam Additional comments: Dressing is clean, dry, intact with no strikethrough appreciated ROGERIO intact No calf pain with palpation Able to wiggle toes - Neurological Exam Neurological Exam: Alert, Awake Assessment and Plan - Assessment and Plan (Free Text) Assessment: 62 yo male patient presenting with bilateral lower extremity edema and superficial ulceration to left leg Plan: Patient was seen and evaluated discussed in detail with attending Dr. Carrillo Labs and vitals reviewed; afebrile, absent leukocytosis SPENCER R: 1.26, L-1.31 Arterial doppler reveals No DVT Unnaboot and Coban in place. keep dressing c/d/i, do not remove, do not get wet Ordered UNNA boot. will change later today Encourage to elevate lower extremity Podiatry will continue to follow inhouse
--- NOTE | 2018-02-22 12:11 | CP.PCM.PN ---
Subjective - Date & Time of Evaluation Date of Evaluation: 02/22/18 Time of Evaluation: 12:00 - Subjective Subjective: Stable clinically, no abdominal pain. Objective - Vital Signs/Intake and Output Vital Signs (last 24 hours): Temp Pulse Resp BP Pulse Ox 98.1 F 95 H 20 119/80 96 02/22/18 09:06 02/22/18 09:06 02/22/18 09:06 02/22/18 10:28 02/22/18 09:06 Intake and Output: 02/22/18 02/22/18 06:59 18:59 Intake Total 240 Balance 240 - Medications Medications: Current Medications Allopurinol (Zyloprim) 100 mg PO DAILY [facility] Last Admin: 02/22/18 10:29 Dose: 100 mg Amlodipine Besylate (Norvasc) 10 mg PO DAILY [facility] Last Admin: 02/22/18 10:29 Dose: 10 mg Aspirin (Ecotrin) 81 mg PO DAILY [facility] Last Admin: 02/16/18 09:54 Dose: 81 mg Brimonidine Tartrate (Alphagan 0.2% Opht) 0 ml OU DAILY [facility] Last Admin: 02/22/18 10:32 Dose: 1 drop Dextrose (Dextrose 50% Inj) 0 ml IVP .STAT PRN; Protocol PRN Reason: Hypoglycemia Protocol Dextrose (Glutose 15) 0 gm PO .ONCE PRN; Protocol PRN Reason: Hypoglycemia Protocol Furosemide (Lasix) 40 mg IVP DAILY [facility] Last Admin: 02/22/18 10:28 Dose: 40 mg Glucagon (Glucagen Diagnostic Kit) 0 mg IM .STAT PRN; Protocol PRN Reason: Hypoglycemia Protocol Insulin Aspart (Novolog) 8 unit SC AC [facility] Last Admin: 02/22/18 08:42 Dose: 8 unit Insulin Detemir (Levemir) 25 unit SC HS [facility] Last Admin: 02/21/18 21:02 Dose: Not Given Insulin Human Regular (Novolin R) 0 unit SC ACHS [facility] PRN Reason: Protocol Last Admin: 02/22/18 08:31 Dose: Not Given Lactulose (Enulose) 20 gm PO Q12 PRN PRN Reason: Constipation Last Admin: 02/10/18 23:02 Dose: 20 gm Latanoprost (Xalatan Opht) 0 ml OU HS [facility] Last Admin: 02/21/18 21:07 Dose: 2.5 ml Losartan Potassium (Cozaar) 25 mg PO DAILY [facility] Last Admin: 02/22/18 10:29 Dose: 25 mg Metoprolol Succinate (Toprol Xl) 25 mg PO DAILY [facility] Last Admin: 02/22/18 10:29 Dose: 25 mg Ondansetron HCl (Zofran Inj) 4 mg IVP Q6 PRN PRN Reason: Nausea/Vomiting Last Admin: 02/10/18 20:03 Dose: 4 mg Pantoprazole Sodium (Protonix Ec Tab) 40 mg PO DAILY [facility] Last Admin: 02/22/18 10:29 Dose: 40 mg Rosuvastatin Calcium (Crestor) 10 mg PO HS [facility] Last Admin: 02/21/18 21:06 Dose: 10 mg Tamsulosin HCl (Flomax) 0.4 mg PO DAILY [facility] Last Admin: 02/22/18 10:29 Dose: 0.4 mg Timolol Maleate (Timoptic 0.5% Ophth Soln) 0 drop OU DAILY [facility] Last Admin: 02/22/18 10:32 Dose: 1 drop - Labs Labs: 02/22/18 07:00 02/22/18 07:00 PT 25.0 SECONDS (9.7-12.2) H 02/22/18 07:00 INR 2.3 02/22/18 07:00 APTT 50 SECONDS (21-34) H 02/10/18 00:12 - Constitutional Appears: Non-toxic - Head Exam Head Exam: ATRAUMATIC - Eye Exam Eye Exam: EOMI - ENT Exam ENT Exam: Mucous Membranes Moist - Neck Exam Neck Exam: absent: Lymphadenopathy, Thyromegaly - Respiratory Exam Respiratory Exam: Clear to Ausculation Bilateral. absent: Chest Wall Tenderness , Rales - Cardiovascular Exam Cardiovascular Exam: Irregular Rhythm, Murmur - GI/Abdominal Exam GI & Abdominal Exam: Normal Bowel Sounds. absent: Organomegaly - Rectal Exam Rectal Exam: Deferred - Extremities Exam Extremities Exam: Normal Capillary Refill, Pedal Edema. absent: Calf Tenderness - Neurological Exam Neurological Exam: Alert, Oriented x3 - Psychiatric Exam Psychiatric exam: Normal Mood - Skin Skin Exam: Dry Assessment and Plan (1) Dilated cardiomyopathy Status: Acute (2) Atrial fibrillation, chronic Status: Chronic
--- NOTE | 2018-02-22 15:20 | CP.PCM.PN ---
Subjective - Date & Time of Evaluation Date of Evaluation: 02/22/18 Time of Evaluation: 10:00 - Subjective Subjective: clinically same Objective - Vital Signs/Intake and Output Vital Signs (last 24 hours): Temp Pulse Resp BP Pulse Ox 98.1 F 95 H 20 119/80 96 02/22/18 09:06 02/22/18 09:06 02/22/18 09:06 02/22/18 10:28 02/22/18 09:06 Intake and Output: 02/22/18 02/22/18 06:59 18:59 Intake Total 240 Balance 240 - Medications Medications: Current Medications Allopurinol (Zyloprim) 100 mg PO DAILY [facility] Last Admin: 02/22/18 10:29 Dose: 100 mg Amlodipine Besylate (Norvasc) 10 mg PO DAILY [facility] Last Admin: 02/22/18 10:29 Dose: 10 mg Aspirin (Ecotrin) 81 mg PO DAILY [facility] Last Admin: 02/16/18 09:54 Dose: 81 mg Brimonidine Tartrate (Alphagan 0.2% Opht) 0 ml OU DAILY [facility] Last Admin: 02/22/18 10:32 Dose: 1 drop Dextrose (Dextrose 50% Inj) 0 ml IVP .STAT PRN; Protocol PRN Reason: Hypoglycemia Protocol Dextrose (Glutose 15) 0 gm PO .ONCE PRN; Protocol PRN Reason: Hypoglycemia Protocol Furosemide (Lasix) 40 mg IVP DAILY [facility] Last Admin: 02/22/18 10:28 Dose: 40 mg Glucagon (Glucagen Diagnostic Kit) 0 mg IM .STAT PRN; Protocol PRN Reason: Hypoglycemia Protocol Insulin Aspart (Novolog) 8 unit SC AC [facility] Last Admin: 02/22/18 12:49 Dose: 8 unit Insulin Detemir (Levemir) 25 unit SC HS [facility] Last Admin: 02/21/18 21:02 Dose: Not Given Insulin Human Regular (Novolin R) 0 unit SC ACHS [facility] PRN Reason: Protocol Last Admin: 02/22/18 12:49 Dose: 2 unit Lactulose (Enulose) 20 gm PO Q12 PRN PRN Reason: Constipation Last Admin: 02/10/18 23:02 Dose: 20 gm Latanoprost (Xalatan Opht) 0 ml OU HS [facility] Last Admin: 02/21/18 21:07 Dose: 2.5 ml Losartan Potassium (Cozaar) 25 mg PO DAILY [facility] Last Admin: 02/22/18 10:29 Dose: 25 mg Metoprolol Succinate (Toprol Xl) 25 mg PO DAILY [facility] Last Admin: 02/22/18 10:29 Dose: 25 mg Ondansetron HCl (Zofran Inj) 4 mg IVP Q6 PRN PRN Reason: Nausea/Vomiting Last Admin: 02/10/18 20:03 Dose: 4 mg Pantoprazole Sodium (Protonix Ec Tab) 40 mg PO DAILY [facility] Last Admin: 02/22/18 10:29 Dose: 40 mg Rosuvastatin Calcium (Crestor) 10 mg PO HS [facility] Last Admin: 02/21/18 21:06 Dose: 10 mg Tamsulosin HCl (Flomax) 0.4 mg PO DAILY [facility] Last Admin: 02/22/18 10:29 Dose: 0.4 mg Timolol Maleate (Timoptic 0.5% Ophth Soln) 0 drop OU DAILY [facility] Last Admin: 02/22/18 10:32 Dose: 1 drop - Labs Labs: 02/22/18 07:00 02/22/18 07:00 PT 25.0 SECONDS (9.7-12.2) H 02/22/18 07:00 INR 2.3 02/22/18 07:00 APTT 50 SECONDS (21-34) H 02/10/18 00:12 - Constitutional Appears: Well - Head Exam Head Exam: ATRAUMATIC, NORMAL INSPECTION, NORMOCEPHALIC - Eye Exam Eye Exam: EOMI, Normal appearance, PERRL Pupil Exam: NORMAL ACCOMODATION, PERRL - ENT Exam ENT Exam: Mucous Membranes Moist, Normal Exam - Neck Exam Neck Exam: Full ROM, Normal Inspection. absent: Lymphadenopathy - Respiratory Exam Respiratory Exam: Decreased Breath Sounds - Cardiovascular Exam Cardiovascular Exam: REGULAR RHYTHM, +S1, +S2 - GI/Abdominal Exam GI & Abdominal Exam: Soft, Diminished Bowel Sounds - Rectal Exam Rectal Exam: Deferred Assessment and Plan - Assessment and Plan (Free Text) Plan: Acute on chronic CHF exacerbation Admit to tele -Input output, daily weight, Fluid restriction -BNP on admission 43559, (02/14) 5870 -Last Echo 07/2017 shows EF <35% -S/P AICD Cardiology consulted, Dr. Robles help appreciated - stable CHF, continue medical treatment - Questionable plan for surgery, the patient is a high risk for cardiac complication -Lasix 40mg IV -Metoprolol 25mg daily -Cozaar 25mg Hx of PE -September 2017 per - Patient was therapeutic on coumadin, but coumadin held for last three days - unsure of Dr. Miranda reasoning. Will reassess with attending. - ASA 81mg Hyperbilirubinemia T bili improved to 3.5 today Denies pain but hx of gallstones US Abd (02/15/18): Hepatomegaly, hepatic steatosis. Nodular contour suggest hepatocellular disease, perhaps cysts. Cholelithiasis - innumerable small gallstones identified. Gallbladder wall thickening in absence of sonographic Santos's sign. Abd ascites, low volume incompletely visualized. GGT WNL, Direct bilirubin elevated Dr. Jorgensen/[facility], GI constultant - help appreciated - No CBD dilatation or stone - autoimmune workup - recommend outpatient follow up Dr. Sherman, Gen Surg [employer] - No intervention at this time by surgery, the patient is a high risk for cardiac complication per cardiology Afib -EKG in the ED show Afib with frequent Ventricular paced complexes -Patient denies history of Afib -Currently rate controlled on metoprolol -Coumadin HELD for last several days -ASA 81mg -Cardiology consulted -CHADS-VASc Score 5, Stroke risk was 7.2% per year -HAS-BLED Score 2, intermediate risk 1.88-3.2% risk of major bleeding LIZZETTE on CKD Cr 1.6, GFR 54 - Cr/GFR improving since admission Lower extremity swelling LE venous doppler negative for DVT Likely secondary Chronic CHF Arterial doppler (02/14/18): Normal ankle-brachial index on right. No triphasic waveforms throughout RLE. Elevated SPENCER less reliable on left. No triphasic waveforms throughout LLE. Lower extremity chronic ulcer wound care consulted Blood culture negative x 5 days Podiatry consulted Diabetes ACHS ISS Hypoglycemia protocol Levemir 25u HS Novolog 8u AC BPH Flomax 0.4mg Daily Prophylactic measures Protonix Coumadin and ASA SCDs C/I due to leg wounds Disposition: Patient was therapeutic on coumadin, but coumadin held for last three days - unsure of Dr. Miranda reasoning. Will reassess with attending. Pt for PRINCE evaluation by PT today.
--- NOTE | 2018-02-22 19:25 | CP.PCM.PN ---
Subjective - Date & Time of Evaluation Date of Evaluation: 02/22/18 Time of Evaluation: 19:24 Objective - Vital Signs/Intake and Output Vital Signs (last 24 hours): Temp Pulse Resp BP Pulse Ox 98.4 F 95 H 20 127/84 96 02/22/18 15:32 02/22/18 15:32 02/22/18 15:32 02/22/18 15:32 02/22/18 15:32 - Medications Medications: Current Medications Allopurinol (Zyloprim) 100 mg PO DAILY [facility] Last Admin: 02/22/18 10:29 Dose: 100 mg Amlodipine Besylate (Norvasc) 10 mg PO DAILY [facility] Last Admin: 02/22/18 10:29 Dose: 10 mg Aspirin (Ecotrin) 81 mg PO DAILY [facility] Last Admin: 02/16/18 09:54 Dose: 81 mg Brimonidine Tartrate (Alphagan 0.2% Opht) 0 ml OU DAILY [facility] Last Admin: 02/22/18 10:32 Dose: 1 drop Dextrose (Dextrose 50% Inj) 0 ml IVP .STAT PRN; Protocol PRN Reason: Hypoglycemia Protocol Dextrose (Glutose 15) 0 gm PO .ONCE PRN; Protocol PRN Reason: Hypoglycemia Protocol Furosemide (Lasix) 40 mg IVP DAILY [facility] Last Admin: 02/22/18 10:28 Dose: 40 mg Glucagon (Glucagen Diagnostic Kit) 0 mg IM .STAT PRN; Protocol PRN Reason: Hypoglycemia Protocol Insulin Aspart (Novolog) 8 unit SC AC [facility] Last Admin: 02/22/18 17:12 Dose: 8 unit Insulin Detemir (Levemir) 25 unit SC HS [facility] Last Admin: 02/21/18 21:02 Dose: Not Given Insulin Human Regular (Novolin R) 0 unit SC ACHS [facility] PRN Reason: Protocol Last Admin: 02/22/18 16:45 Dose: Not Given Lactulose (Enulose) 20 gm PO Q12 PRN PRN Reason: Constipation Last Admin: 02/10/18 23:02 Dose: 20 gm Latanoprost (Xalatan Opht) 0 ml OU HS [facility] Last Admin: 02/21/18 21:07 Dose: 2.5 ml Losartan Potassium (Cozaar) 25 mg PO DAILY [facility] Last Admin: 02/22/18 10:29 Dose: 25 mg Metoprolol Succinate (Toprol Xl) 25 mg PO DAILY [facility] Last Admin: 02/22/18 10:29 Dose: 25 mg Ondansetron HCl (Zofran Inj) 4 mg IVP Q6 PRN PRN Reason: Nausea/Vomiting Last Admin: 02/10/18 20:03 Dose: 4 mg Pantoprazole Sodium (Protonix Ec Tab) 40 mg PO DAILY [facility] Last Admin: 02/22/18 10:29 Dose: 40 mg Rosuvastatin Calcium (Crestor) 10 mg PO HS [facility] Last Admin: 02/21/18 21:06 Dose: 10 mg Tamsulosin HCl (Flomax) 0.4 mg PO DAILY [facility] Last Admin: 02/22/18 10:29 Dose: 0.4 mg Timolol Maleate (Timoptic 0.5% [facility] Soln) 0 drop OU DAILY [facility] Last Admin: 02/22/18 10:32 Dose: 1 drop - Labs Labs: 02/22/18 07:00 02/22/18 07:00 PT 25.0 SECONDS (9.7-12.2) H 02/22/18 07:00 INR 2.3 02/22/18 07:00 APTT 50 SECONDS (21-34) H 02/10/18 00:12
[2018-02-22] MEDS: Insulin Detemir 100 units/ml Vial (Levemir) SC SCH (21:38)
[2018-02-22] MEDS: Latanoprost 2.5 ml Opht Soln OU SCH (21:43)
--- NOTE | 2018-02-23 06:15 | CP.PCM.PN ---
<Austin Vasquez - Last Filed: 02/23/18 11:42> Subjective - Date & Time of Evaluation Date of Evaluation: 02/23/18 Time of Evaluation: 06:12 - Subjective Subjective: PGY02 note for Dr. Miranda's service: Pt seen and examined at bedside. Nursing reports no acute events overnight. Patient found working with PT this AM. Patient denies any SOB, chest pain, or pain in his lower extremities. He states lower extremity bandages were recently changed by podiatry. Objective - Vital Signs/Intake and Output Vital Signs (last 24 hours): Temp Pulse Resp BP Pulse Ox 98.6 F 90 20 132/76 95 02/22/18 23:35 02/23/18 00:00 02/22/18 23:25 02/22/18 23:25 02/22/18 23:25 Intake and Output: 02/22/18 02/23/18 18:59 06:59 Intake Total 740 Balance 740 - Medications Medications: Current Medications Allopurinol (Zyloprim) 100 mg PO DAILY [facility] Last Admin: 02/22/18 10:29 Dose: 100 mg Amlodipine Besylate (Norvasc) 10 mg PO DAILY [facility] Last Admin: 02/22/18 10:29 Dose: 10 mg Aspirin (Ecotrin) 81 mg PO DAILY [facility] Last Admin: 02/16/18 09:54 Dose: 81 mg Brimonidine Tartrate (Alphagan 0.2% Opht) 0 ml OU DAILY [facility] Last Admin: 02/22/18 10:32 Dose: 1 drop Dextrose (Dextrose 50% Inj) 0 ml IVP .STAT PRN; Protocol PRN Reason: Hypoglycemia Protocol Dextrose (Glutose 15) 0 gm PO .ONCE PRN; Protocol PRN Reason: Hypoglycemia Protocol Furosemide (Lasix) 40 mg IVP DAILY [facility] Last Admin: 02/22/18 10:28 Dose: 40 mg Glucagon (Glucagen Diagnostic Kit) 0 mg IM .STAT PRN; Protocol PRN Reason: Hypoglycemia Protocol Insulin Aspart (Novolog) 8 unit SC AC [facility] Last Admin: 02/22/18 17:12 Dose: 8 unit Insulin Detemir (Levemir) 25 unit SC HS [facility] Last Admin: 02/22/18 21:38 Dose: Not Given Insulin Human Regular (Novolin R) 0 unit SC ACHS [facility] PRN Reason: Protocol Last Admin: 02/22/18 21:39 Dose: Not Given Lactulose (Enulose) 20 gm PO Q12 PRN PRN Reason: Constipation Last Admin: 02/10/18 23:02 Dose: 20 gm Latanoprost (Xalatan Opht) 0 ml OU HS [facility] Last Admin: 02/22/18 21:43 Dose: 2.5 ml Losartan Potassium (Cozaar) 25 mg PO DAILY [facility] Last Admin: 02/22/18 10:29 Dose: 25 mg Metoprolol Succinate (Toprol Xl) 25 mg PO DAILY [facility] Last Admin: 02/22/18 10:29 Dose: 25 mg Ondansetron HCl (Zofran Inj) 4 mg IVP Q6 PRN PRN Reason: Nausea/Vomiting Last Admin: 02/10/18 20:03 Dose: 4 mg Pantoprazole Sodium (Protonix Ec Tab) 40 mg PO DAILY [facility] Last Admin: 02/22/18 10:29 Dose: 40 mg Rosuvastatin Calcium (Crestor) 10 mg PO HS [facility] Last Admin: 02/22/18 21:42 Dose: 10 mg Tamsulosin HCl (Flomax) 0.4 mg PO DAILY [facility] Last Admin: 02/22/18 10:29 Dose: 0.4 mg Timolol Maleate (Timoptic 0.5% Ophth Soln) 0 drop OU DAILY [facility] Last Admin: 02/22/18 10:32 Dose: 1 drop - Labs Labs: 02/22/18 07:00 02/22/18 07:00 PT 25.0 SECONDS (9.7-12.2) H 02/22/18 07:00 INR 2.3 02/22/18 07:00 APTT 50 SECONDS (21-34) H 02/10/18 00:12 - Additional Findings Additional findings: - Constitutional Appears: Non-toxic, No Acute Distress - Head Exam Head Exam: ATRAUMATIC, NORMOCEPHALIC - Eye Exam Eye Exam: Normal appearance, PERRL - scleral icterus - ENT Exam ENT Exam: Mucous Membranes Moist - Neck Exam Neck Exam: Normal Inspection - Respiratory Exam Respiratory Exam: Clear to Ausculation Bilateral, NORMAL BREATHING PATTERN. absent: Respiratory Distress - Cardiovascular Exam Cardiovascular Exam: REGULAR RHYTHM, +S1, +S2. absent: Murmur - no JVD - GI/Abdominal Exam GI & Abdominal Exam: Soft, Normal Bowel Sounds. absent: Tenderness - Extremities Exam Extremities Exam: Pedal Edema Additional comments: bilateral LE wrapped with freshly changed gauze/coban - Neurological Exam Neurological Exam: Alert, Awake, Oriented x3 - Psychiatric Exam Psychiatric exam: Normal Affect, Normal Mood - Skin Skin Exam: Dry, Warm Assessment and Plan - Assessment and Plan (Free Text) Plan: Acute on chronic CHF exacerbation Admit to tele -Input output, daily weight, Fluid restriction -BNP on admission 06935, (02/14) 5870 -Last Echo 07/2017 shows EF <35% -S/P AICD Cardiology consulted, Dr. Robles help appreciated - stable CHF, continue medical treatment -Lasix 40mg IV Daily -Metoprolol 25mg daily -Cozaar 25mg Hx of PE -September 2017 per - Coumadin dosing adjusted to keep therapeutic - ASA 81mg Afib -EKG in the ED show Afib with frequent Ventricular paced complexes -Patient denies history of Afib -Currently rate controlled on metoprolol -Coumadin dosing adjusted to keep therapeutic -ASA 81mg -Cardiology consulted -CHADS-VASc Score 5, Stroke risk was 7.2% per year -HAS-BLED Score 2, intermediate risk 1.88-3.2% risk of major bleeding LIZZETTE on CKD Cr 1.6, GFR 54 - Cr/GFR improving since admission Lower extremity swelling LE venous doppler negative for DVT Likely secondary Chronic CHF Arterial doppler (02/14/18): Normal ankle-brachial index on right. No triphasic waveforms throughout RLE. Elevated SPENCER less reliable on left. No triphasic waveforms throughout LLE. Lower extremity chronic ulcer wound care consulted Blood culture negative x 5 days Podiatry consulted Diabetes ACHS ISS Hypoglycemia protocol Levemir 25u HS Novolog 8u AC Hyperbilirubinemia T bili improved to 3.4 today Denies pain but hx of gallstones US Abd (02/15/18): Hepatomegaly, hepatic steatosis. Nodular contour suggest hepatocellular disease, perhaps cysts. Cholelithiasis - innumerable small gallstones identified. Gallbladder wall thickening in absence of sonographic Santos's sign. Abd ascites, low volume incompletely visualized. GGT WNL, Direct bilirubin elevated Dr. Jorgensen/[facility], GI constultant - help appreciated - No CBD dilatation or stone - autoimmune workup - recommend outpatient follow up Dr. Sherman, Gen Surg Staff Cytotechnologist - No intervention at this time by surgery, the patient is a high risk for cardiac complication per cardiology BPH Flomax 0.4mg Daily Prophylactic measures Protonix Coumadin and ASA SCDs C/I due to leg wounds Disposition: Pt worked with PT this AM. Awaiting evaluation in setting of pending discharge. Adjusting coumadin dose to keep therapeutic. All management per Dr. Miranda <Darien Miranda S - Last Filed: 02/24/18 00:33> Objective - Vital Signs/Intake and Output Vital Signs (last 24 hours): Temp Pulse Resp BP Pulse Ox 98.0 F 98 H 20 130/92 H 100 02/23/18 15:54 02/23/18 15:54 02/23/18 15:54 02/23/18 15:54 02/23/18 15:54 - Medications Medications: Current Medications Allopurinol (Zyloprim) 100 mg PO DAILY [facility] Last Admin: 02/23/18 10:57 Dose: 100 mg Amlodipine Besylate (Norvasc) 10 mg PO DAILY [facility] Last Admin: 02/23/18 10:57 Dose: 10 mg Aspirin (Ecotrin) 81 mg PO DAILY [facility] Last Admin: 02/23/18 10:55 Dose: 81 mg Brimonidine Tartrate (Alphagan 0.2% Opht) 0 ml OU DAILY [facility] Last Admin: 02/23/18 10:57 Dose: 1 drop Dextrose (Dextrose 50% Inj) 0 ml IVP .STAT PRN; Protocol PRN Reason: Hypoglycemia Protocol Dextrose (Glutose 15) 0 gm PO .ONCE PRN; Protocol PRN Reason: Hypoglycemia Protocol Furosemide (Lasix) 40 mg IVP DAILY [facility] Last Admin: 02/23/18 11:27 Dose: 40 mg Glucagon (Glucagen Diagnostic Kit) 0 mg IM .STAT PRN; Protocol PRN Reason: Hypoglycemia Protocol Insulin Aspart (Novolog) 8 unit SC AC [facility] Last Admin: 02/23/18 18:00 Dose: 8 unit Insulin Detemir (Levemir) 25 unit SC HS [facility] Last Admin: 02/23/18 21:56 Dose: Not Given Insulin Human Regular (Novolin R) 0 unit SC ACHS [facility] PRN Reason: Protocol Last Admin: 02/23/18 21:54 Dose: Not Given Lactulose (Enulose) 20 gm PO Q12 PRN PRN Reason: Constipation Last Admin: 02/10/18 23:02 Dose: 20 gm Latanoprost (Xalatan Opht) 0 ml OU HS [facility] Last Admin: 02/23/18 21:54 Dose: 2.5 ml Losartan Potassium (Cozaar) 25 mg PO DAILY [facility] Last Admin: 02/23/18 10:57 Dose: 25 mg Metoprolol Succinate (Toprol Xl) 25 mg PO DAILY [facility] Last Admin: 02/23/18 10:57 Dose: 25 mg Ondansetron HCl (Zofran Inj) 4 mg IVP Q6 PRN PRN Reason: Nausea/Vomiting Last Admin: 02/10/18 20:03 Dose: 4 mg Pantoprazole Sodium (Protonix Ec Tab) 40 mg PO DAILY [facility] Last Admin: 02/23/18 10:57 Dose: 40 mg Rosuvastatin Calcium (Crestor) 10 mg PO HS [facility] Last Admin: 02/23/18 21:52 Dose: 10 mg Tamsulosin HCl (Flomax) 0.4 mg PO DAILY [facility] Last Admin: 02/23/18 10:57 Dose: 0.4 mg Timolol Maleate (Timoptic 0.5% Ophth Soln) 0 drop OU DAILY [facility] Last Admin: 02/23/18 10:58 Dose: 1 drop - Labs Labs: 02/23/18 07:23 02/23/18 07:23 PT 23.4 SECONDS (9.7-12.2) H 02/23/18 07:23 INR 2.1 02/23/18 07:23 APTT 50 SECONDS (21-34) H 02/10/18 00:12 Attending/Attestation - Attestation I have personally seen and examined this patient.: Yes I have fully participated in the care of the patient.: Yes I have reviewed all pertinent clinical information, including history, physical exam and plan: Yes Notes (Text): case seem amd d/w staff
[2018-02-23 07:41] LABS: INR 2.1; PROTHROMBIN TIME 23.4 SECONDS (9.7-12.2)
[2018-02-23 07:42] LABS: BASO # 0.1 K/uL (0.0-0.2); EOS # 0.3 K/uL (0.0-0.7); EOS % 4.2 % (0.0-4.0); HEMOGLOBIN 11.6 g/dL (12.0-18.0); MEAN CELL VOLUME 83.6 fL (80.0-94.0); MEAN CORPUSCULAR HEMOGLOBIN 27.4 pg (27.0-31.0); MEAN CORPUSCULAR HGB CONC 32.7 g/dL (33.0-37.0); MEAN PLATELET VOLUME 8.9 fL (7.2-11.7); MONO # 0.8 K/uL (0.0-0.8); MONO % 10.7 % (0.0-10.0); NEUT # 5.7 K/uL (1.8-7.0); NEUT % 71.1 % (50.0-75.0); RBC 4.23 Mil/uL (4.40-5.90); RED CELL DISTRIBUTION WIDTH 19.1 % (11.5-14.5)
[2018-02-23] MEDS: (Novolin R) Insulin Human Regular 100 units/ml vial SC SCH ×4 (08:05→21:54)
[2018-02-23 08:10] LABS: ALB/GLOB RATIO 0.9 (1.0-2.1); ALBUMIN 3.5 g/dL (3.5-5.0); CALCIUM 8.5 mg/dl (8.6-10.4)
[2018-02-23] MEDS: (Novolog) Insulin Aspart, Recombinant 100 u/ml 10 ml vial SC SCH ×3 (08:14→18:00)
[2018-02-23] MEDS: Brimonidine 0.2% Opth Sol (5ml) OU SCH (10:57)
[2018-02-23] MEDS: Pantoprazole 40 mg EC Tab PO SCH (10:57)
[2018-02-23] MEDS: Metoprolol Succinate 25 mg XL Tab PO SCH (10:57)
--- NOTE | 2018-02-23 12:09 | CP.PCM.PN ---
<Shanta Townsend - Last Filed: 02/23/18 12:06> Subjective - Date & Time of Evaluation Date of Evaluation: 02/23/18 Time of Evaluation: 12:06 - Subjective Subjective: Podiatry Progress note- Dr. Carrillo 62 year old male seen and evaluated for left leg edema and superficial ulcerations. Patient is seen resting comfortably in bed in NAD, and AA0x3. Dressings remain clean dry and intact. Patient reports that he is tolerating the UNNA boot placed on. Denies of any calf pain or pain to the LE during visitation.. ROGERIO wrap over UNNA boot intact. No strikethrough. Patient denies of any N/V/F/C or SOB today. Objective - Vital Signs/Intake and Output Vital Signs (last 24 hours): Temp Pulse Resp BP Pulse Ox 98.2 F 92 H 20 125/86 97 02/23/18 08:14 02/23/18 08:14 02/23/18 08:14 02/23/18 11:27 02/23/18 08:14 Intake and Output: 02/23/18 02/23/18 06:59 18:59 Intake Total 740 Balance 740 - Medications Medications: Current Medications Allopurinol (Zyloprim) 100 mg PO DAILY [facility] Last Admin: 02/23/18 10:57 Dose: 100 mg Amlodipine Besylate (Norvasc) 10 mg PO DAILY [facility] Last Admin: 02/23/18 10:57 Dose: 10 mg Aspirin (Ecotrin) 81 mg PO DAILY [facility] Last Admin: 02/16/18 09:54 Dose: 81 mg Brimonidine Tartrate (Alphagan 0.2% Opht) 0 ml OU DAILY [facility] Last Admin: 02/23/18 10:57 Dose: 1 drop Dextrose (Dextrose 50% Inj) 0 ml IVP .STAT PRN; Protocol PRN Reason: Hypoglycemia Protocol Dextrose (Glutose 15) 0 gm PO .ONCE PRN; Protocol PRN Reason: Hypoglycemia Protocol Furosemide (Lasix) 40 mg IVP DAILY [facility] Last Admin: 02/23/18 11:27 Dose: 40 mg Glucagon (Glucagen Diagnostic Kit) 0 mg IM .STAT PRN; Protocol PRN Reason: Hypoglycemia Protocol Insulin Aspart (Novolog) 8 unit SC AC [facility] Last Admin: 02/23/18 08:14 Dose: 8 unit Insulin Detemir (Levemir) 25 unit SC HS [facility] Last Admin: 02/22/18 21:38 Dose: Not Given Insulin Human Regular (Novolin R) [address] [facility] PRN Reason: Protocol Last Admin: 02/23/18 08:05 Dose: Not Given Lactulose (Enulose) 20 gm PO Q12 PRN PRN Reason: Constipation Last Admin: 02/10/18 23:02 Dose: 20 gm Latanoprost (Xalatan Opht) 0 ml OU HS [facility] Last Admin: 02/22/18 21:43 Dose: 2.5 ml Losartan Potassium (Cozaar) 25 mg PO DAILY [facility] Last Admin: 02/23/18 10:57 Dose: 25 mg Metoprolol Succinate (Toprol Xl) 25 mg PO DAILY [facility] Last Admin: 02/23/18 10:57 Dose: 25 mg Ondansetron HCl (Zofran Inj) 4 mg IVP Q6 PRN PRN Reason: Nausea/Vomiting Last Admin: 02/10/18 20:03 Dose: 4 mg Pantoprazole Sodium (Protonix Ec Tab) 40 mg PO DAILY [facility] Last Admin: 02/23/18 10:57 Dose: 40 mg Rosuvastatin Calcium (Crestor) 10 mg PO HS [facility] Last Admin: 02/22/18 21:42 Dose: 10 mg Tamsulosin HCl (Flomax) 0.4 mg PO DAILY [facility] Last Admin: 02/23/18 10:57 Dose: 0.4 mg Timolol Maleate (Timoptic 0.5% Ophth Soln) 0 drop OU DAILY [facility] Last Admin: 02/23/18 10:58 Dose: 1 drop Warfarin Sodium (Coumadin) 2 mg PO 1800 [facility] Stop: 02/23/18 18:01 - Labs Labs: 02/23/18 07:23 02/23/18 07:23 PT 23.4 SECONDS (9.7-12.2) H 02/23/18 07:23 INR 2.1 02/23/18 07:23 APTT 50 SECONDS (21-34) H 02/10/18 00:12 - Constitutional Appears: Well, Non-toxic, No Acute Distress - Extremities Exam Additional comments: Left lower extremity exam DERM: Superficial open ulceration noted to medial and lateral aspect of left leg measuring 3cm x 2.5xm x 0.3cm with granular base. Serous drainage noted from the ulceration. No mal-odor noted. Mild erythema noted to left leg. No purulent discharge noted. No PTB VASC: Left lower extremity cold to touch. Bilaterally edema noted L>R. Non- palpable DP and PT noted bilaterally, NEURO UROLOGIST less than 3 seconds noted to all digits NEURO: Gross sensation intact ORTHO: Decreased ROM noted to all joints distal to anklr joint - Neurological Exam Neurological Exam: Alert, Awake, Oriented x3 - Psychiatric Exam Psychiatric exam: Normal Affect, Normal Mood Assessment and Plan - Assessment and Plan (Free Text) Assessment: 62 yo male patient presenting with bilateral lower extremity edema and superficial ulceration to left leg Plan: Patient was seen, evaluated Plan discussed with attending Dr. Carrillo labs and vitals reviewed; afebrile, WBC 8.0 Bilateral cleansed with saline, applied xeroform DSD to left leg and ROGERIO bandage to right lower extremity SPENCER R: 1.26, L-1.31 Podiatry will continue to follow inhouse <Deangelo Carrillo - Last Filed: 02/23/18 18:45> Objective - Vital Signs/Intake and Output Vital Signs (last 24 hours): Temp Pulse Resp BP Pulse Ox 98.0 F 98 H 20 130/92 H 100 02/23/18 15:54 02/23/18 15:54 02/23/18 15:54 02/23/18 15:54 02/23/18 15:54 Intake and Output: 02/23/18 02/23/18 06:59 18:59 Intake Total 740 Balance 740 - Medications Medications: Current Medications Allopurinol (Zyloprim) 100 mg PO DAILY [facility] Last Admin: 02/23/18 10:57 Dose: 100 mg Amlodipine Besylate (Norvasc) 10 mg PO DAILY [facility] Last Admin: 02/23/18 10:57 Dose: 10 mg Aspirin (Ecotrin) 81 mg PO DAILY [facility] Last Admin: 02/23/18 10:55 Dose: 81 mg Brimonidine Tartrate (Alphagan 0.2% Opht) 0 ml OU DAILY [facility] Last Admin: 02/23/18 10:57 Dose: 1 drop Dextrose (Dextrose 50% Inj) 0 ml IVP .STAT PRN; Protocol PRN Reason: Hypoglycemia Protocol Dextrose (Glutose 15) 0 gm PO .ONCE PRN; Protocol PRN Reason: Hypoglycemia Protocol Furosemide (Lasix) 40 mg IVP DAILY [facility] Last Admin: 02/23/18 11:27 Dose: 40 mg Glucagon (Glucagen Diagnostic Kit) 0 mg IM .STAT PRN; Protocol PRN Reason: Hypoglycemia Protocol Insulin Aspart (Novolog) 8 unit SC AC [facility] Last Admin: 02/23/18 12:12 Dose: Not Given Insulin Detemir (Levemir) 25 unit SC HS [facility] Last Admin: 02/22/18 21:38 Dose: Not Given Insulin Human Regular (Novolin R) 0 unit SC ACHS [facility] PRN Reason: Protocol Last Admin: 02/23/18 12:30 Dose: Not Given Lactulose (Enulose) 20 gm PO Q12 PRN PRN Reason: Constipation Last Admin: 02/10/18 23:02 Dose: 20 gm Latanoprost (Xalatan Opht) 0 ml OU HS [facility] Last Admin: 02/22/18 21:43 Dose: 2.5 ml Losartan Potassium (Cozaar) 25 mg PO DAILY [facility] Last Admin: 02/23/18 10:57 Dose: 25 mg Metoprolol Succinate (Toprol Xl) 25 mg PO DAILY [facility] Last Admin: 02/23/18 10:57 Dose: 25 mg Ondansetron HCl (Zofran Inj) 4 mg IVP Q6 PRN PRN Reason: Nausea/Vomiting Last Admin: 02/10/18 20:03 Dose: 4 mg Pantoprazole Sodium (Protonix Ec Tab) 40 mg PO DAILY [facility] Last Admin: 02/23/18 10:57 Dose: 40 mg Rosuvastatin Calcium (Crestor) 10 mg PO HS [facility] Last Admin: 02/22/18 21:42 Dose: 10 mg Tamsulosin HCl (Flomax) 0.4 mg PO DAILY [facility] Last Admin: 02/23/18 10:57 Dose: 0.4 mg Timolol Maleate (Timoptic 0.5% Ophth Soln) 0 drop OU DAILY [facility] Last Admin: 02/23/18 10:58 Dose: 1 drop - Labs Labs: 02/23/18 07:23 02/23/18 07:23 PT 23.4 SECONDS (9.7-12.2) H 02/23/18 07:23 INR 2.1 02/23/18 07:23 APTT 50 SECONDS (21-34) H 02/10/18 00:12 Assessment and Plan - Assessment and Plan (Free Text) Plan: pt seen at bedside .agree with above findings also venous duplex scan reviewed and negative for DVT . Applied Xeroform Gauze and UNNA boots/Coban b/l /DR Deangelo Carrillo
--- NOTE | 2018-02-23 15:42 | VASCLAB ---
PROCEDURE: Left Lower Extremity Venous Duplex Exam. HISTORY: DVT, Left PRIORS: Left lower extremity ultrasound dated 02/09/2018. TECHNIQUE: Left common femoral, femoral, popliteal and posterior tibial, peroneal and great saphenous veins were evaluated. Flow was assessed with color Doppler, compressibility, assessment of phasic flow and augmentation response. Report prepared by CYNDY [place], RVT FINDINGS: LEFT: 1. Common Femoral Vein: 1.1. Compressibility - Fully compressible: Thrombus - None : Flow - Phasic: Augmentation -Normal: Reflux - None. 2. Femoral Vein: 2.1. Compressibility - Fully compressible: Thrombus - None: Flow - Phasic: Augmentation -Normal: Reflux - None. 3. Popliteal Vein: 3.1. Compressibility - Fully compressible: Thrombus - None: Flow - Phasic: Augmentation -Normal: Reflux - None. 4. Posterior Tibial Vein: 4.1. Compressibility - : Thrombus - : Flow - : Augmentation -: Reflux - . 5. Peroneal Vein: 5.1. Compressibility - : Thrombus - : Flow - : Augmentation -: Reflux - . 6. Great Saphenous Vein: 6.1. Compressibility - Fully compressible: Thrombus - None: Flow - Phasic: Augmentation - Normal: Reflux - None. OTHER FINDINGS: Technically limited study due to severe swelling of the leg. IMPRESSION: No evidence of deep or superficial vein thrombosis of the left lower extremity with excellent venous flow. Normal valve function noted of the left side. Normal venous flow noted in the right common femoral vein.
--- NOTE | 2018-02-23 17:16 | CP.PCM.PN ---
Subjective - Date & Time of Evaluation Date of Evaluation: 02/23/18 Time of Evaluation: 17:16 Objective - Vital Signs/Intake and Output Vital Signs (last 24 hours): Temp Pulse Resp BP Pulse Ox 98.0 F 98 H 20 130/92 H 100 02/23/18 15:54 02/23/18 15:54 02/23/18 15:54 02/23/18 15:54 02/23/18 15:54 Intake and Output: 02/23/18 02/23/18 06:59 18:59 Intake Total 740 Balance 740 - Medications Medications: Current Medications Allopurinol (Zyloprim) 100 mg PO DAILY [facility] Last Admin: 02/23/18 10:57 Dose: 100 mg Amlodipine Besylate (Norvasc) 10 mg PO DAILY [facility] Last Admin: 02/23/18 10:57 Dose: 10 mg Aspirin (Ecotrin) 81 mg PO DAILY [facility] Last Admin: 02/23/18 10:55 Dose: 81 mg Brimonidine Tartrate (Alphagan 0.2% Opht) 0 ml OU DAILY [facility] Last Admin: 02/23/18 10:57 Dose: 1 drop Dextrose (Dextrose 50% Inj) 0 ml IVP .STAT PRN; Protocol PRN Reason: Hypoglycemia Protocol Dextrose (Glutose 15) 0 gm PO .ONCE PRN; Protocol PRN Reason: Hypoglycemia Protocol Furosemide (Lasix) 40 mg IVP DAILY [facility] Last Admin: 02/23/18 11:27 Dose: 40 mg Glucagon (Glucagen Diagnostic Kit) 0 mg IM .STAT PRN; Protocol PRN Reason: Hypoglycemia Protocol Insulin Aspart (Novolog) 8 unit SC AC [facility] Last Admin: 02/23/18 12:12 Dose: Not Given Insulin Detemir (Levemir) 25 unit SC HS [facility] Last Admin: 02/22/18 21:38 Dose: Not Given Insulin Human Regular (Novolin R) 0 unit SC ACHS [facility] PRN Reason: Protocol Last Admin: 02/23/18 12:30 Dose: Not Given Lactulose (Enulose) 20 gm PO Q12 PRN PRN Reason: Constipation Last Admin: 02/10/18 23:02 Dose: 20 gm Latanoprost (Xalatan Opht) 0 ml OU HS [facility] Last Admin: 02/22/18 21:43 Dose: 2.5 ml Losartan Potassium (Cozaar) 25 mg PO DAILY [facility] Last Admin: 02/23/18 10:57 Dose: 25 mg Metoprolol Succinate (Toprol Xl) 25 mg PO DAILY [facility] Last Admin: 02/23/18 10:57 Dose: 25 mg Ondansetron HCl (Zofran Inj) 4 mg IVP Q6 PRN PRN Reason: Nausea/Vomiting Last Admin: 02/10/18 20:03 Dose: 4 mg Pantoprazole Sodium (Protonix Ec Tab) 40 mg PO DAILY [facility] Last Admin: 02/23/18 10:57 Dose: 40 mg Rosuvastatin Calcium (Crestor) 10 mg PO HS [facility] Last Admin: 02/22/18 21:42 Dose: 10 mg Tamsulosin HCl (Flomax) 0.4 mg PO DAILY [facility] Last Admin: 02/23/18 10:57 Dose: 0.4 mg Timolol Maleate (Timoptic 0.5% Oph Soln) 0 drop OU DAILY [facility] Last Admin: 02/23/18 10:58 Dose: 1 drop Warfarin Sodium (Coumadin) 2 mg PO 1800 [facility] Stop: 02/23/18 18:01 - Labs Labs: 02/23/18 07:23 02/23/18 07:23 PT 23.4 SECONDS (9.7-12.2) H 02/23/18 07:23 INR 2.1 02/23/18 07:23 APTT 50 SECONDS (21-34) H 02/10/18 00:12
--- NOTE | 2018-02-23 19:04 | CP.PCM.PN ---
Subjective - Date & Time of Evaluation Date of Evaluation: 02/23/18 Time of Evaluation: 11:00 - Subjective Subjective: clinically same Objective - Vital Signs/Intake and Output Vital Signs (last 24 hours): Temp Pulse Resp BP Pulse Ox 98.0 F 98 H 20 130/92 H 100 02/23/18 15:54 02/23/18 15:54 02/23/18 15:54 02/23/18 15:54 02/23/18 15:54 - Medications Medications: Current Medications Allopurinol (Zyloprim) 100 mg PO DAILY [facility] Last Admin: 02/23/18 10:57 Dose: 100 mg Amlodipine Besylate (Norvasc) 10 mg PO DAILY [facility] Last Admin: 02/23/18 10:57 Dose: 10 mg Aspirin (Ecotrin) 81 mg PO DAILY [facility] Last Admin: 02/23/18 10:55 Dose: 81 mg Brimonidine Tartrate (Alphagan 0.2% Opht) 0 ml OU DAILY [facility] Last Admin: 02/23/18 10:57 Dose: 1 drop Dextrose (Dextrose 50% Inj) 0 ml IVP .STAT PRN; Protocol PRN Reason: Hypoglycemia Protocol Dextrose (Glutose 15) 0 gm PO .ONCE PRN; Protocol PRN Reason: Hypoglycemia Protocol Furosemide (Lasix) 40 mg IVP DAILY [facility] Last Admin: 02/23/18 11:27 Dose: 40 mg Glucagon (Glucagen Diagnostic Kit) 0 mg IM .STAT PRN; Protocol PRN Reason: Hypoglycemia Protocol Insulin Aspart (Novolog) 8 unit SC AC [facility] Last Admin: 02/23/18 18:00 Dose: 8 unit Insulin Detemir (Levemir) 25 unit SC HS [facility] Last Admin: 02/22/18 21:38 Dose: Not Given Insulin Human Regular (Novolin R) 0 unit SC ACHS [facility] PRN Reason: Protocol Last Admin: 02/23/18 17:30 Dose: Not Given Lactulose (Enulose) 20 gm PO Q12 PRN PRN Reason: Constipation Last Admin: 02/10/18 23:02 Dose: 20 gm Latanoprost (Xalatan Opht) 0 ml OU HS [facility] Last Admin: 02/22/18 21:43 Dose: 2.5 ml Losartan Potassium (Cozaar) 25 mg PO DAILY [facility] Last Admin: 02/23/18 10:57 Dose: 25 mg Metoprolol Succinate (Toprol Xl) 25 mg PO DAILY [facility] Last Admin: 02/23/18 10:57 Dose: 25 mg Ondansetron HCl (Zofran Inj) 4 mg IVP Q6 PRN PRN Reason: Nausea/Vomiting Last Admin: 02/10/18 20:03 Dose: 4 mg Pantoprazole Sodium (Protonix Ec Tab) 40 mg PO DAILY [facility] Last Admin: 02/23/18 10:57 Dose: 40 mg Rosuvastatin Calcium (Crestor) 10 mg PO HS [facility] Last Admin: 02/22/18 21:42 Dose: 10 mg Tamsulosin HCl (Flomax) 0.4 mg PO DAILY [facility] Last Admin: 02/23/18 10:57 Dose: 0.4 mg Timolol Maleate (Timoptic 0.5% Oph Soln) 0 drop OU DAILY [facility] Last Admin: 02/23/18 10:58 Dose: 1 drop - Labs Labs: 02/23/18 07:23 02/23/18 07:23 PT 23.4 SECONDS (9.7-12.2) H 02/23/18 07:23 INR 2.1 02/23/18 07:23 APTT 50 SECONDS (21-34) H 02/10/18 00:12 - Constitutional Appears: Well - Head Exam Head Exam: ATRAUMATIC, NORMAL INSPECTION, NORMOCEPHALIC - Eye Exam Eye Exam: EOMI, Normal appearance, PERRL Pupil Exam: NORMAL ACCOMODATION, PERRL - ENT Exam ENT Exam: Mucous Membranes Moist, Normal Exam - Neck Exam Neck Exam: Full ROM, Normal Inspection. absent: Lymphadenopathy - Respiratory Exam Respiratory Exam: Decreased Breath Sounds - Cardiovascular Exam Cardiovascular Exam: REGULAR RHYTHM, +S1, +S2 - GI/Abdominal Exam GI & Abdominal Exam: Soft, Diminished Bowel Sounds - Rectal Exam Rectal Exam: Deferred Assessment and Plan - Assessment and Plan (Free Text) Plan: Acute on chronic CHF exacerbation Admit to tele -Input output, daily weight, Fluid restriction -BNP on admission 68286, (02/14) 5870 -Last Echo 07/2017 shows EF <35% -S/P AICD Cardiology consulted, Dr. Robles help appreciated - stable CHF, continue medical treatment -Lasix 40mg IV Daily -Metoprolol 25mg daily -Cozaar 25mg Hx of PE -September 2017 per - Coumadin dosing adjusted to keep therapeutic - ASA 81mg Afib -EKG in the ED show Afib with frequent Ventricular paced complexes -Patient denies history of Afib -Currently rate controlled on metoprolol -Coumadin dosing adjusted to keep therapeutic -ASA 81mg -Cardiology consulted -CHADS-VASc Score 5, Stroke risk was 7.2% per year -HAS-BLED Score 2, intermediate risk 1.88-3.2% risk of major bleeding LIZZETTE on CKD Cr 1.6, GFR 54 - Cr/GFR improving since admission Lower extremity swelling LE venous doppler negative for DVT Likely secondary Chronic CHF Arterial doppler (02/14/18): Normal ankle-brachial index on right. No triphasic waveforms throughout RLE. Elevated SPENCER less reliable on left. No triphasic waveforms throughout LLE. Lower extremity chronic ulcer wound care consulted Blood culture negative x 5 days Podiatry consulted Diabetes ACHS ISS Hypoglycemia protocol Levemir 25u HS Novolog 8u AC Hyperbilirubinemia T bili improved to 3.4 today Denies pain but hx of gallstones US Abd (02/15/18): Hepatomegaly, hepatic steatosis. Nodular contour suggest hepatocellular disease, perhaps cysts. Cholelithiasis - innumerable small gallstones identified. Gallbladder wall thickening in absence of sonographic Santos's sign. Abd ascites, low volume incompletely visualized. GGT WNL, Direct bilirubin elevated Dr. Jorgensen/[facility], GI constultant - help appreciated - No CBD dilatation or stone - autoimmune workup - recommend outpatient follow up Dr. 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 Awaiting evaluation in setting of pending discharge. Adjusting coumadin dose to keep therapeutic
[2018-02-23] MEDS: Latanoprost 2.5 ml Opht Soln OU SCH (21:54)
[2018-02-23] MEDS: Insulin Detemir 100 units/ml Vial (Levemir) SC SCH (21:56)
[2018-02-24] MEDS: (Novolin R) Insulin Human Regular 100 units/ml vial SC SCH ×3 (07:57→17:10)
[2018-02-24 08:04] LABS: BASO # 0.1 K/uL (0.0-0.2); BASO % 1.2 % (0.0-2.0); EOS # 0.3 K/uL (0.0-0.7); EOS % 3.6 % (0.0-4.0); HEMOGLOBIN 11.4 g/dL (12.0-18.0); LYMPH # 0.9 K/uL (1.0-4.3); LYMPH % 10.4 % (20.0-40.0); MEAN CELL VOLUME 84.3 fL (80.0-94.0); MEAN CORPUSCULAR HEMOGLOBIN 26.8 pg (27.0-31.0); MEAN CORPUSCULAR HGB CONC 31.8 g/dL (33.0-37.0); MEAN PLATELET VOLUME 9.2 fL (7.2-11.7); MONO # 0.9 K/uL (0.0-0.8); MONO % 10.3 % (0.0-10.0); NEUT # 6.2 K/uL (1.8-7.0); NEUT % 74.5 % (50.0-75.0); NRBC % 0.1 % (0.0-2.0); PROTHROMBIN TIME 21.5 SECONDS (9.7-12.2); RBC 4.24 Mil/uL (4.40-5.90); RED CELL DISTRIBUTION WIDTH 18.9 % (11.5-14.5); WHITE BLOOD COUNT 8.3 K/uL (4.8-10.8)
[2018-02-24] MEDS: (Novolog) Insulin Aspart, Recombinant 100 u/ml 10 ml vial SC SCH ×3 (08:07→17:10)
[2018-02-24 08:20] LABS: ALB/GLOB RATIO 0.9 (1.0-2.1); ALBUMIN 3.2 g/dL (3.5-5.0); CALCIUM 8.9 mg/dl (8.6-10.4)
[2018-02-24] MEDS: Metoprolol Succinate 25 mg XL Tab PO SCH (10:01)
[2018-02-24] MEDS: Pantoprazole 40 mg EC Tab PO SCH (10:01)
[2018-02-24] MEDS: Brimonidine 0.2% Opth Sol (5ml) OU SCH (10:01)
--- NOTE | 2018-02-24 10:29 | CP.PCM.PN ---
Subjective - Date & Time of Evaluation Date of Evaluation: 02/24/18 Time of Evaluation: 10:28 - Subjective Subjective: Progress Note for Dr. Miranda Patient seen and examined at bedside. Nursing reports no acute events overnight. Patient is resting in bed comfortably. Patient no longer complains of shortness of breath and lower extremity pain. He further denies dizziness, chest pain, nausea, vomiting, or diarrhea. Objective - Vital Signs/Intake and Output Vital Signs (last 24 hours): Temp Pulse Resp BP Pulse Ox 98.2 F 87 20 127/87 95 02/24/18 08:37 02/24/18 08:42 02/24/18 08:37 02/24/18 10:06 02/24/18 08:37 Intake and Output: 02/24/18 02/24/18 06:59 18:59 Intake Total 600 Balance 600 - Medications Medications: Current Medications Allopurinol (Zyloprim) 100 mg PO DAILY [facility] Last Admin: 02/24/18 10:01 Dose: 100 mg Amlodipine Besylate (Norvasc) 10 mg PO DAILY [facility] Last Admin: 02/24/18 10:01 Dose: 10 mg Aspirin (Ecotrin) 81 mg PO DAILY [facility] Last Admin: 02/23/18 10:55 Dose: 81 mg Brimonidine Tartrate (Alphagan 0.2% Opht) 0 ml OU DAILY [facility] Last Admin: 02/24/18 10:01 Dose: 1 drop Dextrose (Dextrose 50% Inj) 0 ml IVP .STAT PRN; Protocol PRN Reason: Hypoglycemia Protocol Dextrose (Glutose 15) 0 gm PO .ONCE PRN; Protocol PRN Reason: Hypoglycemia Protocol Furosemide (Lasix) 40 mg IVP DAILY [facility] Last Admin: 02/24/18 10:06 Dose: 40 mg Glucagon (Glucagen Diagnostic Kit) 0 mg IM .STAT PRN; Protocol PRN Reason: Hypoglycemia Protocol Insulin Aspart (Novolog) 8 unit SC AC [facility] Last Admin: 02/24/18 08:07 Dose: 8 unit Insulin Detemir (Levemir) 25 unit SC HS [facility] Last Admin: 02/23/18 21:56 Dose: Not Given Insulin Human Regular (Novolin R) 0 unit SC ACHS [facility] PRN Reason: Protocol Last Admin: 02/24/18 07:57 Dose: Not Given Lactulose (Enulose) 20 gm PO Q12 PRN PRN Reason: Constipation Last Admin: 02/10/18 23:02 Dose: 20 gm Latanoprost (Xalatan Opht) 0 ml OU HS [facility] Last Admin: 02/23/18 21:54 Dose: 2.5 ml Losartan Potassium (Cozaar) 25 mg PO DAILY [facility] Last Admin: 02/24/18 10:01 Dose: 25 mg Metoprolol Succinate (Toprol Xl) 25 mg PO DAILY [facility] Last Admin: 02/24/18 10:01 Dose: 25 mg Ondansetron HCl (Zofran Inj) 4 mg IVP Q6 PRN PRN Reason: Nausea/Vomiting Last Admin: 02/10/18 20:03 Dose: 4 mg Pantoprazole Sodium (Protonix Ec Tab) 40 mg PO DAILY [facility] Last Admin: 02/24/18 10:01 Dose: 40 mg Rosuvastatin Calcium (Crestor) 10 mg PO HS [facility] Last Admin: 02/23/18 21:52 Dose: 10 mg Tamsulosin HCl (Flomax) 0.4 mg PO DAILY [facility] Last Admin: 02/24/18 10:01 Dose: 0.4 mg Timolol Maleate (Timoptic 0.5% Ophth Soln) 0 drop OU DAILY [facility] Last Admin: 02/24/18 10:01 Dose: 1 drop Warfarin Sodium (Coumadin) 2 mg PO 1800 [facility] Stop: 02/24/18 18:01 - Labs Labs: 02/24/18 07:40 02/24/18 07:40 PT 21.5 SECONDS (9.7-12.2) H 02/24/18 07:40 INR 2.0 02/24/18 07:40 APTT 50 SECONDS (21-34) H 02/10/18 00:12 - Additional Findings Additional findings: - Constitutional Appears: Non-toxic, No Acute Distress - Head Exam Head Exam: ATRAUMATIC, NORMOCEPHALIC - Eye Exam Eye Exam: Normal appearance, PERRL - scleral icterus - ENT Exam ENT Exam: Mucous Membranes Moist - Neck Exam Neck Exam: Normal Inspection - Respiratory Exam Respiratory Exam: Clear to Ausculation Bilateral, NORMAL BREATHING PATTERN. absent: Respiratory Distress - Cardiovascular Exam Cardiovascular Exam: REGULAR RHYTHM, +S1, +S2. absent: Murmur - no JVD - GI/Abdominal Exam GI & Abdominal Exam: Soft, Normal Bowel Sounds. absent: Tenderness - Extremities Exam Extremities Exam: Pedal Edema Additional comments: bilateral LE wrapped with freshly changed gauze/coban - Neurological Exam Neurological Exam: Alert, Awake, Oriented x3 - Psychiatric Exam Psychiatric exam: Normal Affect, Normal Mood - Skin Skin Exam: Dry, Warm Assessment and Plan - Assessment and Plan (Free Text) Assessment: Acute on chronic CHF exacerbation Admit to tele -Input output, daily weight, Fluid restriction -BNP on admission 39930, (02/14) 5870 -Last Echo 07/2017 shows EF <35% -S/P AICD Cardiology consulted, Dr. Robles help appreciated - stable CHF, continue medical treatment -Lasix 40mg IV Daily -Metoprolol 25mg daily -Cozaar 25mg Hx of PE -September 2017 per - Coumadin dosing adjusted to keep therapeutic - ASA 81mg Afib -EKG in the ED show Afib with frequent Ventricular paced complexes -Patient denies history of Afib -Currently rate controlled on metoprolol -Coumadin dosing adjusted to keep therapeutic -ASA 81mg -Cardiology consulted -CHADS-VASc Score 5, Stroke risk was 7.2% per year -HAS-BLED Score 2, intermediate risk 1.88-3.2% risk of major bleeding LIZZETTE on CKD Cr 1.6, GFR 54 - Cr/GFR improving since admission Lower extremity swelling LE venous doppler negative for DVT Likely secondary Chronic CHF Arterial doppler (02/14/18): Normal ankle-brachial index on right. No triphasic waveforms throughout RLE. Elevated SPENCER less reliable on left. No triphasic waveforms throughout LLE. Lower extremity chronic ulcer wound care consulted Blood culture negative x 5 days Podiatry consulted Diabetes ACHS ISS Hypoglycemia protocol Levemir 25u HS Novolog 8u AC Hyperbilirubinemia T bili improved to 3.4 today Denies pain but hx of gallstones US Abd (02/15/18): Hepatomegaly, hepatic steatosis. Nodular contour suggest hepatocellular disease, perhaps cysts. Cholelithiasis - innumerable small gallstones identified. Gallbladder wall thickening in absence of sonographic Santos's sign. Abd ascites, low volume incompletely visualized. GGT WNL, Direct bilirubin elevated Dr. 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 Home PT, home O2 scripts provided. All management per Dr. Miranda
--- NOTE | 2018-02-24 11:42 | CP.PCM.PN ---
Subjective - Date & Time of Evaluation Date of Evaluation: 02/24/18 Time of Evaluation: 11:40 - Subjective Subjective: Podiatry Progress note- Dr. Carrillo 62 year old male seen and evaluated for left leg edema and superficial ulcerations. Patient is seen resting comfortably in bed in NAD, and AA0x3. Dressings remain clean dry and intact. Patient reports that he is tolerating the UNNA boot placed on last night by Dr. Carrillo. Denies of any calf pain or pain to the LE during visitation. No strikethrough. Patient denies of any N/V/F/ C or SOB today. Objective - Vital Signs/Intake and Output Vital Signs (last 24 hours): Temp Pulse Resp BP Pulse Ox 98.2 F 87 20 127/87 95 02/24/18 08:37 02/24/18 08:42 02/24/18 08:37 02/24/18 10:06 02/24/18 08:37 Intake and Output: 02/24/18 02/24/18 06:59 18:59 Intake Total 600 Balance 600 - Medications Medications: Current Medications Allopurinol (Zyloprim) 100 mg PO DAILY [facility] Last Admin: 02/24/18 10:01 Dose: 100 mg Amlodipine Besylate (Norvasc) 10 mg PO DAILY [facility] Last Admin: 02/24/18 10:01 Dose: 10 mg Aspirin (Ecotrin) 81 mg PO DAILY [facility] Last Admin: 02/23/18 10:55 Dose: 81 mg Brimonidine Tartrate (Alphagan 0.2% Opht) 0 ml OU DAILY [facility] Last Admin: 02/24/18 10:01 Dose: 1 drop Dextrose (Dextrose 50% Inj) 0 ml IVP .STAT PRN; Protocol PRN Reason: Hypoglycemia Protocol Dextrose (Glutose 15) 0 gm PO .ONCE PRN; Protocol PRN Reason: Hypoglycemia Protocol Furosemide (Lasix) 40 mg IVP DAILY [facility] Last Admin: 02/24/18 10:06 Dose: 40 mg Glucagon (Glucagen Diagnostic Kit) 0 mg IM .STAT PRN; Protocol PRN Reason: Hypoglycemia Protocol Insulin Aspart (Novolog) 8 unit SC AC [facility] Last Admin: 02/24/18 08:07 Dose: 8 unit Insulin Detemir (Levemir) 25 unit SC HS [facility] Last Admin: 02/23/18 21:56 Dose: Not Given Insulin Human Regular (Novolin R) 0 unit SC ACHS [facility] PRN Reason: Protocol Last Admin: 02/24/18 07:57 Dose: Not Given Lactulose (Enulose) 20 gm PO Q12 PRN PRN Reason: Constipation Last Admin: 02/10/18 23:02 Dose: 20 gm Latanoprost (Xalatan Opht) 0 ml OU HS [facility] Last Admin: 02/23/18 21:54 Dose: 2.5 ml Losartan Potassium (Cozaar) 25 mg PO DAILY [facility] Last Admin: 02/24/18 10:01 Dose: 25 mg Metoprolol Succinate (Toprol Xl) 25 mg PO DAILY [facility] Last Admin: 02/24/18 10:01 Dose: 25 mg Ondansetron HCl (Zofran Inj) 4 mg IVP Q6 PRN PRN Reason: Nausea/Vomiting Last Admin: 02/10/18 20:03 Dose: 4 mg Pantoprazole Sodium (Protonix Ec Tab) 40 mg PO DAILY [facility] Last Admin: 02/24/18 10:01 Dose: 40 mg Rosuvastatin Calcium (Crestor) 10 mg PO HS [facility] Last Admin: 02/23/18 21:52 Dose: 10 mg Tamsulosin HCl (Flomax) 0.4 mg PO DAILY [facility] Last Admin: 02/24/18 10:01 Dose: 0.4 mg Timolol Maleate (Timoptic 0.5% Ophth Soln) 0 drop OU DAILY [facility] Last Admin: 02/24/18 10:01 Dose: 1 drop Warfarin Sodium (Coumadin) 2 mg PO 1800 [facility] Stop: 02/24/18 18:01 - Labs Labs: 02/24/18 07:40 02/24/18 07:40 PT 21.5 SECONDS (9.7-12.2) H 02/24/18 07:40 INR 2.0 02/24/18 07:40 APTT 50 SECONDS (21-34) H 02/10/18 00:12 - Constitutional Appears: Well, Non-toxic, No Acute Distress - Extremities Exam Additional comments: Left lower extremity exam dressing remains c/d/i CFT < 3 sec to all digits no calf pain or tenderness - Neurological Exam Neurological Exam: Alert, Awake, Oriented x3 - Psychiatric Exam Psychiatric exam: Normal Affect, Normal Mood Assessment and Plan - Assessment and Plan (Free Text) Assessment: 62 yo male patient presenting with bilateral lower extremity edema and superficial ulceration to left leg Plan: Patient was seen, evaluated Plan discussed with attending Dr. Carrillo labs and vitals reviewed; afebrile, WBC 8.3 Bilateral UNNA boots remain intact to lower extremities, no strikethrough noted SPENCER R: 1.26, L-1.31 patient stable from podiatry standpoint and instructed to follow up with Dr. Carrillo as outpatient Podiatry will continue to follow inhouse
[2018-02-24 16:54] VITALS: BP 121/70; TEMP 98.5
[2018-02-24 17:31] VITALS: PULSE 93
--- NOTE | 2018-02-24 17:46 | CP.PCM.PN ---
Subjective - Date & Time of Evaluation Date of Evaluation: 02/24/18 Time of Evaluation: 17:46 Objective - Vital Signs/Intake and Output Vital Signs (last 24 hours): Temp Pulse Resp BP Pulse Ox 98.5 F 93 H 20 121/70 94 L 02/24/18 15:53 02/24/18 17:25 02/24/18 15:53 02/24/18 15:53 02/24/18 15:53 Intake and Output: 02/24/18 02/24/18 06:59 18:59 Intake Total 600 300 Balance 600 300 - Medications Medications: Current Medications Allopurinol (Zyloprim) 100 mg PO DAILY [facility] Last Admin: 02/24/18 10:01 Dose: 100 mg Amlodipine Besylate (Norvasc) 10 mg PO DAILY [facility] Last Admin: 02/24/18 10:01 Dose: 10 mg Aspirin (Ecotrin) 81 mg PO DAILY [facility] Last Admin: 02/23/18 10:55 Dose: 81 mg Brimonidine Tartrate (Alphagan 0.2% Opht) 0 ml OU DAILY [facility] Last Admin: 02/24/18 10:01 Dose: 1 drop Dextrose (Dextrose 50% Inj) 0 ml IVP .STAT PRN; Protocol PRN Reason: Hypoglycemia Protocol Dextrose (Glutose 15) 0 gm PO .ONCE PRN; Protocol PRN Reason: Hypoglycemia Protocol Furosemide (Lasix) 40 mg IVP DAILY [facility] Last Admin: 02/24/18 10:06 Dose: 40 mg Glucagon (Glucagen Diagnostic Kit) 0 mg IM .STAT PRN; Protocol PRN Reason: Hypoglycemia Protocol Insulin Aspart (Novolog) 8 unit SC AC [facility] Last Admin: 02/24/18 17:10 Dose: 8 unit Insulin Detemir (Levemir) 25 unit SC HS [facility] Last Admin: 02/23/18 21:56 Dose: Not Given Insulin Human Regular (Novolin R) 0 unit SC ACHS [facility] PRN Reason: Protocol Last Admin: 02/24/18 17:10 Dose: Not Given Lactulose (Enulose) 20 gm PO Q12 PRN PRN Reason: Constipation Last Admin: 02/10/18 23:02 Dose: 20 gm Latanoprost (Xalatan Opht) 0 ml OU HS [facility] Last Admin: 02/23/18 21:54 Dose: 2.5 ml Losartan Potassium (Cozaar) 25 mg PO DAILY [facility] Last Admin: 02/24/18 10:01 Dose: 25 mg Metoprolol Succinate (Toprol Xl) 25 mg PO DAILY [facility] Last Admin: 02/24/18 10:01 Dose: 25 mg Ondansetron HCl (Zofran Inj) 4 mg IVP Q6 PRN PRN Reason: Nausea/Vomiting Last Admin: 02/10/18 20:03 Dose: 4 mg Pantoprazole Sodium (Protonix Ec Tab) 40 mg PO DAILY [facility] Last Admin: 02/24/18 10:01 Dose: 40 mg Rosuvastatin Calcium (Crestor) 10 mg PO HS [facility] Last Admin: 02/23/18 21:52 Dose: 10 mg Tamsulosin HCl (Flomax) 0.4 mg PO DAILY [facility] Last Admin: 02/24/18 10:01 Dose: 0.4 mg Timolol Maleate (Timoptic 0.5% Oph Soln) 0 drop OU DAILY [facility] Last Admin: 02/24/18 10:01 Dose: 1 drop Warfarin Sodium (Coumadin) 2 mg PO 1800 [facility] Stop: 02/24/18 18:01 Last Admin: 02/24/18 17:35 Dose: 2 mg - Labs Labs: 02/24/18 07:40 02/24/18 07:40 PT 21.5 SECONDS (9.7-12.2) H 02/24/18 07:40 INR 2.0 02/24/18 07:40 APTT 50 SECONDS (21-34) H 02/10/18 00:12
--- NOTE | 2018-02-24 18:22 | CP.PCM.PN ---
Subjective - Date & Time of Evaluation Date of Evaluation: 02/24/18 Time of Evaluation: 09:00 - Subjective Subjective: clinically same Objective - Vital Signs/Intake and Output Vital Signs (last 24 hours): Temp Pulse Resp BP Pulse Ox 98.5 F 93 H 20 121/70 94 L 02/24/18 15:53 02/24/18 17:25 02/24/18 15:53 02/24/18 15:53 02/24/18 15:53 Intake and Output: 02/24/18 02/24/18 06:59 18:59 Intake Total 600 300 Balance 600 300 - Medications Medications: Current Medications Allopurinol (Zyloprim) 100 mg PO DAILY [facility] Last Admin: 02/24/18 10:01 Dose: 100 mg Amlodipine Besylate (Norvasc) 10 mg PO DAILY [facility] Last Admin: 02/24/18 10:01 Dose: 10 mg Aspirin (Ecotrin) 81 mg PO DAILY [facility] Last Admin: 02/23/18 10:55 Dose: 81 mg Brimonidine Tartrate (Alphagan 0.2% Opht) 0 ml OU DAILY [facility] Last Admin: 02/24/18 10:01 Dose: 1 drop Dextrose (Dextrose 50% Inj) 0 ml IVP .STAT PRN; Protocol PRN Reason: Hypoglycemia Protocol Dextrose (Glutose 15) 0 gm PO .ONCE PRN; Protocol PRN Reason: Hypoglycemia Protocol Furosemide (Lasix) 40 mg IVP DAILY [facility] Last Admin: 02/24/18 10:06 Dose: 40 mg Glucagon (Glucagen Diagnostic Kit) 0 mg IM .STAT PRN; Protocol PRN Reason: Hypoglycemia Protocol Insulin Aspart (Novolog) 8 unit SC AC [facility] Last Admin: 02/24/18 17:10 Dose: 8 unit Insulin Detemir (Levemir) 25 unit SC HS [facility] Last Admin: 02/23/18 21:56 Dose: Not Given Insulin Human Regular (Novolin R) 0 unit SC ACHS [facility] PRN Reason: Protocol Last Admin: 02/24/18 17:10 Dose: Not Given Lactulose (Enulose) 20 gm PO Q12 PRN PRN Reason: Constipation Last Admin: 02/10/18 23:02 Dose: 20 gm Latanoprost (Xalatan Opht) 0 ml OU HS [facility] Last Admin: 02/23/18 21:54 Dose: 2.5 ml Losartan Potassium (Cozaar) 25 mg PO DAILY [facility] Last Admin: 02/24/18 10:01 Dose: 25 mg Metoprolol Succinate (Toprol Xl) 25 mg PO DAILY [facility] Last Admin: 02/24/18 10:01 Dose: 25 mg Ondansetron HCl (Zofran Inj) 4 mg IVP Q6 PRN PRN Reason: Nausea/Vomiting Last Admin: 02/10/18 20:03 Dose: 4 mg Pantoprazole Sodium (Protonix Ec Tab) 40 mg PO DAILY [facility] Last Admin: 02/24/18 10:01 Dose: 40 mg Rosuvastatin Calcium (Crestor) 10 mg PO HS [facility] Last Admin: 02/23/18 21:52 Dose: 10 mg Tamsulosin HCl (Flomax) 0.4 mg PO DAILY [facility] Last Admin: 02/24/18 10:01 Dose: 0.4 mg Timolol Maleate (Timoptic 0.5% Ophth Soln) 0 drop OU DAILY [facility] Last Admin: 02/24/18 10:01 Dose: 1 drop - Labs Labs: 02/24/18 07:40 02/24/18 07:40 PT 21.5 SECONDS (9.7-12.2) H 02/24/18 07:40 INR 2.0 02/24/18 07:40 APTT 50 SECONDS (21-34) H 02/10/18 00:12 - Constitutional Appears: Well - Head Exam Head Exam: ATRAUMATIC, NORMAL INSPECTION, NORMOCEPHALIC - Eye Exam Eye Exam: EOMI, Normal appearance, PERRL Pupil Exam: NORMAL ACCOMODATION, PERRL - ENT Exam ENT Exam: Mucous Membranes Moist, Normal Exam - Neck Exam Neck Exam: Full ROM, Normal Inspection. absent: Lymphadenopathy - Respiratory Exam Respiratory Exam: Decreased Breath Sounds - Cardiovascular Exam Cardiovascular Exam: REGULAR RHYTHM, +S1, +S2 - GI/Abdominal Exam GI & Abdominal Exam: Soft, Diminished Bowel Sounds - Rectal Exam Rectal Exam: Deferred
[2018-02-24 20:18] VITALS: O2SAT 95
== END 2018-02-24 20:29 | disposition home or self-care (01) | DRG 291 ==
LOC: C.ER 13:50 → C.9E 17:29 → C.6T 18:17
PROVIDERS: ADMIT Internal Medicine Nephrology; ATTEND Internal Medicine Nephrology
DX: I13.0 Hypertensive heart and chronic kidney disease with heart failure and stage 1 through stage 4 chronic kidney disease, or unspecified chronic kidney disease (principal); I50.23 Acute on chronic systolic (congestive) heart failure; L03.90 Cellulitis, unspecified; N17.9 Acute kidney failure, unspecified; R18.8 Other ascites; E10.22 Type 1 diabetes mellitus with diabetic chronic kidney disease; I42.0 Dilated cardiomyopathy; E10.621 Type 1 diabetes mellitus with foot ulcer; I48.2 Chronic atrial fibrillation; E78.00 Pure hypercholesterolemia, unspecified; E66.01 Morbid (severe) obesity due to excess calories; E05.90 Thyrotoxicosis, unspecified without thyrotoxic crisis or storm; Z68.38 Body mass index [BMI] 38.0-38.9, adult; J44.9 Chronic obstructive pulmonary disease, unspecified; I25.10 Atherosclerotic heart disease of native coronary artery without angina pectoris; N18.9 Chronic kidney disease, unspecified; K80.20 Calculus of gallbladder without cholecystitis without obstruction; L97.509 Non-pressure chronic ulcer of other part of unspecified foot with unspecified severity; Z86.711 Personal history of pulmonary embolism; Z79.01 Long term (current) use of anticoagulants; N40.0 Benign prostatic hyperplasia without lower urinary tract symptoms; Z79.4 Long term (current) use of insulin

== ENCOUNTER 2018-12-07 07:57 | Outpatient (CLI) | payer MEDICARE, MEDICAID | END 2018-12-07 07:58 | disposition home or self-care (01) | LOC: C.PAT 07:57 | DX: N18.6 End stage renal disease (principal) ==

== ENCOUNTER 2018-12-26 06:00 | Day surgery (SDC) | payer MEDICARE, MEDICAID ==
[2018-12-07 08:21] VITALS: BMI 31.9
[2018-12-26] MEDS ORDERED: HEPARIN-NS 5,000 UNITS/500 ML 5,000 UNIT/500 ML BAG IV ONE (06:59)
[2018-12-26] MEDS ORDERED: ceFAZolin 1 gm in NS 2 GM/200 ML BAG IVPB ONE (06:59)
[2018-12-26 07:18] LABS: INR 1.4; PROTHROMBIN TIME 15.6 SECONDS (9.7-12.2)
[2018-12-26 07:41] LABS: CALCIUM 9.5 mg/dl (8.6-10.4)
[2018-12-26] MEDS ORDERED: Etomidate 20 mg/10ml Inj IV ONE (09:00)
[2018-12-26] MEDS ORDERED: Phenylephrine 10 mg/ml Inj ONE (09:00)
[2018-12-26] MEDS ORDERED: PAPAVERINE 30 MG/ML IV ONE (09:15)
[2018-12-26] MEDS ORDERED: ePHEDrine 50 mg/ml Inj ONE (09:20)
[2018-12-26] MEDS ORDERED: HYDROmorphone 0.5 mg/0.5 ml ISec IVP PRN ×2 (10:00→12:58)
[2018-12-26 11:50] VITALS: TEMP 97.6
[2018-12-26 11:53] VITALS: RESP 18
[2018-12-26 12:15] VITALS: BP 111/67; PULSE 80; O2SAT 97
--- NOTE | 2018-12-26 12:49 | PCM.SURG1 ---
Surgeon's Initial Post Op Note - Surgeon's Notes Surgeon: Dr. Cho Critical Care Physician: Dr. Allan Type of Anesthesia: General LMA Pre-Operative Diagnosis: ESRD Operative Findings: positive thrill, 2+ distal radial pulse s/p fistula creation Post-Operative Diagnosis: ESRD Operation Performed: right brachiocephalic AVF creation Specimen/Specimens Removed: none Estimated Blood Loss: EBL {In ML}: 20 Blood Products Given: N/A Drains Used: No Drains Post-Op Condition: Good Date of Surgery/Procedure: 12/26/18 Time of Surgery/Procedure: 12:49
--- NOTE | 2018-12-26 21:16 | OP ---
PROCEDURE DATE: 12/26/2018 PREOPERATIVE DIAGNOSIS: Renal failure. POSTOPERATIVE DIAGNOSIS: Renal failure. PROCEDURE CARRIED OUT: Brachiocephalic fistula of right elbow. SURGEON: Jose Cho Jr., MD ASSEMBLY DETAILER: Dr. Allan, resident. ANESTHESIA ADMINISTERED BY: Dr. Hobson. INDICATIONS: A 63-year-old man with renal insufficiency presently dialyzed by means of a catheter. Left side, he has a pacemaker defibrillator; right side, he has a dialysis catheter. Options are limited as far as intravenous access. The patient is left-handed. DESCRIPTION OF PROCEDURE: Immediate preoperative vein mapping was carried out in the operating room and showed that he had a fairly good cephalic vein as well as good basilic vein on the right side. With a goal of avoiding two operations, we carried out cephalic vein fistula even though this was slightly smaller than the basilic vein. The patient was given general anesthesia, intravenous antibiotics. The vein and artery were dissected free. A spatulated, end-to-side anastomosis was carried out using loop manipulation and heparin anticoagulation and loop control. After the completion of the anastomosis, hemostasis was obtained. Wounds were closed with 5-0 Nylon sutures. Blood loss for the procedure was 20 mL. OPERATION CARRIED OUT: Brachiocephalic fistula of right elbow. Jose Cho Jr., MD
== END 2018-12-26 12:20 | disposition home or self-care (01) ==
LOC: C.SDS 06:00
PROVIDERS: ATTEND Surgery Vascular Surgery
DX: N18.6 End stage renal disease (principal)
CPT/HCPCS: 36415; 36821; 80048; 85610; J0690; J1644; J2370; J2440; J3010

== ENCOUNTER 2019-01-30 08:33 | Outpatient (CLI) | payer MEDICARE, MEDICAID | END 2019-01-30 08:34 | disposition home or self-care (01) | LOC: C.VASC 08:33 ==